=== PATIENT | female | born 1945 | race Caucasian/White ===

== ENCOUNTER 2016-08-30 20:23 | Inpatient (IN) | payer OTHER ==
[~2016-08-30] VITALS: Ht 154.9 cm; Wt 98.9 kg
[~2016-08-30 20:23] MED LIST: ALBUAER2 INH; IBUP1TAB PO; MAGIC1 PO; lidocaine ointment TOP; nystatin powder TOP
[2016-08-30 20:24] VITALS: Ht 154.9 cm; Wt 98.9 kg
[2016-08-30] MEDS ORDERED: PRED10TA PO (20:57)
[2016-08-30 21:14] LABS: HEMATOCRIT 44.3 % (37-47); MEAN CELL VOLUME 89.5 fL (80-100); MEAN CORPUSCULAR HEMOGLOBIN 31.5 pg (25-34); MEAN CORPUSCULAR HGB CONC 35.2 g/dl (32-36); MEAN PLATELET VOLUME 11.5 fL (7.4-10.4); PLATELET COUNT 142 K/uL (130-400); RED BLOOD COUNT 4.95 M/uL (4.2-5.4); WHITE BLOOD COUNT 7.37 K/uL (4.8-10.8)
[2016-08-30 21:27] LABS: PARTIAL THROMBOPLASTIN RATIO 0.8; PROTHROMBIN TIME (PATIENT) 10.9 SECONDS (9.0-12.0)
[2016-08-30] MEDS ORDERED: OPTIRAY 320 IV PRN (21:30)
[2016-08-30 21:33] LABS: ALT/SGPT 40 U/L (12-78); BLOOD UREA NITROGEN 37 mg/dl (7-18); BUN/CREATININE RATIO 22.9 (10-20); CALCIUM 9.4 mg/dl (8.5-10.1); CARBON DIOXIDE 26 mmol/L (21-32); CHLORIDE 106 mmol/L (98-107); GLUCOSE 115 mg/dl (70-99); MAGNESIUM 2.2 mg/dl (1.8-2.4); POTASSIUM 4.4 mmol/L (3.5-5.1); SODIUM 140 mmol/L (136-145)
[2016-08-30 21:36] LABS: ALKALINE PHOSPHATASE 67 U/L (45-117); AST/SGOT 34 U/L (15-37); CKMB/CK RATIO 1.8 (0-3.0)
--- NOTE | 2016-08-30 21:44 | DIAGNOSTIC IMAGING REPORT ---
CHEST ONE VIEW PORTABLE CLINICAL HISTORY: Chest pain. Lung cancer. COMPARISON STUDY: Chest radiograph March 08, [address] June 04, 2016. FINDINGS: There is no pneumothorax or pleural effusion. There is no consolidation to suggest pneumonia. Cardiomediastinal silhouette is normal. There is no evidence of pulmonary edema. The right lower lobe lesion shown on prior treatment planning CT is not well visualized on this exam, possibly due to technique. IMPRESSION: 1. No acute findings. 2. Right lower lobe lesion shown on prior treatment planning CT is not well visualized on this exam, possibly due to technique. Electronically signed by: Thomas Polanco M.D. 08/30/2016 9:43 PM Dictated Date/Time: 08/30/2016 9:36 PM
[2016-08-30 21:47] LABS: BASO % 0.1 %; BASO ABS # 0.01 K/uL (0-0.2); COMPLETE YES; EOS % 0.4 %; IG% 0.3 %; LYMPH % 8.3 %; LYMPH ABS # 0.61 K/uL (1.2-3.4); MONO % 8.4 %; NEUT % 82.5 %
[2016-08-30] MEDS ORDERED: ONDANSETRON INJ 2 MG/ML 2 ML VIAL IV STA (22:29)
[2016-08-30] MEDS ORDERED: SODIUM CHLORIDE 0.9% 1000ML 1,000 ML IV STA (22:29)
[2016-08-30] MEDS ORDERED: SODIUM CHLORIDE 0.9% 500ML 500 ML IV STA (22:29)
--- NOTE | 2016-08-30 22:29 | DIAGNOSTIC IMAGING REPORT ---
CT OF THE ABDOMEN AND PELVIS WITHOUT CONTRAST CLINICAL HISTORY: Right-sided abdominal pain. Lung cancer. COMPARISON STUDY: PET/CT April 17, [address] of the abdomen and pelvis December 25, 2005. TECHNIQUE: Axial images of the abdomen and pelvis were obtained without IV contrast. Images were reviewed in the axial, sagittal, and coronal planes. FINDINGS: Visualized portions the lower chest demonstrate a new 1.3 cm suspected pleural implant within the right lower hemithorax shown on image 77 of 441. There has been interval development of multiple hypodense hepatic masses since PET/CT of April 17, 2016. A segment 5 lesion measures 4 cm. A segment 2 lesion measures 3.1 cm. Multiple hepatic cysts are also noted. There is no pneumatosis, free air or portal venous gas. An IVC filter is in place. A right ureteral stent is in place. Marked right renal atrophy is noted. Prominence of the midpole of the right kidney is again noted. This is similar to prior exam. There is moderate right ureteral dilatation. There is no evidence for a bowel obstruction. There has been interval development of a 2.3 cm lytic lesion within the right iliac bone shown on image 53 of 89 with suspected associated pathologic fracture. There may be a small lesion measuring 1.1 cm within the proximal shaft of the right femur. Postsurgical findings within the lumbar spine are noted. IMPRESSION: 1. Interval development of bilateral lobar hepatic masses since PET/CT of April 17, 2016 consistent with metastases. 2. Interval development of several skeletal lesions, including a 2.3 cm lytic lesion within the right iliac bone with suspected associated pathologic fracture. 3. No bowel obstruction. 4. Right ureteral stent in place. Moderate right ureteral dilatation. Right renal scarring, as before. Electronically signed by: Thomas Polanco M.D. 08/30/2016 10:28 PM Dictated Date/Time: 08/30/2016 10:14 PM
[2016-08-30] MEDS: MoRPHine SULFATE 4 MG/ML 1 ML CARP\\VIAL IV PRN (23:36)
[2016-08-31] MEDS: MoRPHine SULFATE 4 MG/ML 1 ML CARP\\VIAL IV PRN (00:17)
[2016-08-31] MEDS ORDERED: TRAMADOL HCL 50 MG TAB PO PRN (01:15)
[2016-08-31] MEDS ORDERED: ACETAMINOPHEN 325 MG TAB PO PRN (01:15)
[2016-08-31] MEDS ORDERED: PROMETHAZINE HCL INJ 12.5 MG in SODIUM CHLORIDE 0.9% 50ML 50 ML IV PRN (01:15)
[2016-08-31] MEDS ORDERED: ONDANSETRON INJ 2 MG/ML 2 ML VIAL IV PRN (01:15)
[2016-08-31] MEDS ORDERED: LORAZEPAM 2 MG/ML 1 ML VIAL IV PRN (01:15)
[2016-08-31] MEDS ORDERED: SODIUM CHLORIDE 0.9% 1000ML 1,000 ML IV ONE (01:15)
[2016-08-31] MEDS ORDERED: HYDROmorphone INJ 0.5 MG/0.5 ML SYR IV PRN (01:15)
--- NOTE | 2016-08-31 01:18 | EMERGENCY ROOM VISIT NOTE ---
History Report prepared by Roel: Jose Rosario Under the Supervision of: Dr. Leo Arriaga M.D. First contact with patient: 20:40 Chief Complaint: OTHER COMPLAINT Stated Complaint: SHARP PAIN UNDER BREAST DOWN TO LOWER THIGH History of Present Illness The patient is a 71 year old female who presents to the Emergency Room with complaints of worsening pain under her right breasts and in the epigastric region of her abdomen that began on , two days prior to arrival. She rates her current pain as an 8/10 in severity, but states that it is improved by laying down. The patient states that it is worsened by deep inspiration and movement/standing. She states that today she was having a difficult time walking as her pain worsened. She notes that she did have a upper respiratory cold 2.5 weeks ago and had a cough and difficulty breathing. She had a chest x- ray on and was told her lungs were clear. She was given a prescription of Prednisone. The patient notes that she just finished radiation on August 04 for right sided lung cancer. She also has a history of DVT, Factor XIII, Kidney failure, and stents placed in her kidney. She is not on any blood thinners at this time. She denies LOC, headache, fevers, chills, diaphoresis, visual changes , neck pain, breathing difficulties, nausea, vomiting, back pain, melena, hematochezia, urinary symptoms, numbness, weakness, lymphadenopathy, rash, or other complaints. 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 A total of ten systems were reviewed and were otherwise negative. Past Medical & Surgical Medical Problems: (1) Cancer associated pain (2) DVT (deep venous thrombosis) (3) Lung cancer (4) Presence of inferior vena cava filter (5) Retained ureteral stent Family History Hypertension Social History Smoking Status: Former Smoker Marital Status: Housing Status: lives with significant other Occupation Status: retired Current/Historical Medications Scheduled Aspirin (Aspirin Ec), 81 MG PO DAILY Fluticasone Furoate-Vilanterol (Breo Ellipta 200-25 Mcg/INH), 1 PUFFS INH DAILY Folic Acid (Folvite), 1 TAB PO DAILY Gabapentin (Neurontin), 2 CAP PO HS Gabapentin (Neurontin), 400 MG PO QAM Ibuprofen-Diphenhydramine Citr (Advil Pm), 1 TAB PO HS Mesalamine (Asacol Hd), 1 TAB PO TID Metoprolol Succinate (Toprol Xl), 50 MG PO QAM Prednisone (Prednisone), 10 MG PO TAPER UD Scheduled PRN Albuterol Hfa (Ventolin Hfa), 2 PUFFS INH Q6H PRN for Shortness of Breath Ipratropium-Albuterol (Duoneb), 1 TREATMENT INH BID PRN for Shortness of Breath Ondansetron Hcl (Zofran), 4 MG PO Q8 PRN for Nausea Tramadol (Ultram), 50 MG PO BID PRN for Pain [lidocaine ointment], 1 APPLN TOP DAILY PRN for UNDECIDED [nystatin powder], 1 APPLN TOP DAILY PRN for Affected Skin Folds Allergies Coded Allergies: NO KNOWN DRUG ALLERGIES (Verified Allergy, Unknown, ., 02/13/16) Physical Exam Vital Signs Date Time Temp Pulse Resp B/P Pulse Ox O2 Delivery O2 Flow Rate FiO2 08/31/16 00:14 80 13 152/81 93 Nasal Cannula 2.0 08/30/16 23:20 85 12 153/93 93 Nasal Cannula 2.0 08/30/16 22:01 82 17 158/87 92 Room Air 08/30/16 21:12 78 08/30/16 20:45 94 Room Air 08/30/16 20:24 36.5 90 19 141/84 95 Room Air Physical Exam GENERAL: Awake, alert, well-appearing, in no distress HENT: Normocephalic, atraumatic. Oropharynx unremarkable. EYES: Normal conjunctiva. Sclera non-icteric. NECK: Supple. No nuchal rigidity. FROM. No JVD. RESPIRATORY: Clear to auscultation. CARDIAC: Regular rate, normal rhythm. Extremities warm and well perfused. Pulses equal. ABDOMEN: Soft, non-distended. RUQ and RLQ tenderness to palpation. No rebound or guarding. No masses. Right lateral lower rib tenderness to palpation. RECTAL: Deferred. MUSCULOSKELETAL: Chest examination reveals no tenderness. The back is symmetrical on inspection without obvious abnormality. There is no CVA tenderness to palpation. No joint edema. LOWER EXTREMITIES: Calves are equal size bilaterally and non-tender. No edema. No discoloration. NEURO: Normal sensorium. No sensory or motor deficits noted. SKIN: No rash or jaundice noted. Medical Decision & Procedures ER Provider Diagnostic Interpretation: X ray results as stated below per my interpretation and radiologist interpretation. Other radiology results as stated below per my review and radiologist interpretation CT OF THE ABDOMEN AND PELVIS WITHOUT CONTRAST CLINICAL HISTORY: Right-sided abdominal pain. Lung cancer. COMPARISON STUDY: PET/CT April 17, [address] of the abdomen and pelvis December 25, 2005. TECHNIQUE: Axial images of the abdomen and pelvis were obtained without IV contrast. Images were reviewed in the axial, sagittal, and coronal planes. FINDINGS: Visualized portions the lower chest demonstrate a new 1.3 cm suspected pleural implant within the right lower hemithorax shown on image 77 of 441. There has been interval development of multiple hypodense hepatic masses since PET/CT of April 17, 2016. A segment 5 lesion measures 4 cm. A segment 2 lesion measures 3.1 cm. Multiple hepatic cysts are also noted. There is no pneumatosis, free air or portal venous gas. An IVC filter is in place. A right ureteral stent is in place. Marked right renal atrophy is noted. Prominence of the midpole of the right kidney is again noted. This is similar to prior exam. There is moderate right ureteral dilatation. There is no evidence for a bowel obstruction. There has been interval development of a 2.3 cm lytic lesion within the right iliac bone shown on image 53 of 89 with suspected associated pathologic fracture. There may be a small lesion measuring 1.1 cm within the proximal shaft of the right femur. Postsurgical findings within the lumbar spine are noted. IMPRESSION: 1. Interval development of bilateral lobar hepatic masses since PET/CT of April 17, 2016 consistent with metastases. 2. Interval development of several skeletal lesions, including a 2.3 cm lytic lesion within the right iliac bone with suspected associated pathologic fracture. 3. No bowel obstruction. 4. Right ureteral stent in place. Moderate right ureteral dilatation. Right renal scarring, as before. Electronically signed by: Thomas Polanco M.D. 08/30/2016 10:28 PM Dictated Date/Time: 08/30/2016 10:14 PM CHEST ONE VIEW PORTABLE CLINICAL HISTORY: Chest pain. Lung cancer. COMPARISON STUDY: Chest radiograph March 08, [address] June 04, 2016. FINDINGS: There is no pneumothorax or pleural effusion. There is no consolidation to suggest pneumonia. Cardiomediastinal silhouette is normal. There is no evidence of pulmonary edema. The right lower lobe lesion shown on prior treatment planning CT is not well visualized on this exam, possibly due to technique. IMPRESSION: 1. No acute findings. 2. Right lower lobe lesion shown on prior treatment planning CT is not well visualized on this exam, possibly due to technique. Electronically signed by: Thomas Polanco M.D. 08/30/2016 9:43 PM Dictated Date/Time: 08/30/2016 9:36 PM US VENOUS BILATERAL LOWER EXTREMITIES: Right Lower Extremity: No evidence of DVT in the right thigh or popliteal veins. Limited visualization of the calf veins. Left Lower Extremity: Linear echogenic focus in the mid left femoral vein, question chronic thrombus versus valve. Mid left femoral vein is compressible. Patient unable to tolerate compression of the distal left femoral vein. [place]- flow is present. Limited Visualization of the left calf veins. Radiologist: Kristian Arteaga MD Study Ready at 9510 Laboratory Results 08/30/16 21:00 Red Blood Count 4.95, Mean Corpuscular Volume 89.5, Mean Corpuscular Hemoglobin 31.5, Mean Corpuscular Hemoglobin Concent 35.2, Mean Platelet Volume 11.5, Neutrophils (%) (Auto) 82.5, Lymphocytes (%) (Auto) 8.3, Monocytes (%) (Auto) 8.4, Eosinophils (%) (Auto) 0.4, Basophils (%) (Auto) 0.1, Neutrophils # (Auto) 6.08, Lymphocytes # (Auto) 0.61, Monocytes # (Auto) 0.62, Eosinophils # (Auto) 0.03, Basophils # (Auto) 0.01 08/30/16 21:00 Test 08/30/16 21:00 White Blood Count 7.37 K/uL (4.8-10.8) Red Blood Count 4.95 M/uL (4.2-5.4) Hemoglobin 15.6 g/dL (12.0-16.0) Hematocrit 44.3 % (37-47) Mean Corpuscular Volume 89.5 fL (80-100) Mean Corpuscular Hemoglobin 31.5 pg (25-34) Mean Corpuscular Hemoglobin Concent 35.2 g/dl (32-36) Platelet Count 142 K/uL (130-400) Mean Platelet Volume 11.5 fL (7.4-10.4) Neutrophils (%) (Auto) 82.5 % Lymphocytes (%) (Auto) 8.3 % Monocytes (%) (Auto) 8.4 % Eosinophils (%) (Auto) 0.4 % Basophils (%) (Auto) 0.1 % Neutrophils # (Auto) 6.08 K/uL (1.4-6.5) Lymphocytes # (Auto) 0.61 K/uL (1.2-3.4) Monocytes # (Auto) 0.62 K/uL (0.11-0.59) Eosinophils # (Auto) 0.03 K/uL (0-0.5) Basophils # (Auto) 0.01 K/uL (0-0.2) RDW Standard Deviation 48.7 fL (36.4-46.3) RDW Coefficient of Variation 15.0 % (11.5-14.5) Immature Granulocyte % (Auto) 0.3 % Immature Granulocyte # (Auto) 0.02 K/uL (0.00-0.02) Prothrombin Time 10.9 SECONDS (9.0-12.0) Prothromb Time International Ratio 1.0 (0.9-1.1) Activated Partial Thromboplast Time 21.5 SECONDS (21.0-31.0) Partial Thromboplastin Ratio 0.8 Anion Gap 8.0 mmol/L (3-11) Estimated GFR () 36.7 Estimated GFR (Non- 31.6 BUN/Creatinine Ratio 22.9 (10-20) Calcium Level 9.4 mg/dl (8.5-10.1) Magnesium Level 2.2 mg/dl (1.8-2.4) Total Bilirubin 0.4 mg/dl (0.2-1) Direct Bilirubin 0.1 mg/dl (0-0.2) Aspartate Amino Transf (AST/SGOT) 34 U/L (15-37) Alanine Aminotransferase (ALT/SGPT) 40 U/L (12-78) Alkaline Phosphatase 67 U/L (45-117) Total Creatine Kinase 83 U/L (26-192) Creatine Kinase MB 1.5 ng/ml (0.5-3.6) Creatine Kinase MB Ratio 1.8 (0-3.0) Troponin I < 0.015 ng/ml (0-0.045) Pro-B-Type Natriuretic Peptide 656 pg/ml (0-900) Total Protein 7.9 gm/dl (6.4-8.2) Albumin 4.1 gm/dl (3.4-5.0) Lipase 323 U/L (73-393) Laboratory results reviewed by me Medications Administered Medications (Trade) Dose Ordered Sig/Nany Route Start Time Stop Time Status Last Admin Dose Admin Sodium Chloride 1,000 ml @ 125 mls/hr Q8H STAT IV 08/30/16 22:29 08/31/16 06:28 08/31/16 00:17 125 MLS/HR Sodium Chloride (Nss 500ml) 500 ml @ 999 mls/hr Q31M STAT IV 08/30/16 22:29 08/30/16 22:59 DC 08/30/16 23:35 999 MLS/HR Ondansetron HCl (Zofran Inj) 4 mg NOW STAT IV 08/30/16 22:29 08/30/16 22:30 DC 08/30/16 23:35 4 MG Morphine Sulfate (MoRPHine SULFATE INJ) 4 mg Q15M PRN IV 08/30/16 22:30 09/13/16 22:29 08/31/16 00:17 4 MG ECG Indication: abdominal pain, chest pain Rate (beats per minute): 76 Rhythm: normal sinus Findings: Q waves (Septal), no acute ischemic change, no ectopy ED Course 2058: The patient was evaluated in room B10. A complete history and physical exam was performed. 9: Ordered Zofran 4 mg IV, Sodium Chloride 500 mL @ 999 mL/hr IV, Sodium Chloride 1000 mL @ 125 mL hr IV. 0: I discussed the case with Dr. Polanco at this time. Her kidney enzymes are elevated. We will hold the PE study, but will continue with the abdomen scan and US legs. 2230: Ordered Morphine Sulfate 4 mg IV. 2334: I reevaluated the patient at this time, she is still having pain along her right side. 2342: I placed a page for Dr. Everardo Herrera at this time 2349: I discussed the case with Dr. Everardo Herrera at this time , he will evaluate the patient for further treatment. Medical Decision Triage Nursing notes reviewed. The patient's presentation and history were concerning for right-sided chest and flank pain with a history of cancer. Etiologies such as metastatic disease, cardiac ischemia, aortic dissection, pulmonary embolism, pneumonia, pneumothorax, musculoskeletal, infections, gastrointestinal, as well as others were entertained. The patient was evaluated. Initially she declined analgesia. No ischemic findings were noted. Her CBC was unremarkable. Chemistry panel reveals a mild dehydration with elevated creatinine 1.6. LFTs were unremarkable. BNP was negative. Lipase was negative. Given her history of DVT the patient was sent for imaging. She had no acute findings on ultrasound. She was unable to have a CT with dye for PE study. Chest x-ray did not show anything remarkable. Her abdomen and pelvis CT did reveal a pathologic fracture in the right iliac area and she has multiple metastatic liver lesions. The patient did require IV pain medication. The patient further evaluation and management will be necessary. Consultation was made with internal medicine. The patient was evaluated in the Emergency Room for further treatment. The chart was completed utilizing [employer] Speech voice recognition software. Grammatical errors, random word insertions, pronoun errors, and incomplete sentences are an occasional consequence of this system due to software limitations, ambient noise, and hardware issues. Any formal questions or concerns about the content, text, or information contained within the body of this dictation should be directly addressed to the physician for clarification. Consults Time Called: [phone] Consulting Physician: Dr. Everardo Herrera Returned Call: [phone] I discussed the case with Dr. Everardo Herrera at this time, he will evaluate the patient for further treatment. Impression Primary Impression: Right sided abdominal pain Additional Impressions: Hepatic metastasis Pathologic fracture of iliac bone Scribe Attestation The scribe's documentation has been prepared under my direction and personally reviewed by me in its entirety. I confirm that the note above accurately reflects all work, treatment, procedures, and medical decision making performed by me. Departure Information Dispostion Being Evaluated By Hospitalist Referrals Jess Abarca MD (PCP) Patient Instructions My [facility] Problem Qualifiers
[2016-08-31] MEDS ORDERED: LORAZEPAM INJ 0.5 MG in SYRINGE 0.75 ML IV PRN (03:00)
--- NOTE | 2016-08-31 04:09 | HISTORY & PHYSICAL EXAMINATION ---
DATE OF ADMISSION: 08/31/2016 PRIMARY CARE DOCTOR: Dr. Abarca CHIEF COMPLAINT: Right-sided abdominal pain and right back pain. HISTORY OF PRESENT ILLNESS: Medical history is significant for small-cell lung cancer status post radiation , chronic respiratory failure secondary to COPD on home O2, past tobacco abuse, HTN, Hx recurrent PE sp IVC filter placement off anticoagulation because of bleeding risk, RA as per records, history of Crohn's disease as per, hx ureteral stricture/R hydronephrosis sp stent placement. Recent confinement at [facility] in March 2013 for right knee surgery. 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 Patient refused chemotherapy. Px completed radiotherapy last month. In the last few days, patient noted worsening achy right upper quadrant pain and right back pain worse with ambulation. No fever, no chills, no unusual shortness of breath. Intractable pain at the Emergency Room. MEDICAL HISTORY: As above. Recent bronchitis sx improved w/ outpx Zpack, steroid taper. Periodic stent replacement at [facility] for right ureter stricture with hydronephrosis. Patient is scheduled for stent replacement this upcoming September [address] Frank[place] Val[place] [facility] SURGERIES: She has had knee surgery, urologic procedures, hysterectomy, back surgery and hernia repair. HOME MEDICATIONS: Include; albuterol, ipratropium Zofran, tramadol, ibuprofen, aspirin, fluticasone, folic acid, gabapentin, mesalamine, metoprolol and prednisone. FAMILY HISTORY: Breast cancer. PERSONAL AND SOCIAL HISTORY: Past tobacco abuse. No chronic intake of alcoholic beverages. Retired [employer]. REVIEW OF SYSTEMS: As per HPI, all other ROS negative. PHYSICAL EXAMINATION: VITAL SIGNS: Blood pressure was noted to be 150/80, pulse rate 85, RR 12, temperature 36.5 and sats 95 on room air. GENERAL: Noted to be slightly uncomfortable, in no respiratory distress. SKIN: Normal color. HEENT: [place] palpebral conjunctivae. Dry mucosa. nasal cannula NECK: Short neck. LUNGS: Decreased breath sounds. HEART: Regular rate and rhythm. ABDOMEN: Tenderness in the right upper quadrant BACK : tenderness on the right flank. EXTREMITIES: Bilateral lower extremity edema, no tenderness . NEUROLOGIC: No gross focality. LABORATORIES: Hemoglobin was noted to be 15.6, hematocrit 44 white cell count 10 platelets 142. Sodium noted to be 140, potassium 4.4, chloride 106, CO2 26, BUN 37, creatinine 1.6, glucose 115. LFTs, Lipase normal. CT abdomen and pelvis; initial read showed interval development by hepatic tumors consistent with metastases, interval development, severe skeletal lesions, right iliac bone with suspected pathologic fracture. No bowel obstruction. Right ureter stent in place with right hydronephrosis, right renal scarring as above. ASSESSMENT: 1. RUQ/R flank pain secondary to hepatic and bony metastatic disease progression of small cell lung cancer status post radiotherapy. Patient refused chemotherapy. 2. Hypertension, slightly elevated 3. History of recurrent pulmonary embolism sp IVC filter placement. off anticoagulation because of bleeding risk 4. Acute renal failure 5. history of ureteral stricture sp status post periodic stent placement. px scheduled for routine stent placement by [facility] [place] next week 6. chronic respiratory failure secondary to COPD recent bronchitis episode improved w/ outpx Zpack/ongoing steroid taper 7. RA as per records 8. IBD, stable dse 9. past tobacco abuse. PLAN: Observation [facility] analgesia Radiation Oncology consult RE progression of SCLC metastatic disease (Px known to Dr. Gonzalez.) Baseline urinalysis. monitor creatinine response to IV fluids. DVT prophylaxis, Heparin subQ Full code MTDD
[2016-08-31] MEDS ORDERED: IV FLUIDS COMPLETED PRN (04:30)
[2016-08-31 05:52] LABS: BASO % 0.5 %; BASO ABS # 0.03 K/uL (0-0.2); COMPLETE YES; EOS % 1.5 %; HEMATOCRIT 40.8 % (37-47); IG% 0.2 %; LYMPH % 14.8 %; LYMPH ABS # 0.87 K/uL (1.2-3.4); MEAN CELL VOLUME 90.7 fL (80-100); MEAN CORPUSCULAR HEMOGLOBIN 30.7 pg (25-34); MEAN CORPUSCULAR HGB CONC 33.8 g/dl (32-36); MEAN PLATELET VOLUME 11.5 fL (7.4-10.4); MONO % 12.2 %; NEUT % 70.8 %; PLATELET COUNT 115 K/uL (130-400); WHITE BLOOD COUNT 5.89 K/uL (4.8-10.8)
[2016-08-31] MEDS: HEPARIN SOD 5000 UNIT/0.5 ML CARP SQ SCH ×3 (06:11→19:58)
[2016-08-31 06:20] LABS: BLOOD UREA NITROGEN 34 mg/dl (7-18); BUN/CREATININE RATIO 26.4 (10-20); CALCIUM 8.5 mg/dl (8.5-10.1); CARBON DIOXIDE 28 mmol/L (21-32); CHLORIDE 109 mmol/L (98-107); GLUCOSE 89 mg/dl (70-99); SODIUM 142 mmol/L (136-145)
--- NOTE | 2016-08-31 06:25 | DIAGNOSTIC IMAGING REPORT ---
ULTRASOUND VENOUS DOPPLER LWR EXT BILA CLINICAL HISTORY: Leg pain COMPARISON STUDY: No previous studies for comparison. FINDINGS: Study was limited from a technical standpoint. On the right, no intraluminal thrombus was visualized in the common femoral veins through the popliteal veins. There is limited visualization of the calf veins. The peroneal veins were not visualized. No definite calf thrombus was however visualized. On the left, no thrombus was visualized within the common femoral vein. The patient was unable to tolerate compression within the distal superficial femoral vein. There is a linear fibrin stranding within the superficial femoral vein. No acute thrombus was visualized. Evaluation the left calf veins was limited but no thrombus was identified. IMPRESSION: 1. Technically limited study 2. No evidence of acute lower extremity DVT 3. Minor chronic changes within the left superficial femoral vein. Electronically signed by: Hieu Hernandez M.D. 08/31/2016 6:24 AM Dictated Date/Time: 08/31/2016 6:22 AM
[2016-08-31 07:22] VITALS: BP 130/73; PULSE 81; TEMP 36.3; O2SAT 98
[2016-08-31] MEDS: METOPROLOL SUCC 50MG EXT REL TAB PO SCH (07:55)
[2016-08-31] MEDS: ASPIRIN 81 MG ECTAB PO SCH (07:55)
[2016-08-31] MEDS: GABAPENTIN 100 MG CAP PO SCH (07:56)
[2016-08-31] MEDS: OXYCODONE/ACETAMINOPHEN 5-325 TAB PO PRN ×2 (08:00→19:52)
[2016-08-31 11:25] VITALS: BP 101/70; PULSE 81; TEMP 36.3; O2SAT 94
[2016-08-31 13:31] LABS: URINE APPEARANCE TURBID (CLEAR); URINE BILIRUBIN NEG (NEG); URINE COLOR YELLOW; URINE EPITHELIAL CELL AUTO >30 /lpf (0-5); URINE NITRITE POS (NEG); URINE SPECIFIC GRAVITY 1.024 (1.000-1.030); UROBILINOGEN NEG (NEG); ZZUR CULT IF INDIC CLEAN CATCH YES
[2016-08-31 13:37] LABS: MANUAL MICROSCOPIC REQUIRED? NO; REVIEW REQ? YES
[2016-08-31 14:47] VITALS: BP 109/72; PULSE 81; TEMP 36.4; O2SAT 92
[2016-08-31] MEDS: AMPICILLIN/SULBACTAM SOD INJ 3,000 MG in SODIUM CHLORIDE 0.9% 100ML 100 ML IV SCH ×2 (15:11→19:52)
--- NOTE | 2016-08-31 15:17 | Progress Note ---
Medicine Progress Note Date & Time of Visit: Aug 31, 2016 at 14:17. Subjective Pt was seen and examined Lying in bed with no distress with family at bedside Pt said that she is still having pain in the RUQ abdomen She said that the pain med helps she also has some back pain, pain worst with coughing she is on prednisone taper for her bronchitis she said that she has an appointment with her urology on this Tues to change the stent she denies any chest pain, fever, palpitation, dizziness and SOB Objective Last 8 Hrs Date Time Temp Pulse Resp B/P Pulse Ox O2 Delivery O2 Flow Rate FiO2 08/31/16 11:25 36.3 81 18 101/70 94 Room Air 08/31/16 08:00 Nasal Cannula 2.0 08/31/16 07:22 36.3 81 18 130/73 98 Nasal Cannula 2.0 Physical Exam: General- No acute distress Head- atraumatic Eyes- PERRL, EOMI, anicteric ENT- oropharynx clear Neck- supple, no JVD Lungs- clear to auscultation, no wheezing Heart- regular rhythm Abdomen- normal bowel sounds, soft, +RUQ tender Extremities- no calf tenderness Neuro- alert, oriented x 3; PERRL, EOMI; no facial palsy Skin- warm & dry Laboratory Results: Last 24 Hours Test 08/30/16 21:00 08/31/16 05:06 08/31/16 13:05 White Blood Count 7.37 K/uL 5.89 K/uL Red Blood Count 4.95 M/uL 4.50 M/uL Hemoglobin 15.6 g/dL 13.8 g/dL Hematocrit 44.3 % 40.8 % Mean Corpuscular Volume 89.5 fL 90.7 fL Mean Corpuscular Hemoglobin 31.5 pg 30.7 pg Mean Corpuscular Hemoglobin Concent 35.2 g/dl 33.8 g/dl Platelet Count 142 K/uL 115 K/uL Mean Platelet Volume 11.5 fL 11.5 fL Neutrophils (%) (Auto) 82.5 % 70.8 % Lymphocytes (%) (Auto) 8.3 % 14.8 % Monocytes (%) (Auto) 8.4 % 12.2 % Eosinophils (%) (Auto) 0.4 % 1.5 % Basophils (%) (Auto) 0.1 % 0.5 % Neutrophils # (Auto) 6.08 K/uL 4.17 K/uL Lymphocytes # (Auto) 0.61 K/uL 0.87 K/uL Monocytes # (Auto) 0.62 K/uL 0.72 K/uL Eosinophils # (Auto) 0.03 K/uL 0.09 K/uL Basophils # (Auto) 0.01 K/uL 0.03 K/uL RDW Standard Deviation 48.7 fL 50.1 fL RDW Coefficient of Variation 15.0 % 15.1 % Immature Granulocyte % (Auto) 0.3 % 0.2 % Immature Granulocyte # (Auto) 0.02 K/uL 0.01 K/uL Prothrombin Time 10.9 SECONDS Prothromb Time International Ratio 1.0 Activated Partial Thromboplast Time 21.5 SECONDS Partial Thromboplastin Ratio 0.8 Sodium Level 140 mmol/L 142 mmol/L Potassium Level 4.4 mmol/L 4.0 mmol/L Chloride Level 106 mmol/L 109 mmol/L Carbon Dioxide Level 26 mmol/L 28 mmol/L Anion Gap 8.0 mmol/L 5.0 mmol/L Blood Urea Nitrogen 37 mg/dl 34 mg/dl Creatinine 1.60 mg/dl 1.30 mg/dl Estimated GFR () 36.7 47.1 Estimated GFR (Non- 31.6 40.7 BUN/Creatinine Ratio 22.9 26.4 Random Glucose 115 mg/dl 89 mg/dl Calcium Level 9.4 mg/dl 8.5 mg/dl Magnesium Level 2.2 mg/dl Total Bilirubin 0.4 mg/dl Direct Bilirubin 0.1 mg/dl Aspartate Amino Transf (AST/SGOT) 34 U/L Alanine Aminotransferase (ALT/SGPT) 40 U/L Alkaline Phosphatase 67 U/L Total Creatine Kinase 83 U/L Creatine Kinase MB 1.5 ng/ml Creatine Kinase MB Ratio 1.8 Troponin I < 0.015 ng/ml Pro-B-Type Natriuretic Peptide 656 pg/ml Total Protein 7.9 gm/dl Albumin 4.1 gm/dl Lipase 323 U/L Urine Color YELLOW Urine Appearance TURBID Urine pH 6.0 Urine Specific [place] 1.024 Urine Protein 2+ Urine Glucose (UA) NEG Urine Ketones NEG Urine Occult Blood 3+ Urine Nitrite POS Urine Bilirubin NEG Urine Urobilinogen NEG Urine Leukocyte Esterase LARGE Urine WBC (Auto) >30 /hpf Urine RBC (Auto) >30 /hpf Urine Hyaline Casts (Auto) /lpf Urine Epithelial Cells (Auto) >30 /lpf Urine Bacteria (Auto) 2+ Urine Pathogenic Casts /lpf Date/Time Source Procedure Growth Status 08/31/16 13:05 Urine , Clean Catch Urine Culture Pending Received Assessment & Plan RUQ/ Back pain Possible secondary to hepatic and bony metastatic disease due to small cell lung cancer status post radiotherapy. Refused chemotherapy in the past CT abd/pelvis showed interval development of bilateral lobar hepatic masses since PET/CT of April 17, 2016 consistent with metastases. Interval development of several skeletal lesions, including a 2.3 cm lytic lesion within the right iliac bone with suspected associated pathologic fracture. Radiation oncology consulted Consider to repeat PET scan Continue pain management UTI UA is positive for nitrite and leukocytes Afebrile, no WBC, urine appears very dirty hx of recurrent UTI that usually resistant to PO abx Last urine cx back on 07/09/16 was sensitive to ampicillin and PCN CT abdomen showed right ureteral stent in place. Moderate right ureteral dilatation. will start on unasyn waiting for urine cx Hypertension continue monitor BP stable History of recurrent PE S/P IVC filter placement. Not on anticoagulant because of bleeding risks Venous Doppler of LE negative for DVT Acute renal failure Possible related to dehydration Received IV fluid Creatine improved to 1.3 Continue monitor BMP Hx of Ureteral Stricture S/P periodic stent placement. Schedule for appointment this Thursday with urology at [facility] for stent replacement Will call urologist tomorrow to cancel appt since the UTI will need to treat before the stent can replace Bronchitis Started on prednisone as an outpatient will continue steroid taper dose saturates well on RA Rheumatoid Arthritis stable DVT Px on heparin subq CODE STATUS FULL CODE Current Inpatient Medications: Current Inpatient Medications Medications (Trade) Dose Ordered Sig/Nany Route Start Time Stop Time Status Last Admin Dose Admin Ioversol (Optiray 320) 100 ml UD PRN IV 08/30/16 21:30 09/03/16 21:29 Acetaminophen (Tylenol Tab) 650 mg Q4H PRN PO 08/31/16 01:15 09/30/16 01:14 Ondansetron HCl (Zofran Inj) 4 mg Q6H PRN IV 08/31/16 01:15 09/30/16 01:14 Lorazepam (Ativan Inj) 0.5 mg Q4H PRN IV 08/31/16 01:15 09/30/16 01:14 Hydromorphone HCl (Dilaudid Inj) 0.5 mg Q3H PRN IV 08/31/16 01:15 09/14/16 01:14 08/31/16 04:57 0.5 MG Tramadol HCl not relieved ... Q6H PRN PO 08/31/16 01:15 09/30/16 01:14 Promethazine HCl/ Sodium Chloride (Phenergan Inj/ Nss 50ml) 50.5 ml @ 204 mls/hr Q6H PRN IV 08/31/16 01:15 09/30/16 01:14 Aspirin (Ecotrin Tab) 81 mg DAILY PO 08/31/16 08:00 09/30/16 08:59 08/31/16 07:55 81 MG Folic Acid (Folvite Tab) 1 mg DAILY PO 08/31/16 08:00 09/30/16 08:59 08/31/16 07:55 1 MG Gabapentin (Neurontin Cap) 400 mg HS PO 08/31/16 21:00 09/30/16 20:59 Gabapentin (Neurontin Cap) 200 mg QAM PO 08/31/16 08:00 09/30/16 08:59 08/31/16 07:56 200 MG Metoprolol Succinate (Toprol Xl Tab) 50 mg QAM PO 08/31/16 08:00 09/30/16 08:59 08/31/16 07:55 50 MG Miscellaneous Information (Order Awaiting Action) 1 ea QS N/A 08/31/16 08:00 09/30/16 07:59 Miscellaneous Information (Order Awaiting Action) 1 ea QS N/A 08/31/16 08:00 09/30/16 07:59 Oxycodone/ Acetaminophen (Percocet 5-325mg Tab) pain not relieved by ult... Q4H PRN PO 08/31/16 01:15 09/14/16 01:14 08/31/16 08:00 2 TAB Heparin Sodium (Porcine) 5000 unit 5,000 unit Q8H SQ 08/31/16 06:00 09/30/16 05:59 08/31/16 06:11 5,000 UNIT Lorazepam/Syringe (Ativan Inj/ Syringe) 1 ml @ 1 mls/min Q4H PRN IV 08/31/16 03:00 09/30/16 02:59 Miscellaneous (Iv Fluids Completed) 1 ea PRN PRN N/A 08/31/16 04:30 08/31/17 04:29 Prednisone (PredniSONE TAB) 20 mg Taper DAILY PO 09/01/16 08:00 09/06/16 07:59
[2016-08-31 16:00] VITALS: O2SAT 92
[2016-08-31 19:21] VITALS: BP 123/77; PULSE 89; TEMP 36.5; O2SAT 91
[2016-08-31] MEDS: GABAPENTIN 400 MG CAP PO SCH (19:51)
[2016-08-31 23:04] VITALS: BP 115/75; PULSE 69; TEMP 36.5; O2SAT 97
[2016-08-31] MEDS ORDERED: NURSING VERBAL MED ORDER ONE (23:30)
[2016-09-01] VITALS (7 sets, daily range): BP systolic 104–134; BP diastolic 70–88; PULSE 63–84; TEMP 36.3–36.8; O2SAT 91–100
[2016-09-01] MEDS: AMPICILLIN/SULBACTAM SOD INJ 3,000 MG in SODIUM CHLORIDE 0.9% 100ML 100 ML IV SCH ×4 (04:17→21:59)
[2016-09-01] MEDS: HEPARIN SOD 5000 UNIT/0.5 ML CARP SQ SCH ×3 (06:03→22:01)
[2016-09-01 06:28] LABS: HEMATOCRIT 37.2 % (37-47); MEAN CELL VOLUME 88.8 fL (80-100); MEAN CORPUSCULAR HEMOGLOBIN 29.8 pg (25-34); MEAN CORPUSCULAR HGB CONC 33.6 g/dl (32-36); MEAN PLATELET VOLUME 11.4 fL (7.4-10.4); PLATELET COUNT 102 K/uL (130-400); RED BLOOD COUNT 4.19 M/uL (4.2-5.4); WHITE BLOOD COUNT 3.51 K/uL (4.8-10.8)
[2016-09-01 07:10] LABS: BUN/CREATININE RATIO 25.6 (10-20); CALCIUM 8.1 mg/dl (8.5-10.1); POTASSIUM 4.1 mmol/L (3.5-5.1)
[2016-09-01] MEDS: OXYCODONE/ACETAMINOPHEN 5-325 TAB PO PRN ×2 (08:15→14:19)
[2016-09-01] MEDS: GABAPENTIN 100 MG CAP PO SCH (08:16)
[2016-09-01] MEDS: METOPROLOL SUCC 50MG EXT REL TAB PO SCH (10:39)
[2016-09-01] MEDS: ASPIRIN 81 MG ECTAB PO SCH (10:39)
--- NOTE | 2016-09-01 14:01 | Progress Note ---
Medicine Progress Note Date & Time of Visit: Sep 01, 2016 at 13:49. Subjective Pt was seen and examined Sitting in bed with daughter at bedside Pt said that her RUQ tenderness improved she said the pain med helps denies any chest pain, palpitation, dizziness and sob Objective Last 8 Hrs Date Time Temp Pulse Resp B/P Pulse Ox O2 Delivery O2 Flow Rate FiO2 09/01/16 11:28 36.3 75 18 111/71 92 09/01/16 08:30 100 Nasal Cannula 2.0 09/01/16 07:33 36.8 73 18 104/88 100 2.0 Physical Exam: General- No acute distress Head- atraumatic Eyes- PERRL, EOMI, anicteric ENT- oropharynx clear Neck- supple, no JVD Lungs- clear to auscultation, no wheezing Heart- regular rhythm Abdomen- normal bowel sounds, soft, +RUQ tender Extremities- no calf tenderness Neuro- alert, oriented x 3; PERRL, EOMI; no facial palsy Skin- warm & dry Laboratory Results: Last 24 Hours Test 09/01/16 06:00 White Blood Count 3.51 K/uL Red Blood Count 4.19 M/uL Hemoglobin 12.5 g/dL Hematocrit 37.2 % Mean Corpuscular Volume 88.8 fL Mean Corpuscular Hemoglobin 29.8 pg Mean Corpuscular Hemoglobin Concent 33.6 g/dl RDW Standard Deviation 47.6 fL RDW Coefficient of Variation 14.8 % Platelet Count 102 K/uL Mean Platelet Volume 11.4 fL Sodium Level 144 mmol/L Potassium Level 4.1 mmol/L Chloride Level 109 mmol/L Carbon Dioxide Level 27 mmol/L Anion Gap 8.0 mmol/L Blood Urea Nitrogen 26 mg/dl Creatinine 1.00 mg/dl Est Creatinine Clear Calc Drug Dose 54.8 ml/min Estimated GFR () 64.7 Estimated GFR (Non- 55.8 BUN/Creatinine Ratio 25.6 Random Glucose 84 mg/dl Calcium Level 8.1 mg/dl Assessment & Plan RUQ/ Back pain Possible secondary to hepatic and bony metastatic disease due to small cell lung cancer status post radiotherapy. Refused chemotherapy in the past CT abd/pelvis showed interval development of bilateral lobar hepatic masses since PET/CT of April 17, 2016 consistent with metastases. Interval development of several skeletal lesions, including a 2.3 cm lytic lesion within the right iliac bone with suspected associated pathologic fracture. Radiation oncology consulted appreciated input Case discussed with Dr. Sanabria (radiation oncologist), pt will get radiation today Will get an MRI of the head to r/o ant met to the brain Consider to repeat PET scan as an outpatient Continue pain management UTI UA is positive for nitrite and leukocytes Afebrile, no WBC, urine appears very dirty hx of recurrent UTI that usually resistant to PO abx Last urine cx back on 07/09/16 was sensitive to ampicillin and PCN Pt has multiple abx drug resistance in the past, that usually requires IV abx to treat her UTI CT abdomen showed right ureteral stent in place. Moderate right ureteral dilatation. Continue unasyn Urine cx showed more than 3 organisms, contaminated will collect another clean cath urine cx ( Pt has been on abx, that might alter the result) Hypertension continue monitor BP stable Small Cell Lung Carcinoma with Mets Possible Mets to the liver and bone S/P radiation about 1 month ago Refused chemo in the past Case discussed with Dr. Sanabria Radiation oncology will get radiation today Will get an MRI of the head to r/o ant met to the brain Consider to repeat PET scan as an outpatient consult Hem/onc (Pt known to Dr. Peterson) History of recurrent PE S/P IVC filter placement. Not on anticoagulant because of bleeding risks Venous Doppler of LE negative for DVT Acute renal failure Possible related to dehydration Received IV fluid Creatine improved to 1.1 Continue monitor BMP Resolved Hx of Ureteral Stricture S/P periodic stent placement. Schedule for appointment this Thursday with urology at [facility] for stent replacement Will call urologist tomorrow to cancel appt since the UTI will need to treat before the stent can replace Call made to Dr. Valdez (urologist) this morning, waiting for call back Bronchitis Started on prednisone as an outpatient will continue steroid taper dose saturates well on RA Rheumatoid Arthritis stable DVT Px on heparin subq CODE STATUS FULL CODE Consultants: Hem/Onc Radiology Oncology Current Inpatient Medications: Current Inpatient Medications Medications (Trade) Dose Ordered Sig/Nany Route Start Time Stop Time Status Last Admin Dose Admin Ioversol (Optiray 320) 100 ml UD PRN IV 08/30/16 21:30 09/03/16 21:29 Acetaminophen (Tylenol Tab) 650 mg Q4H PRN PO 08/31/16 01:15 09/30/16 01:14 Ondansetron HCl (Zofran Inj) 4 mg Q6H PRN IV 08/31/16 01:15 09/30/16 01:14 Lorazepam (Ativan Inj) 0.5 mg Q4H PRN IV 08/31/16 01:15 09/30/16 01:14 Hydromorphone HCl (Dilaudid Inj) 0.5 mg Q3H PRN IV 08/31/16 01:15 09/14/16 01:14 08/31/16 04:57 0.5 MG Tramadol HCl not relieved ... Q6H PRN PO 08/31/16 01:15 09/30/16 01:14 Promethazine HCl/ Sodium Chloride (Phenergan Inj/ Nss 50ml) 50.5 ml @ 204 mls/hr Q6H PRN IV 08/31/16 01:15 09/30/16 01:14 Aspirin (Ecotrin Tab) 81 mg DAILY PO 08/31/16 08:00 09/30/16 08:59 09/01/16 10:39 81 MG Folic Acid (Folvite Tab) 1 mg DAILY PO 08/31/16 08:00 09/30/16 08:59 09/01/16 08:16 1 MG Gabapentin (Neurontin Cap) 400 mg HS PO 08/31/16 21:00 09/30/16 20:59 08/31/16 19:51 400 MG Gabapentin (Neurontin Cap) 200 mg QAM PO 08/31/16 08:00 09/30/16 08:59 09/01/16 08:16 200 MG Metoprolol Succinate (Toprol Xl Tab) 50 mg QAM PO 08/31/16 08:00 09/30/16 08:59 09/01/16 10:39 50 MG Miscellaneous Information (Order Awaiting Action) 1 ea QS N/A 08/31/16 08:00 09/30/16 07:59 Miscellaneous Information (Order Awaiting Action) 1 ea QS N/A 08/31/16 08:00 09/30/16 07:59 Oxycodone/ Acetaminophen (Percocet 5-325mg Tab) pain not relieved by ult... Q4H PRN PO 08/31/16 01:15 09/14/16 01:14 09/01/16 08:15 1 TAB Heparin Sodium (Porcine) 5000 unit 5,000 unit Q8H SQ 08/31/16 06:00 09/30/16 05:59 09/01/16 06:03 5,000 UNIT Lorazepam/Syringe (Ativan Inj/ Syringe) 1 ml @ 1 mls/min Q4H PRN IV 08/31/16 03:00 09/30/16 02:59 Miscellaneous (Iv Fluids Completed) 1 ea PRN PRN N/A 08/31/16 04:30 08/31/17 04:29 Prednisone 20 mg 20 mg Taper DAILY PO 09/01/16 08:00 09/06/16 07:59 09/01/16 08:17 20 MG Ampicillin Sodium/ Sulbactam Sodium/ Sodium Chloride (Unasyn Inj/Nss 100ml) 108 ml @ 200 mls/hr Q6@0400,1000,1600,2200 IV 08/31/16 15:00 09/05/16 14:59 09/01/16 10:40 200 MLS/HR Diphenhydramine HCl (Benadryl Cap) 25 mg HSZ PRN PO 08/31/16 23:45 09/30/16 23:44 08/31/16 23:39 25 MG
--- NOTE | 2016-09-01 14:19 | Radiation Oncology Progress Nt ---
Radiation Oncology Progress Nt Date of Service Date of Service: Sep 01, 2016. Subjective Pt evaluation today including: conversation w/ patient, conversation w/ family (1) Lung cancer Location: right lower lobe Histology Subtype: small cell Onset Date: 05/16/2016 Stage: ll (A) Permanent Comment: Pneumonia July 2015 admission and diagnosis of a DVT CT of the chest revealed right lower lobe nodule, surveillance for 6 months Recheck evaluation showed enlargement of the nodule Status post EBUS and biopsies 05/16/2016 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, Limited Stage Chronic renal disease Nonsurgical and chemotherapy candidate Status post completion of definitive radiation therapy 08/04/2016 received 6600 cGy Ms. Monte is a 71-year-old female with a history of limited stage small cell lung carcinoma who recently completed a course of radiation therapy which completed in July 2016. More recently, the patient was having significant right upper quadrant and right flank pain and presented to the emergency room. She did have the following studies completed and has been admitted to the hospital. CT OF THE ABDOMEN AND PELVIS WITHOUT CONTRAST - 08/30/2016 CLINICAL HISTORY: Right-sided abdominal pain. Lung cancer. COMPARISON STUDY: PET/CT April 17, [address] of the abdomen and pelvis December 25, 2005. TECHNIQUE: Axial images of the abdomen and pelvis were obtained without IV contrast. Images were reviewed in the axial, sagittal, and coronal planes. FINDINGS: Visualized portions the lower chest demonstrate a new 1.3 cm suspected pleural implant within the right lower hemithorax shown on image 77 of [id number]. There has been interval development of multiple hypodense hepatic masses since PET/CT of April 17, 2016. A segment 5 lesion measures 4 cm. A segment 2 lesion measures 3.1 cm. Multiple hepatic cysts are also noted. There is no pneumatosis, free air or portal venous gas. An IVC filter is in place. A right ureteral stent is in place. Marked right renal atrophy is noted. Prominence of the midpole of the right kidney is again noted. This is similar to prior exam. There is moderate right ureteral dilatation. There is no evidence for a bowel obstruction. There has been interval development of a 2.3 cm lytic lesion within the right iliac bone shown on image 53 of 89 with suspected associated pathologic fracture. There may be a small lesion measuring 1.1 cm within the proximal shaft of the right femur. Postsurgical findings within the lumbar spine are noted. IMPRESSION: 1. Interval development of bilateral lobar hepatic masses since PET/CT of April 17, 2016 consistent with metastases. 2. Interval development of several skeletal lesions, including a 2.3 cm lytic lesion within the right iliac bone with suspected associated pathologic fracture. 3. No bowel obstruction. 4. Right ureteral stent in place. Moderate right ureteral dilatation. Right renal scarring, as before. Review of Systems Abdomen: + pain (Right flank pain) Musculoskeletal: + muscle pain (Right flank) All Other Systems: Reviewed and Negative Objective Vital Signs Date Time Temp Pulse Resp B/P Pulse Ox O2 Delivery O2 Flow Rate FiO2 09/01/16 11:28 36.3 75 18 111/71 92 09/01/16 08:30 100 Nasal Cannula 2.0 09/01/16 07:33 36.8 73 18 104/88 100 2.0 09/01/16 04:19 36.3 63 18 126/77 100 Nasal Cannula 2.0 09/01/16 02:24 Room Air 08/31/16 23:04 36.5 69 16 115/75 97 Nasal Cannula 2.0 08/31/16 19:21 36.5 89 16 123/77 91 Room Air 08/31/16 16:00 92 Room Air 08/31/16 14:47 36.4 81 22 109/72 92 Room Air Physical Exam General Appearance: + mild distress Eyes: normal inspection ENT: normal ENT inspection, hearing grossly normal Neck: supple, no adenopathy Respiratory/Chest: chest non-tender, lungs clear, normal breath sounds, no respiratory distress Cardiovascular: regular rate, rhythm, no edema, no gallop, no JVD, no murmur Abdomen: + tenderness (Right iliac wing/liver) Extremities: normal range of motion Neurologic/Psychiatric: sensor operator II-XII nml as tested, alert, normal mood/affect, oriented x 3 Assessment and Plan Ms. Monte is a 71-year-old female who presents with extensive stage small cell lung carcinoma involving the liver and right iliac wing. The patient was recently treated with a course of radiation therapy alone when she was diagnosed as limited stage; the patient refused chemotherapy. We are now seeing her to discuss the role of further radiation therapy. Assessment/Plan: This plan has been discussed with the hospitalist. 1) Right Iliac Wing Metastases - palliative radiation therapy; plan for 5 fraction treatment course. 2) Medical oncology consultation - recommended consideration for systemic chemotherapy to metastatic disease in general as well as liver disease. I have discussed the case with Dr. Katherine Peterson who is her current medical oncologist. 3) Complete staging workup including MRI of the brain, bone scan/CT Thorax (or PET/CT scan in the outpatient setting). We have explained the indications, alternatives, benefits, risks and side effects of radiation therapy. We have explained the most common side effects including but are not limited to skin erythema, skin break down, hair loss, fibrosis, adhesion development, radiation pneumonitis, rib and bone fracture, heart failure and heart disease, esophagitis, bowel obstruction, urinary symptoms, thyroid disorders, mucositis, nauesea, vomiting, diarrhea, anemia, fatigue and development of secondary malignancy. Women may also have early onset ovarian failure leading to premature menopause and may experience infertility issues depending on her age. We have explained the CT simulation process and treatment planning. We explained what to expect before, during and after treatment on a regular basis. The patient understands and would be willing to consent to treatment. The patient and family had multiple questions which were answered to their full satisfaction. Thank you for allowing us to participate in the care of this patient. This chart was completed in part utilizing [employer] Speech Voice Recognition software. Attempts were made to minimize the grammatical errors, random word insertions, pronoun errors and incomplete sentences. Any formal questions or concerns about the content, text or information contained within the body of this dictation should be directly addressed to the provider for clarification. Meredith Sanabria MD Department of Radiation Oncology [facility]
--- NOTE | 2016-09-01 15:01 | Medical Consult ---
Consultation Date of Consultation: Sep 01, 2016. Attending Physician: Gregg Lopez M.D. Reason for Consultation: Progressive SCLC after radiation treatment to primary tumor, re-discuss with patient about systemic options for extensive SCLC, patient refused systemic treatment prior. History of Present Illness Ms. Monte is a 71-year-old female known to the consulting Medical Oncology Service. She was diagnosed with small cell lung cancer, limited stage, clinical stage c T1a c N1 c M0 diagnosed on 05/16/16. She refused [place] and etoposide chemotherapy. She opted for radiation therapy alone and has completed RT on 08/04/16. She was admitted to [facility] yesterday for right sided abdominal pain. She had a workup which included a CT of the abdomen/pelvis that reveals bilobar hepatic metastases and a new metastatic lesion in the right iliac bone. She also has likely a new right lower pleural deposit and right femoral head involvement . A chest x-ray was nonrevealing for acute findings. Her Doppler of lower extremity bilateral was negative for acute DVT. Her LFTs remain normal; she has not developed hypercalcemia. Her cardiac markers and lipase were negative. Her urine revealed possible infection, but the culture had high numbers of more than 3 organisms, so repeat culture has been recommended. Radiation Oncology has been consulted ; Dr. Nataliya Sanabria has recommended palliative RT to the right iliac lesion. A bone scan for restaging purposes has been recommended, as well as CT chest and brain MRI. Additional history obtained from the patient and [id number] at bedside. She reports that she was recently treated for a viral respiratory infection with prednisone. Since this time, she notes markedly improved cough and dyspnea. She has not had nausea or vomiting; her last bowel movement was Thursday in the morning and she has not noted hematochezia or melena. She is currently on Percocet p.r.n. for pain related to hepatic and osseous metastases ; she required only 1 tablet yesterday and 2 tablets today. She basically requires the narcotic pain medication with any kind of movement. She does state that she has been noticing "a strong urine smell and "and fatigue, which she has attributed in the past to her typical UTI symptoms. She is not having hematuria or dysuria. She is not noting headache, dizziness or vision change. Past Medical/Surgical History Medical Problems: (1) Hepatic metastasis Status: Acute (2) Right sided abdominal pain Status: Acute Family History Hypertension Social History Smoking Status: Unknown if Ever Smoked Marital Status: Housing Status: lives with significant other Occupation Status: retired Allergies Coded Allergies: NO KNOWN DRUG ALLERGIES (Verified Allergy, Unknown, ., 02/13/16) Current Inpatient Medications Current Inpatient Medications Medications (Trade) Dose Ordered Sig/Nany Route Start Time Stop Time Status Last Admin Dose Admin Ioversol (Optiray 320) 100 ml UD PRN IV 08/30/16 21:30 09/03/16 21:29 Acetaminophen (Tylenol Tab) 650 mg Q4H PRN PO 08/31/16 01:15 09/30/16 01:14 Ondansetron HCl (Zofran Inj) 4 mg Q6H PRN IV 08/31/16 01:15 09/30/16 01:14 Lorazepam (Ativan Inj) 0.5 mg Q4H PRN IV 08/31/16 01:15 09/30/16 01:14 Hydromorphone HCl (Dilaudid Inj) 0.5 mg Q3H PRN IV 08/31/16 01:15 09/14/16 01:14 08/31/16 04:57 0.5 MG Tramadol HCl not relieved ... Q6H PRN PO 08/31/16 01:15 09/30/16 01:14 Promethazine HCl/ Sodium Chloride (Phenergan Inj/ Nss 50ml) 50.5 ml @ 204 mls/hr Q6H PRN IV 08/31/16 01:15 09/30/16 01:14 Aspirin (Ecotrin Tab) 81 mg DAILY PO 08/31/16 08:00 09/30/16 08:59 09/01/16 10:39 81 MG Folic Acid (Folvite Tab) 1 mg DAILY PO 08/31/16 08:00 09/30/16 08:59 09/01/16 08:16 1 MG Gabapentin (Neurontin Cap) 400 mg HS PO 08/31/16 21:00 09/30/16 20:59 08/31/16 19:51 400 MG Gabapentin (Neurontin Cap) 200 mg QAM PO 08/31/16 08:00 09/30/16 08:59 09/01/16 08:16 200 MG Metoprolol Succinate (Toprol Xl Tab) 50 mg QAM PO 08/31/16 08:00 09/30/16 08:59 09/01/16 10:39 50 MG Miscellaneous Information (Order Awaiting Action) 1 ea QS N/A 08/31/16 08:00 09/30/16 07:59 Miscellaneous Information (Order Awaiting Action) 1 ea QS N/A 08/31/16 08:00 09/30/16 07:59 Oxycodone/ Acetaminophen (Percocet 5-325mg Tab) pain not relieved by ult... Q4H PRN PO 08/31/16 01:15 09/14/16 01:14 09/01/16 14:19 2 TAB Heparin Sodium (Porcine) 5000 unit 5,000 unit Q8H SQ 08/31/16 06:00 09/30/16 05:59 09/01/16 14:18 5,000 UNIT Lorazepam/Syringe (Ativan Inj/ Syringe) 1 ml @ 1 mls/min Q4H PRN IV 08/31/16 03:00 09/30/16 02:59 Miscellaneous (Iv Fluids Completed) 1 ea PRN PRN N/A 08/31/16 04:30 08/31/17 04:29 Prednisone 20 mg 20 mg Taper DAILY PO 09/01/16 08:00 09/06/16 07:59 09/01/16 08:17 20 MG Ampicillin Sodium/ Sulbactam Sodium/ Sodium Chloride (Unasyn Inj/Nss 100ml) 108 ml @ 200 mls/hr Q6@0400,1000,1600,2200 IV 08/31/16 15:00 09/05/16 14:59 09/01/16 10:40 200 MLS/HR Diphenhydramine HCl (Benadryl Cap) 25 mg HSZ PRN PO 08/31/16 23:45 09/30/16 23:44 08/31/16 23:39 25 MG Review of Systems Constitutional: + fatigue, No chills, No fever Eyes: No diplopia, No worsening of vision Respiratory: + cough, + shortness of breath Cardiovascular: + edema (chronic, lower extremities) Abdomen: + pain (RUQ), No GI bleeding, No constipation, No diarrhea, No nausea , No vomiting Musculoskeletal: + joint pain (right hip) Genitourinary - Female: + problem reported (strong urine smell- per patient), No dysuria, No hematuria Neurologic: + numbness/tingling (reports neuropathy of LEs), No vertigo Integumentary: No itch, No rash Physical Exam Date Time Temp Pulse Resp B/P Pulse Ox O2 Delivery O2 Flow Rate FiO2 09/01/16 11:28 36.3 75 18 111/71 92 09/01/16 08:30 100 Nasal Cannula 2.0 09/01/16 07:33 36.8 73 18 104/88 100 2.0 09/01/16 04:19 36.3 63 18 126/77 100 Nasal Cannula 2.0 09/01/16 02:24 Room Air 08/31/16 23:04 36.5 69 16 115/75 97 Nasal Cannula 2.0 08/31/16 19:21 36.5 89 16 123/77 91 Room Air 08/31/16 16:00 92 Room Air 08/31/16 14:47 36.4 81 22 109/72 92 Room Air General Appearance: WD/WN, no apparent distress, + obese Eyes: normal inspection, EOMI ENT: hearing grossly normal Respiratory/Chest: lungs clear, no respiratory distress, no accessory muscle use Cardiovascular: regular rate, rhythm Abdomen/GI: normal bowel sounds, soft, + tenderness (RUQ) Extremities/Musculoskelatal: no calf tenderness, + pedal edema (up to knees bilaterally, nonpitting, chronic) Neurologic/Psych: alert, normal mood/affect, oriented x 3 Skin: warm/dry, no rash Laboratory Results 08/30/16 21:00 Red Blood Count 4.95, Mean Corpuscular Volume 89.5, Mean Corpuscular Hemoglobin 31.5, Mean Corpuscular Hemoglobin Concent 35.2, Mean Platelet Volume 11.5, Neutrophils (%) (Auto) 82.5, Lymphocytes (%) (Auto) 8.3, Monocytes (%) (Auto) 8.4, Eosinophils (%) (Auto) 0.4, Basophils (%) (Auto) 0.1, Neutrophils # (Auto) 6.08, Lymphocytes # (Auto) 0.61, Monocytes # (Auto) 0.62, Eosinophils # (Auto) 0.03, Basophils # (Auto) 0.01 08/31/16 05:06 Red Blood Count 4.50, Mean Corpuscular Volume 90.7, Mean Corpuscular Hemoglobin 30.7, Mean Corpuscular Hemoglobin Concent 33.8, Mean Platelet Volume 11.5, Neutrophils (%) (Auto) 70.8, Lymphocytes (%) (Auto) 14.8, Monocytes (%) (Auto) 12.2, Eosinophils (%) (Auto) 1.5, Basophils (%) (Auto) 0.5, Neutrophils # (Auto ) 4.17, Lymphocytes # (Auto) 0.87, Monocytes # (Auto) 0.72, Eosinophils # (Auto ) 0.09, Basophils # (Auto) 0.03 09/01/16 06:00 08/30/16 21:00 08/31/16 05:06 09/01/16 06:00 Test 08/30/16 21:00 08/31/16 05:06 08/31/16 13:05 09/01/16 06:00 White Blood Count 7.37 K/uL (4.8-10.8) 5.89 K/uL (4.8-10.8) Red Blood Count 4.95 M/uL (4.2-5.4) 4.50 M/uL (4.2-5.4) 4.19 M/uL (4.2-5.4) Hemoglobin 15.6 g/dL (12.0-16.0) 13.8 g/dL (12.0-16.0) Hematocrit 44.3 % (37-47) 40.8 % (37-47) Mean Corpuscular Volume 89.5 fL (80-100) 90.7 fL (80-100) 88.8 fL (80-100) Mean Corpuscular Hemoglobin 31.5 pg (25-34) 30.7 pg (25-34) 29.8 pg (25-34) Mean Corpuscular Hemoglobin Concent 35.2 g/dl (32-36) 33.8 g/dl (32-36) 33.6 g/dl (32-36) Platelet Count 142 K/uL (130-400) 115 K/uL (130-400) Mean Platelet Volume 11.5 fL (7.4-10.4) 11.5 fL (7.4-10.4) 11.4 fL (7.4-10.4) Neutrophils (%) (Auto) 82.5 % 70.8 % Lymphocytes (%) (Auto) 8.3 % 14.8 % Monocytes (%) (Auto) 8.4 % 12.2 % Eosinophils (%) (Auto) 0.4 % 1.5 % Basophils (%) (Auto) 0.1 % 0.5 % Neutrophils # (Auto) 6.08 K/uL (1.4-6.5) 4.17 K/uL (1.4-6.5) Lymphocytes # (Auto) 0.61 K/uL (1.2-3.4) 0.87 K/uL (1.2-3.4) Monocytes # (Auto) 0.62 K/uL (0.11-0.59) 0.72 K/uL (0.11-0.59) Eosinophils # (Auto) 0.03 K/uL (0-0.5) 0.09 K/uL (0-0.5) Basophils # (Auto) 0.01 K/uL (0-0.2) 0.03 K/uL (0-0.2) RDW Standard Deviation 48.7 fL (36.4-46.3) 50.1 fL (36.4-46.3) 47.6 fL (36.4-46.3) RDW Coefficient of Variation 15.0 % (11.5-14.5) 15.1 % (11.5-14.5) 14.8 % (11.5-14.5) Immature Granulocyte % (Auto) 0.3 % 0.2 % Immature Granulocyte # (Auto) 0.02 K/uL (0.00-0.02) 0.01 K/uL (0.00-0.02) Prothrombin Time 10.9 SECONDS (9.0-12.0) Prothromb Time International Ratio 1.0 (0.9-1.1) Activated Partial Thromboplast Time 21.5 SECONDS (21.0-31.0) Partial Thromboplastin Ratio 0.8 Anion Gap 8.0 mmol/L (3-11) 5.0 mmol/L (3-11) 8.0 mmol/L (3-11) Estimated GFR () 36.7 47.1 64.7 Estimated GFR (Non- 31.6 40.7 55.8 BUN/Creatinine Ratio 22.9 (10-20) 26.4 (10-20) 25.6 (10-20) Calcium Level 9.4 mg/dl (8.5-10.1) 8.5 mg/dl (8.5-10.1) 8.1 mg/dl (8.5-10.1) Magnesium Level 2.2 mg/dl (1.8-2.4) Total Bilirubin 0.4 mg/dl (0.2-1) Direct Bilirubin 0.1 mg/dl (0-0.2) Aspartate Amino Transf (AST/SGOT) 34 U/L (15-37) Alanine Aminotransferase (ALT/SGPT) 40 U/L (12-78) Alkaline Phosphatase 67 U/L (45-117) Total Creatine Kinase 83 U/L (26-192) Creatine Kinase MB 1.5 ng/ml (0.5-3.6) Creatine Kinase MB Ratio 1.8 (0-3.0) Troponin I < 0.015 ng/ml (0-0.045) Pro-B-Type Natriuretic Peptide 656 pg/ml (0-900) Total Protein 7.9 gm/dl (6.4-8.2) Albumin 4.1 gm/dl (3.4-5.0) Lipase 323 U/L (73-393) Urine Color YELLOW Urine Appearance TURBID (CLEAR) Urine pH 6.0 (4.5-7.5) Urine Specific [place] 1.024 (1.000-1.030) Urine Protein 2+ (NEG) Urine Glucose (UA) NEG (NEG) Urine Ketones NEG (NEG) Urine Occult Blood 3+ (NEG) Urine Nitrite POS (NEG) Urine Bilirubin NEG (NEG) Urine Urobilinogen NEG (NEG) Urine Leukocyte Esterase LARGE (NEG) Urine WBC (Auto) >30 /hpf (0-5) Urine RBC (Auto) >30 /hpf (0-4) Urine Hyaline Casts (Auto) /lpf (0-5) Urine Epithelial Cells (Auto) >30 /lpf (0-5) Urine Bacteria (Auto) 2+ (NEG) Urine Pathogenic Casts /lpf (0) Est Creatinine Clear Calc Drug Dose 54.8 ml/min Date/Time Source Procedure Growth Status 08/31/16 13:05 Urine , Clean Catch Urine Culture - Final GREATER THAN THREE TYPES OF ORGANISMS... Complete Chest x-ray from 08/30/2016: No pneumothorax or pleural effusion. No consolidation to suggest pneumonia. No evidence of pulmonary edema. Right lower lobe lesion showed an prior treatment planning CT not well visualized. Venous Doppler from 08/30/2016 of lower extremities bilaterally: Technically limited study in both lower extremities. No evidence of acute lower extremity DVT. Minor chronic changes within the left superficial femoral vein. CT of the abdomen/pelvis from 08/30/2016: Visualized portions of lower chest demonstrated a new 1.3 cm suspected pleural implant within the right lower hemithorax. Interval development of multiple hypodense hepatic masses since PET -CT in April 2016. There is a segment 5 lesion measuring 4 cm. A segment 2 lesion measuring 3.1 cm. Multiple hepatic cysts noted. IVC filter in place. Right ureteral stent in place. Marked right renal atrophy. Moderate right ureteral dilatation. Interval development of 2.3 cm lytic lesion within the right iliac bone with suspected associated pathologic fracture. Maybe a small lesion measuring 1.1 cm within proximal shaft of the right femur. Assessment & Plan 1. Extensive stage SCLC with new liver and right iliac bone metastasis, possible new right pleural metastatic deposit and right femoral shaft lesion * Discussed with Dr. Nataliya Sanabria and he plans to start patient on palliative RT to right iliac bone lesion; he will review scan for possible RT to right femoral shaft lesion * Bone scan, CT chest and brain MRI are all advised to be done during this hospitalization and patient is agreeable * Discussed palliative chemotherapy with patient- would lean more to carboplatin /etoposide in her case with her age, co-morbidities, PS and underlying neuropathy * Discussed common adverse events including pancytopenia and complications of pancytopenia including infection, bleeding, requiring transfusions; nausea, vomiting, bowel changes; fatigue * Discussed briefly about cisplatin AEs including neurotoxicity, ototoxicity and nephrotoxicity- patient agrees this agent may not be suitable in her case * Consider agent such as Zometa in outpatient setting for bone metastases * Patient has no hypercalcemia or LFT abnormalities at this time in relation to her osseous and liver metastases, respectively * Patient will decided about chemotherapy in next few days; advised patient if she decides during hospitalization, could have port placed as she has poor venous access 2. Pain from neoplasm * Patient adequately controlled on Percocet PRN, continue to monitor 3. Urinary symptoms- repeat culture pending, treat as appropriate per hospitalist team Thanks for the consult I performed a history and physical examination of the patient and discussed the management with Rebecca Grande PA-C . I reviewed her note and agree with the documented findings and plan of care. In summary, she is a 71-year-old female, a case of limited stage small-cell lung cancer diagnosed in May 2016, she was seen by Dr. Peterson, she declined for systemic chemotherapy but then she completed edition treatment to the chest on 08/04/2016, now she's admitted hospital for increasing pain in the right upper abdomen and the right hip, imaging study showed metastatic disease is noting the liver as well as right iliac bone and a small right proximal femur lesion. I reviewed with her regarding the recent imaging studies, now she has stage IV disease, overall treatment goal which would be palliative and not curative, she was seen by Dr. Sanabria (radiation oncologist), planning for palliative radiation treatment to the symptomatic right hip lesion, she also has few other comorbid conditions and she is concerned concern about systemic chemotherapy. I discussed with the regarding systemic chemotherapy in the form of carboplatin and etoposide that can be considered in her case. She has poor venous access, she will need port for upcoming chemotherapy. She says that she would like to proceed with systemic chemotherapy. Agree about getting additional imaging study in the form of CT scan of the chest, bone scan and MRI of the brain. We can consider for slightly lower dose of treatment in her case and see how she handles that. Dr. Franc Sanabria Hem/Onc .
[2016-09-01] MEDS: GABAPENTIN 400 MG CAP PO SCH (19:58)
[2016-09-02] VITALS (7 sets, daily range): BP systolic 109–142; BP diastolic 71–81; PULSE 74–85; TEMP 36.3–36.5; O2SAT 90–96
[2016-09-02] MEDS: AMPICILLIN/SULBACTAM SOD INJ 3,000 MG in SODIUM CHLORIDE 0.9% 100ML 100 ML IV SCH ×3 (04:15→15:51)
[2016-09-02] MEDS: HEPARIN SOD 5000 UNIT/0.5 ML CARP SQ SCH ×3 (05:48→22:04)
[2016-09-02 07:16] LABS: HEMATOCRIT 39.7 % (37-47); MEAN CELL VOLUME 87.1 fL (80-100); MEAN CORPUSCULAR HEMOGLOBIN 31.1 pg (25-34); MEAN CORPUSCULAR HGB CONC 35.8 g/dl (32-36); RED BLOOD COUNT 4.56 M/uL (4.2-5.4); WHITE BLOOD COUNT 3.55 K/uL (4.8-10.8)
[2016-09-02 07:34] LABS: CALCIUM 8.2 mg/dl (8.5-10.1); CREATININE 1.1 mg/dl (0.60-1.20); POTASSIUM 3.8 mmol/L (3.5-5.1)
[2016-09-02] MEDS: ASPIRIN 81 MG ECTAB PO SCH (08:00)
[2016-09-02 08:13] LABS: MEAN PLATELET VOLUME 11.2 fL (7.4-10.4); PLATELET COUNT 97 K/uL (130-400)
--- NOTE | 2016-09-02 08:47 | DIAGNOSTIC IMAGING REPORT ---
MRI OF THE BRAIN WITHOUT CONTRAST CLINICAL HISTORY: Metastatic small cell carcinoma COMPARISON STUDY: Outside MRI the brain dated 06/13/2016 FINDINGS: Sagittal T1, axial diffusion, proton density and T2 weighted axial, coronal FLAIR, and axial T1-weighted images were acquired. No intra or extra-axial mass lesions are visualized Axial diffusion-weighted images reveal no evidence of acute or subacute infarction. There is no evidence of ventricular dilatation. Proton density T2-weighted and FLAIR images reveal extensive foci of increased T2 signal within the white matter, likely on a small vessel basis. There are no abnormal flow voids. IMPRESSION: 1. Extensive white matter disease, similar to the prior June 2016 study 2. No evidence of acute or subacute infarction 3. No evidence of intracranial mass. This examination is limited for the detection of metastatic disease given the extensive white matter disease, and the noncontrast nature of the examination. Electronically signed by: Hieu Hernandez M.D. 09/02/2016 8:46 AM Dictated Date/Time: 09/02/2016 8:44 AM
[2016-09-02] MEDS: GABAPENTIN 100 MG CAP PO SCH (09:03)
[2016-09-02] MEDS: METOPROLOL SUCC 50MG EXT REL TAB PO SCH (09:03)
[2016-09-02] MEDS: OXYCODONE/ACETAMINOPHEN 5-325 TAB PO PRN (09:13)
--- NOTE | 2016-09-02 14:35 | Hematology/Oncology Prog Note ---
Hematology/Onc Progress Note Date of Service Sep 02, 2016. Diagnoses 1. Extensive stage SCLC with newly diagnosed metastases to the liver and right iliac, right femoral shaft, and right pleural implant 2. Neoplastic pain from right iliac lesion and liver metastases 3. Poor venous access- planning for central VAD placement during hospitalization for palliative chemotherapy Medications Medications Administered Medications (Trade) Dose Ordered Sig/Nany Route Start Time Stop Time Status Last Admin Dose Admin Sodium Chloride 1,000 ml @ 125 mls/hr Q8H STAT IV 08/30/16 22:29 08/31/16 02:36 DC 08/31/16 00:17 125 MLS/HR Sodium Chloride (Nss 500ml) 500 ml @ 999 mls/hr Q31M STAT IV 08/30/16 22:29 08/30/16 22:59 DC 08/30/16 23:35 999 MLS/HR Ondansetron HCl (Zofran Inj) 4 mg NOW STAT IV 08/30/16 22:29 08/30/16 22:30 DC 08/30/16 23:35 4 MG Morphine Sulfate 4 mg 4 mg Q15M PRN IV 08/30/16 22:30 08/31/16 02:36 DC 08/31/16 00:17 4 MG Sodium Chloride (Nss 1000ml) 1,000 ml @ 80 mls/hr [id number] ONCE IV 08/31/16 01:15 08/31/16 13:44 DC 08/31/16 02:53 80 MLS/HR Hydromorphone HCl (Dilaudid Inj) 0.5 mg Q3H PRN IV 08/31/16 01:15 09/14/16 01:14 08/31/16 04:57 0.5 MG Aspirin (Ecotrin Tab) 81 mg DAILY PO 08/31/16 08:00 09/30/16 08:59 09/02/16 08:00 81 MG Folic Acid (Folvite Tab) 1 mg DAILY PO 08/31/16 08:00 09/30/16 08:59 09/02/16 08:00 1 MG Gabapentin (Neurontin Cap) 400 mg HS PO 08/31/16 21:00 09/30/16 20:59 09/01/16 19:58 400 MG Gabapentin (Neurontin Cap) 200 mg QAM PO 08/31/16 08:00 09/30/16 08:59 09/02/16 09:03 200 MG Metoprolol Succinate (Toprol Xl Tab) 50 mg QAM PO 08/31/16 08:00 09/30/16 08:59 09/02/16 09:03 50 MG Oxycodone/ Acetaminophen (Percocet 5-325mg Tab) pain not relieved by ult... Q4H PRN PO 08/31/16 01:15 09/14/16 01:14 09/02/16 09:13 2 TAB Heparin Sodium (Porcine) 5000 unit 5,000 unit Q8H SQ 08/31/16 06:00 09/30/16 05:59 09/02/16 05:48 5,000 UNIT Lorazepam/Syringe (Ativan Inj/ Syringe) 1 ml @ 1 mls/min Q4H PRN IV 08/31/16 03:00 09/30/16 02:59 09/02/16 07:55 1 MLS/MIN Prednisone (PredniSONE TAB) 20 mg Taper DAILY PO 09/01/16 08:00 09/06/16 07:59 09/02/16 09:04 20 MG Prednisone 30 mg 30 mg 1100 ONCE PO 08/31/16 11:00 08/31/16 11:01 DC 08/31/16 10:47 30 MG Ampicillin Sodium/ Sulbactam Sodium/ Sodium Chloride (Unasyn Inj/Nss 100ml) 108 ml @ 200 mls/hr Q6@0400,1000,1600,2200 IV 08/31/16 15:00 09/05/16 14:59 09/02/16 10:11 200 MLS/HR Diphenhydramine HCl (Benadryl Cap) 25 mg HSZ PRN PO 08/31/16 23:45 09/30/16 23:44 09/01/16 22:43 25 MG Subjective Ms. Monte reports no change in her baseline health status since yesterday. She has discussed palliative chemotherapy with her family matters and is agreeable to proceeding. We discussed yesterday that she has poor venous access and she would like to proceed with port placement. She is requesting Dr. George place her port. She offers no real complaints today and majority of the visit we discussed her treatment plan, attaining CT of the chest and bone scan to around a restaging. Possible consult urology for right ureteral stent exchange for known right ureteral stricture as patient has not been able to make the last few appointments prior month and today to [facility] with Dr. Valdez. Vital Signs Vital Signs Past 12 Hours Date Time Temp Pulse Resp B/P Pulse Ox O2 Delivery O2 Flow Rate FiO2 09/02/16 11:17 36.4 75 16 116/71 92 Room Air 09/02/16 08:00 Room Air 09/02/16 07:37 36.4 80 16 133/76 93 Room Air 09/02/16 04:25 36.3 76 16 142/ 90 Room Air Physical Exam Constitutional: General Apperance: obese Level of Distress: NAD, chronically ill ENMT: hearing grossly normal Lungs: Respiratory Effort: no dyspnea Auscuitation: no wheezing, no rhonchi Cardiovascular: Heart Auscultation: RRR Abdomen: Inspection & Palpation: soft, non-distended, RUQ tenderness Extremities: edema (chronic of LEs) Laboratory 09/02/16 07:01 09/02/16 07:01 Test 09/02/16 07:01 Red Blood Count 4.56 M/uL (4.2-5.4) Mean Corpuscular Volume 87.1 fL (80-100) Mean Corpuscular Hemoglobin 31.1 pg (25-34) Mean Corpuscular Hemoglobin Concent 35.8 g/dl (32-36) RDW Standard Deviation 47.2 fL (36.4-46.3) RDW Coefficient of Variation 14.8 % (11.5-14.5) Mean Platelet Volume 11.2 fL (7.4-10.4) Anion Gap 9.0 mmol/L (3-11) Est Creatinine Clear Calc Drug Dose 49.0 ml/min Estimated GFR () 57.7 Estimated GFR (Non- 49.8 BUN/Creatinine Ratio 25.0 (10-20) Calcium Level 8.2 mg/dl (8.5-10.1) Brain MRI from 09/02/2016: No intra or extra-axial mass lesions visualized. No evidence of acute or subacute infarction. No evidence of ventricular dilatation. Extensive foci of increased T2 signal within the white matter, likely on the small-vessel basis. Examination was limited by noncontrast. Assessment & Plan 1. Extensive stage SCLC with new liver and right iliac bone metastasis, possible new right pleural metastatic deposit and right femoral shaft lesion * Discussed with Dr. Nataliya Sanabria and he plans to start patient on palliative RT to right iliac bone lesion; he will review scan for possible RT to right femoral shaft lesion * Bone scan, CT chest are all advised to be done during this hospitalization and patient is agreeable- spoke with Jax Sanabria MD today and she is agreeable with [facility] placing orders for CT chest without contrast and bone scan, so these have been placed * Brain MRI from today- negative for intracranial mets * Discussed palliative chemotherapy with patient- would lean more to carboplatin /etoposide in her case with her age, co-morbidities, PS and underlying neuropathy * Patient has discussed with family and is agreeable with palliative chemotherapy * Agreeable to general surgery consult- patient is requesting Dr. George, so this referral has been placed for central VAD as patient has poor venous access * Consider agent such as Zometa in outpatient setting for bone metastases * Patient has no hypercalcemia or LFT abnormalities at this time in relation to her osseous and liver metastases, respectively 2. Pain from neoplasm * Patient adequately controlled on Percocet PRN, continue to monitor * May require change to narcotic without APAP in light of her liver metastases 3. Urinary symptoms- repeat culture now resulting with Patricia, treat as appropriate per hospitalist team 4. History of right ureteral stricture- patient was due for ureter stent change last month and again today- has not been able to make appts for exchange * Discussed with Jax Sanabria MD and she states she will review case, see if local urology can see patient for ureteral exchange as appropriate 5. Mild thrombocytopenia- stable, continue to monitor daily. Possibly from liver metastatic disease. Consider checking vitamin B12, folate. I performed a history and physical examination of the patient and discussed the management with Rebecca Grande PA-C (09/03/2016). . I reviewed her note and agree with the documented findings and plan of care. Dr. Franc Sanabria Hem/Onc
--- NOTE | 2016-09-02 15:18 | Pre-Operative Consultation ---
History General Date of Service: Sep 02, 2016. HPI HPI: The patient is a 71 year old female with SCLC admitted for right flank pain and newly diagnosed metastases to the liver and right iliac, right femoral shaft, and right pleural implant. She was having outpatient RT, declined chemo in May due to multiple other medical concerns. Now with evidence of metastasis she would like to proceed with chemo, has difficult IV access, and we were asked to place port. Problem List Medical Problems: (1) Cancer associated pain (2) DVT (deep venous thrombosis) (3) Lung cancer (4) Presence of inferior vena cava filter (5) Retained ureteral stent Medical & Surgical History Past Medical History: cancer - lung, COPD, Crohn's disease, deep vein thrombosis, hypertension, pulmonary embolism Social History Hx Tobacco Use In Past Year?: No Smoking Status: Unknown if Ever Smoked Marital status: Occupation status: retired Immunizations Have You Had Influenza Vaccine: Yes Have You Had Tetanus Vaccine: Yes History of Pneumococcal: Yes History Hepatitis B Vaccine: No Allergies Allergies: Coded Allergies: NO KNOWN DRUG ALLERGIES (Verified Allergy, Unknown, ., 02/13/16) Medications Current Inpatient Medications Current Inpatient Medications Medications (Trade) Dose Ordered Sig/Nany Route Start Time Stop Time Status Last Admin Dose Admin Ioversol (Optiray 320) 100 ml UD PRN IV 08/30/16 21:30 09/03/16 21:29 Acetaminophen (Tylenol Tab) 650 mg Q4H PRN PO 08/31/16 01:15 09/30/16 01:14 Ondansetron HCl (Zofran Inj) 4 mg Q6H PRN IV 08/31/16 01:15 09/30/16 01:14 Lorazepam (Ativan Inj) 0.5 mg Q4H PRN IV 08/31/16 01:15 09/30/16 01:14 Hydromorphone HCl (Dilaudid Inj) 0.5 mg Q3H PRN IV 08/31/16 01:15 09/14/16 01:14 08/31/16 04:57 0.5 MG Tramadol HCl not relieved ... Q6H PRN PO 08/31/16 01:15 09/30/16 01:14 Promethazine HCl/ Sodium Chloride (Phenergan Inj/ Nss 50ml) 50.5 ml @ 204 mls/hr Q6H PRN IV 08/31/16 01:15 09/30/16 01:14 Aspirin (Ecotrin Tab) 81 mg DAILY PO 08/31/16 08:00 09/30/16 08:59 09/02/16 08:00 81 MG Folic Acid (Folvite Tab) 1 mg DAILY PO 08/31/16 08:00 09/30/16 08:59 09/02/16 08:00 1 MG Gabapentin (Neurontin Cap) 400 mg HS PO 08/31/16 21:00 09/30/16 20:59 09/01/16 19:58 400 MG Gabapentin (Neurontin Cap) 200 mg QAM PO 08/31/16 08:00 09/30/16 08:59 09/02/16 09:03 200 MG Metoprolol Succinate (Toprol Xl Tab) 50 mg QAM PO 08/31/16 08:00 09/30/16 08:59 09/02/16 09:03 50 MG Miscellaneous Information (Order Awaiting Action) 1 ea QS N/A 08/31/16 08:00 09/30/16 07:59 Miscellaneous Information (Order Awaiting Action) 1 ea QS N/A 08/31/16 08:00 09/30/16 07:59 Oxycodone/ Acetaminophen (Percocet 5-325mg Tab) pain not relieved by ult... Q4H PRN PO 08/31/16 01:15 09/14/16 01:14 09/02/16 09:13 2 TAB Heparin Sodium (Porcine) 5000 unit 5,000 unit Q8H SQ 08/31/16 06:00 09/30/16 05:59 09/02/16 14:16 5,000 UNIT Lorazepam/Syringe (Ativan Inj/ Syringe) 1 ml @ 1 mls/min Q4H PRN IV 08/31/16 03:00 09/30/16 02:59 09/02/16 07:55 1 MLS/MIN Miscellaneous (Iv Fluids Completed) 1 ea PRN PRN N/A 08/31/16 04:30 08/31/17 04:29 Prednisone 20 mg 20 mg Taper DAILY PO 09/01/16 08:00 09/06/16 07:59 09/02/16 09:04 20 MG Ampicillin Sodium/ Sulbactam Sodium/ Sodium Chloride (Unasyn Inj/Nss 100ml) 108 ml @ 200 mls/hr Q6@0400,1000,1600,2200 IV 08/31/16 15:00 09/05/16 14:59 09/02/16 10:11 200 MLS/HR Diphenhydramine HCl (Benadryl Cap) 25 mg HSZ PRN PO 08/31/16 23:45 09/30/16 23:44 09/01/16 22:43 25 MG Review of Systems Review of Systems Genitourinary - Female: reports: other (recurrent UTI) Physical Exam Physical Exam General Appearance: + WD/WN, No distress Ears, Nose, Throat: + normal ENT inspection Respiratory: No respiratory distress Extremities: No edema Diagnostics Labs Labs Results Past 24 Hours Test 09/02/16 07:01 Range/Units White Blood Count 3.55 4.8-10.8 K/uL Red Blood Count 4.56 4.2-5.4 M/uL Hemoglobin 14.2 12.0-16.0 g/dL Hematocrit 39.7 37-47 % Mean Corpuscular Volume 87.1 80-100 fL Mean Corpuscular Hemoglobin 31.1 25-34 pg Mean Corpuscular Hemoglobin Concent 35.8 32-36 g/dl RDW Standard Deviation 47.2 36.4-46.3 fL RDW Coefficient of Variation 14.8 11.5-14.5 % Platelet Count 97 130-400 K/uL Mean Platelet Volume 11.2 7.4-10.4 fL Sodium Level 145 136-145 mmol/L Potassium Level 3.8 3.5-5.1 mmol/L Chloride Level 110 98-107 mmol/L Carbon Dioxide Level 26 21-32 mmol/L Anion Gap 9.0 3-11 mmol/L Blood Urea Nitrogen 28 7-18 mg/dl Creatinine 1.10 0.60-1.20 mg/dl Est Creatinine Clear Calc Drug Dose 49.0 ml/min Estimated GFR () 57.7 Estimated GFR (Non- 49.8 BUN/Creatinine Ratio 25.0 10-20 Random Glucose 78 70-99 mg/dl Calcium Level 8.2 8.5-10.1 mg/dl Microbiology Results 09/01/16 Urine Culture - Preliminary, Resulted Patricia Albicans Impression Assessment and Plan Assessment and Plan Small cell carcinoma Will plan to have Dr. Frantz redmond port on . Preliminary urine culture with Patricia, has been on Unasyn since 08/31. Will hold subQ heparin AM.
--- NOTE | 2016-09-02 16:14 | DIAGNOSTIC IMAGING REPORT ---
CT OF THE CHEST WITHOUT IV CONTRAST CLINICAL HISTORY: Squamous cell carcinoma. Post ration therapy study. COMPARISON STUDY: Outside CT scan dated 03/26/2016 CT DOSE: 653.53 mGy.cm TECHNIQUE: CT of the thorax was performed from the thoracic inlet to the lung bases. Images are reviewed in the axial, sagittal, and coronal planes. IV contrast was not administered for this examination. FINDINGS: Thyroid: Imaged portions of the thyroid gland are normal in appearance. Thoracic aorta: The thoracic aorta is normal in course and caliber, noting standard 3 vessel arch anatomy. Heart: The heart is normal in size and configuration, without pericardial effusion. Lungs and pleural spaces: There is interval decrease in the size of the pleural-based mass within the right lower lobe which currently measures 11 mm. No new or enlarging parenchymal lesions are visualized. There are right lower lobe atelectatic changes. There are no findings suspicious for pneumonia. There are no significant pleural effusions. There is a stable 2.5 mm ovoid nodule within the lingula. Mediastinum: There is no mediastinal lymphadenopathy. Leann: There is no evidence of pathologic hilar adenopathy given the limitations of a noncontrast study Axilla: Clear. Upper abdomen: There are multiple space-occupying masses consistent with progressive hepatic metastatic disease. Skeletal structures: There is a 13 mm lytic lesion within the manubrium, suspicious for a metastatic deposit IMPRESSION: 1. Multiple space-occupying hepatic masses consistent with progressive hepatic metastasis 2. Interval decrease in the size of the pleural-based mass in the right lower lobe which currently measures 11 mm. 3. 13 mm lytic lesion within the manubrium suspicious for metastasis Electronically signed by: Hieu Hernandez M.D. 09/02/2016 4:13 PM Dictated Date/Time: 09/02/2016 4:03 PM
--- NOTE | 2016-09-02 16:24 | Progress Note ---
Internal Med Progress Note Date of Service: Sep 02, 2016. Provider Documentation: SUBJECTIVE: Patient is doing better. Pain is controlled while at rest, but worse on activity No fever, chills, nausea, vomiting, abdominal pain Constipation + No BM in 3 days OBJECTIVE: Vital Signs-as noted below Exam: General-AAOX3, no distress Neck-Supple Lungs-AEBE, no wheezing, rhonchi Heart-S1, S2 normal, no murmurs Abdomen-Soft, non tender, non di stended, BS present Extremities-B/L Lower extremity edema Lab data as noted below. ASSESSMENT & PLAN: PAIN SECONDARY TO METASTASIS Secondary to hepatic and bony metastatic disease due to small cell lung cancer status post radiotherapy. Refused chemotherapy in the past -Percocet PRN controlling pain well METASTATIC SCLC : Work up - CT abd/pelvis- Liver metastasis, Right illiac, Right femoral shaft bone metastasis. MRI brain- No intracranial mets -Follow up - Bone scan -Plan is for : Port placement on for palliative chemotherapy -Plan is for : Radiation tomorrow per radiation oncology KENJI- Resolved Possible related to dehydration -Received IV fluid -Monitor ABNORMAL UA UA positive for nitrite and leukocytes; Urine culture growing- Patricia Afebrile, No leucocytosis -hx of recurrent UTI that usually resistant to PO abx -Urine cx on 08/31- possibly contaminated growing more than 3 org, Repeat Urine cx = patricia, no sensitivity -Will discontinue IV Unasyn HTN BP Stable HX OF RECURRENT PE S/P IVC filter placement. -Not on anticoagulant because of bleeding risks -Venous Doppler of LE negative for DVT Hx OF URETERAL STRICTURE: S/P periodic stent placement. Schedule for appointment this Thursday with urology at [facility] for stent replacement -Call made to Dr. Valdez (urologist) by Dr Lopez. will follow up RECENTN BRONCHITIS- Improved Started on prednisone as an outpatient -will continue steroid taper dose -saturates well on RA RHEUMATOID ARTHRITIS -Stable CONSTIPATION Add laxatives. On narcotics DVT Px on heparin subq CODE STATUS FULL CODE DISPOSITION Plan is for port placement on and radiation tomorrow Discussed with daughters by bedside. Consultants: Hem/Onc Radiology Oncology Vital Signs: Date Time Temp Pulse Resp B/P Pulse Ox O2 Delivery O2 Flow Rate FiO2 09/02/16 16:00 Room Air 09/02/16 11:17 36.4 75 16 116/71 92 Room Air 09/02/16 08:00 Room Air 09/02/16 07:37 36.4 80 16 133/76 93 Room Air 09/02/16 04:25 36.3 76 16 142/ 90 Room Air 09/02/16 00:08 36.4 76 18 129/76 96 Room Air 09/02/16 00:01 Room Air 09/01/16 20:00 Room Air 09/01/16 19:30 36.6 84 18 112/70 91 Room Air Lab Results: Results Past 24 Hours Test 09/02/16 07:01 Range/Units White Blood Count 3.55 4.8-10.8 K/uL Red Blood Count 4.56 4.2-5.4 M/uL Hemoglobin 14.2 12.0-16.0 g/dL Hematocrit 39.7 37-47 % Mean Corpuscular Volume 87.1 80-100 fL Mean Corpuscular Hemoglobin 31.1 25-34 pg Mean Corpuscular Hemoglobin Concent 35.8 32-36 g/dl RDW Standard Deviation 47.2 36.4-46.3 fL RDW Coefficient of Variation 14.8 11.5-14.5 % Platelet Count 97 130-400 K/uL Mean Platelet Volume 11.2 7.4-10.4 fL Sodium Level 145 136-145 mmol/L Potassium Level 3.8 3.5-5.1 mmol/L Chloride Level 110 98-107 mmol/L Carbon Dioxide Level 26 21-32 mmol/L Anion Gap 9.0 3-11 mmol/L Blood Urea Nitrogen 28 7-18 mg/dl Creatinine 1.10 0.60-1.20 mg/dl Est Creatinine Clear Calc Drug Dose 49.0 ml/min Estimated GFR () 57.7 Estimated GFR (Non- 49.8 BUN/Creatinine Ratio 25.0 10-20 Random Glucose 78 70-99 mg/dl Calcium Level 8.2 8.5-10.1 mg/dl Microbiology Results 09/01/16 Urine Culture - Preliminary, Resulted Patricia Albicans
[2016-09-02] MEDS ORDERED: BISACODYL 5 MG TABEC PO PRN (16:30)
[2016-09-02] MEDS: GABAPENTIN 400 MG CAP PO SCH (20:34)
[2016-09-02] MEDS: DOCUSATE SODIUM 100 MG CAP PO SCH (20:36)
[2016-09-03] VITALS (7 sets, daily range): BP systolic 133–147; BP diastolic 76–92; PULSE 68–88; TEMP 36.3–36.5; O2SAT 91–96
[2016-09-03] MEDS: HEPARIN SOD 5000 UNIT/0.5 ML CARP SQ SCH ×3 (06:12→21:31)
[2016-09-03] MEDS: DOCUSATE SODIUM 100 MG CAP PO SCH ×2 (07:43→20:53)
[2016-09-03] MEDS: ASPIRIN 81 MG ECTAB PO SCH (07:44)
[2016-09-03] MEDS: METOPROLOL SUCC 50MG EXT REL TAB PO SCH (07:44)
[2016-09-03] MEDS: GABAPENTIN 100 MG CAP PO SCH (07:44)
[2016-09-03] MEDS: POLYETHYLENE (MIRALAX) 17 GM PACK PO SCH (09:00)
[2016-09-03] MEDS: OXYCODONE/ACETAMINOPHEN 5-325 TAB PO PRN (13:51)
--- NOTE | 2016-09-03 13:51 | Anesthesiology Progress Note ---
Anesthesia Progress Note Date of Service Sep 03, 2016. Progress Notes 71yoF with SCLC for infusaport tomorrow. Acceptable risk for GA vs MAC. Flex ex Cspine XR pending for RA and past remicade/MT use. All questions answered, consented.
--- NOTE | 2016-09-03 14:26 | Progress Note ---
Internal Med Progress Note Date of Service: Sep 03, 2016. Provider Documentation: SUBJECTIVE: Patient is doing better. Pain is controlled while at rest and on activity No fever, chills, nausea, vomiting, abdominal pain Constipation + No BM in 3 days OBJECTIVE: Vital Signs-as noted below Exam: General-AAOX3, no distress Neck-Supple Lungs-AEBE, no wheezing, rhonchi Heart-S1, S2 normal, no murmurs Abdomen-Soft, non tender, non di stended, BS present Extremities-B/L Lower extremity edema Lab data as noted below. ASSESSMENT & PLAN: PAIN SECONDARY TO METASTASIS Secondary to hepatic and bony metastatic disease due to small cell lung cancer status post radiotherapy. Refused chemotherapy in the past -Percocet PRN controlling pain well METASTATIC SCLC : Work up - CT abd/pelvis- Liver metastasis, Right illiac, Right femoral shaft bone metastasis. MRI brain- No intracranial mets -Follow up - Bone scan -Plan is for : Port placement on for palliative chemotherapy -Plan is for : Radiation today per radiation oncology KENJI- Resolved Possible related to dehydration -Received IV fluid -Monitor ABNORMAL UA UA positive for nitrite and leukocytes; Urine culture growing- Patricia Afebrile, No leucocytosis -Hx of recurrent UTI that usually resistant to PO abx -Urine cx on 08/31- possibly contaminated growing more than 3 org, Repeat Urine cx = patricia, no sensitivity -Discontinued IV Unasyn HTN BP Stable HX OF RECURRENT PE S/P IVC filter placement. -Not on anticoagulant because of bleeding risks -Venous Doppler of LE negative for DVT Hx OF URETERAL STRICTURE: S/P periodic stent placement. Schedule for appointment this Thursday with urology at [facility] for stent replacement -Call made to Dr. Valdez (urologist) by Dr Lopez. will follow up RECENT BRONCHITIS- Improved Started on prednisone as an outpatient -will continue steroid taper dose -saturates well on RA RHEUMATOID ARTHRITIS -Stable CONSTIPATION Add laxatives. On narcotics DVT Px on heparin subq CODE STATUS FULL CODE DISPOSITION Plan is for port placement on and radiation today Hopefully discharge to home in AM Consultants: Hem/Onc Radiology Oncology Vital Signs: Date Time Temp Pulse Resp B/P Pulse Ox O2 Delivery O2 Flow Rate FiO2 09/03/16 11:15 36.4 70 18 136/80 93 09/03/16 08:30 93 Room Air 09/03/16 07:53 36.3 74 18 137/92 93 Room Air 09/03/16 04:17 36.4 68 20 133/79 92 Room Air 09/03/16 00:25 36.5 80 20 147/84 92 Room Air 09/03/16 00:00 Room Air 09/02/16 19:12 36.5 85 20 128/81 93 Room Air 09/02/16 16:48 36.4 74 18 109/76 92 Room Air 09/02/16 16:00 Room Air
--- NOTE | 2016-09-03 15:05 | DIAGNOSTIC IMAGING REPORT ---
WHOLE BODY BONE SCAN HISTORY: Lung carcinoma 25.4 RADIOTRACER: mCi Tc-99m MDP STUDY/IMAGES: Planar anterior and posterior whole body imaging was performed 3 hours following the intravenous administration of radiotracer. COMPARISON: None. FINDINGS: Foci of metastatic change involving the lateral aspect right iliac wing. Subtle increase in activity overlying the pedicles of L3. Mild degenerative change of the knees and shoulders. No well-defined focus of metastatic process involving the lower extremities. Bilateral total knee replacements. IMPRESSION: Metastatic deposit lateral aspect right iliac wing. 2. Umbilical degenerative versus focal metastatic change at the L3 level lumbar spine. 3. Scattered degenerative activity of the shoulders, hips, and knees Electronically signed by: José Amezcua M.D. 09/03/2016 3:03 PM Dictated Date/Time: 09/03/2016 3:01 PM
--- NOTE | 2016-09-03 15:12 | DIAGNOSTIC IMAGING REPORT ---
CERVICAL SPINE 3 VIEWS HISTORY: Rheumatoid arthritis RA COMPARISON: None. FINDINGS: The cervical spine is visualized from C1 through the superior endplate of T1. There is no fracture. No subluxation. Disc spaces are preserved. Prevertebral soft tissues and the atlantodens interval are intact. IMPRESSION: No fracture or subluxation within the cervical spine. No evidence for positional subluxation Electronically signed by: José Amezcua M.D. 09/03/2016 3:11 PM Dictated Date/Time: 09/03/2016 3:10 PM
--- NOTE | 2016-09-03 15:33 | Hematology/Oncology Prog Note ---
Hematology/Onc Progress Note Date of Service Sep 03, 2016. Diagnoses 1. Extensive stage SCLC with newly diagnosed metastases to the liver and right iliac, right femoral shaft, and right pleural implant 2. Neoplastic pain from right iliac lesion and liver metastases 3. Poor venous access- planning for central VAD placement during hospitalization for palliative chemotherapy Subjective Ms. Monte reports no change in her baseline health status since yesterday. She reports having a bowel movement today. She has no respiratory complaints. She states her appetite is good. She has peripheral edema, but she states this has not changed. Vital Signs Vital Signs Past 12 Hours Date Time Temp Pulse Resp B/P Pulse Ox O2 Delivery O2 Flow Rate FiO2 09/03/16 11:15 36.4 70 18 136/80 93 09/03/16 08:30 93 Room Air 09/03/16 07:53 36.3 74 18 137/92 93 Room Air 09/03/16 04:17 36.4 68 20 133/79 92 Room Air Physical Exam Constitutional: General Apperance: obese Level of Distress: NAD, chronically ill ENMT: hearing grossly normal Lungs: Respiratory Effort: no dyspnea Auscuitation: no wheezing, no rhonchi Cardiovascular: Heart Auscultation: RRR Abdomen: Inspection & Palpation: soft, non-distended, RUQ tenderness Extremities: edema (chronic of LEs) Radiology Chest CT from 09/02/2016: Interval decrease in size of pleural-based mass within right lower lobe currently measuring 11 mm. No new or enlarging parenchymal lesions. Right lower lobe atelectatic changes. No significant pleural effusions. Stable 2.5 mm ovoid nodule within the lingula. No mediastinal adenopathy. No pathologic hilar adenopathy. Axilla clear. Multiple space-occupying masses consistent with progressive hepatic metastatic disease. 13 mm lytic lesion within manubrium, suspicious for metastatic deposit. Bone scan from 09/03/2016: Foci of metastatic change involving the lateral aspect right iliac wing. Subtle increase in activity overlying the pedicles of L3, degenerative versus metastatic. Mild degenerative change of the knees and shoulders. No well defined focus of metastatic disease in the lower extremities. No mention made of right femoral lesion, or manubrium lesion. Assessment & Plan 1. Extensive stage SCLC with new liver and right iliac bone metastasis, possible new right pleural metastatic deposit and right femoral shaft lesion, manubrium lesion * Discussed with Dr. Nataliya Sanabria and he plans to start patient on palliative RT to right iliac bone lesion * Brain MRI from 09/02/2016- negative for intracranial mets * CT chest from 09/02/16: RLL lesion decrease with RT, no adenopathy, manubrium lesion? * Bone scan from 09/03/16- right iliac wing, possible L3 lesion; no mention of manubrium or right femoral lesion * Discussed palliative chemotherapy with patient- would lean more to carboplatin /etoposide in her case with her age, co-morbidities, PS and underlying neuropathy * Patient has discussed with family and is agreeable with palliative chemotherapy * Dr. Landry to place central VAD for poor venous access tomorrow * Consider agent such as Zometa in outpatient setting for bone metastases * Patient has no hypercalcemia or LFT abnormalities at this time in relation to her osseous and liver metastases, respectively 2. Pain from neoplasm * Patient adequately controlled on Percocet PRN, continue to monitor * May require change to narcotic without APAP in light of her liver metastases 3. Urinary symptoms- repeat culture now resulting with Patricia < 40K CFUs, no treatment indicated per hospitalist 4. History of right ureteral stricture- patient was due for ureter stent change last month and again today- has not been able to make appts for exchange * Rescheduled to next week at [facility], per patient 5. Mild thrombocytopenia- stable, continue to monitor daily. Possibly from liver metastatic disease. Consider checking vitamin B12, folate. Patient needs a follow up with Dr. Peterson on discharge. I performed a history and physical examination of the patient and discussed the management with Rebecca Grande PA-C (09/03/2016). . I reviewed her note and agree with the documented findings and plan of care. Dr. Franc Sanabria Hem/Onc
[2016-09-03] MEDS: GABAPENTIN 400 MG CAP PO SCH (20:53)
[2016-09-04] VITALS (7 sets, daily range): BP systolic 96–143; BP diastolic 54–83; PULSE 67–89; TEMP 36.3–36.5; O2SAT 92–94
[2016-09-04 06:48] LABS: HEMATOCRIT 39.3 % (37-47); MEAN CELL VOLUME 89.3 fL (80-100); MEAN CORPUSCULAR HEMOGLOBIN 31.1 pg (25-34); MEAN CORPUSCULAR HGB CONC 34.9 g/dl (32-36); MEAN PLATELET VOLUME 11.4 fL (7.4-10.4); PLATELET COUNT 115 K/uL (130-400); WHITE BLOOD COUNT 4.61 K/uL (4.8-10.8)
[2016-09-04 06:58] LABS: CALCIUM 8.5 mg/dl (8.5-10.1); CREATININE 1.1 mg/dl (0.60-1.20); POTASSIUM 3.6 mmol/L (3.5-5.1)
[2016-09-04] MEDS: GABAPENTIN 100 MG CAP PO SCH (07:48)
[2016-09-04] MEDS: ASPIRIN 81 MG ECTAB PO SCH (07:48)
[2016-09-04] MEDS: METOPROLOL SUCC 50MG EXT REL TAB PO SCH (07:48)
[2016-09-04] MEDS: DOCUSATE SODIUM 100 MG CAP PO SCH (07:49)
[2016-09-04] MEDS: POLYETHYLENE (MIRALAX) 17 GM PACK PO SCH (07:49)
[2016-09-04] MEDS: OXYCODONE/ACETAMINOPHEN 5-325 TAB PO PRN (10:28)
--- NOTE | 2016-09-04 12:38 | History & Physical Bridge Note ---
H&P Re-Evaluation Bridge Note: I have examined the patient, reviewed the History & Physical and in the interval since the performance of the History & Physical I have noted the following changes of clinical significance: discussed with pt procedure /risks ( bleeding/infection/blood clots/pneumothorax etc...)...answered questions. ok to proceed
[2016-09-04] MEDS ORDERED: LACTATED RINGER'S 1000ML 1,000 ML IV PRN (13:02)
[2016-09-04] MEDS ORDERED: BUPIVACAINE/EPINEPHRINE 0.5% MPF 1:200,000 30 ML VIAL ONE (13:07)
[2016-09-04] MEDS ORDERED: HEPARIN SOD (PORCINE) 5000 UNIT/ML 1 ML VIAL ONE (13:07)
[2016-09-04] MEDS ORDERED: ONDANSETRON INJ 2 MG/ML 2 ML VIAL IV PRN (13:15)
--- NOTE | 2016-09-04 14:28 | DIAGNOSTIC IMAGING REPORT ---
CHEST ONE VIEW PORTABLE CLINICAL HISTORY: A-Port Placement tube position COMPARISON STUDY: 08/30/2016 FINDINGS: Placement of a central catheter in this. Vena cava. Lungs are clear. No evidence pneumothorax. IMPRESSION: Catheter placed in the superior vena cava. No evidence of pneumothorax. Electronically signed by: José Amezcua M.D. 09/04/2016 2:26 PM Dictated Date/Time: 09/04/2016 2:25 PM
--- NOTE | 2016-09-04 14:30 | Anesthesiology Progress Note ---
Anesthesia Post Op Note Date & Time Sep 04, 2016 at 14:28 Vital Signs Pain Intensity: 0 Vital Signs Past 12 Hours Date Time Temp Pulse Resp B/P Pulse Ox O2 Delivery O2 Flow Rate FiO2 09/04/16 14:17 82 18 09/04/16 14:17 85 18 95 09/04/16 14:15 127/68 09/04/16 14:12 72 16 09/04/16 14:12 72 16 96 09/04/16 14:10 124/67 09/04/16 14:07 78 15 09/04/16 14:07 78 15 96 09/04/16 14:06 81 14 98 09/04/16 14:06 81 14 09/04/16 14:05 122/61 09/04/16 14:01 81 18 96 09/04/16 14:01 77 18 09/04/16 14:00 126/67 09/04/16 13:57 117/62 09/04/16 13:56 36.6 84 14 117/62 99 Room Air 09/04/16 13:56 80 09/04/16 13:56 80 97 09/04/16 07:45 94 Room Air 09/04/16 07:26 36.3 78 18 137/73 94 Room Air 09/04/16 04:12 36.3 75 18 134/78 93 Room Air Notes Mental Status: alert / awake / arousable, participated in evaluation Pt Amnestic to Procedure: Yes Nausea / Vomiting: adequately controlled Pain: adequately controlled Airway Patency, RR, SpO2: stable & adequate BP & HR: stable & adequate Hydration State: stable & adequate Anesthetic Complications: no major complications apparent
--- NOTE | 2016-09-04 15:02 | [facility] Operative Report ---
Operative Report Operative Date Sep 04, 2016. Pre-Operative Diagnosis Need for Long-Term Intravenous Access Post-Operative Diagnosis same Procedure(s) Performed placement of right subclavian mediport with fluoroscopy Surgeon Dr. Landry Clinical Application Consultant Surgeon(s) YU Quintana Estimated Blood Loss 10 ml Findings normal anatomy Specimens none per surgeon Complication(s) None I attest to the content of the Intraoperative Record and any orders documented therein. Any exceptions are noted below.
--- NOTE | 2016-09-04 17:02 | Progress Note ---
Internal Med Progress Note Date of Service: Sep 04, 2016. Provider Documentation: SUBJECTIVE: Patient is doing better. Pain is controlled while at rest and on activity No fever, chills, nausea, vomiting, abdominal pain S/P Port placement and radiation rx OBJECTIVE: Vital Signs-as noted below Exam: General-AAOX3, no distress Neck-Supple Lungs-AEBE, no wheezing, rhonchi; Port + Heart-S1, S2 normal, no murmurs Abdomen-Soft, non tender, non di stended, BS present Extremities-B/L Lower extremity edema Lab data as noted below. ASSESSMENT & PLAN: PAIN SECONDARY TO METASTASIS Secondary to hepatic and bony metastatic disease due to small cell lung cancer status post radiotherapy. -S/P Palliative Radiation rx x 2 yesterday and today -Percocet PRN controlling pain well METASTATIC SCLC : Work up - CT abd/pelvis- Liver metastasis, Right illiac, Right femoral shaft bone metastasis. MRI brain- No intracranial mets; Bone scan- Metastatic deposit lateral aspect right illiac wing, umbilical degenerative versus focal metastatic change at L3 level lumbar spine, scattered degenerative activity of the shoulders, knees, hips Refused chemotherapy in the past -S/P Radiation rx x 2 -yesterday and today -Plan is for palliative chemotherapy KENJI - Resolved Possibly related to dehydration -Received IV fluids -Monitor ABNORMAL UA UA positive for nitrite and leukocytes; Urine culture growing- Patricia Afebrile, No leucocytosis -Hx of recurrent UTI that usually resistant to PO abx -Urine cx on 08/31- possibly contaminated growing more than 3 org, Repeat Urine cx = patricia, no sensitivity -Discontinued IV Unasyn HTN BP Stable HX OF RECURRENT PE S/P IVC filter placement. -Not on anticoagulant because of bleeding risks -Venous Doppler of LE negative for DVT Hx OF URETERAL STRICTURE: S/P periodic stent placement. Schedule for appointment this Thursday with urology at [facility] for stent replacement -Call made to Dr. Valdez (urologist) by Dr Lopez. will follow up RECENT BRONCHITIS- Improved Started on prednisone as an outpatient -will continue steroid taper dose -saturates well on RA RHEUMATOID ARTHRITIS -Stable CONSTIPATION Add laxatives. On narcotics DVT Px on heparin subq CODE STATUS FULL CODE DISPOSITION Ok to discharge home today Discussed with daughter by bedside Consultants: Hem/Onc Radiology Oncology Vital Signs: Date Time Temp Pulse Resp B/P Pulse Ox O2 Delivery O2 Flow Rate FiO2 4/6/17 15:56 36.4 89 20 96/54 93 Room Air 09/04/16 14:48 36.4 67 20 132/83 92 Room Air 09/04/16 14:36 69 16 09/04/16 14:36 70 16 95 09/04/16 14:35 138/58 09/04/16 14:31 71 16 09/04/16 14:31 73 16 96 09/04/16 14:30 118/69 09/04/16 14:26 74 14 09/04/16 14:26 76 14 95 09/04/16 14:25 121/61 09/04/16 14:23 73 16 93 09/04/16 14:23 72 16 09/04/16 14:20 138/66 09/04/16 14:18 81 14 09/04/16 14:18 80 14 96 09/04/16 14:17 82 18 09/04/16 14:17 85 18 95 09/04/16 14:15 127/68 09/04/16 14:12 72 16 09/04/16 14:12 72 16 96 09/04/16 14:10 124/67 09/04/16 14:07 78 15 09/04/16 14:07 78 15 96 09/04/16 14:06 81 14 98 09/04/16 14:06 81 14 09/04/16 14:05 122/61 09/04/16 14:01 81 18 96 09/04/16 14:01 77 18 09/04/16 14:00 126/67 09/04/16 13:57 117/62 09/04/16 13:56 36.6 84 14 117/62 99 Room Air 09/04/16 13:56 80 09/04/16 13:56 80 97 09/04/16 07:45 94 Room Air 09/04/16 07:26 36.3 78 18 137/73 94 Room Air 09/04/16 04:12 36.3 75 18 134/78 93 Room Air 09/04/16 00:07 36.5 89 20 143/65 92 Room Air 09/04/16 00:01 Room Air 09/03/16 19:38 36.4 88 20 143/76 96 Room Air 09/03/16 19:30 Room Air 09/03/16 17:00 Room Air Lab Results: Results Past 24 Hours Test 09/04/16 05:30 Range/Units White Blood Count 4.61 4.8-10.8 K/uL Red Blood Count 4.40 4.2-5.4 M/uL Hemoglobin 13.7 12.0-16.0 g/dL Hematocrit 39.3 37-47 % Mean Corpuscular Volume 89.3 80-100 fL Mean Corpuscular Hemoglobin 31.1 25-34 pg Mean Corpuscular Hemoglobin Concent 34.9 32-36 g/dl RDW Standard Deviation 49.3 36.4-46.3 fL RDW Coefficient of Variation 15.2 11.5-14.5 % Platelet Count 115 130-400 K/uL Mean Platelet Volume 11.4 7.4-10.4 fL Sodium Level 146 136-145 mmol/L Potassium Level 3.6 3.5-5.1 mmol/L Chloride Level 110 98-107 mmol/L Carbon Dioxide Level 29 21-32 mmol/L Anion Gap 7.0 3-11 mmol/L Blood Urea Nitrogen 29 7-18 mg/dl Creatinine 1.10 0.60-1.20 mg/dl Est Creatinine Clear Calc Drug Dose 49.1 ml/min Estimated GFR () 57.7 Estimated GFR (Non- 49.8 BUN/Creatinine Ratio 26.0 10-20 Random Glucose 81 70-99 mg/dl Calcium Level 8.5 8.5-10.1 mg/dl
[2016-09-04] MEDS ORDERED: CLC100 PO (17:04)
[2016-09-04] MEDS ORDERED: OXYC-57 PO (17:04)
--- NOTE | 2016-09-04 17:06 | Discharge Instructions ---
Discharge Instructions Date of Service Sep 04, 2016. Admission Reason for Admission: Cancer Associated Pain Discharge Discharge Diagnosis / Problem: 1. Pain due to metastasis 2. Acute kidney injury Discharge Goals Goal(s): Decrease discomfort, Improve function Activity Recommendations Activity Limitations: resume your previous activity (as tolerated prior to admission (with assistance)) . Instructions / Follow-Up Instructions / Follow-Up MEDICATION CHANGES: 1. New medication: Percocet as instructed as needed for pain 2. New medication: Colace 100 mg PO BID for constipation while on narcotics 3. Prednisone 10 mg x 2 days and than discontinue FOLLOW UP 1. Follow up with PCP in 1 week. Please do call for appointment day/time 2. Follow up with urology- Dr Valdez's office will call for appt 3. FOllow up with radiation oncology/Hem/Onc as scheduled Current Hospital Diet Patient's current hospital diet: AHA Diet (Heart Healthy) Discharge Diet Recommended Diet: AHA Diet (Heart Healthy) Procedures Procedures Performed: Infusaport Insertion Right Subclavian Pending Studies Studies pending at discharge: no Medical Emergencies . Who to Call and When: Medical Emergencies: If at any time you feel your situation is an emergency, please call 911 immediately. . Non-Emergent Contact Non-Emergency issues call your: Primary Care Provider . . "Provider Documentation" section prepared by Slime Sanabria. VTE Core Measure Inpt VTE Proph given/why not?: Unfractionated heparin SQ
--- NOTE | 2016-09-04 17:10 | Discharge Summary ---
Discharge Summary Date of Service Sep 04, 2016. Discharge Summary Admission Date: Sep 03, 2016 at 09:51 Discharge Date: Sep 04, 2016 Discharge Disposition: Home Principal Diagnosis: 1. Pain secondary to metastatic disease 2. KENJI 3. Secondary Diagnoses/Problems: 1. HTN 2. Hx of recurrent PE 3. Rheumatoid arthritis Procedures: Port placement on 09/04/16 Radiation rxs on 09/03 and 09/04/16 Consultations: Hem/Onc Radiology Oncology Pending Studies/Follow-Up: NEW MEDICATIONS: 1. Percocet PO every 4 hours as needed for severe pain 2. Colace 100 mg PO BID for constipation while on percocet FOLLOW UP 1. Follow up with PCP in 1 week. You will need to call PCP and have an appt in 7 days 2. Follow up with radiation oncology/Hem/Onc as per schedule 3. Follow up with urology- Dr Valdez office will call you for appointment Medication Reconciliation New Medications: Docusate Sodium (Docusate Sodium) 100 Mg Cap 100 MG PO BID for 10 Days, #20 CAP 2 Refills Oxycodone/Acetaminophen 5MG/325MG (Percocet 5MG/325MG) Tab 1 TAB PO Q4H PRN for Pain, #30 TAB PAIN Continued Medications: Albuterol Hfa (Ventolin Hfa) 200 Puffs/10345 Mcg Aers 2 PUFFS INH Q6H PRN for Shortness of Breath, #1 INHALER Aspirin (Aspirin Ec) 81 Mg Tab 81 MG PO DAILY Fluticasone Furoate-Vilanterol (Breo Ellipta 200-25 Mcg/INH) 1 Inh Inh 1 PUFFS INH DAILY Folic Acid (Folvite) 1 Mg Tab 1 TAB PO DAILY for 90 Days, #90 TAB 1 Refill Gabapentin (Neurontin) 400 Mg Cap 2 CAP PO HS for 30 Days, CAP Gabapentin (Neurontin) 400 Mg Cap 400 MG PO QAM, CAP Ipratropium-Albuterol (Duoneb) 3 Ml Nebu 1 TREATMENT INH BID PRN for Shortness of Breath, INHA Mesalamine (Asacol Hd) 800 Mg Tab 1 TAB PO TID Metoprolol Succinate (Toprol Xl) 50 Mg Tabcr 50 MG PO QAM, #30 TAB Ondansetron Hcl (Zofran) 4 Mg Tab 4 MG PO Q8 PRN for Nausea, TAB Prednisone (Prednisone) 10 Mg Tab 10 MG PO TAPER UD, TAB Tramadol (Ultram) 50 Mg Tab 50 MG PO BID PRN for Pain, TAB [lidocaine ointment] () 1 APPLN TOP DAILY PRN for UNDECIDED 5% ointment Uses for "neuropathy of her feet" [nystatin powder] () 1 APPLN TOP DAILY PRN for Affected Skin Folds 10,000 unit/gm Uses for skin yeast infections Discontinued Medications: Ibuprofen-Diphenhydramine Citr (Advil Pm) 1 Tab Tab 1 TAB PO HS Admission Information HPI (per Admitting provider): HISTORY OF PRESENT ILLNESS: Medical history is significant for small-cell lung cancer status post radiation , chronic respiratory failure secondary to COPD on home O2, past tobacco abuse, HTN, Hx recurrent PE sp IVC filter placement off anticoagulation because of bleeding risk, RA as per records, history of Crohn's disease as per, hx ureteral stricture/R hydronephrosis sp stent placement. Recent confinement at [facility] in March 2013 for right knee surgery. 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 Patient refused chemotherapy. Px completed radiotherapy last month. In the last few days, patient noted worsening achy right upper quadrant pain and right back pain worse with ambulation. No fever, no chills, no unusual shortness of breath. Intractable pain at the Emergency Room. Hospital Course PAIN SECONDARY TO METASTASIS : Secondary to hepatic and bony metastatic disease due to small cell lung cancer status post radiotherapy. -S/P Palliative Radiation rx x 2 yesterday and today -Percocet PRN controlling pain well METASTATIC SCLC : Work up - CT abd/pelvis- Liver metastasis, Right illiac, Right femoral shaft bone metastasis. MRI brain- No intracranial mets; Bone scan- Metastatic deposit lateral aspect right illiac wing, umbilical degenerative versus focal metastatic change at L3 level lumbar spine, scattered degenerative activity of the shoulders, knees, hips Refused chemotherapy in the past -S/P Radiation rx x 2 -yesterday and today -Plan is for palliative chemotherapy KENJI - Resolved Possibly related to dehydration -Received IV fluids -Monitor ABNORMAL UA UA positive for nitrite and leukocytes; Urine culture growing- Patricia Afebrile, No leucocytosis -Hx of recurrent UTI that usually resistant to PO abx -Urine cx on 08/31- possibly contaminated growing more than 3 org, Repeat Urine cx = patricia, no sensitivity -Discontinued IV Unasyn HTN BP Stable HX OF RECURRENT PE S/P IVC filter placement. -Not on anticoagulant because of bleeding risks -Venous Doppler of LE negative for DVT Hx OF URETERAL STRICTURE: S/P periodic stent placement. Schedule for appointment this Thursday with urology at [facility] for stent replacement -Call made to Dr. Valdez (urologist) by Dr Lopez. will follow up RECENT BRONCHITIS- Improved Started on prednisone as an outpatient -will continue steroid taper dose -saturates well on RA RHEUMATOID ARTHRITIS -Stable CONSTIPATION Add laxatives. On narcotics DVT Px on heparin subq CODE STATUS FULL CODE DISPOSITION Ok to discharge home today Discussed with daughter by bedside Consultants: Hem/Onc Radiology Oncology Total time spent on discharge = 35 minutes This includes examination of the patient, discharge planning, medication reconciliation, and communication with other providers. Discharge Instructions Discharge Goals Goal(s): Decrease discomfort, Improve function Activity Recommendations Activity Limitations: resume your previous activity (as tolerated prior to admission (with assistance)) . Current Hospital Diet Patient's current hospital diet: AHA Diet (Heart Healthy) Discharge Diet Recommended Diet: AHA Diet (Heart Healthy) Procedures Procedures Performed: Infusaport Insertion Right Subclavian Pending Studies Studies pending at discharge: no Medical Emergencies . Who to Call and When: Medical Emergencies: If at any time you feel your situation is an emergency, please call 911 immediately. . Non-Emergent Contact Non-Emergency issues call your: Primary Care Provider . . "Provider Documentation" section prepared by Slime Sanabria. VTE Core Measure Inpt VTE Proph given/why not?: Unfractionated heparin SQ
--- NOTE | 2016-09-04 21:27 | OPERATIVE REPORT ---
DATE OF OPERATION: 09/04/2016 PREOPERATIVE DIAGNOSIS: Need for chemotherapy and IV access. POSTOPERATIVE DIAGNOSIS: Same. PROCEDURE: Right subclavian MediPort insertion under fluoroscopy. SURGEON: Dr. Landry. ZINC MINER: Luna Brenner PA-C. ESTIMATED BLOOD LOSS: Approximately 15 mL. COMPLICATIONS: No immediate. ANESTHESIA: Moderate anesthesia care with local. DESCRIPTION OF PROCEDURE: After informed consent was obtained, the patient was taken to the operating suite, placed in supine position. Both arms were tucked. The patient was then given IV sedation. Once she was sedated, the right upper chest wall was sterilely prepped and draped in usual fashion. I made a small horizontal incision below the clavicle with a 15 blade scalpel and carried down through the soft tissue using electrocautery. I then used a blunt finger to create a small housing pocket for the MediPort. Prior to doing any of this, I did localize the area with Marcaine. This includes the periosteum of the clavicle. We then used a finder needle to access the right subclavian vein without difficulty. We advanced a guidewire under fluoroscopy into the superior vena cava and then removed the needle. Again, we looked under fluoroscopy to verify position. We then cut the catheter to the appropriate length and connected it to the MediPort itself. I then advanced a vascular dilator with a peel-away sheath over the guidewire, again under fluoroscopy. We then removed the guidewire as well as the dilator and advanced the catheter through the peel-away sheath. The MediPort itself was placed into the previously made housing pocket. We then peeled away the sheath, leaving the catheter behind. Again we used fluoroscopy to verify proper catheter position. We flushed the catheter with heparin and we were able to readily suck back dark venous blood as well as flushed the catheter. We then secured the port to the chest wall muscle using #1 Ethibond using 3-point fixation. The wound was thoroughly irrigated and closed in 2 layers using 3-0 Monocryl for the deep layer and 3-0 Monocryl for the skin. A sterile dressing was applied. The patient tolerated the procedure well. She was awakened and transferred to recovery room. Postoperative chest x-ray verified catheter position and showed no pneumothorax. I attest to the content of the Intraoperative Record and any orders documented therein. Any exceptio ns are noted below.
[2016-12-10] MEDS ORDERED: SULF-183 PO (17:33)
[2016-12-11] MEDS ORDERED: SULF-183 PO (10:10)
[2016-12-11] MEDS ORDERED: LEVO-459 PO (10:42)
[2017-01-09] MEDS ORDERED: CALC600T9 PO (08:43)
[2017-01-09] MEDS ORDERED: FOLI1TAB7 PO (09:28)
[2017-01-09] MEDS ORDERED: METO-217 PO (09:28)
[2017-01-09] MEDS ORDERED: GABA1CAP5 PO ×2 (09:28)
[2017-01-09] MEDS ORDERED: TRAM-10 PO (09:29)
[2017-01-09] MEDS ORDERED: ASPI81TA28 PO (10:17)
[2017-01-09] MEDS ORDERED: ONDA4TAB46 PO (10:17)
[2017-01-09] MEDS ORDERED: MESA1TAB4 PO (10:17)
[2017-01-09] MEDS ORDERED: IPRASOL4 NEB (10:17)
[2017-01-09] MEDS ORDERED: FLUT1INH7 INH (12:26)
[2017-01-11] MEDS ORDERED: SULF-183 PO (16:06)
[2017-01-11] MEDS ORDERED: LACT10CA3 PO (16:06)
[2017-04-16] MEDS ORDERED: PRED10TA PO (12:43)
== END 2016-09-04 18:39 | disposition home or self-care (01) | DRG 436 ==
LOC: ENRESERVDT → ENRESERVTM → C.EDB 20:24 → C.4E 08-31 00:55 → OBSVTOIN 09-03 09:51
PROVIDERS: ADMIT Internal Medicine; ATTEND Internal Medicine
PROC: B5161ZA Fluoroscopy of Right Subclavian Vein using Low Osmolar Contrast, Guidance (ICD-10-PCS; principal; 2016-09-04 13:15)
PROC: 05H533Z Insertion of Infusion Device into Right Subclavian Vein, Percutaneous Approach (ICD-10-PCS; principal; 2016-09-04 13:15)
DX: C78.7 Secondary malignant neoplasm of liver and intrahepatic bile duct (principal); N17.9 Acute kidney failure, unspecified; J44.0 Chronic obstructive pulmonary disease with (acute) lower respiratory infection; C79.51 Secondary malignant neoplasm of bone; J96.10 Chronic respiratory failure, unspecified whether with hypoxia or hypercapnia; N39.0 Urinary tract infection, site not specified; G89.3 Neoplasm related pain (acute) (chronic); I10 Essential (primary) hypertension; M06.9 Rheumatoid arthritis, unspecified; Z86.711 Personal history of pulmonary embolism; Z99.81 Dependence on supplemental oxygen; Z92.3 Personal history of irradiation; Z51.5 Encounter for palliative care; K59.00 Constipation, unspecified; Z87.891 Personal history of nicotine dependence; J40 Bronchitis, not specified as acute or chronic; E86.0 Dehydration; D69.6 Thrombocytopenia, unspecified

== ENCOUNTER → 2016-10-08 | Outpatient (CLI) | payer OTHER ==
[~2016-10-08] MED LIST changes: -ALBUAER2 INH; +ASPI81TA28 PO; +CALC600T9 PO; +CLC100 PO; +FLUT1INH7 INH; +FOLI1TAB7 PO; +GABA1CAP5 PO; -IBUP1TAB PO; +IPRASOL4 NEB; +LACT10CA3 PO; +LEVO-459 PO; -MAGIC1 PO; +MESA1TAB4 PO; +METO-217 PO; +ONDA4TAB46 PO; +OXYC-57 PO; +PRED10TA PO; +PROC1TAB5 PO; +SULF-183 PO; +TRAM-10 PO; +VNTHFA/IN INH
[2016-10-08 08:37] VITALS: BP 106/65; PULSE 78; TEMP 36.4; O2SAT 95
--- NOTE | 2016-10-08 09:41 | Radiation Oncology Follow-Up ---
Radiation Oncology Follow-Up Date of Visit October 08, 2016. 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 Permanent Comment: Pneumonia July 2015 admission and diagnosis of a DVT CT of the chest revealed right lower lobe nodule, surveillance for 6 months Recheck evaluation showed enlargement of the nodule Status post EBUS and biopsies 05/16/2016 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, Limited Stage Chronic renal disease Nonsurgical and chemotherapy candidate Status post completion of definitive radiation therapy 08/04/2016 received 6600 cGy Admission for right abdominal pain 08/30/2016 Finding of bone and liver metastasis Painful areas of metastasis right iliac wing and right femur Status post completion of radiation therapy to the right pelvis and right femur 09/10/2016 received 2500 cGy to each area Last Edited By: Lily Cisneros on Sep 19, 2016 12:58 (Lily Cisneros PA-C) History of Present Illness Ms. Monte is a 71-year-old female with a remote smoking history of 1 pack a day for 10 years. She quit 30 years ago. She also has a history of chronic obstructive pulmonary disease, pulmonary emboli, hypertension, and chronic renal insufficiency. On 07/21/2015 the patient was admitted to [facility] with a diagnosis of pneumonia, flu, chronic renal insufficiency and deep vein thrombosis. At that time she had an IVC filter placed. She was admitted again on 09/19/2015 and was followed by science specialist at [facility]. The patient wished to avoid travel to [place] for her pulmonary care so she sought care in [place]. A follow-up CT scan was performed on 09/10/2015 to follow pulmonary nodules noted at the time of her prior admission dated 07/30/2015 of the chest and a CT of the abdomen and pelvis dated 07/25/2015 and 08/09/2015. This study showed near-complete resolution of the prior extensive tree-in-and blood-like peribronchial central lobular pulmonary opacities. However there was a persistent pleural-based soft tissue density in the right lower lobe measuring 1.2 x 0.8 cm. Prior measurement was 1.0 x 0.6 cm. There was reexpansion of the right middle lobe. In the upper abdomen multiple stable hypodense hepatic cysts were appreciated to small to characterize.. Because of this finding a PET CT scan was ultimately recommended and performed on . In comparing this to the prior scan the right lower lobe nodule abutting the posterior chest wall continued increase in size measuring 1.9 cm. There was evidence of emphysema. The right lower lobe nodule was FDG avid with an SUV of 4.8. There were 2 areas of lymph node FDG avidity in the right peritracheal and right hilar lymph nodes. Patient was therefore seen by Dr. Levar An in [place] for further evaluation and diagnostic workup. On 05/16/2016 the patient underwent a bronchoscopy and endobronchial ultrasound endoscope was utilized to examine the right lower paratracheal region (level IVR ) and the right hilar region (level X R) in order to assist with guiding the biopsy needle. An endobronchial ultrasound-guided transbronchial needle aspiration was performed. The rapid on-site evaluation revealed a preliminary cytology suspicious for malignancy. His impression was of right-sided hilar lymphadenopathy, mediastinal adenopathy, paratracheal adenopathy, normal endobronchial examination no endobronchial lesions. The cytology from the lymph node, 4R revealed malignant cells consistent with a small cell carcinoma. Cytology from the lymph node, 10 R revealed malignant cells consistent with a small cell carcinoma. The patient was subsequently sent for evaluation to Dr. Katherine Peterson who saw the patient on 05/23/2016. She reviewed this scans and cytology reports. The patient was staged as a limited stage small cell carcinoma with no evidence of disseminated disease on PET/CT scan. Because of her chronic renal insufficiency the role of systemic chemotherapy is less clear if she is not a candidate for cisplatin. She did however discuss alternative chemotherapeutic regimens with the patient. The patient was uncertain as to whether she would agree to systemic therapy. She also discussed completing her staging workup with an MRI of the brain which was to be ordered and performed. This has not yet been completed. Dr. aKtherine Peterson also arranged for the patient to be seen by us in referral. The decision was to treat with radiation therapy alone. She completed therapy 08/04/2016 received 6600 cGy. She was admitted to the hospital on 08/30/2016. She had severe pain in the right side of the abdomen. Studies were obtained and revealed metastatic carcinoma to the bones and liver. There was a noted area in the right iliac wing and the associated area of pain. She was also found to have a smaller lesion in the right femur with pain associated. Decision was to treat both of these areas. Radiation was given and was completed on 09/10/2016. She received 2500 cGy to each area. (Lily Cisneros PA-C) Interim History She's been doing well over this past month. Pain she was having in the pelvis and upper thigh has greatly improved. Today she gives a pain level of 1. She does not take pain medication on a regular basis. Previously she had discomfort in the mid right abdomen. The abdominal discomfort now is described as minimal. She is now following with Dr. Sanabria and medical oncology. She has received 1 dose of chemotherapy 21 days ago. She tolerated this very well. She had no nausea or vomiting. She had no change in bowel habits. She denied fatigue. She'll have her next chemotherapy treatment today. (Lily Cisneros PA-C) Allergies Coded Allergies: NO KNOWN DRUG ALLERGIES (Verified Allergy, Unknown, ., 02/13/16) Home Medications Scheduled Aspirin (Aspirin Ec), 81 MG PO DAILY Calcium Carbonate-Vitamin D (Calcium + D), BID Docusate Sodium (Docusate Sodium), 100 MG PO BID Fluticasone Furoate-Vilanterol (Breo Ellipta 200-25 Mcg/INH), 1 PUFFS INH DAILY Folic Acid (Folvite), 1 TAB PO DAILY Gabapentin (Neurontin), 2 CAP PO HS Gabapentin (Neurontin), 400 MG PO QAM Mesalamine (Asacol Hd), 1 TAB PO TID Metoprolol Succinate (Toprol Xl), 50 MG PO QAM Scheduled PRN Albuterol Hfa (Ventolin Hfa), 2 PUFFS INH Q6H PRN for Shortness of Breath Ipratropium-Albuterol (Duoneb), 1 TREATMENT INH BID PRN for Shortness of Breath Ondansetron Hcl (Zofran), 4 MG PO Q8 PRN for Nausea Oxycodone/Acetaminophen 5MG/325MG (Percocet 5MG/325MG), 1 TAB PO Q4H PRN for Pain Tramadol (Ultram), 50 MG PO BID PRN for Pain [nystatin powder], 1 APPLN TOP DAILY PRN for Affected Skin Folds Review of Systems Gastrointestinal: Symptoms: WNL Oral: Symptoms: No Problems Respiratory: Symptoms: SOB With Exertion Urinary: Symptoms: WNL Skin: Other Skin Symptoms: PORT placed last month (Lily Cisneros PA-C) Physical Exam Vital Signs Date Time Temp Pulse Resp B/P Pulse Ox O2 Delivery O2 Flow Rate FiO2 10/08/16 08:37 36.4 78 18 106/65 95 Fatigue: None General Appearance: no apparent distress Eyes: normal inspection, EOMI ENT: normal ENT inspection, hearing grossly normal Respiratory/Chest: lungs clear, no respiratory distress, no accessory muscle use Cardiovascular: regular rate, rhythm, no gallop, no murmur Abdomen: non tender, soft Extremities: + pertinent finding (very slight tenderness to palpation of the upper anterior right thigh.) Neurologic/Psychiatric: no motor/sensory deficits, alert, normal mood/affect Skin: warm/dry Additional Exam Notes: Mild tenderness of the sacroiliac area bilaterally. (Lily Cisneros PA-C) Laboratory Studies Test 07/31/16 12:13 08/30/16 21:00 08/31/16 05:06 08/31/16 13:05 Total Bilirubin 0.3 mg/dl (0.2-1) 0.4 mg/dl (0.2-1) Aspartate Amino Transferase (AST) 27 U/L (15-37) 34 U/L (15-37) Alanine Aminotransferase (ALT) 23 U/L (12-78) 40 U/L (12-78) Alkaline Phosphatase 55 U/L (45-117) 67 U/L (45-117) Total Protein 7.3 gm/dl (6.4-8.2) 7.9 gm/dl (6.4-8.2) Albumin 3.7 gm/dl (3.4-5.0) 4.1 gm/dl (3.4-5.0) Globulin 3.6 gm/dl (2.5-4.0) Albumin/Globulin Ratio 1.0 (0.9-2) Immature Granulocyte % (Auto) 0.3 % 0.2 % White Blood Count 7.37 K/uL (4.8-10.8) 5.89 K/uL (4.8-10.8) Red Blood Count 4.95 M/uL (4.2-5.4) 4.50 M/uL (4.2-5.4) Hemoglobin 15.6 g/dL (12.0-16.0) 13.8 g/dL (12.0-16.0) Hematocrit 44.3 % (37-47) 40.8 % (37-47) Mean Corpuscular Volume 89.5 fL (80-100) 90.7 fL (80-100) Mean Corpuscular Hemoglobin 31.5 pg (25-34) 30.7 pg (25-34) Mean Corpuscular Hemoglobin Concent 35.2 g/dl (32-36) 33.8 g/dl (32-36) Platelet Count 142 K/uL (130-400) 115 K/uL (130-400) Mean Platelet Volume 11.5 fL (7.4-10.4) 11.5 fL (7.4-10.4) Neutrophils (%) (Auto) 82.5 % 70.8 % Lymphocytes (%) (Auto) 8.3 % 14.8 % Monocytes (%) (Auto) 8.4 % 12.2 % Eosinophils (%) (Auto) 0.4 % 1.5 % Basophils (%) (Auto) 0.1 % 0.5 % Neutrophils # (Auto) 6.08 K/uL (1.4-6.5) 4.17 K/uL (1.4-6.5) Lymphocytes # (Auto) 0.61 K/uL (1.2-3.4) 0.87 K/uL (1.2-3.4) Monocytes # (Auto) 0.62 K/uL (0.11-0.59) 0.72 K/uL (0.11-0.59) Eosinophils # (Auto) 0.03 K/uL (0-0.5) 0.09 K/uL (0-0.5) Basophils # (Auto) 0.01 K/uL (0-0.2) 0.03 K/uL (0-0.2) Immature Granulocyte # (Auto) 0.02 K/uL (0.00-0.02) 0.01 K/uL (0.00-0.02) Prothrombin Time 10.9 SECONDS (9.0-12.0) Prothrombin Time INR 1.0 (0.9-1.1) PTT 21.5 SECONDS (21.0-31.0) Partial Thromboplastin Ratio 0.8 Magnesium Level 2.2 mg/dl (1.8-2.4) Direct Bilirubin 0.1 mg/dl (0-0.2) Total Creatine Kinase 83 U/L (26-192) Creatine Kinase MB 1.5 ng/ml (0.5-3.6) Creatine Kinase MB Ratio 1.8 (0-3.0) Troponin I < 0.015 ng/ml (0-0.045) Pro-B-Type Natriuretic Peptide 656 pg/ml (0-900) Lipase 323 U/L (73-393) Urine Color YELLOW Urine Appearance TURBID (CLEAR) Urine pH 6.0 (4.5-7.5) Urine Specific [place] 1.024 (1.000-1.030) Urine Protein 2+ (NEG) Urine Glucose (UA) NEG (NEG) Urine Ketones NEG (NEG) Urine Occult Blood 3+ (NEG) Urine Nitrite POS (NEG) Urine Bilirubin NEG (NEG) Urine Urobilinogen NEG (NEG) Urine Leukocyte Esterase LARGE (NEG) Urine WBC (Auto) >30 /hpf (0-5) Urine RBC (Auto) >30 /hpf (0-4) Urine Hyaline Casts (Auto) /lpf (0-5) Urine Epithelial Cells (Auto) >30 /lpf (0-5) Urine Bacteria (Auto) 2+ (NEG) Urine Pathogenic Casts /lpf (0) Test 09/02/16 07:01 09/04/16 05:30 White Blood Count 3.55 K/uL (4.8-10.8) 4.61 K/uL (4.8-10.8) Red Blood Count 4.56 M/uL (4.2-5.4) 4.40 M/uL (4.2-5.4) Hemoglobin 14.2 g/dL (12.0-16.0) 13.7 g/dL (12.0-16.0) Hematocrit 39.7 % (37-47) 39.3 % (37-47) Mean Corpuscular Volume 87.1 fL (80-100) 89.3 fL (80-100) Mean Corpuscular Hemoglobin 31.1 pg (25-34) 31.1 pg (25-34) Mean Corpuscular Hemoglobin Concent 35.8 g/dl (32-36) 34.9 g/dl (32-36) RDW Standard Deviation 47.2 fL (36.4-46.3) 49.3 fL (36.4-46.3) RDW Coefficient of Variation 14.8 % (11.5-14.5) 15.2 % (11.5-14.5) Platelet Count 97 K/uL (130-400) 115 K/uL (130-400) Mean Platelet Volume 11.2 fL (7.4-10.4) 11.4 fL (7.4-10.4) Sodium Level 145 mmol/L (136-145) 146 mmol/L (136-145) Potassium Level 3.8 mmol/L (3.5-5.1) 3.6 mmol/L (3.5-5.1) Chloride Level 110 mmol/L (98-107) 110 mmol/L (98-107) Carbon Dioxide Level 26 mmol/L (21-32) 29 mmol/L (21-32) Anion Gap 9.0 mmol/L (3-11) 7.0 mmol/L (3-11) Blood Urea Nitrogen 28 mg/dl (7-18) 29 mg/dl (7-18) Creatinine 1.10 mg/dl (0.60-1.20) 1.10 mg/dl (0.60-1.20) Est Creatinine Clear Calc Drug Dose 49.0 ml/min 49.1 ml/min Estimated GFR () 57.7 57.7 Estimated GFR (Non- 49.8 49.8 BUN/Creatinine Ratio 25.0 (10-20) 26.0 (10-20) Random Glucose 78 mg/dl (70-99) 81 mg/dl (70-99) Calcium Level 8.2 mg/dl (8.5-10.1) 8.5 mg/dl (8.5-10.1) (Lily Cisneros PA-C) Assessment & Plan Plan: Patient was also seen and examined by Dr. Sanabria. She'll continue follow- up with Dr. Franc Sanabria. She will have her second treatment of chemotherapy today. She has had an excellent response to treatment. A follow-up appointment with our office was not given. She may cause she has no questions or concerns we'll be happy to see her. (Lily Cisneros PA-C) I agree with note created by Lily Cisneros PA-C. I reviewed the patient's chart and information with her. I have examined and evaluated the patient. I reviewed relevant clinical information and answered the patient's and/or family' s questions. (Veeral. Sanabria MD) Total Time In Follow-Up I spent 20 minutes speaking to the patient and perform examination. I spent 15 minutes reviewing information and completing this note. (Lily Cisneros PA-C) I spent 15 minutes examining and counseling the patient. (Veeral. Sanabria MD) Copy To Jess Abarca MD; Franc Sanabria M.D. Problem Qualifiers (1) Lung cancer: Laterality: right Lung location: lower lobe of lung Qualified Codes: C34.31 - Malignant neoplasm of lower lobe, right bronchus or lung
== END | disposition home or self-care (01) ==
LOC: C.ONC 08:16
PROVIDERS: ATTEND Physician Assistant Medical
DX: Z08 Encounter for follow-up examination after completed treatment for malignant neoplasm (principal); Z92.3 Personal history of irradiation; Z85.118 Personal history of other malignant neoplasm of bronchus and lung

== ENCOUNTER → 2016-11-26 | Outpatient (CLI) | payer OTHER ==
[~2016-11-26] MED LIST changes: -MESA1TAB4 PO; +MESA800T6 PO; -PRED10TA PO; -lidocaine ointment TOP
--- NOTE | 2016-11-26 11:00 | DIAGNOSTIC IMAGING REPORT ---
PET/CT CLINICAL HISTORY: Small cell lung cancer. TECHNIQUE: A PET/CT was performed from the skull base through the upper thighs following intravenous injection of 15.57 mCi of F 18 FDG IV. The injection was performed at 8:16 AM on November 26, 2016 and imaging began at 9:07 AM on November 26, 2016. Unenhanced CT was performed for attenuation correction purposes and anatomic localization. COMPARISON STUDY: PET CT April 17, 2016, CT of the abdomen and pelvis August 30, 2016, chest CT September 02, 2016 and whole body bone scan September 03, 2016. FINDINGS: Head and neck: No abnormal FDG uptake is identified within the neck. There is no cervical lymphadenopathy. Chest: A right internal jugular [id number] is in place. No enlarged thoracic lymph nodes are identified on this examination. There is moderate esophageal wall thickening which has developed since CT of September 02, 2016. There has been interval development of multifocal airspace opacities within the right lung since chest CT of September 02, 2016. These include multifocal right upper lobe opacity with moderate FDG uptake with SUV max of 4.1. There is a nodular 2.2 cm right upper lobe airspace opacity and image 66 of 267 with an SUV max of 3.1. There is no pneumothorax. The previously described subpleural nodule within the right lower lobe is nearly imperceptible. Abdomen and Pelvis: There has been significant decrease in size of the hepatic metastases since CT of August 30, 2016. Index right hepatic lobe lesion shown on image 104 measures 2.3 cm. It previously measured 3.6 cm. Index lateral segment lesion measures 1.6 cm. It previously measured 3.1 cm. These hepatic metastases have no significant FDG uptake. A few hepatic cysts are present. There are no new hepatic lesions. A right ureteral stent is in place. Scarring of the right kidney is again noted. There is no abdominal or pelvic lymphadenopathy. An IVC filter is noted. Musculoskeletal: Numerous lytic and sclerotic skeletal metastases are noted with mild FDG uptake. Several these are unchanged since abdominal CT of August 30, [address] of September 02, 2016. These include a stable 2.5 cm right iliac bone lesion and a 1.5 cm manubrial lesion. These demonstrate mild FDG uptake with an SUV max of 2.7 for the right iliac bone lesion. However, there has been interval development of multiple sclerotic metastases since CT of August 30, 2016 and include a 1.5 cm left iliac bone metastasis. Adjacent sclerosis may reflect a larger metastasis with mild FDG uptake with an SUV max of 3.6. There is a new 1.3 cm left pubic bone metastasis. Numerous additional FDG avid skeletal metastases have developed. IMPRESSION: 1. Findings suggestive of a mixed treatment response. Significant interval decrease in size of hepatic metastases since CT of August 30, 2016. No significant FDG uptake within the hepatic metastases. 2. Interval development of multiple sclerotic metastases with mild FDG uptake since CT of August 30, 2016. Several skeletal lesions are unchanged however there has been progression of skeletal metastatic disease since prior exam. 3. Interval development of multifocal airspace opacities within the right lung with mild FDG uptake. This is likely treatment-related and may reflect radiation pneumonitis. An infectious process could appear similar. A neoplastic process is considered less likely but attention on subsequent imaging studies is recommended. 4. Esophageal wall thickening which may be treatment related. Electronically signed by: Thomas Polanco M.D. 11/26/2016 10:59 AM Dictated Date/Time: 11/26/2016 10:34 AM
== END | disposition home or self-care (01) ==
LOC: C.PET 07:46
PROVIDERS: ATTEND Internal Medicine Hematology
DX: C78.7 Secondary malignant neoplasm of liver and intrahepatic bile duct (principal); C79.51 Secondary malignant neoplasm of bone; C34.91 Malignant neoplasm of unspecified part of right bronchus or lung; R35.0 Frequency of micturition

== ENCOUNTER 2016-12-07 19:50 | Inpatient (IN) | payer OTHER ==
[~2016-12-07] VITALS: Ht 154.9 cm; Wt 91.2 kg
[~2016-12-07 19:50] MED LIST changes: -ASPI81TA28 PO; -CALC600T9 PO; -FLUT1INH7 INH; -FOLI1TAB7 PO; -GABA1CAP5 PO; -IPRASOL4 NEB; -LACT10CA3 PO; -LEVO-459 PO; -MESA800T6 PO; -METO-217 PO; -ONDA4TAB46 PO; -PROC1TAB5 PO; -SULF-183 PO; -TRAM-10 PO; -VNTHFA/IN INH
[2016-12-07] MEDS ORDERED: IPRATROPIUM BROMIDE NEB SOLN 0.02% 2.5 ML VIAL INH STA (20:06)
[2016-12-07] MEDS ORDERED: PIPERACILLIN/TAZOBACTAM 4.5 GM/100ML D5W IV STA (20:06)
[2016-12-07] MEDS ORDERED: LEVALBUTEROL 1.25MG/0.5ML NEB INH STA (20:06)
[2016-12-07] MEDS ORDERED: SODIUM CHLORIDE 0.9% 1000ML 1,000 ML IV ONE (20:06)
[2016-12-07] MEDS ORDERED: DAPTOmycin IV 500 MG in SODIUM CHLORIDE 0.9% 50ML 50 ML IV STA (20:06)
--- NOTE | 2016-12-07 20:24 | EMERGENCY ROOM VISIT NOTE ---
History Report prepared by Roel: Cordell Toscano Under the Supervision of: Dr. Gilbert Brooks M.D. First contact with patient: 20:01 Chief Complaint: KIDNEY STONE Stated Complaint: UTI, NO ENERGY History of Present Illness The patient is a 71 year old female who presents to the Emergency Room with complaints of persistent generalized weakness beginning this week. She is on chemotherapy for lung cancer with metastases to the liver. She states that she currently has a right ureteral stent in place. The patient has a history of frequent UTIs. She notes that her most recent chemotherapy was three weeks ago, and she was found to have a UTI at that time. She was started on Cipro and Amoxicillin for the UTI. The patient also complains of right flank pain, cough, weakness, SOB and urinary symptoms. Her urinary symptoms include "cloudy" urine. She denies any known fevers, lightheadedness, or vomiting. She states that she has not had much of an appetite. Her SOB began a few days ago. The patient's daughter notes that the patient has a history of sepsis originating from a UTI. Source of History: patient Onset: This week Position: other (generalized) Quality: other (weakness) Timing: other (persistent) Associated Symptoms: + cough, + SOB, + urinary symptoms ("cloudy" urine), + weakness, No fevers, No vomiting Note: The patient denies any lightheadedness. She also complains of right flank pain. Review of Systems See HPI for pertinent positives & negatives. A total of 10 systems reviewed and were otherwise negative. Past Medical & Surgical Medical Problems: (1) Cancer associated pain (2) DVT (deep venous thrombosis) (3) Lung cancer (4) Presence of inferior vena cava filter (5) Retained ureteral stent Family History Hypertension Social History Smoking Status: Former Smoker Marital Status: Housing Status: lives with significant other Occupation Status: retired Current/Historical Medications Scheduled Aspirin (Aspirin Ec), 81 MG PO DAILY Calcium Carbonate-Vitamin D (Calcium + D), 1 TAB PO BID Fluticasone Furoate-Vilanterol (Breo Ellipta 200-25 Mcg/INH), 1 PUFFS INH DAILY Folic Acid (Folvite), 1 TAB PO DAILY Gabapentin (Neurontin), 2 CAP PO HS Gabapentin (Neurontin), 400 MG PO QAM Mesalamine (Asacol Hd), 1 TAB PO TID Metoprolol Succinate (Toprol Xl), 50 MG PO QAM Scheduled PRN Albuterol Hfa (Ventolin Hfa), 2 PUFFS INH Q6H PRN for Shortness of Breath Ipratropium-Albuterol (Duoneb), 1 TREATMENT INH BID PRN for Shortness of Breath Ondansetron Hcl (Zofran), 4 MG PO Q8 PRN for Nausea Prochlorperazine Maleate (Compazine), 10 MG PO DIRECTED PRN for CHEMO DAYS Tramadol (Ultram), 50 MG PO BID PRN for Pain Allergies Coded Allergies: Piperacillin (Verified Allergy, Severe, Throat swelling/tightness; hives, 12/07/16) Tazobactam (Verified Allergy, Severe, Throat swelling/tightness; hives, 12/07/16) Physical Exam Vital Signs Date Time Temp Pulse Resp B/P (MAP) Pulse Ox O2 Delivery O2 Flow Rate FiO2 12/07/16 22:09 118 20 161/59 100 Nasal Cannula 3.0 12/07/16 21:42 114 12/07/16 21:27 113 16 145/75 93 Room Air 12/07/16 20:45 93 Room Air 12/07/16 20:42 103 16 93 Room Air 12/07/16 19:51 36.6 131 20 161/81 92 Room Air Physical Exam GENERAL: Patient is in no acute distress. HEENT: No acute trauma, normocephalic atraumatic, mucous membranes moist, no nasal congestion, no scleral icterus. NECK: No stridor, no adenopathy, no meningismus, trachea is midline. LUNGS: Clear to auscultation bilaterally when listening anterior, no wheeze, no rhonchi, breath sounds equal. HEART: Tachycardic with a regular rhythm. No murmurs. ABDOMEN: Soft, nontender, bowel sounds positive, no hernias, no peritonitis. EXTREMITIES: No cyanosis or edema, full range of motion of all the joints without pain or difficulty, no signs for acute trauma. NEUROLOGIC: Oriented x 3, no acute motor or sensory deficits, no focal weakness. SKIN: No rash, no jaundice, no diaphoresis. Pale in appearance. Medical Decision & Procedures ER Provider Diagnostic Interpretation: Radiology results as stated below per my review and radiologist interpretation: SINGLE VIEW CHEST FINDINGS: An AP, portable, upright chest radiograph is compared to study dated 09/04/2016 and correlated with chest CT dated 09/02/2016. The examination is degraded by portable technique and patient rotation. A right subclavian central venous infusion port is unchanged in position. The cardiomediastinal silhouette is unremarkable. There is atherosclerotic calcification of the thoracic aorta. Patchy airspace consolidation is seen in the right upper lobe, new from previous. The left lung appears clear. No large pleural effusion or pneumothorax is seen. The skeletal structures are osteopenic. The bony thorax is grossly intact. Degenerative change is noted in the shoulders and thoracic spine. IMPRESSION: Patchy airspace consolidation is identified in the right upper lobe and is typical appearance for pneumonia. Radiographic follow-up to resolution is recommended. Electronically signed by: Gilbert Garg M.D. CT SCAN OF THE ABDOMEN AND PELVIS WITHOUT IV CONTRAST FINDINGS: Lung bases: The heart is normal in size noting trace pericardial fluid. There are coronary artery calcifications. The lung bases are clear. There is a tiny hiatal hernia. Liver: The unenhanced liver is normal in size, contour, and attenuation. Scattered hepatic cysts measure up to 2.2 cm. Subtle hepatic metastatic lesions are again seen. These were better characterized by PET on 11/26/2016. The largest is in the right lobe in segment V on image #83 and measures 2.0 cm. There is no intrahepatic biliary ductal dilatation. Gallbladder: Small gallstones are noted. The gallbladder is otherwise normal in appearance. Spleen: Normal in size and attenuation. Pancreas: The unenhanced pancreas is moderately atrophic and grossly unremarkable. Adrenal glands: Unremarkable. Kidneys: The unenhanced kidneys are atrophic. A right ureteral stent is unchanged in position. No calculi are seen along the course of the stent. Minimal right-sided hydronephrosis is unchanged. There is right-sided perinephric stranding and trace fluid. There are no renal calculi identified. There is no left-sided hydronephrosis. There is no evidence of contour deforming renal mass lesion. Abdominal vasculature: The abdominal aorta is normal in course and caliber noting moderate to advanced atherosclerotic calcification. An IVC filter is in place. Bowel: The small bowel and colon are normal in course and caliber. A duodenal diverticulum is noted. The appendix is not identified. Peritoneum: There is no intraperitoneal free air or abdominal ascites. Lymphadenopathy: None. Pelvic viscera: The bladder wall is thickened and there is pericystic inflammation. The uterus is surgically absent. No adnexal lesion is seen. Findings suggest pelvic floor prolapse. Skeletal structures: The skeletal structures are osteopenic. Lumbosacral spondylosis is observed. There are postoperative changes from L3 to L5 spinal fusion. Multifocal mixed lytic and blastic metastatic disease is similar to the PET/CT performed 1 week previously. There is no evidence of pathologic fracture. IMPRESSION: 1. Suboptimal examination without oral and IV contrast. 2. The bladder wall is thickened and there is pericystic inflammation. The appearance suggests cystitis. Correlation with clinical findings and urinalysis will be required. 3. A right ureteral stent is unchanged in position. There is minimal right-sided hydronephrosis hydronephrosis. No renal calculi are identified. 4. There is right-sided perinephric stranding and trace fluid. Correlate clinically and with urinalysis for evidence of ascending urinary tract infection. 5. Cholelithiasis. 6. Multifocal osseous metastatic disease as well as hepatic metastatic disease is again noted. This was better characterized on the PET/CT performed 1 week previously. 7. Additional findings as above. Electronically signed by: Gilbert Garg M.D. Laboratory Results 12/07/16 20:19 Red Blood Count 2.41, Mean Corpuscular Volume 97.5, Mean Corpuscular Hemoglobin 33.2, Mean Corpuscular Hemoglobin Concent 34.0, Mean Platelet Volume 11.4 12/07/16 20:19 Test 12/07/16 20:15 12/07/16 20:19 12/07/16 20:31 Urine Color YELLOW Urine Appearance TURBID (CLEAR) Urine pH 6.5 (4.5-7.5) Urine Specific [place] 1.014 (1.000-1.030) Urine Protein 1+ (NEG) Urine Glucose (UA) NEG (NEG) Urine Ketones 1+ (NEG) Urine Occult Blood 1+ (NEG) Urine Nitrite POS (NEG) Urine Bilirubin NEG (NEG) Urine Urobilinogen NEG (NEG) Urine Leukocyte Esterase LARGE (NEG) Urine WBC (Auto) >30 /hpf (0-5) Urine RBC (Auto) 5-10 /hpf (0-4) Urine Hyaline Casts (Auto) 1-5 /lpf (0-5) Urine Epithelial Cells (Auto) >30 /lpf (0-5) Urine Bacteria (Auto) 4+ (NEG) White Blood Count 4.24 K/uL (4.8-10.8) Red Blood Count 2.41 M/uL (4.2-5.4) Hemoglobin 8.0 g/dL (12.0-16.0) Hematocrit 23.5 % (37-47) Mean Corpuscular Volume 97.5 fL (80-100) Mean Corpuscular Hemoglobin 33.2 pg (25-34) Mean Corpuscular Hemoglobin Concent 34.0 g/dl (32-36) Platelet Count 84 K/uL (130-400) Mean Platelet Volume 11.4 fL (7.4-10.4) RDW Standard Deviation 62.9 fL (36.4-46.3) RDW Coefficient of Variation 18.0 % (11.5-14.5) Neutrophils % (Manual) 81.7 % Lymphocytes % (Manual) 6.1 % Monocytes % (Manual) 11.3 % Eosinophils % (Manual) 0.9 % Neutrophils # (Manual) 3.46 K/uL (1.4-6.5) Total Absolute Neutrophils 3.46 K/uL (1.4-6.5) Lymphocytes # (Manual) 0.26 K/uL (1.2-3.4) Total Absolute Lymphocytes 0.26 K/uL (1.2-3.4) Monocytes # (Manual) 0.48 K/uL (0.11-0.59) Eosinophils # (Manual) 0.04 K/uL (0-0.5) Toxic Granulation 2+ Toxic Vacuolation 1+ Dohle Bodies 1+ Platelet Estimate DECREASED Polychromasia 1+ Anisocytosis PRESENT Prothrombin Time 11.4 SECONDS (9.0-12.0) Prothromb Time International Ratio 1.1 (0.9-1.1) Activated Partial Thromboplast Time 27.9 SECONDS (21.0-31.0) Partial Thromboplastin Ratio 1.1 Anion Gap 8.0 mmol/L (3-11) Est Creatinine Clear Calc Drug Dose 47.3 ml/min Estimated GFR () 57.7 Estimated GFR (Non- 49.8 BUN/Creatinine Ratio 10.5 (10-20) Calcium Level 8.0 mg/dl (8.5-10.1) Total Bilirubin 0.6 mg/dl (0.2-1) Aspartate Amino Transf (AST/SGOT) 21 U/L (15-37) Alanine Aminotransferase (ALT/SGPT) 16 U/L (12-78) Alkaline Phosphatase 59 U/L (45-117) Total Protein 6.6 gm/dl (6.4-8.2) Albumin 3.2 gm/dl (3.4-5.0) Globulin 3.4 gm/dl (2.5-4.0) Albumin/Globulin Ratio 0.9 (0.9-2) Bedside Lactic Acid Venous 1.47 mmol/L (0.90-1.70) Laboratory results reviewed by me. Medications Administered Medications (Trade) Dose Ordered Sig/Nany Route Start Time Stop Time Status Last Admin Dose Admin Sodium Chloride 1,000 ml @ 999 mls/hr Q1H1M ONCE IV 12/07/16 20:06 12/07/16 21:06 DC 12/07/16 20:42 999 MLS/HR Piperacillin Sod/ Tazobactam Sod (Zosyn Iv) 4.5 gm ONE STAT IV 12/07/16 20:06 12/07/16 20:09 DC 12/07/16 21:27 4.5 GM Daptomycin 500 mg/ Sodium Chloride 60 ml @ 100 mls/hr NOW STAT IV 12/07/16 20:06 12/07/16 20:41 DC 12/07/16 20:42 100 MLS/HR Levalbuterol (Xopenex 1.25MG/ 0.5ML Neb) 1.25 mg NOW STAT INH 12/07/16 20:06 12/07/16 20:09 DC 12/07/16 20:38 1.25 MG Ipratropium [place] (Atrovent 0.02% 0.5MG/2.5ML Neb) 0.5 mg NOW STAT INH 12/07/16 20:06 12/07/16 20:09 DC 12/07/16 20:38 0.5 MG Diphenhydramine HCl (Benadryl Inj) 50 mg STK-MED ONCE .ROUTE 12/07/16 21:55 12/07/16 21:56 DC 12/07/16 21:55 50 MG Methylprednisolone Sodium Succinate (Solu-Medrol IV) 125 mg STK-MED ONCE .ROUTE 12/07/16 22:01 12/07/16 22:02 DC 12/07/16 22:01 60 MG ECG Indication: SOB/dyspnea Rate (beats per minute): 109 Rhythm: sinus tachycardia Findings: no acute ischemic change, no ectopy, other (Old septal infarct) ED Course 1999: The patient was evaluated in room C1. A complete history and physical exam was performed. 2005: Ordered Atrovent 0.02% 0.5 mg INH, Xopenex 1.25 mg INH, Daptomycin 500/ Sodium Chloride 60 ml @ 100 mls/hr IV, Zosyn 4.5 gm IV, Sodium Chloride 1000 ml @ 999 mls/hr IV. 2138: Ordered Sodium Chloride 1000 ml @ 200 mls/hr IV. 2149: Upon reexamination the patient is resting comfortably. I discussed results and treatment plan with the patient. She verbalizes agreement and understanding. The patient will be evaluated for further management. 2153: The patient began complaining of tightening of her throat and diffuse itching. 2154: Ordered Benadryl Inj 50 mg IV. Ordered 60 mg of IV Solu-Medrol. Medical Decision The patient is a 71 year old female who presents to the ED with complaints of generalized weakness. Differential diagnoses considered include sepsis, dehydration, electrolyte imbalance, hydronephrosis, UTI, pneumonia, diverticulitis, immunocompromise, and failed outpatient treatment. Blood pressure screening: Patient was found to have a slightly elevated blood pressure due to circumstances. I do not believe that the patient requires hypertension monitoring. Medication Reconciliation: I attest that I have personally reviewed the patient' s current medication list. There is no leukocytosis. The patient is anemic though, this is likely consistent with her recent chemotherapy. Platelet count also slightly low. There is no significant electrolyte abnormality or kidney failure. No hepatitis. Lactic acid level is not elevated making severe sepsis less likely. Urinalysis is consistent with infection, urine culture and blood cultures are pending. Chest film appears to show a right sided pneumonia. Abdominal and pelvis CT shows the right ureteral stent to be in position. There is evidence for right-sided pyelonephritis and also cystitis by CT scan. There is no coagulopathy. The patient was aggressively managed. She received IV saline. She was given a Xopenex Atrovent neb. She received IV Zosyn and IV daptomycin as antibiotic coverage. The patient has pneumonia and a right sided pyelonephritis/cystitis. She has a stent in the right ureter. She is immunocompromised secondary to chemotherapy and metastatic lung cancer. I do think admission/observation is warranted. She has been septic in the past. I spoke to the patient and to case management. The on-call hospitalist was consulted. Of note, the patient had some shortness of breath and throat tightness and hives from the Zosyn, this medication was halted and then listed as an allergy. She received IV Benadryl and IV Solu-Medrol. She was ordered for dose of IV Levaquin in place of the Zosyn. Consults Time Called: 2138 Consulting Physician: Dr. Myke Carbajal Returned Call: [phone] Discussed the patient's case. The patient will be evaluated for further management. Impression Primary Impression: Pyelonephritis Additional Impressions: Pneumonia Immunocompromised Scribe Attestation The scribe's documentation has been prepared under my direction and personally reviewed by me in its entirety. I confirm that the note above accurately reflects all work, treatment, procedures, and medical decision making performed by me. Departure Information Dispostion Being Evaluated By Hospitalist Referrals Suzanne Sanabria M.D. (PCP) Patient Instructions [facility] Problem Qualifiers
[2016-12-07 20:42] VITALS: PULSE 103; O2SAT 93
--- NOTE | 2016-12-07 20:54 | DIAGNOSTIC IMAGING REPORT ---
SINGLE VIEW CHEST CLINICAL HISTORY: Sepsis. FINDINGS: An AP, portable, upright chest radiograph is compared to study dated 09/04/2016 and correlated with chest CT dated 09/02/2016. The examination is degraded by portable technique and patient rotation. A right subclavian central venous infusion port is unchanged in position. The cardiomediastinal silhouette is unremarkable. There is atherosclerotic calcification of the thoracic aorta. Patchy airspace consolidation is seen in the right upper lobe, new from previous. The left lung appears clear. No large pleural effusion or pneumothorax is seen. The skeletal structures are osteopenic. The bony thorax is grossly intact. Degenerative change is noted in the shoulders and thoracic spine. IMPRESSION: Patchy airspace consolidation is identified in the right upper lobe and is typical appearance for pneumonia. Radiographic follow-up to resolution is recommended. Electronically signed by: Gilbert Garg M.D. 12/07/2016 8:53 PM Dictated Date/Time: 12/07/2016 8:52 PM
[2016-12-07 20:55] LABS: INR 1.1 (0.9-1.1); PARTIAL THROMBOPLASTIN RATIO 1.1; PROTHROMBIN TIME (PATIENT) 11.4 SECONDS (9.0-12.0)
[2016-12-07 20:55] LABS: URINE APPEARANCE TURBID (CLEAR); URINE BILIRUBIN NEG (NEG); URINE COLOR YELLOW; URINE EPITHELIAL CELL AUTO >30 /lpf (0-5); URINE NITRITE POS (NEG); URINE PH 6.5 (4.5-7.5); URINE SPECIFIC GRAVITY 1.014 (1.000-1.030); UROBILINOGEN NEG (NEG); ZZUR CULT IF INDIC CLEAN CATCH YES
[2016-12-07 20:56] LABS: MANUAL MICROSCOPIC REQUIRED? NO; REVIEW REQ? NO
[2016-12-07 21:08] LABS: ANISOCYTOSIS PRESENT; COMPLETE YES; DOHLE BODIES 1+; EOSINOPHIL % 0.9 %; HEMATOCRIT 23.5 % (37-47); LYMPH ABS # 0.26 K/uL (1.2-3.4); LYMPHOCYTE % 6.1 %; MEAN CELL VOLUME 97.5 fL (80-100); MEAN CORPUSCULAR HEMOGLOBIN 33.2 pg (25-34); MEAN PLATELET VOLUME 11.4 fL (7.4-10.4); NEUTROPHILS % 81.7 %; PLATELET COUNT 84 K/uL (130-400); PLT ESTIMATE DECREASED; POLYCHROMASIA 1+; RED BLOOD COUNT 2.41 M/uL (4.2-5.4); TOXIC GRANULATION 2+; VACUOLIZATION 1+; WHITE BLOOD COUNT 4.24 K/uL (4.8-10.8)
[2016-12-07 21:13] LABS: ALB/GLOB RATIO 0.9 (0.9-2); BUN/CREATININE RATIO 10.5 (10-20); CREATININE 1.1 mg/dl (0.60-1.20)
--- NOTE | 2016-12-07 21:28 | DIAGNOSTIC IMAGING REPORT ---
CT SCAN OF THE ABDOMEN AND PELVIS WITHOUT IV CONTRAST CLINICAL HISTORY: Right flank pain. Metastatic small cell lung cancer. COMPARISON STUDY: Abdominal CT dated 08/30/2016 and 12/25/2005. PET/CT dated 11/26/2016. TECHNIQUE: CT scan of the abdomen and pelvis is performed from the lung bases to the proximal femora. Images are reviewed in the axial, sagittal, and coronal planes. IV contrast was not administered for this examination as per the referring clinician. Note that the examination was performed and significant suboptimal fashion without oral and IV contrast. Automated dose control exposure was utilized. CT DOSE: 910.07 mGy.cm FINDINGS: Lung bases: The heart is normal in size noting trace pericardial fluid. There are coronary artery calcifications. The lung bases are clear. There is a tiny hiatal hernia. Liver: The unenhanced liver is normal in size, contour, and attenuation. Scattered hepatic cysts measure up to 2.2 cm. Subtle hepatic metastatic lesions are again seen. These were better characterized by PET on 11/26/2016. The largest is in the right lobe in segment V on image #83 and measures 2.0 cm. There is no intrahepatic biliary ductal dilatation. Gallbladder: Small gallstones are noted. The gallbladder is otherwise normal in appearance. Spleen: Normal in size and attenuation. Pancreas: The unenhanced pancreas is moderately atrophic and grossly unremarkable. Adrenal glands: Unremarkable. Kidneys: The unenhanced kidneys are atrophic. A right ureteral stent is unchanged in position. No calculi are seen along the course of the stent. Minimal right-sided hydronephrosis is unchanged. There is right-sided perinephric stranding and trace fluid. There are no renal calculi identified. There is no left-sided hydronephrosis. There is no evidence of contour deforming renal mass lesion. Abdominal vasculature: The abdominal aorta is normal in course and caliber noting moderate to advanced atherosclerotic calcification. An IVC filter is in place. Bowel: The small bowel and colon are normal in course and caliber. A duodenal diverticulum is noted. The appendix is not identified. Peritoneum: There is no intraperitoneal free air or abdominal ascites. Lymphadenopathy: None. Pelvic viscera: The bladder wall is thickened and there is pericystic inflammation. The uterus is surgically absent. No adnexal lesion is seen. Findings suggest pelvic floor prolapse. Skeletal structures: The skeletal structures are osteopenic. Lumbosacral spondylosis is observed. There are postoperative changes from L3 to L5 spinal fusion. Multifocal mixed lytic and blastic metastatic disease is similar to the PET/CT performed 1 week previously. There is no evidence of pathologic fracture. IMPRESSION: 1. Suboptimal examination without oral and IV contrast. 2. The bladder wall is thickened and there is pericystic inflammation. The appearance suggests cystitis. Correlation with clinical findings and urinalysis will be required. 3. A right ureteral stent is unchanged in position. There is minimal right-sided hydronephrosis hydronephrosis. No renal calculi are identified. 4. There is right-sided perinephric stranding and trace fluid. Correlate clinically and with urinalysis for evidence of ascending urinary tract infection. 5. Cholelithiasis. 6. Multifocal osseous metastatic disease as well as hepatic metastatic disease is again noted. This was better characterized on the PET/CT performed 1 week previously. 7. Additional findings as above. Electronically signed by: Gilbert Garg M.D. 12/07/2016 9:26 PM Dictated Date/Time: 12/07/2016 9:15 PM
[2016-12-07] MEDS ORDERED: SODIUM CHLORIDE 0.9% 1000ML 1,000 ML IV STA (21:39)
[2016-12-07] MEDS ORDERED: DiphenhydrAMINE HCL 50 MG/ML VIAL ONE (21:55)
[2016-12-07] MEDS ORDERED: METHYLPREDNISOLONE 125 MG VIAL ONE (22:01)
[2016-12-07] MEDS ORDERED: LEVAQUIN 750MG / 150ML D5W IV STA (22:21)
[2016-12-07] MEDS ORDERED: TRAMADOL HCL 50 MG TAB PO PRN (22:45)
[2016-12-07] MEDS ORDERED: ONDANSETRON INJ 2 MG/ML 2 ML VIAL IV PRN (22:45)
[2016-12-07] MEDS ORDERED: POLYETHYLENE (MIRALAX) 17 GM PACK PO PRN (22:45)
[2016-12-07] MEDS ORDERED: PROCHLORPERAZINE MALEATE 10 MG TAB PO PRN (22:45)
[2016-12-07] MEDS ORDERED: MAGNESIUM HYDROXIDE SUSP 30 ML UDC PO PRN (22:45)
[2016-12-07] MEDS ORDERED: ACETAMINOPHEN 325 MG TAB PO PRN (22:45)
[2016-12-07] MEDS ORDERED: ALUMINUM/MAGNESIUM/SIMETH (MAALOX MAX) 30 ML UDC PO PRN (22:45)
[2016-12-07] MEDS ORDERED: ONDANSETRON 4 MG TAB PO PRN (22:45)
[2016-12-08] VITALS (8 sets, daily range): BP systolic 106–147; BP diastolic 62–81; PULSE 91–121; TEMP 36.7–36.8; O2SAT 90–95; Ht 154.9 cm; Wt 91.2 kg
[2016-12-08] MEDS: SODIUM CHLORIDE 0.9% 1000ML 1,000 ML IV SCH ×3 (01:00→23:31)
[2016-12-08] MEDS: LORAZEPAM 0.5 MG TAB PO PRN ×2 (01:05→23:31)
--- NOTE | 2016-12-08 01:36 | History and Physical ---
History & Physical Date & Time of Service: Dec 08, 2016 at 00:26 Chief Complaint: Immunocompromised, Pneumonia, Pyelonephritis Primary Care Physician: Suzanne Sanabria M.D. 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 of R ureteral obstruction s/p stenting, CKD stage 3, hx. of recurrent UTIs and recurrent pyelonephritis, hx. of DVT and PE, off of anticoagulation s/p IVC filter - presents with fevers/chills/weakness. States she was on Cipro about three weeks prior due to a UTI; urine cultures as outpatient grew out Enterococcus and E. coli, so antibiotics were changed to Augmentin. She started feeling better, but her fevers/chills and weakness worsened one day prior to arrival. She states she also noted R flank tenderness - which she has had in the past due to pyelonephritis. CT abdomen/pelvis was done confirming a R sided pyelo and it also suggested a R sided pneumonia. Patient received Zosyn in the ER, but developed hives and mild throat closure. Was given Solu-medrol and Benadryl and started feeling better. Zosyn was immediately stopped and put on her allergy list. She was given fluids and she states that she has started to feel better. Past Medical/Surgical History Medical Problems: (1) DVT (deep venous thrombosis) Status: Resolved (2) Lung cancer Permanent Comment: Pneumonia July 2015 admission and diagnosis of a DVT CT of the chest revealed right lower lobe nodule, surveillance for 6 months Recheck evaluation showed enlargement of the nodule Status post EBUS and biopsies 05/16/2016 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, Limited Stage Chronic renal disease Nonsurgical and chemotherapy candidate Status post completion of definitive radiation therapy 08/04/2016 received 6600 cGy Admission for right abdominal pain 08/30/2016 Finding of bone and liver metastasis Painful areas of metastasis right iliac wing and right femur Status post completion of radiation therapy to the right pelvis and right femur 09/10/2016 received 2500 cGy to each area Status: Chronic (3) 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 (4) Retained ureteral stent Status: Chronic Family History Hypertension Social History Smoking Status: Former Smoker Marital Status: Occupational Status: retired Immunizations History of Influenza Vaccine: Yes History of Tetanus Vaccine?: Yes History of Pneumococcal: Yes History of Hepatitis B Vaccine: No Multi-Drug Resistant Organisms History of MDRO: No Allergies Coded Allergies: Piperacillin (Verified Allergy, Severe, Throat swelling/tightness; hives, 12/07/16) Tazobactam (Verified Allergy, Severe, Throat swelling/tightness; hives, 12/07/16) Home Medications Scheduled Aspirin (Aspirin Ec), 81 MG PO DAILY Calcium Carbonate-Vitamin D (Calcium + D), 1 TAB PO BID Fluticasone Furoate-Vilanterol (Breo Ellipta 200-25 Mcg/INH), 1 PUFFS INH DAILY Folic Acid (Folvite), 1 TAB PO DAILY Gabapentin (Neurontin), 2 CAP PO HS Gabapentin (Neurontin), 400 MG PO QAM Mesalamine (Asacol Hd), 1 TAB PO TID Metoprolol Succinate (Toprol Xl), 50 MG PO QAM Scheduled PRN Albuterol Hfa (Ventolin Hfa), 2 PUFFS INH Q6H PRN for Shortness of Breath Ipratropium-Albuterol (Duoneb), 1 TREATMENT INH BID PRN for Shortness of Breath Ondansetron Hcl (Zofran), 4 MG PO Q8 PRN for Nausea Prochlorperazine Maleate (Compazine), 10 MG PO DIRECTED PRN for CHEMO DAYS Tramadol (Ultram), 50 MG PO BID PRN for Pain Review of Systems Constitutional: + fever, + chills, + weakness, + fatigue, No sweats Respiratory: + cough, No sputum, No wheezing, No shortness of breath, No dyspnea on exertion, No dyspnea at rest, No hemoptysis Cardiovascular: No chest pain, No orthopnea, No edema, No palpitations Abdomen: No pain, No nausea, No vomiting, No diarrhea, No constipation, No GI bleeding Musculoskeletal: + problem reported (R back pain) Genitourinary - Female: + urinary frequency, No dysuria, No urinary urgency, No urinary incontinence, No urinary retention, No hematuria Neurologic: No vertigo, No balance problems Psychiatric: No depression symptoms Endocrine: + fatigue Hematologic / Lymphatic: No abnormal bleeding/bruising Integumentary: No rash Allergic / Immunologic: No environmental allergies, No seasonal allergies Physical Exam Vital Signs Date Time Temp Pulse Resp B/P (MAP) Pulse Ox O2 Delivery O2 Flow Rate FiO2 12/08/16 00:00 115 20 138/66 97 Nasal Cannula 2.0 12/07/16 22:09 118 20 161/59 100 Nasal Cannula 3.0 12/07/16 21:42 114 12/07/16 21:27 113 16 145/75 93 Room Air 12/07/16 20:45 93 Room Air 12/07/16 20:42 103 16 93 Room Air 12/07/16 19:51 36.6 131 20 161/81 92 Room Air General Appearance: no apparent distress, + pertinent finding (71 year old in good spirits, alopecia related to chemotherapy with bandana in place, ill- appearing) Head: normocephalic, atraumatic Eyes: normal inspection ENT: hearing grossly normal Neck: supple Respiratory/Chest: chest non-tender, lungs clear, normal breath sounds, no respiratory distress, no accessory muscle use Cardiovascular: no edema, no murmur, + tachycardia Abdomen/GI: normal bowel sounds, non tender, soft Back: no muscle spasm Extremities/Musculoskelatal: normal capillary refill, no pedal edema Neurologic/Psych: no motor/sensory deficits, alert, normal mood/affect Skin: normal color Lymphatic: no adenopathy Diagnostics Laboratory Results Results Past 24 Hours Test 12/07/16 20:15 12/07/16 20:19 12/07/16 20:31 Range/Units Urine Color YELLOW Urine Appearance TURBID CLEAR Urine pH 6.5 4.5-7.5 Urine Specific [place] 1.014 1.000-1.030 Urine Protein 1+ NEG Urine Glucose (UA) NEG NEG Urine Ketones 1+ NEG Urine Occult Blood 1+ NEG Urine Nitrite POS NEG Urine Bilirubin NEG NEG Urine Urobilinogen NEG NEG Urine Leukocyte Esterase LARGE NEG Urine WBC (Auto) >30 0-5 /hpf Urine RBC (Auto) 5-10 0-4 /hpf Urine Hyaline Casts (Auto) 1-5 0-5 /lpf Urine Epithelial Cells (Auto) >30 0-5 /lpf Urine Bacteria (Auto) 4+ NEG White Blood Count 4.24 4.8-10.8 K/uL Red Blood Count 2.41 4.2-5.4 M/uL Hemoglobin 8.0 12.0-16.0 g/dL Hematocrit 23.5 37-47 % Mean Corpuscular Volume 97.5 80-100 fL Mean Corpuscular Hemoglobin 33.2 25-34 pg Mean Corpuscular Hemoglobin Concent 34.0 32-36 g/dl Platelet Count 84 130-400 K/uL Mean Platelet Volume 11.4 7.4-10.4 fL RDW Standard Deviation 62.9 36.4-46.3 fL RDW Coefficient of Variation 18.0 11.5-14.5 % Neutrophils % (Manual) 81.7 % Lymphocytes % (Manual) 6.1 % Monocytes % (Manual) 11.3 % Eosinophils % (Manual) 0.9 % Neutrophils # (Manual) 3.46 1.4-6.5 K/uL Total Absolute Neutrophils 3.46 1.4-6.5 K/uL Lymphocytes # (Manual) 0.26 1.2-3.4 K/uL Total Absolute Lymphocytes 0.26 1.2-3.4 K/uL Monocytes # (Manual) 0.48 0.11-0.59 K/uL Eosinophils # (Manual) 0.04 0-0.5 K/uL Toxic Granulation 2+ Toxic Vacuolation 1+ Dohle Bodies 1+ Platelet Estimate DECREASED Polychromasia 1+ Anisocytosis PRESENT Prothrombin Time 11.4 9.0-12.0 SECONDS Prothromb Time International Ratio 1.1 0.9-1.1 Activated Partial Thromboplast Time 27.9 21.0-31.0 SECONDS Partial Thromboplastin Ratio 1.1 Sodium Level 139 136-145 mmol/L Potassium Level 4.0 3.5-5.1 mmol/L Chloride Level 105 98-107 mmol/L Carbon Dioxide Level 26 21-32 mmol/L Anion Gap 8.0 3-11 mmol/L Blood Urea Nitrogen 12 7-18 mg/dl Creatinine 1.10 0.60-1.20 mg/dl Est Creatinine Clear Calc Drug Dose 47.3 ml/min Estimated GFR () 57.7 Estimated GFR (Non- 49.8 BUN/Creatinine Ratio 10.5 10-20 Random Glucose 110 70-99 mg/dl Calcium Level 8.0 8.5-10.1 mg/dl Total Bilirubin 0.6 0.2-1 mg/dl Aspartate Amino Transf (AST/SGOT) 21 15-37 U/L Alanine Aminotransferase (ALT/SGPT) 16 12-78 U/L Alkaline Phosphatase 59 45-117 U/L Total Protein 6.6 6.4-8.2 gm/dl Albumin 3.2 3.4-5.0 gm/dl Globulin 3.4 2.5-4.0 gm/dl Albumin/Globulin Ratio 0.9 0.9-2 Bedside Lactic Acid Venous 1.47 0.90-1.70 mmol/L Microbiology Results 12/07/16 Blood Culture, Received Pending 12/07/16 Blood Culture, Received Pending 12/07/16 Urine Culture, Received Pending Diagnostic Radiology CT SCAN OF THE ABDOMEN AND PELVIS WITHOUT IV CONTRAST CLINICAL HISTORY: Right flank pain. Metastatic small cell lung cancer. COMPARISON STUDY: Abdominal CT dated 08/30/2016 and 12/25/2005. PET/CT dated 11/26/2016. TECHNIQUE: CT scan of the abdomen and pelvis is performed from the lung bases to the proximal femora. Images are reviewed in the axial, sagittal, and coronal planes. IV contrast was not administered for this examination as per the referring clinician. Note that the examination was performed and significant suboptimal fashion without oral and IV contrast. Automated dose control exposure was utilized. CT DOSE: 910.07 mGy.cm FINDINGS: Lung bases: The heart is normal in size noting trace pericardial fluid. There are coronary artery calcifications. The lung bases are clear. There is a tiny hiatal hernia. Liver: The unenhanced liver is normal in size, contour, and attenuation. Scattered hepatic cysts measure up to 2.2 cm. Subtle hepatic metastatic lesions are again seen. These were better characterized by PET on 11/26/2016. The largest is in the right lobe in segment V on image #[id number] and measures 2.0 cm. There is no intrahepatic biliary ductal dilatation. Gallbladder: Small gallstones are noted. The gallbladder is otherwise normal in appearance. Spleen: Normal in size and attenuation. Pancreas: The unenhanced pancreas is moderately atrophic and grossly unremarkable. Adrenal glands: Unremarkable. Kidneys: The unenhanced kidneys are atrophic. A right ureteral stent is unchanged in position. No calculi are seen along the course of the stent. Minimal right-sided hydronephrosis is unchanged. There is right-sided perinephric stranding and trace fluid. There are no renal calculi identified. There is no left-sided hydronephrosis. There is no evidence of contour deforming renal mass lesion. Abdominal vasculature: The abdominal aorta is normal in course and caliber noting moderate to advanced atherosclerotic calcification. An IVC filter is in place. Bowel: The small bowel and colon are normal in course and caliber. A duodenal diverticulum is noted. The appendix is not identified. Peritoneum: There is no intraperitoneal free air or abdominal ascites. Lymphadenopathy: None. Pelvic viscera: The bladder wall is thickened and there is pericystic inflammation. The uterus is surgically absent. No adnexal lesion is seen. Findings suggest pelvic floor prolapse. Skeletal structures: The skeletal structures are osteopenic. Lumbosacral spondylosis is observed. There are postoperative changes from L3 to L5 spinal fusion. Multifocal mixed lytic and blastic metastatic disease is similar to the PET/CT performed 1 week previously. There is no evidence of pathologic fracture. IMPRESSION: 1. Suboptimal examination without oral and IV contrast. 2. The bladder wall is thickened and there is pericystic inflammation. The appearance suggests cystitis. Correlation with clinical findings and urinalysis will be required. 3. A right ureteral stent is unchanged in position. There is minimal right-sided hydronephrosis hydronephrosis. No renal calculi are identified. 4. There is right-sided perinephric stranding and trace fluid. Correlate clinically and with urinalysis for evidence of ascending urinary tract infection. 5. Cholelithiasis. 6. Multifocal osseous metastatic disease as well as hepatic metastatic disease is again noted. This was better characterized on the PET/CT performed 1 week previously. 7. Additional findings as above. 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 of R ureteral obstruction s/p stenting, CKD stage 3, hx. of recurrent UTIs and recurrent pyelonephritis, hx. of DVT and PE, off of anticoagulation s/p IVC filter - presents with fevers/chills/weakness. R sided pyelonephritis recurrent UTIs, recurrent pyelonephritis s/p stent to the R ureter - replaced q3 months at [place] CT abdomen shows patent R ureteral stent likely early pyelo on the R hx. of enterococcus organisms growing in urine started on Dapto; will add Levaquin ID consulted due to daptomycin use due to see urology in [place] for stent replacement R sided pneumonia patient noted to have consolidation at R upper lobe no problems with aspiration noted will add Levaquin to cover both urine and pneumonia Chronic anemia due to malignancy Hgb currently at 8.0 monitor; may need to transfuse if symptoms or if Hgb < 7.0 Small Cell Lung CA ongoing chemotherapy as per oncology due for chemo session on Thursday, December 10, may need to postpone due to infections CKD stage 3 creatinine around baseline IVFs Hx. of DVT/PE no anticoagulation s/p IVC filter DVT ppx subq heparin DNR VTE Prophylaxis VTE Risk Assessment Done? Y/N: Yes Risk Level: High
[2016-12-08] MEDS: HEPARIN SOD 5000 UNIT/0.5 ML CARP SQ SCH ×3 (05:35→21:43)
[2016-12-08 06:45] LABS: HEMATOCRIT 23.4 % (37-47); MEAN CELL VOLUME 96.3 fL (80-100); MEAN CORPUSCULAR HEMOGLOBIN 31.3 pg (25-34); MEAN CORPUSCULAR HGB CONC 32.5 g/dl (32-36); RED BLOOD COUNT 2.43 M/uL (4.2-5.4); WHITE BLOOD COUNT 3.53 K/uL (4.8-10.8)
[2016-12-08 06:47] LABS: MEAN PLATELET VOLUME 10.6 fL (7.4-10.4); PLATELET COUNT 88 K/uL (130-400)
[2016-12-08 07:20] LABS: BUN/CREATININE RATIO 11.3 (10-20); CALCIUM 7.5 mg/dl (8.5-10.1); CREATININE 0.94 mg/dl (0.60-1.20); MAGNESIUM 1.8 mg/dl (1.8-2.4)
[2016-12-08] MEDS: METOPROLOL SUCC 50MG EXT REL TAB PO SCH (08:26)
[2016-12-08] MEDS: ASPIRIN 81 MG ECTAB PO SCH (08:26)
[2016-12-08] MEDS: CALCIUM 600MG + VIT D 400 IU TAB PO SCH ×2 (08:27→21:42)
[2016-12-08] MEDS: GABAPENTIN 400 MG CAP PO SCH ×2 (08:27→21:42)
--- NOTE | 2016-12-08 09:59 | Medical Consult ---
Consultation Date of Consultation: Dec 08, 2016. Attending Physician: Camila Mendez D.O. History of Present Illness pt admitted with fevers, abd pain and cough. has h/o metastatic cancer on chemo , next dose for thu. was found to have RML infiltrate and R pyelo. has chronic stent in r ureter, changed at [facility] every 3 months, due for change next week. Some flank pain, no dysuria. UA +, urine culture with gnr. per H&P she recently was on augmenting for uti, cultuer with E. faecalis and E. coli. Last culture here in 08/2016 grew kuldeep. She was placed on broad spectrum abx in ER, hives after zosyn, stopped and treated with steroids. now better. has tolerating pcn in past. Now on levaquin and dapto, tolerating well. No f/c. no cp, no cough currently. no n/v/d. blood cultures pending. No fevers. all remaining ros reviewed and are negative. Past Medical/Surgical History Medical Problems: (1) Hepatic metastasis Status: Acute (2) Immunocompromised Status: Acute (3) Pneumonia Status: Acute (4) Pyelonephritis Status: Acute (5) Right sided abdominal pain Status: Acute Family History Hypertension Social History Smoking Status: Former Smoker Marital Status: Housing Status: lives with significant other Occupation Status: retired Allergies Coded Allergies: Piperacillin (Verified Allergy, Severe, Throat swelling/tightness; [facility], 12/07/16) Tazobactam (Verified Allergy, Severe, Throat swelling/tightness; [facility], 12/07/16) Current Inpatient Medications Current Inpatient Medications Medications (Trade) Dose Ordered Sig/Nany Route Start Time Stop Time Status Last Admin Dose Admin Levofloxacin 500 mg/Prmx 100 ml @ 100 mls/hr Q24H IV 12/08/16 22:00 12/18/16 21:59 Daptomycin 600 mg/ Sodium Chloride 62 ml @ 100 mls/hr Q24H IV 12/08/16 21:00 12/18/16 20:59 Lorazepam (Ativan Tab) 0.5 mg HSZ PRN PO 12/07/16 22:45 01/06/17 22:44 12/08/16 01:05 0.5 MG Heparin Sodium (Porcine) (Heparin Sq 5000 Unit/0.5ml) 5,000 unit Q8 SQ 12/08/16 06:00 01/07/17 05:59 Sodium Chloride 1,000 ml @ 80 mls/hr [id number] IV 12/08/16 00:30 01/07/17 00:29 12/08/16 01:00 80 MLS/HR Acetaminophen (Tylenol Tab) 650 mg Q4H PRN PO 12/07/16 22:45 01/06/17 22:44 Al Hydrox/Mg Hydrox/Simethicone (Maalox Max Susp) 15 ml Q4H PRN PO 12/07/16 22:45 01/06/17 22:44 Magnesium Hydroxide (Milk Of Magnesia Susp) 30 ml Q12H PRN PO 12/07/16 22:45 01/06/17 22:44 Ondansetron HCl (Zofran Inj) 4 mg Q6H PRN IV 12/07/16 22:45 01/06/17 22:44 Polyethylene (Miralax Powder Packet) 17 gm DAILY PRN PO 12/07/16 22:45 01/06/17 22:44 Aspirin (Ecotrin Tab) 81 mg DAILY PO 12/08/16 09:00 01/07/17 08:59 12/08/16 08:26 81 MG Folic Acid (Folvite Tab) 1 mg DAILY PO 12/08/16 09:00 01/07/17 08:59 12/08/16 08:26 1 MG Gabapentin (Neurontin Cap) 800 mg HS PO 12/08/16 21:00 01/07/17 20:59 Gabapentin (Neurontin Cap) 400 mg QAM PO 12/08/16 09:00 01/07/17 08:59 12/08/16 08:27 400 MG Metoprolol Succinate (Toprol Xl Tab) 50 mg QAM PO 12/08/16 09:00 01/07/17 08:59 12/08/16 08:26 50 MG Ondansetron HCl (Zofran Tab) 4 mg Q8 PRN PO 12/07/16 22:45 01/06/17 22:44 Prochlorperazine Maleate (Compazine Tab) 10 mg DAILY PRN PO 12/07/16 22:45 01/06/17 22:44 Tramadol HCl (Ultram Tab) 50 mg BID PRN PO 12/07/16 22:45 01/06/17 22:44 Calcium/Vitamin D (Caltrate Plus Tab) 1 tab BID PO 12/08/16 09:00 01/07/17 08:59 12/08/16 08:27 1 TAB Miscellaneous Information (Order Awaiting Action) 1 ea QS N/A 12/08/16 00:10 01/07/17 00:09 Miscellaneous Information (Order Awaiting Action) 1 ea QS N/A 12/08/16 01:00 01/07/17 00:59 Physical Exam Date Time Temp Pulse Resp B/P (MAP) Pulse Ox O2 Delivery O2 Flow Rate FiO2 12/08/16 08:00 Room Air 12/08/16 07:22 36.8 112 18 147/79 (101) 93 Room Air 12/08/16 04:01 36.8 110 24 132/81 (98) 91 Room Air 12/08/16 04:00 Room Air 12/08/16 01:00 36.7 121 18 147/79 92 Room Air 12/08/16 00:00 115 20 138/66 97 Nasal Cannula 2.0 12/07/16 22:09 118 20 161/59 100 Nasal Cannula 3.0 12/07/16 21:42 114 12/07/16 21:27 113 16 145/75 93 Room Air 12/07/16 20:45 93 Room Air 12/07/16 20:42 103 16 93 Room Air 12/07/16 19:51 36.6 131 20 161/81 92 Room Air General Appearance: WD/WN, no apparent distress Head: normocephalic, atraumatic Eyes: normal inspection, EOMI Neck: supple Respiratory/Chest: lungs clear, normal breath sounds, no respiratory distress Cardiovascular: regular rate, rhythm, no edema Abdomen/GI: non tender, soft Extremities/Musculoskelatal: normal inspection, no pedal edema Neurologic/Psych: alert, oriented x 3 Skin: normal color Laboratory Results Last 24 Hours Test 12/07/16 20:15 12/07/16 20:19 12/07/16 20:31 12/08/16 06:10 Urine Color YELLOW Urine Appearance TURBID Urine pH 6.5 Urine Specific [place] 1.014 Urine Protein 1+ Urine Glucose (UA) NEG Urine Ketones 1+ Urine Occult Blood 1+ Urine Nitrite POS Urine Bilirubin NEG Urine Urobilinogen NEG Urine Leukocyte Esterase LARGE Urine WBC (Auto) >30 /hpf Urine RBC (Auto) 5-10 /hpf Urine Hyaline Casts (Auto) 1-5 /lpf Urine Epithelial Cells (Auto) >30 /lpf Urine Bacteria (Auto) 4+ White Blood Count 4.24 K/uL 3.53 K/uL Red Blood Count 2.41 M/uL 2.43 M/uL Hemoglobin 8.0 g/dL 7.6 g/dL Hematocrit 23.5 % 23.4 % Mean Corpuscular Volume 97.5 fL 96.3 fL Mean Corpuscular Hemoglobin 33.2 pg 31.3 pg Mean Corpuscular Hemoglobin Concent 34.0 g/dl 32.5 g/dl Platelet Count 84 K/uL 88 K/uL Mean Platelet Volume 11.4 fL 10.6 fL RDW Standard Deviation 62.9 fL 62.9 fL RDW Coefficient of Variation 18.0 % 17.9 % Neutrophils % (Manual) 81.7 % Lymphocytes % (Manual) 6.1 % Monocytes % (Manual) 11.3 % Eosinophils % (Manual) 0.9 % Neutrophils # (Manual) 3.46 K/uL Total Absolute Neutrophils 3.46 K/uL Lymphocytes # (Manual) 0.26 K/uL Total Absolute Lymphocytes 0.26 K/uL Monocytes # (Manual) 0.48 K/uL Eosinophils # (Manual) 0.04 K/uL Toxic Granulation 2+ Toxic Vacuolation 1+ Dohle Bodies 1+ Platelet Estimate DECREASED Polychromasia 1+ Anisocytosis PRESENT Prothrombin Time 11.4 SECONDS Prothromb Time International Ratio 1.1 Activated Partial Thromboplast Time 27.9 SECONDS Partial Thromboplastin Ratio 1.1 Sodium Level 139 mmol/L 143 mmol/L Potassium Level 4.0 mmol/L 4.0 mmol/L Chloride Level 105 mmol/L 109 mmol/L Carbon Dioxide Level 26 mmol/L 26 mmol/L Anion Gap 8.0 mmol/L 8.0 mmol/L Blood Urea Nitrogen 12 mg/dl 11 mg/dl Creatinine 1.10 mg/dl 0.94 mg/dl Est Creatinine Clear Calc Drug Dose 47.3 ml/min 55.3 ml/min Estimated GFR () 57.7 69.8 Estimated GFR (Non- 49.8 60.2 BUN/Creatinine Ratio 10.5 11.3 Random Glucose 110 mg/dl 159 mg/dl Calcium Level 8.0 mg/dl 7.5 mg/dl Total Bilirubin 0.6 mg/dl Aspartate Amino Transf (AST/SGOT) 21 U/L Alanine Aminotransferase (ALT/SGPT) 16 U/L Alkaline Phosphatase 59 U/L Total Protein 6.6 gm/dl Albumin 3.2 gm/dl Globulin 3.4 gm/dl Albumin/Globulin Ratio 0.9 Bedside Lactic Acid Venous 1.47 mmol/L Magnesium Level 1.8 mg/dl Assessment & Plan (1) Pyelonephritis Status: Acute Assessment & Plan: continue abx for now, await final cultures. will follow.
--- NOTE | 2016-12-08 19:04 | Progress Note ---
Medicine Progress Note Date & Time of Visit: Dec 08, 2016 at 19:04. Subjective Patient denies any new complaints. States she is feeling better overall. Denies any N/V or abdominal pain. Had a reaction to zosyn in the ER yesterday. No overnight events noted. Objective Last 8 Hrs Date Time Temp Pulse Resp B/P (MAP) Pulse Ox O2 Delivery O2 Flow Rate FiO2 12/08/16 16:00 Room Air 12/08/16 15:41 36.7 94 18 113/62 (79) 93 Room Air 12/08/16 13:41 Room Air 12/08/16 12:11 36.8 93 18 125/74 (91) 90 Physical Exam: GENERAL: Patient is in no acute distress. HEENT: No acute trauma, normocephalic, mucous membranes moist, no nasal congestion, no scleral icterus. NECK: No stridor, trachea is midline. LUNGS: Diminished bilaterally, no wheeze, no rhonchi, breath sounds equal. HEART: Without murmurs gallops or rubs, regular rate and rhythm. ABDOMEN: Soft, nontender, bowel sounds positive EXTREMITIES: No cyanosis or edema NEUROLOGIC: Oriented x 3, no acute motor or sensory deficits, no focal weakness. SKIN: No rash, no jaundice, no diaphoresis. Laboratory Results: Last 24 Hours Test 12/07/16 20:15 12/07/16 20:19 12/07/16 20:31 12/08/16 06:10 Urine Color YELLOW Urine Appearance TURBID Urine pH 6.5 Urine Specific [place] 1.014 Urine Protein 1+ Urine Glucose (UA) NEG Urine Ketones 1+ Urine Occult Blood 1+ Urine Nitrite POS Urine Bilirubin NEG Urine Urobilinogen NEG Urine Leukocyte Esterase LARGE Urine WBC (Auto) >30 /hpf Urine RBC (Auto) 5-10 /hpf Urine Hyaline Casts (Auto) 1-5 /lpf Urine Epithelial Cells (Auto) >30 /lpf Urine Bacteria (Auto) 4+ White Blood Count 4.24 K/uL 3.53 K/uL Red Blood Count 2.41 M/uL 2.43 M/uL Hemoglobin 8.0 g/dL 7.6 g/dL Hematocrit 23.5 % 23.4 % Mean Corpuscular Volume 97.5 fL 96.3 fL Mean Corpuscular Hemoglobin 33.2 pg 31.3 pg Mean Corpuscular Hemoglobin Concent 34.0 g/dl 32.5 g/dl Platelet Count 84 K/uL 88 K/uL Mean Platelet Volume 11.4 fL 10.6 fL RDW Standard Deviation 62.9 fL 62.9 fL RDW Coefficient of Variation 18.0 % 17.9 % Neutrophils % (Manual) 81.7 % Lymphocytes % (Manual) 6.1 % Monocytes % (Manual) 11.3 % Eosinophils % (Manual) 0.9 % Neutrophils # (Manual) 3.46 K/uL Total Absolute Neutrophils 3.46 K/uL Lymphocytes # (Manual) 0.26 K/uL Total Absolute Lymphocytes 0.26 K/uL Monocytes # (Manual) 0.48 K/uL Eosinophils # (Manual) 0.04 K/uL Toxic Granulation 2+ Toxic Vacuolation 1+ Dohle Bodies 1+ Platelet Estimate DECREASED Polychromasia 1+ Anisocytosis PRESENT Prothrombin Time 11.4 SECONDS Prothromb Time International Ratio 1.1 Activated Partial Thromboplast Time 27.9 SECONDS Partial Thromboplastin Ratio 1.1 Sodium Level 139 mmol/L 143 mmol/L Potassium Level 4.0 mmol/L 4.0 mmol/L Chloride Level 105 mmol/L 109 mmol/L Carbon Dioxide Level 26 mmol/L 26 mmol/L Anion Gap 8.0 mmol/L 8.0 mmol/L Blood Urea Nitrogen 12 mg/dl 11 mg/dl Creatinine 1.10 mg/dl 0.94 mg/dl Est Creatinine Clear Calc Drug Dose 47.3 ml/min 55.3 ml/min Estimated GFR () 57.7 69.8 Estimated GFR (Non- 49.8 60.2 BUN/Creatinine Ratio 10.5 11.3 Random Glucose 110 mg/dl 159 mg/dl Calcium Level 8.0 mg/dl 7.5 mg/dl Total Bilirubin 0.6 mg/dl Aspartate Amino Transf (AST/SGOT) 21 U/L Alanine Aminotransferase (ALT/SGPT) 16 U/L Alkaline Phosphatase 59 U/L Total Protein 6.6 gm/dl Albumin 3.2 gm/dl Globulin 3.4 gm/dl Albumin/Globulin Ratio 0.9 Bedside Lactic Acid Venous 1.47 mmol/L Magnesium Level 1.8 mg/dl Date/Time Source Procedure Growth Status 12/07/16 20:20 Blood Blood Culture Pending Received 12/07/16 20:19 Blood Blood Culture Pending Received 12/07/16 20:15 Urine , Clean Catch Urine Culture - Preliminary Gram Negative Bacilli Resulted Assessment & Plan Pyelonephritis: -has had recurrent UTIs and recurrent pyelonephritis -s/p stent to the R ureter - replaced q3 months at [place] -CT abdomen shows patent R ureteral stent -urine culture growing gram neg bacilli -prior hx. 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 -s/p IVC filter -on DVT prophylaxis with heparin subcu Current Inpatient Medications: Current Inpatient Medications Medications (Trade) Dose Ordered Sig/Nany Route Start Time Stop Time Status Last Admin Dose Admin Levofloxacin 500 mg/Prmx 100 ml @ 100 mls/hr Q24H IV 12/08/16 22:00 12/18/16 21:59 Daptomycin 600 mg/ Sodium Chloride 62 ml @ 100 mls/hr Q24H IV 12/08/16 21:00 12/18/16 20:59 Lorazepam (Ativan Tab) 0.5 mg HSZ PRN PO 12/07/16 22:45 01/06/17 22:44 12/08/16 01:05 0.5 MG Heparin Sodium (Porcine) (Heparin Sq 5000 Unit/0.5ml) 5,000 unit Q8 SQ 12/08/16 06:00 01/07/17 05:59 Sodium Chloride 1,000 ml @ 80 mls/hr [id number] IV 12/08/16 00:30 01/07/17 00:29 12/08/16 12:31 80 MLS/HR Acetaminophen (Tylenol Tab) 650 mg Q4H PRN PO 12/07/16 22:45 01/06/17 22:44 Al Hydrox/Mg Hydrox/Simethicone (Maalox Max Susp) 15 ml Q4H PRN PO 12/07/16 22:45 01/06/17 22:44 Magnesium Hydroxide (Milk Of Magnesia Susp) 30 ml Q12H PRN PO 12/07/16 22:45 01/06/17 22:44 Ondansetron HCl (Zofran Inj) 4 mg Q6H PRN IV 12/07/16 22:45 01/06/17 22:44 Polyethylene (Miralax Powder Packet) 17 gm DAILY PRN PO 12/07/16 22:45 01/06/17 22:44 Aspirin (Ecotrin Tab) 81 mg DAILY PO 12/08/16 09:00 01/07/17 08:59 12/08/16 08:26 81 MG Folic Acid (Folvite Tab) 1 mg DAILY PO 12/08/16 09:00 01/07/17 08:59 12/08/16 08:26 1 MG Gabapentin (Neurontin Cap) 800 mg HS PO 12/08/16 21:00 01/07/17 20:59 Gabapentin (Neurontin Cap) 400 mg QAM PO 12/08/16 09:00 01/07/17 08:59 12/08/16 08:27 400 MG Metoprolol Succinate (Toprol Xl Tab) 50 mg QAM PO 12/08/16 09:00 01/07/17 08:59 12/08/16 08:26 50 MG Ondansetron HCl (Zofran Tab) 4 mg Q8 PRN PO 12/07/16 22:45 01/06/17 22:44 Prochlorperazine Maleate (Compazine Tab) 10 mg DAILY PRN PO 12/07/16 22:45 01/06/17 22:44 Tramadol HCl (Ultram Tab) 50 mg BID PRN PO 12/07/16 22:45 01/06/17 22:44 Calcium/Vitamin D (Caltrate Plus Tab) 1 tab BID PO 12/08/16 09:00 01/07/17 08:59 12/08/16 08:27 1 TAB Miscellaneous Information (Order Awaiting Action) 1 ea QS N/A 12/08/16 00:10 01/07/17 00:09 Miscellaneous Information (Order Awaiting Action) 1 ea QS N/A 12/08/16 01:00 01/07/17 00:59
[2016-12-08] MEDS: DAPTOmycin IV 600 MG in SODIUM CHLORIDE 0.9% 50ML 50 ML IV SCH (21:41)
[2016-12-08] MEDS: LEVOFLOXACIN / D5W 500 MG in PREMIXED IN D5W 100 ML IV SCH (21:43)
[2016-12-09] VITALS (14 sets, daily range): BP systolic 106–147; BP diastolic 69–84; PULSE 96–111; TEMP 36.3–36.9; O2SAT 91–96
[2016-12-09] MEDS: HEPARIN SOD 5000 UNIT/0.5 ML CARP SQ SCH ×3 (05:24→21:51)
[2016-12-09 06:44] LABS: HEMATOCRIT 22.7 % (37-47); MEAN CELL VOLUME 98.7 fL (80-100); MEAN CORPUSCULAR HEMOGLOBIN 31.7 pg (25-34); MEAN CORPUSCULAR HGB CONC 32.2 g/dl (32-36); MEAN PLATELET VOLUME 10.6 fL (7.4-10.4); PLATELET COUNT 109 K/uL (130-400); WHITE BLOOD COUNT 4.63 K/uL (4.8-10.8)
[2016-12-09 07:27] LABS: BUN/CREATININE RATIO 13.8 (10-20); POTASSIUM 3.7 mmol/L (3.5-5.1)
[2016-12-09] MEDS: GABAPENTIN 400 MG CAP PO SCH ×2 (08:38→20:34)
[2016-12-09] MEDS: ASPIRIN 81 MG ECTAB PO SCH (08:38)
[2016-12-09] MEDS: METOPROLOL SUCC 50MG EXT REL TAB PO SCH (08:38)
[2016-12-09] MEDS: CALCIUM 600MG + VIT D 400 IU TAB PO SCH ×2 (08:39→20:35)
--- NOTE | 2016-12-09 09:41 | Clinical Documentation Query ---
ANGELA Rojas : CLINICAL DOCUMENTATION QUERY Patient is a 71 year old female admitted with pyelonephritis and pneumonia. Noted pancytopenia on admission CBC. She is noted to have metastatic lung cancer to the liver and bone who is currently undergoing chemotherapy treatment. As clinically appropriate, consider documentation as suggested below as this directly impacts DRG assignment. Thank you. In your clinical opinion is this patient being managed for: ( x ) Antineoplastic chemotherapy induced pancytopenia ( ) Other explanation of clinical findings (Please Explain) ( ) Unable to determine (Please Define) ( ) Need to Discuss ( ) Not Agree The medical record reflects the following clinical findings, treatment, and risk factors. Clinical Indicators: As above Treatment: Serial hematology Risk Factors: Chemotherapy Please clarify and document your clinical opinion in the progress notes and discharge summary. Terms such as "probable", "suspected", "likely", "questionable", "possible", or "still to be ruled out" are acceptable. IF IN AGREEMENT, YOU MUST DOCUMENT ABOVE DIAGNOSTIC STATEMENT IN DAILY PROGRESS NOTES AND DISCHARGE SUMMARY. This document is not part of the patient's record. Thank You, Hravey Pearl, RUEL [phone]
--- NOTE | 2016-12-09 13:49 | Progress Note ---
Subjective Date of Service: Dec 09, 2016. Subjective Pt evaluation today including: conversation w/ patient, conversation w/ family , physical exam, chart review, lab review pt feeling better. tolerating abx. no f/c. no abd pain, no n/v/d. no cough, sob ,wheeze, cp. remaining ros reviewed and are negative. ER blood culture with gpc , repeat pending. urine with gnr. urology eval pending. Problem List Medical Problems: (1) Hepatic metastasis Status: Acute (2) Immunocompromised Status: Acute (3) Pneumonia Status: Acute (4) Pyelonephritis Status: Acute (5) Right sided abdominal pain Status: Acute Objective Vital Signs Date Time Temp Pulse Resp B/P (MAP) Pulse Ox O2 Delivery O2 Flow Rate FiO2 12/09/16 12:00 Room Air 12/09/16 11:23 36.8 103 20 140/84 (102) 95 Room Air 12/09/16 08:00 Room Air 12/09/16 07:47 36.3 98 18 116/72 (87) 94 Room Air 12/09/16 05:03 36.5 100 18 106/69 (81) 94 Room Air 12/09/16 04:00 94 Room Air 12/09/16 00:00 94 Room Air 12/08/16 23:05 36.7 93 18 106/67 (80) 95 Room Air 12/08/16 20:00 94 Room Air 12/08/16 19:34 36.7 91 18 113/68 (83) 94 Room Air 12/08/16 16:00 Room Air 12/08/16 15:41 36.7 94 18 113/62 (79) 93 Room Air Physical Exam General Appearance: WD/WN, no apparent distress Eyes: normal inspection, EOMI Neck: supple Respiratory/Chest: lungs clear Cardiovascular: regular rate, rhythm, no edema Abdomen: non tender, soft Extremities: non-tender, no pedal edema Neurologic/Psychiatric: alert, normal mood/affect, oriented x 3 Skin: normal color Laboratory Results Item Value Date Time Urine Culture - Preliminary Resulted 12/07/162014 Urine , Clean Catch Gram Negative Bacilli Urine Culture - Preliminary Resulted 12/07/162014 Urine , Clean Catch Gram Negative Bacilli Blood Culture - Preliminary Resulted 12/07/162018 Blood Gram Positive Cocci Blood Culture - Preliminary Resulted 12/07/162019 Blood NO GROWTH TO DATE. Urine Culture - Preliminary Resulted 12/07/162014 Urine , Clean Catch Gram Negative Bacilli Last 24 Hours Test 12/09/16 06:19 White Blood Count 4.63 K/uL Red Blood Count 2.30 M/uL Hemoglobin 7.3 g/dL Hematocrit 22.7 % Mean Corpuscular Volume 98.7 fL Mean Corpuscular Hemoglobin 31.7 pg Mean Corpuscular Hemoglobin Concent 32.2 g/dl RDW Standard Deviation 66.6 fL RDW Coefficient of Variation 18.9 % Platelet Count 109 K/uL Mean Platelet Volume 10.6 fL Sodium Level 146 mmol/L Potassium Level 3.7 mmol/L Chloride Level 112 mmol/L Carbon Dioxide Level 26 mmol/L Anion Gap 8.0 mmol/L Blood Urea Nitrogen 14 mg/dl Creatinine 1.00 mg/dl Est Creatinine Clear Calc Drug Dose 52.4 ml/min Estimated GFR () 64.7 Estimated GFR (Non- 55.8 BUN/Creatinine Ratio 13.8 Random Glucose 95 mg/dl Calcium Level 8.0 mg/dl Assessment and Plan (1) Pyelonephritis Assessment & Plan: continue abx for now, await final cultures. will follow.
[2016-12-09] MEDS: SODIUM CHLORIDE 0.9% 1000ML 1,000 ML IV SCH (14:08)
--- NOTE | 2016-12-09 15:23 | Progress Note ---
Internal Med Progress Note Date of Service: Dec 09, 2016. Provider Documentation: SUBJECTIVE: denies of any fever or chills no flank pain sister in law present at bedside mentions that -pt able to walk on [address] today , but got significantly SOB at the end has non productive cough OBJECTIVE: Vital Signs-as noted below Exam: General-no sign of distress Eyes-sclera non icteric ENT-NAd Neck-no JVD Lungs-no rales or wheeze noted Heart-regular S1/s2 Abdomen-soft, non tender Extremities-chronic bilateral lower ext edema Neuro-no focal deficit Lab data as noted below. ASSESSMENT & PLAN: Pyelonephritis: with hx of ureteric obstruction s/p stent -has had recurrent UTIs and recurrent pyelonephritis -s/p stent to the R ureter - replaced q3 months at [place] -CT abdomen shows patent R ureteral stent -urine culture growing gram neg bacilli-sensitivity pending -prior hx. of enterococcus organisms growing in urine -on Daptomycin + Levaquin -ID consulted due to daptomycin use-appreciate input -due to see urology in [place] for stent replacement; - consult urology -Dr Quinonez Gram positive bacteremia : Blood cx 1/2 bottle gram positive cocci repeat blood cx ordered cont daptomycin till repeat bl cx negative Anemia : possible due to metastatic Ca /in chemo -bone marrow suppression no active bleeding hb 7.3 -pt is having symptom of MARTINEZ 1 unit of PRBC transfusion ordered ( D.w with Heme onc does not need irradiated blood ) repeat CBC in AM Pancytopenia: in a setting of chemo tx follow daily CBC Pneumonia: in an immunocompromised individual -as per imaging, noted to have a RUL consolidation -no symptoms of aspiration noted -on Levaquin -repeat Cxray in Am to assess improvement Small Cell Lung CA: with known mets -on chemotherapy; follow with oncology -due for next chemo on Thursday, December 10, cancelled due to infections, patient follows with Dr. 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 -s/p IVC filter -on DVT prophylaxis with heparin subcu DVT PROPHYLAXIS high risk due to metastatic CA sub q heparin DISPOSITION Discharge home when medically stable Vital Signs: Date Time Temp Pulse Resp B/P (MAP) Pulse Ox O2 Delivery O2 Flow Rate FiO2 12/10/16 07:26 36.8 112 18 134/81 (98) 90 12/10/16 00:00 Room Air 12/09/16 23:56 36.7 105 20 147/80 (102) 93 Room Air 12/09/16 19:07 36.8 96 22 138/83 95 12/09/16 18:00 36.7 109 20 130/79 96 12/09/16 17:30 36.9 111 24 137/79 93 12/09/16 17:00 36.9 109 24 133/77 91 12/09/16 16:45 36.8 104 26 142/82 93 12/09/16 16:25 36.7 104 20 128/75 91 12/09/16 16:00 91 Room Air 12/09/16 15:25 36.7 108 18 139/78 (98) 91 Room Air 12/09/16 12:00 Room Air 12/09/16 11:23 36.8 103 20 140/84 (102) 95 Room Air 12/09/16 08:00 Room Air 12/09/16 07:47 36.3 98 18 116/72 (87) 94 Room Air Lab Results: Results Past 24 Hours Test 12/10/16 05:35 Range/Units White Blood Count 4.72 4.8-10.8 K/uL Red Blood Count 2.63 4.2-5.4 M/uL Hemoglobin 8.3 12.0-16.0 g/dL Hematocrit 25.0 37-47 % Mean Corpuscular Volume 95.1 80-100 fL Mean Corpuscular Hemoglobin 31.6 25-34 pg Mean Corpuscular Hemoglobin Concent 33.2 32-36 g/dl RDW Standard Deviation 65.8 36.4-46.3 fL RDW Coefficient of Variation 19.6 11.5-14.5 % Platelet Count 144 130-400 K/uL Mean Platelet Volume 10.1 7.4-10.4 fL Microbiology Results 12/09/16 Blood Culture, Received Pending 12/09/16 Blood Culture, Received Pending
[2016-12-09] MEDS ORDERED: FUROSEMIDE INJ 20 MG in SYRINGE 0 ML IV SCH (15:30)
--- NOTE | 2016-12-09 19:39 | DIAGNOSTIC IMAGING REPORT ---
CHEST ONE VIEW PORTABLE CLINICAL HISTORY: rt upper lobe pneumonia COMPARISON STUDY: 12/07/2016 FINDINGS: The cardiac and mediastinal contours remain stable. There is tenting of the right hemidiaphragm. A line shadow within the right hemithorax is felt to represent a skinfold. There is a 7 cm right mid to upper lung zone airspace opacity. This remains similar to the prior study. There is an equivocal 2 cm left infrahilar airspace opacity. There are no significant pleural effusions.[ IMPRESSION: 1. Persistent 7 cm right mid to upper lung zone airspace opacity 2. Interval development of an equivocal 2 cm left perihilar airspace opacity Electronically signed by: Hieu Hernandez M.D. 12/09/2016 7:38 PM Dictated Date/Time: 12/09/2016 7:35 PM
[2016-12-09] MEDS: DAPTOmycin IV 600 MG in SODIUM CHLORIDE 0.9% 50ML 50 ML IV SCH (20:32)
[2016-12-09] MEDS: LEVOFLOXACIN / D5W 500 MG in PREMIXED IN D5W 100 ML IV SCH (21:50)
[2016-12-09] MEDS: LORAZEPAM 0.5 MG TAB PO PRN (23:22)
[2016-12-10] MEDS: HEPARIN SOD 5000 UNIT/0.5 ML CARP SQ SCH ×3 (05:59→20:52)
[2016-12-10 06:05] LABS: MEAN CELL VOLUME 95.1 fL (80-100); MEAN CORPUSCULAR HEMOGLOBIN 31.6 pg (25-34); MEAN CORPUSCULAR HGB CONC 33.2 g/dl (32-36); MEAN PLATELET VOLUME 10.1 fL (7.4-10.4); PLATELET COUNT 144 K/uL (130-400); RED BLOOD COUNT 2.63 M/uL (4.2-5.4); WHITE BLOOD COUNT 4.72 K/uL (4.8-10.8)
[2016-12-10 07:26] VITALS: BP 134/81; PULSE 112; TEMP 36.8; O2SAT 90
[2016-12-10] MEDS: CALCIUM 600MG + VIT D 400 IU TAB PO SCH ×2 (07:49→20:44)
[2016-12-10] MEDS: METOPROLOL SUCC 50MG EXT REL TAB PO SCH (07:49)
[2016-12-10] MEDS: GABAPENTIN 400 MG CAP PO SCH ×2 (07:49→20:43)
--- NOTE | 2016-12-10 09:08 | Progress Note ---
Progress Note Date of Service Dec 10, 2016. Progress Note Urine culture -Klebsiella -multi drug resistant sensitive to Gentamicin / Bactrim resistant to Levaquin D/w ID DC Levaquin pt will be started on Bactrim cont Daptomycin till the repeat blood cx returns negative
--- NOTE | 2016-12-10 09:09 | Urology Consultation ---
History General Date of Service: Dec 10, 2016. Chief Complaint: right pyelonephritis Primary Care Physician: Suzanne Sanabria M.D. Pt seen a urologist before?: Yes If yes, why?: right ureteral stricture History of Present Illness Patient admitted with infection. 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 I was last changed . She is scheduled to have office stent exchange next Thursday12/16/16 at [facility] with Dr Valdez. Her urine is growing Klebsiella and blood cultures are negative. I do not recommend a stent change this admission. She may keep her appt next week for stent change in [place] with Dr Valdez. The timing will be good as she will be in the midst of a 2 week course of abt to treat her pyelonephritis Laboratory Labs were reviewed and are within normal limits unless listed below. Labs are available in the chart and at [facility] Problem List Medical Problems: (1) Hepatic metastasis Status: Acute (2) Immunocompromised Status: Acute (3) Pneumonia Status: Acute (4) Pyelonephritis Status: Acute (5) Right sided abdominal pain Status: Acute Family History Hypertension Social History Hx Tobacco Use In Past Year?: No Marital status: Occupation status: retired Immunizations History of Influenza Vaccine: Yes History of Tetanus Vaccine?: Yes History of Pneumococcal: Yes History of Hepatitis B Vaccine: No History of MDRO No Allergies Coded Allergies: Piperacillin (Verified Allergy, Severe, Throat swelling/tightness; hives, 12/07/16) Tazobactam (Verified Allergy, Severe, Throat swelling/tightness; hives, 12/07/16) Medications Home Medications: Home Meds and Scripts Medications Dose Route/Sig Max Daily Dose Days Date Category Compazine (Prochlorperazine Maleate) 10 Mg Tab 10 Mg PO DIRECTED PRN 12/07/16 Reported Calcium + D (Calcium Carbonate-Vitamin D) 1 Tab Tab 1 Tab PO BID 10/08/16 Reported Ventolin Hfa (Albuterol) 200 Puffs/14329 Mcg Aers 2 Puffs INH Q6H PRN 08/30/16 Reported Breo Ellipta 200-25 Mcg/INH (Fluticasone Furoate-Vilanterol) 1 Inh Inh 1 Puffs INH DAILY 06/30/16 Reported Duoneb (Ipratropium-Albuterol) 3 Ml Nebu 1 Treatment INH BID PRN 05/29/16 Reported Zofran (Ondansetron HCl) 4 Mg Tab 4 Mg PO Q8 PRN 05/29/16 Reported Asacol Hd (Mesalamine) 800 Mg Tab 1 Tab PO TID 05/29/16 Reported Aspirin Ec (Aspirin) 81 Mg Tab 81 Mg PO DAILY 05/29/16 Reported Ultram (Tramadol HCl) 50 Mg Tab 50 Mg PO BID PRN 02/12/16 Reported Neurontin (Gabapentin) 400 Mg Cap 400 Mg PO QAM 02/12/16 Reported Neurontin (Gabapentin) 400 Mg Cap 2 Cap PO HS 30 02/12/16 Reported Toprol Xl (Metoprolol Succinate) 50 Mg Tabcr 50 Mg PO QAM 02/12/16 Reported Folvite (Folic Acid) 1 Mg Tab 1 Tab PO DAILY 90 02/12/16 Reported Inpatient Medications: Current Inpatient Medications Medications (Trade) Dose Ordered Sig/Nany Route Start Time Stop Time Status Last Admin Dose Admin Levofloxacin 500 mg/Prmx 100 ml @ 100 mls/hr Q24H IV 12/08/16 22:00 12/18/16 21:59 12/09/16 21:50 100 MLS/HR Daptomycin 600 mg/ Sodium Chloride 62 ml @ 100 mls/hr Q24H IV 12/08/16 21:00 12/18/16 20:59 12/09/16 20:32 100 MLS/HR Lorazepam (Ativan Tab) 0.5 mg HSZ PRN PO 12/07/16 22:45 01/06/17 22:44 12/09/16 23:22 0.5 MG Heparin Sodium (Porcine) (Heparin Sq 5000 Unit/0.5ml) 5,000 unit Q8 SQ 12/08/16 06:00 01/07/17 05:59 Acetaminophen (Tylenol Tab) 650 mg Q4H PRN PO 12/07/16 22:45 01/06/17 22:44 Al Hydrox/Mg Hydrox/Simethicone (Maalox Max Susp) 15 ml Q4H PRN PO 12/07/16 22:45 01/06/17 22:44 Magnesium Hydroxide (Milk Of Magnesia Susp) 30 ml Q12H PRN PO 12/07/16 22:45 01/06/17 22:44 Ondansetron HCl (Zofran Inj) 4 mg Q6H PRN IV 12/07/16 22:45 01/06/17 22:44 Polyethylene (Miralax Powder Packet) 17 gm DAILY PRN PO 12/07/16 22:45 01/06/17 22:44 Folic Acid (Folvite Tab) 1 mg DAILY PO 12/08/16 09:00 01/07/17 08:59 12/10/16 07:49 1 MG Gabapentin (Neurontin Cap) 800 mg HS PO 12/08/16 21:00 01/07/17 20:59 12/09/16 20:34 800 MG Gabapentin (Neurontin Cap) 400 mg QAM PO 12/08/16 09:00 01/07/17 08:59 12/10/16 07:49 400 MG Metoprolol Succinate (Toprol Xl Tab) 50 mg QAM PO 12/08/16 09:00 01/07/17 08:59 12/10/16 07:49 50 MG Ondansetron HCl (Zofran Tab) 4 mg Q8 PRN PO 12/07/16 22:45 01/06/17 22:44 Prochlorperazine Maleate (Compazine Tab) 10 mg DAILY PRN PO 12/07/16 22:45 01/06/17 22:44 Tramadol HCl (Ultram Tab) 50 mg BID PRN PO 12/07/16 22:45 01/06/17 22:44 Calcium/Vitamin D (Caltrate Plus Tab) 1 tab BID PO 12/08/16 09:00 01/07/17 08:59 12/10/16 07:49 1 TAB Miscellaneous Information (Order Awaiting Action) 1 ea QS N/A 12/08/16 00:10 01/07/17 00:09 Miscellaneous Information (Order Awaiting Action) 1 ea QS N/A 12/08/16 01:00 01/07/17 00:59 Physical Exam Vital Signs: Vital Signs Past 12 Hours Date Time Temp Pulse Resp B/P (MAP) Pulse Ox O2 Delivery O2 Flow Rate FiO2 12/10/16 07:26 36.8 112 18 134/81 (98) 90 12/10/16 00:00 Room Air 12/09/16 23:56 36.7 105 20 147/80 (102) 93 Room Air
[2016-12-10] MEDS: SULFAMETHOXAZOLE/TRIMETHOPRIM DS 800/160MG TAB PO SCH ×2 (09:56→20:44)
--- NOTE | 2016-12-10 13:54 | Progress Note ---
Subjective Date of Service: Dec 10, 2016. Subjective abx changed to bactrim due to highly resistant klebsiella in urine. blood culture with furniture associate. afebrile. tolerating abx. remain on dapto, repeat cultures penidng. urology eval pending. for stent change next week as outpt. no overnight events. creat nml. wbc 4.7 Problem List Medical Problems: (1) Hepatic metastasis Status: Acute (2) Immunocompromised Status: Acute (3) Pneumonia Status: Acute (4) Pyelonephritis Status: Acute (5) Right sided abdominal pain Status: Acute Objective Vital Signs Date Time Temp Pulse Resp B/P (MAP) Pulse Ox O2 Delivery O2 Flow Rate FiO2 12/10/16 08:00 Room Air 12/10/16 07:26 36.8 112 18 134/81 (98) 90 12/10/16 00:00 Room Air 12/09/16 23:56 36.7 105 20 147/80 (102) 93 Room Air 12/09/16 19:07 36.8 96 22 138/83 95 12/09/16 18:00 36.7 109 20 130/79 96 12/09/16 17:30 36.9 111 24 137/79 93 12/09/16 17:00 36.9 109 24 133/77 91 12/09/16 16:45 36.8 104 26 142/82 93 12/09/16 16:25 36.7 104 20 128/75 91 12/09/16 16:00 91 Room Air 12/09/16 15:25 36.7 108 18 139/78 (98) 91 Room Air Laboratory Results Item Value Date Time Urine Culture - Final Complete 12/07/162014 Urine , Clean Catch Klebsiella Pneumoniae Blood Culture - Preliminary Resulted 12/07/162018 Blood Coag Neg Staph Not Lugdunensis Blood Culture - Preliminary Resulted 12/07/162019 Blood NO GROWTH TO DATE. Last 24 Hours Test 12/10/16 05:35 White Blood Count 4.72 K/uL Red Blood Count 2.63 M/uL Hemoglobin 8.3 g/dL Hematocrit 25.0 % Mean Corpuscular Volume 95.1 fL Mean Corpuscular Hemoglobin 31.6 pg Mean Corpuscular Hemoglobin Concent 33.2 g/dl RDW Standard Deviation 65.8 fL RDW Coefficient of Variation 19.6 % Platelet Count 144 K/uL Mean Platelet Volume 10.1 fL Assessment and Plan (1) Pyelonephritis Assessment & Plan: would continue bactrim. will need 14 days, would continue through urology eval next week. (2) Positive blood culture Assessment & Plan: will continue dapto for now, suspect contaminant, if repeat culture negative in am, will stop.
--- NOTE | 2016-12-10 14:41 | Progress Note ---
Internal Med Progress Note Date of Service: Dec 10, 2016. Provider Documentation: SUBJECTIVE: SOB has markedly improved no fever or chills feels much better today OBJECTIVE: Vital Signs-as noted below Exam: General-no sign of distress Eyes-sclera non icteric ENT-NAd Neck-no JVD Lungs-no rales or wheeze noted Heart-regular S1/s2 Abdomen-soft, non tender Extremities-chronic bilateral lower ext edema Neuro-no focal deficit Lab data as noted below. ASSESSMENT & PLAN: Pyelonephritis: with hx of ureteric obstruction s/p stent -has had recurrent UTIs and recurrent pyelonephritis -s/p stent to the R ureter - replaced q 3 months at [place] -CT abdomen shows patent R ureteral stent -urine culture growing gram neg bacilli-Klebsiella Urine culture -Klebsiella -multi drug resistant sensitive to Gentamicin / Bactrim resistant to Levaquin D/w ID DC Levaquin pt will be started on Bactrim will need 14 days of tx cont Daptomycin till the repeat blood cx returns negative -due to see urology in [place] for stent replacement; - consulted urology -Dr Quinonez Gram positive bacteremia : Blood cx 1/2 bottle gram positive cocci repeat blood cx ordered -report pending cont daptomycin till repeat bl cx negative Anemia : possible due to metastatic Ca /in chemo -bone marrow suppression no active bleeding s/p 1 unit of PRBC transfusion ( D.w with Heme onc does not need irradiated blood ) hb improved > 8 SOB /MARTINEZ improved Pancytopenia: in a setting of chemo tx follow daily CBC Pneumonia: in an immunocompromised individual -as per imaging, noted to have a RUL consolidation -no symptoms of aspiration noted -was on Levaquin -repeat Cxray in Am : 1. Persistent 7 cm right mid to upper lung zone airspace opacity 2. 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 -on DVT prophylaxis with heparin subcu DVT PROPHYLAXIS high risk due to metastatic CA sub q heparin DISPOSITION Discharge home when medically stable Vital Signs: Date Time Temp Pulse Resp B/P (MAP) Pulse Ox O2 Delivery O2 Flow Rate FiO2 12/10/16 08:00 Room Air 12/10/16 07:26 36.8 112 18 134/81 (98) 90 12/10/16 00:00 Room Air 12/09/16 23:56 36.7 105 20 147/80 (102) 93 Room Air 12/09/16 19:07 36.8 96 22 138/83 95 12/09/16 18:00 36.7 109 20 130/79 96 12/09/16 17:30 36.9 111 24 137/79 93 12/09/16 17:00 36.9 109 24 133/77 91 12/09/16 16:45 36.8 104 26 142/82 93 12/09/16 16:25 36.7 104 20 128/75 91 12/09/16 16:00 91 Room Air 12/09/16 15:25 36.7 108 18 139/78 (98) 91 Room Air Lab Results: Results Past 24 Hours Test 12/10/16 05:35 Range/Units White Blood Count 4.72 4.8-10.8 K/uL Red Blood Count 2.63 4.2-5.4 M/uL Hemoglobin 8.3 12.0-16.0 g/dL Hematocrit 25.0 37-47 % Mean Corpuscular Volume 95.1 80-100 fL Mean Corpuscular Hemoglobin 31.6 25-34 pg Mean Corpuscular Hemoglobin Concent 33.2 32-36 g/dl RDW Standard Deviation 65.8 36.4-46.3 fL RDW Coefficient of Variation 19.6 11.5-14.5 % Platelet Count 144 130-400 K/uL Mean Platelet Volume 10.1 7.4-10.4 fL
[2016-12-10 16:00] VITALS: O2SAT 90
[2016-12-10] MEDS ORDERED: SULF-183 PO (17:33)
--- NOTE | 2016-12-10 17:34 | Discharge Instructions ---
Discharge Instructions Date of Service Dec 10, 2016. Admission Reason for Admission: Immunocompromised, Pneumonia, Pyelonephritis Discharge Discharge Diagnosis / Problem: PYELONEPHRITIS /METASTIC CA /PNEUMONIA Discharge Goals Goal(s): Decrease discomfort, Diagnostic testing Activity Recommendations Activity Limitations: resume your previous activity . Instructions / Follow-Up Instructions / Follow-Up HOSPITAL FOLLOW UP 12/19/2016 @ 10: [address] Suzanne Sanabria MD General Internal Medicine [facility] LAB WORK : COMPLETE BLOOD COUNT IN A WEEK NEW MEDICATIONS : BACTRIM DS 1 TAB TWICE DAILY FOR 12 DAYS ( FOR URINARY TRACT INFECTION ) LEVAQUIN 500 MG TAB DAILY FOR 4 DAYS ( FOR PNEUMONIA ) PLEASE REPEAT CHEST XRAY IN 4-6 WEEKS TO ASSESS IMPROVEMENT OF SIGN OF PNEUMONIA Current Hospital Diet Patient's current hospital diet: Regular Diet Discharge Diet Recommended Diet: Regular Diet Pending Studies Studies pending at discharge: yes List of pending studies: COMPLETE BLOOD COUNT Medical Emergencies . Who to Call and When: Medical Emergencies: If at any time you feel your situation is an emergency, please call 911 immediately. . Non-Emergent Contact Non-Emergency issues call your: Primary Care Provider . . "Provider Documentation" section prepared by Loan Ferrell. . VTE Core Measure Inpt VTE Proph given/why not?: Unfractionated heparin SQ
[2016-12-10] MEDS ORDERED: SODIUM CHLORIDE 0.65% NA SOLN 45 ML (OCEAN) PRN (20:15)
[2016-12-10] MEDS: DAPTOmycin IV 600 MG in SODIUM CHLORIDE 0.9% 50ML 50 ML IV SCH (20:41)
--- NOTE | 2016-12-10 21:05 | Pulmonary Consultation ---
History General Date of Service: Dec 10, 2016. Stated Complaint: Immunocompromised, Pneumonia, Pyelonephritis HPI The patient is a 71 year old female who presents to [facility] with complaints of Immunocompromised, Pneumonia, Pyelonephritis. The patient's primary care provider is Suzanne Sanabria M.D.. Ms. Monte is a pleasant 71 year old female who has extensive history who initially presented to our facility with fever, chills, generalized weakness and right flank pain. CT imaging in ER confirmed right sided pyelonephritis as well as a right sided pneumonia. She was initially treated with Zosyn, but had an allergic adverse of hives and questionable anaphylaxis that resolved with corticosteroids and benadryl. She has admitted for further management to the medical team. She was started on daptomycin and Levaquin to cover for both UTI and pneumonia. Initial blood cultures were done that grew coagulase negative staph and urine cultures grew MDR Klebsiella resistant to Levaquin. Levaquin was discontinued and started on Bactrim today. Initial CXR from 12/07--showed patchy airspace disease in RUL. On repeat CXR from 12/09 shows interval development of 2 cm left perihilar airspace opacifications. Pulmonary consulted for interval development of new infiltrate on antibiotics. Today, patient denies any respiratory complaints. She states that she is feeling much better than on the day of admission. She denies any fevers, chills , malaise, shortness of breath, dyspnea on exertion, palpitations or chest pain. Has occasional nonproductive cough. She states that she is ambulating around the halls without any limitations and without oxygen. Of note, patient has extensive pulmonary history significant for SCLC with metastasis to liver and bone. She is currently on chemotherapy regimen that is scheduled q21 days. She also has history VTE s/p IVC. She states that she is refusing SC heparin for DVT prophylaxis and would prefer to ambulate. Historian: patient Review of Systems Constitutional: reports: no symptoms Eyes: reports: no symptoms ENT: reports: nasal congestion Cardiovascular: reports: no symptoms, as stated in HPI Respiratory: reports: as stated in HPI, cough, denies: orthopnea, shortness of breath, wheezing, sputum production, MARTINEZ, PND, hemoptysis Gastrointestinal: reports: no symptoms, as stated in HPI Genitourinary - Female: reports: urinary frequency, urinary incontinence Musculoskeletal: reports: no symptoms Integumentary: reports: no symptoms Neurologic: reports: no symptoms Psychiatric: reports: no symptoms Endocrine: no symptoms Hematologic / Lymphatic: no symptoms Allergic / Immunologic: no symptoms All Other Symptoms All Other Systems: Reviewed and Negative Past Medical History Past Surgical History: SCLC with metastasis in liver and bone. s/p radiation, now on chemotherapy. CKD VTE s/p IVC filter Chronic UTI w/ ureteral stent Family History Hypertension Social History Hx Tobacco Use In Past Year?: No Smoking Status: Former Smoker Marital status: Occupational Status: retired Immunizations History of Influenza Vaccine: Yes History of Tetanus Vaccine?: Yes History of Pneumococcal: Yes History of Hepatitis B Vaccine: No History of MDRO History of MDRO: No Allergies Coded Allergies: Piperacillin (Verified Allergy, Severe, Throat swelling/tightness; hives, 12/07/16) Tazobactam (Verified Allergy, Severe, Throat swelling/tightness; hives, 12/07/16) Current Medications Reported Home Medications Medications Dose Route/Sig Max Daily Dose Days Date Category Compazine (Prochlorperazine Maleate) 10 Mg Tab 10 Mg PO DIRECTED PRN 12/07/16 Reported Calcium + D (Calcium Carbonate-Vitamin D) 1 Tab Tab 1 Tab PO BID 10/08/16 Reported Ventolin Hfa (Albuterol) 200 Puffs/98192 Mcg Aers 2 Puffs INH Q6H PRN 08/30/16 Reported Breo Ellipta 200-25 Mcg/INH (Fluticasone Furoate-Vilanterol) 1 Inh Inh 1 Puffs INH DAILY 06/30/16 Reported Duoneb (Ipratropium-Albuterol) 3 Ml Nebu 1 Treatment INH BID PRN 05/29/16 Reported Zofran (Ondansetron HCl) 4 Mg Tab 4 Mg PO Q8 PRN 05/29/16 Reported Asacol Hd (Mesalamine) 800 Mg Tab 1 Tab PO TID 05/29/16 Reported Aspirin Ec (Aspirin) 81 Mg Tab 81 Mg PO DAILY 05/29/16 Reported Ultram (Tramadol HCl) 50 Mg Tab 50 Mg PO BID PRN 02/12/16 Reported Neurontin (Gabapentin) 400 Mg Cap 400 Mg PO QAM 02/12/16 Reported Neurontin (Gabapentin) 400 Mg Cap 2 Cap PO HS 30 02/12/16 Reported Toprol Xl (Metoprolol Succinate) 50 Mg Tabcr 50 Mg PO QAM 02/12/16 Reported Folvite (Folic Acid) 1 Mg Tab 1 Tab PO DAILY 90 02/12/16 Reported Physical Physical Exam Vital Signs: Date Time Temp Pulse Resp B/P (MAP) Pulse Ox O2 Delivery O2 Flow Rate FiO2 12/10/16 08:00 Room Air 12/10/16 07:26 36.8 112 18 134/81 (98) 90 12/10/16 00:00 Room Air 12/09/16 23:56 36.7 105 20 147/80 (102) 93 Room Air 12/09/16 19:07 36.8 96 22 138/83 95 12/09/16 18:00 36.7 109 20 130/79 96 12/09/16 17:30 36.9 111 24 137/79 93 12/09/16 17:00 36.9 109 24 133/77 91 12/09/16 16:45 36.8 104 26 142/82 93 12/09/16 16:25 36.7 104 20 128/75 91 12/09/16 16:00 91 Room Air 12/09/16 15:25 36.7 108 18 139/78 (98) 91 Room Air General Appearance: WELL-APPEARING, NO APPARENT DISTRESS Head: NORMOCEPHALIC, ATRAUMATIC, other (alopecia) Eyes: PERRLA, NO DISCHARGE, EOMI, SCLERAE NORMAL ENT: NORMAL NASAL EXAM, NORMAL THROAT EXAM, dentures Neck: NORMAL RANGE OF MOTION, NO TENDERNESS, SUPPLE Respiratory: BREATH SOUNDS NORMAL, CLEAR TO AUSCULTATION, CLEAR TO PERCUSSION, NO RESPIRATORY DISTRESS, NO TENDERNESS Cardiovasular: REGULAR RATE/RHYTHM, NORMAL S1S2 Abdomen: NON TENDER, NORMAL BOWEL SOUNDS Back: NO CVA TENDERNESS Lower Extremities: other Edema: Bilateral UE (2+) Diagnostics Labs Results Past 24 Hours Test 12/10/16 05:35 Range/Units White Blood Count 4.72 4.8-10.8 K/uL Red Blood Count 2.63 4.2-5.4 M/uL Hemoglobin 8.3 12.0-16.0 g/dL Hematocrit 25.0 37-47 % Mean Corpuscular Volume 95.1 80-100 fL Mean Corpuscular Hemoglobin 31.6 25-34 pg Mean Corpuscular Hemoglobin Concent 33.2 32-36 g/dl RDW Standard Deviation 65.8 36.4-46.3 fL RDW Coefficient of Variation 19.6 11.5-14.5 % Platelet Count 144 130-400 K/uL Mean Platelet Volume 10.1 7.4-10.4 fL Diagnostic Radiology CXR: 12/10/2016 1. Persistent 7 cm right mid to upper lung zone airspace opacity 2. Interval development of an equivocal 2 cm left perihilar airspace opacity CXR 12/07/2016 1. Patchy airspace consolidation is identified in the right upper lobe and is typical appearance for pneumonia. CT Chest 09/02/2016 1. Multiple space-occupying hepatic masses consistent with progressive hepatic metastasis 2. Interval decrease in the size of the pleural-based mass in the right lower lobe which currently measures 11 mm. 3. 13 mm lytic lesion within the manubrium suspicious for metastasis Impression Assessment and Plan Small cell lung cancer Pneumonia Hx of DVT/PE s/p IVC filter Patient has large right middle and upper lobe pneumonia. That has been treated empirically with broad spectrum antibiotics since admission. She it appears that she is clinically improving despite interval development of airspace disease on the left. She is out of bed to chair and ambulating around the halls without assistance or supplementary O2. Recommendations -continue current antibiotic regimen as patient is clinically improving. Often imaging lags behind the clinical pictures. Continue to cover for pneumonia for at least 7 days. It appears that she will require longer antibiotics for gram positive bacteremia and pyelonephritis. Bayron should be sufficient. -can repeat chest imaging in 4-6 weeks to assess for interval resolution. This can be done as an outpatient. -Resume outpatient pulmonary medications upon discharge. -Patient was scheduled for chemotherapy today for SCLC, but has been cancelled due to recurrent infections. She will follow up as an outpatient. -c/w DVT as prophylaxis with SC heparin -will order nasal spray as patient complaining of mild nasal congestion Appreciate the consult. Please contact me if you have any further questions or concerns. Will sign of case for now.
[2016-12-10] MEDS: LORAZEPAM 0.5 MG TAB PO PRN (23:33)
[2016-12-11] VITALS: BP 143/80; PULSE 101; TEMP 36.9; O2SAT 91
[2016-12-11] MEDS: HEPARIN SOD 5000 UNIT/0.5 ML CARP SQ SCH (05:35)
[2016-12-11 06:41] LABS: HEMATOCRIT 30.7 % (37-47); MEAN CELL VOLUME 95.3 fL (80-100); MEAN CORPUSCULAR HEMOGLOBIN 31.1 pg (25-34); MEAN CORPUSCULAR HGB CONC 32.6 g/dl (32-36); MEAN PLATELET VOLUME 10.1 fL (7.4-10.4); PLATELET COUNT 178 K/uL (130-400); RED BLOOD COUNT 3.22 M/uL (4.2-5.4); WHITE BLOOD COUNT 4.17 K/uL (4.8-10.8)
[2016-12-11] MEDS: CALCIUM 600MG + VIT D 400 IU TAB PO SCH (07:37)
[2016-12-11] MEDS: SULFAMETHOXAZOLE/TRIMETHOPRIM DS 800/160MG TAB PO SCH (07:37)
[2016-12-11] MEDS: METOPROLOL SUCC 50MG EXT REL TAB PO SCH (07:38)
[2016-12-11] MEDS: GABAPENTIN 400 MG CAP PO SCH (07:38)
[2016-12-11 07:55] VITALS: BP 144/65; PULSE 107; TEMP 36.7; O2SAT 95
--- NOTE | 2016-12-11 10:04 | Progress Note ---
Subjective Date of Service: Dec 11, 2016. Subjective repeat blood culture negative, initial with records assistant, likely contaminant. remains on bactrim for pyelo/? infected [place] [facility] [place] events. afebrile. no leukocytosis Problem List Medical Problems: (1) Hepatic metastasis Status: Acute (2) Immunocompromised Status: Acute (3) Pneumonia Status: Acute (4) Pyelonephritis Status: Acute (5) Right sided abdominal pain Status: Acute Objective Vital Signs Date Time Temp Pulse Resp B/P (MAP) Pulse Ox O2 Delivery O2 Flow Rate FiO2 12/11/16 08:00 Room Air 12/11/16 07:55 36.7 107 20 144/65 (91) 95 Room Air 12/11/16 00:00 91 Room Air 12/11/16 00:00 36.9 101 18 143/80 (101) 91 Room Air 12/10/16 16:00 90 Room Air Laboratory Results Item Value Date Time Blood Culture - Preliminary Resulted 12/09/16 0947 Blood NO GROWTH TO DATE. Blood Culture - Preliminary Resulted 12/09/16 0914 Blood NO GROWTH TO DATE. Blood Culture - Preliminary Resulted 12/07/162018 Blood Coag Neg Staph Not Lugdunensis Urine Culture - Final Complete 12/07/162014 Urine , Clean Catch Klebsiella Pneumoniae Last 24 Hours Test 12/11/16 06:04 White Blood Count 4.17 K/uL Red Blood Count 3.22 M/uL Hemoglobin 10.0 g/dL Hematocrit 30.7 % Mean Corpuscular Volume 95.3 fL Mean Corpuscular Hemoglobin 31.1 pg Mean Corpuscular Hemoglobin Concent 32.6 g/dl RDW Standard Deviation 65.8 fL RDW Coefficient of Variation 19.5 % Platelet Count 178 K/uL Mean Platelet Volume 10.1 fL Assessment and Plan (1) Pyelonephritis Assessment & Plan: would continue bactrim. will need 14 days, would continue through urology eval next week. will caridadley need stent change. (2) Positive blood culture Assessment & Plan: likely contaminant, will stop dapto. ok for d/c from ID standpoint when medically stable.
[2016-12-11] MEDS ORDERED: SULF-183 PO (10:10)
[2016-12-11 10:39] VITALS: BP 144/65; PULSE 107; TEMP 36.7; O2SAT 95
--- NOTE | 2016-12-11 10:40 | Progress Note ---
Internal Med Progress Note Date of Service: Dec 11, 2016. Provider Documentation: SUBJECTIVE: feels fine today cough has improved no fever or chills , SOB /MARTINEZ improved markedly stable to be discharged home today OBJECTIVE: Vital Signs-as noted below Exam: General-no sign of distress Eyes-sclera non icteric ENT-NAd Neck-no JVD Lungs-no rales or wheeze noted Heart-regular S1/s2 Abdomen-soft, non tender Extremities-chronic bilateral lower ext edema Neuro-no focal deficit Lab data as noted below. ASSESSMENT & PLAN: Pyelonephritis: with hx of ureteric obstruction s/p stent -has had recurrent UTIs and recurrent pyelonephritis -s/p stent to the R ureter - replaced q 3 months at [place] -CT abdomen shows patent R ureteral stent -urine culture growing gram neg bacilli-Klebsiella Urine culture -Klebsiella -multi drug resistant sensitive to Gentamicin / Bactrim D/w ID pt started on Bactrim will need 14 days of tx repeat Blood culture negative growth iV Daptomycin D/veronica -due to see urology in [place] for stent replacement; - consulted urology -Dr Quinonez -appreciate input no urological intervention needed pt will continue to follow up with Urology in [place] ;appointment scheduled for next week 12/16/16 Gram positive bacteremia/DUE TO CONTAMINATED SPECIMEN : Blood cx 1/2 bottle gram positive cocci repeat blood cx ; no growth d/C daptomycin Anemia : possible due to metastatic Ca /in chemo -bone marrow suppression no active bleeding s/p 1 unit of PRBC transfusion ( D.w with Heme onc does not need irradiated blood ) hb improved > 8 -> 10 SOB /MARTINEZ resolved Pancytopenia: in a setting of chemo tx anemia corrected with PRBC tx Pneumonia: in an immunocompromised individual -as per imaging, noted to have a RUL consolidation -no symptoms of aspiration noted -was on Levaquin -repeat Cxray in Am : 1. Persistent 7 cm right mid to upper lung zone airspace opacity 2. 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 -on DVT prophylaxis with heparin subcu DVT PROPHYLAXIS high risk due to metastatic CA sub q heparin DISPOSITION Discharge home today Vital Signs: Date Time Temp Pulse Resp B/P (MAP) Pulse Ox O2 Delivery O2 Flow Rate FiO2 12/11/16 08:00 Room Air 12/11/16 07:55 36.7 107 20 144/65 (91) 95 Room Air 12/11/16 00:00 91 Room Air 12/11/16 00:00 36.9 101 18 143/80 (101) 91 Room Air 12/10/16 16:00 90 Room Air Lab Results: Results Past 24 Hours Test 12/11/16 06:04 Range/Units White Blood Count 4.17 4.8-10.8 K/uL Red Blood Count 3.22 4.2-5.4 M/uL Hemoglobin 10.0 12.0-16.0 g/dL Hematocrit 30.7 37-47 % Mean Corpuscular Volume 95.3 80-100 fL Mean Corpuscular Hemoglobin 31.1 25-34 pg Mean Corpuscular Hemoglobin Concent 32.6 32-36 g/dl RDW Standard Deviation 65.8 36.4-46.3 fL RDW Coefficient of Variation 19.5 11.5-14.5 % Platelet Count 178 130-400 K/uL Mean Platelet Volume 10.1 7.4-10.4 fL
[2016-12-11] MEDS ORDERED: LEVO-459 PO (10:42)
--- NOTE | 2016-12-11 10:57 | Discharge Summary ---
Discharge Summary Date of Service Dec 11, 2016. Discharge Summary Admission Date: Dec 07, 2016 at 22:50 Discharge Date: Dec 11, 2016 Discharge Disposition: Home Principal Diagnosis: PYELONEPHRITIS /METASTATIC CA /PNEUMONIA Procedures: cxray : IMPRESSION: 1. Persistent 7 cm right mid to upper lung zone airspace opacity 2. Interval development of an equivocal 2 cm left perihilar airspace opacity CT ABDOMEN /PELVIS : IMPRESSION: 1. Suboptimal examination without oral and IV contrast. 2. The bladder wall is thickened and there is pericystic inflammation. The appearance suggests cystitis. Correlation with clinical findings and urinalysis will be required. 3. A right ureteral stent is unchanged in position. There is minimal right-sided hydronephrosis hydronephrosis. No renal calculi are identified. 4. There is right-sided perinephric stranding and trace fluid. Correlate clinically and with urinalysis for evidence of ascending urinary tract infection. 5. Cholelithiasis. 6. Multifocal osseous metastatic disease as well as hepatic metastatic disease is again noted. This was better characterized on the PET/CT performed 1 week previously. 7. Additional findings as above. Consultations: INFECTIOUS DISEASE PULMONOLOGY UROLOGY DR LINDSEY Medication Reconciliation New Medications: Levofloxacin (Levaquin) 500 Mg Tab 1 TABS PO DAILY for 4 Days, #4 TABS Sulfamethoxazole-Trimethoprim (Smz-Tmp Ds) 1 Tab Tab 1 TAB PO Q12 for 12 Days, #24 TAB Continued Medications: Albuterol Hfa (Ventolin Hfa) 200 Puffs/53349 Mcg Aers 2 PUFFS INH Q6H PRN for Shortness of Breath, #1 INHALER Aspirin (Aspirin Ec) 81 Mg Tab 81 MG PO DAILY Calcium Carbonate-Vitamin D (Calcium + D) 1 Tab Tab 1 TAB PO BID Fluticasone Furoate-Vilanterol (Breo Ellipta 200-25 Mcg/INH) 1 Inh Inh 1 PUFFS INH DAILY Folic Acid (Folvite) 1 Mg Tab 1 TAB PO DAILY for 90 Days, #90 TAB 1 Refill Gabapentin (Neurontin) 400 Mg Cap 2 CAP PO HS for 30 Days, CAP Gabapentin (Neurontin) 400 Mg Cap 400 MG PO QAM, CAP Ipratropium-Albuterol (Duoneb) 3 Ml Nebu 1 TREATMENT INH BID PRN for Shortness of Breath, INHA Mesalamine (Asacol Hd) 800 Mg Tab 1 TAB PO TID Metoprolol Succinate (Toprol Xl) 50 Mg Tabcr 50 MG PO QAM, #30 TAB Ondansetron Hcl (Zofran) 4 Mg Tab 4 MG PO Q8 PRN for Nausea, TAB Prochlorperazine Maleate (Compazine) 10 Mg Tab 10 MG PO DIRECTED PRN for CHEMO DAYS, TAB Tramadol (Ultram) 50 Mg Tab 50 MG PO BID PRN for Pain, TAB Referrals At Discharge Follow up Referrals: Physician Referral - 12/19/16 with Suzanne Sanabria M.D. 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 of R ureteral obstruction s/p stenting, CKD stage 3, hx. of recurrent UTIs and recurrent pyelonephritis, hx. of DVT and PE, off of anticoagulation s/p IVC filter - presents with fevers/chills/weakness. States she was on Cipro about three weeks prior due to a UTI; urine cultures as outpatient grew out Enterococcus and E. coli, so antibiotics were changed to Augmentin. She started feeling better, but her fevers/chills and weakness worsened one day prior to arrival. She states she also noted R flank tenderness - which she has had in the past due to pyelonephritis. CT abdomen/pelvis was done confirming a R sided pyelo and it also suggested a R sided pneumonia. Patient received Zosyn in the ER, but developed hives and mild throat closure. Was given Solu-medrol and Benadryl and started feeling better. Zosyn was immediately stopped and put on her allergy list. She was given fluids and she states that she has started to feel better. Physical Exam (per Admitting): General Appearance: no apparent distress, + pertinent finding (71 year old in good spirits, alopecia related to chemotherapy with bandana in place, ill- appearing) Head: normocephalic, atraumatic Eyes: normal inspection ENT: hearing grossly normal Neck: supple Respiratory/Chest: chest non-tender, lungs clear, normal breath sounds, no respiratory distress, no accessory muscle use Cardiovascular: no edema, no murmur, + tachycardia Abdomen/GI: normal bowel sounds, non tender, soft Back: no muscle spasm Extremities/Musculoskelatal: normal capillary refill, no pedal edema Neurologic/Psych: no motor/sensory deficits, alert, normal mood/affect Skin: normal color Lymphatic: no adenopathy Hospital Course Pyelonephritis: with hx of ureteric obstruction s/p stent -has had recurrent UTIs and recurrent pyelonephritis -s/p stent to the R ureter - replaced q 3 months at [place] -CT abdomen shows patent R ureteral stent -urine culture growing gram neg bacilli-Klebsiella Urine culture -Klebsiella -multi drug resistant sensitive to Gentamicin / Bactrim D/w ID pt started on Bactrim will need 14 days of tx repeat Blood culture negative growth iV Daptomycin D/veronica -due to see urology in [place] for stent replacement; - consulted urology -Dr Lindsey -appreciate input no urological intervention needed pt will continue to follow up with Urology in [place] ;appointment scheduled for next week 12/16/16 Gram positive bacteremia/DUE TO CONTAMINATED SPECIMEN : Blood cx 1/2 bottle gram positive cocci repeat blood cx ; no growth d/C daptomycin Anemia : possible due to metastatic Ca /in chemo -bone marrow suppression no active bleeding s/p 1 unit of PRBC transfusion ( D.w with Heme onc does not need irradiated blood ) hb improved > 8 -> 10 SOB /MARTINEZ resolved Pancytopenia: in a setting of chemo tx anemia corrected with PRBC tx Pneumonia: in an immunocompromised individual -as per imaging, noted to have a RUL consolidation -no symptoms of aspiration noted -was on Levaquin -repeat Cxray in Am : 1. Persistent 7 cm right mid to upper lung zone airspace opacity 2. Interval development of an equivocal 2 cm left perihilar airspace opacity pulm input appreciated complete total 7 days of Levaquin for pneumonia repeat Cxray in 4-6 weeks to assess resolution of Rt mid /upper lung opacity Small Cell Lung CA: with widespread mets -on chemotherapy; follow with oncology -due for next chemo on Thursday, December 10, cancelled due to infections, patient follows with Dr. 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 -on DVT prophylaxis with heparin subcu DVT PROPHYLAXIS high risk due to metastatic CA sub q heparin DISPOSITION Discharge home today Total time spent on discharge = 40 MINS This includes examination of the patient, discharge planning, medication reconciliation, and communication with other providers. Discharge Instructions Discharge Instructions Date of Service Dec 10, 2016. Admission Reason for Admission: Immunocompromised, Pneumonia, Pyelonephritis Discharge Discharge Diagnosis / Problem: PYELONEPHRITIS /METASTATIC CA /PNEUMONIA Discharge Goals Goal(s): Decrease discomfort, Diagnostic testing Activity Recommendations Activity Limitations: resume your previous activity . Instructions / Follow-Up Instructions / Follow-Up HOSPITAL FOLLOW UP 12/19/2016 @ 10: [address] Suzanne Sanabria MD General Internal Medicine [facility] LAB WORK : COMPLETE BLOOD COUNT IN A WEEK NEW MEDICATIONS : BACTRIM DS 1 TAB TWICE DAILY FOR 12 DAYS ( FOR URINARY TRACT INFECTION ) LEVAQUIN 500 MG TAB DAILY FOR 4 DAYS ( FOR PNEUMONIA ) PLEASE REPEAT CHEST XRAY IN 4-6 WEEKS TO ASSESS IMPROVEMENT OF SIGN OF PNEUMONIA Current Hospital Diet Patient's current hospital diet: Regular Diet Discharge Diet Recommended Diet: Regular Diet Pending Studies Studies pending at discharge: yes List of pending studies: COMPLETE BLOOD COUNT Medical Emergencies . Who to Call and When: Medical Emergencies: If at any time you feel your situation is an emergency, please call 911 immediately. . Non-Emergent Contact Non-Emergency issues call your: Primary Care Provider . . "Provider Documentation" section prepared by Loan Ferrell. . VTE Core Measure Inpt VTE Proph given/why not?: Unfractionated heparin SQ Additional Copies To Franc Sanabria M.D. Patel, Manisha N., M.D.
[2016-12-11] MEDS ORDERED: LEVOFLOXACIN 500 MG TAB PO SCH (12:00)
[2017-01-09] MEDS ORDERED: CALC600T9 PO (08:43)
[2017-01-09] MEDS ORDERED: FOLI1TAB7 PO (09:28)
[2017-01-09] MEDS ORDERED: METO-217 PO (09:28)
[2017-01-09] MEDS ORDERED: GABA1CAP5 PO ×2 (09:28)
[2017-01-09] MEDS ORDERED: TRAM-10 PO (09:29)
[2017-01-09] MEDS ORDERED: IPRASOL4 NEB (10:17)
[2017-01-09] MEDS ORDERED: MESA800T6 PO (10:17)
[2017-01-09] MEDS ORDERED: ONDA4TAB46 PO (10:17)
[2017-01-09] MEDS ORDERED: ASPI81TA28 PO (10:17)
[2017-01-09] MEDS ORDERED: FLUT1INH7 INH (12:26)
[2017-01-10] MEDS ORDERED: LEVOFLOXACIN / D5W 500 MG in PREMIXED IN D5W 100 ML IV ONE (00:50)
[2017-01-10] MEDS ORDERED: LEVOFLOXACIN / D5W 500 MG in PREMIXED IN D5W 100 ML IV SCH (01:00)
[2017-01-11] MEDS ORDERED: SULF-183 PO (16:06)
[2017-01-11] MEDS ORDERED: LACT10CA3 PO (16:06)
== END 2016-12-11 13:15 | disposition home or self-care (01) | DRG 193 ==
LOC: C.EDB 19:51 → C.MED 22:50 → ENRESERV 23:39
PROVIDERS: ADMIT Family Medicine; ATTEND Hospitalist
DX: J18.9 Pneumonia, unspecified organism (principal); D61.810 Antineoplastic chemotherapy induced pancytopenia; N12 Tubulo-interstitial nephritis, not specified as acute or chronic; C78.7 Secondary malignant neoplasm of liver and intrahepatic bile duct; C34.90 Malignant neoplasm of unspecified part of unspecified bronchus or lung; C79.51 Secondary malignant neoplasm of bone; D89.9 Disorder involving the immune mechanism, unspecified; L50.0 Allergic urticaria; T36.0X5A Adverse effect of penicillins, initial encounter; B96.1 Klebsiella pneumoniae [K. pneumoniae] as the cause of diseases classified elsewhere; N18.3 Chronic kidney disease, stage 3 (moderate); Z51.81 Encounter for therapeutic drug level monitoring; Z79.899 Other long term (current) drug therapy; Z79.82 Long term (current) use of aspirin; Z66 Do not resuscitate; Z87.440 Personal history of urinary (tract) infections; Z86.718 Personal history of other venous thrombosis and embolism; Z95.828 Presence of other vascular implants and grafts; Z86.711 Personal history of pulmonary embolism; Z87.891 Personal history of nicotine dependence; Z82.49 Family history of ischemic heart disease and other diseases of the circulatory system

== ENCOUNTER 2017-01-09 18:40 | Observation (INO) | payer OTHER ==
[~2017-01-09] VITALS: Ht 154.9 cm; Wt 91.9 kg
[~2017-01-09 18:40] MED LIST changes: +ASPI81TA28 PO; +CALC600T9 PO; -CLC100 PO; +FLUT1INH7 INH; +FOLI1TAB7 PO; +GABA1CAP5 PO; +IPRASOL4 NEB; +LEVO-459 PO; +MESA800T6 PO; +METO-217 PO; +ONDA4TAB46 PO; -OXYC-57 PO; +SULF-183 PO; +TRAM-10 PO; -nystatin powder TOP
[2017-01-09] MEDS ORDERED: SODIUM CHLORIDE 0.9% 1000ML 1,000 ML IV ONE (19:55)
[2017-01-09] MEDS ORDERED: SODIUM CHLORIDE 0.9% 1000ML 1,000 ML IV STA (19:55)
[2017-01-09] MEDS ORDERED: PROC1TAB5 PO (20:23)
--- NOTE | 2017-01-09 20:27 | DIAGNOSTIC IMAGING REPORT ---
CHEST ONE VIEW PORTABLE CLINICAL HISTORY: Chest pain. Small cell lung cancer. COMPARISON STUDY: PET/CT November 26, 2016 and chest radiograph December 09, 2016. FINDINGS: A right subclavian Djnbba-l-Eavc is in place. There is right hemithorax volume loss. No pneumothorax or pleural effusion is present. Right mid lung airspace opacity is again noted. Extent has slightly increased since exam of December 09, 2016. Left lung is clear. There is no evidence of pulmonary edema. Cardiomediastinal silhouette is stable. IMPRESSION: Slight increase in extent in right midlung airspace opacity since prior exam. Differential considerations include pneumonia and postradiation change such as radiation pneumonitis. Radiographic follow up to ensure resolution is recommended to exclude the less likely possibility of a neoplastic process. Electronically signed by: Thomas Polanco M.D. 01/09/2017 8:26 PM Dictated Date/Time: 01/09/2017 8:22 PM
[2017-01-09] MEDS ORDERED: VNTHFA/IN INH (20:42)
[2017-01-09 20:58] LABS: HEMATOCRIT 32.6 % (37-47); MEAN CELL VOLUME 98.5 fL (80-100); MEAN CORPUSCULAR HGB CONC 32.5 g/dl (32-36); MEAN PLATELET VOLUME 9.8 fL (7.4-10.4); PLATELET COUNT 152 K/uL (130-400); RED BLOOD COUNT 3.31 M/uL (4.2-5.4); WHITE BLOOD COUNT 18.52 K/uL (4.8-10.8)
[2017-01-09 21:11] LABS: ALT/SGPT 21 U/L (12-78); BLOOD UREA NITROGEN 32 mg/dl (7-18); BUN/CREATININE RATIO 24.2 (10-20); CALCIUM 8.5 mg/dl (8.5-10.1); CARBON DIOXIDE 27 mmol/L (21-32); CHLORIDE 104 mmol/L (98-107); GLUCOSE 107 mg/dl (70-99); POTASSIUM 4.5 mmol/L (3.5-5.1); SODIUM 137 mmol/L (136-145)
[2017-01-09 21:14] LABS: ALKALINE PHOSPHATASE 45 U/L (45-117); AST/SGOT 20 U/L (15-37)
[2017-01-09 21:21] LABS: BASO % 0.2 %; BASO ABS # 0.04 K/uL (0-0.2); COMPLETE YES; DOHLE BODIES 1+; EOS % 0.6 %; IG% 5.9 %; LYMPH % 3.2 %; LYMPH ABS # 0.59 K/uL (1.2-3.4); MONO % 0.4 %; NEUT % 89.7 %
--- NOTE | 2017-01-09 22:43 | DIAGNOSTIC IMAGING REPORT ---
CT OF THE HEAD WITHOUT CONTRAST CLINICAL HISTORY: Weakness. Syncope. Lung cancer. COMPARISON STUDY: MRI of the brain September 02, 2016. CT DOSE: 537.48 mGy.cm TECHNIQUE: Helical axial images of the head were obtained without IV contrast. Automated exposure control was utilized for the study. A dose lowering technique was utilized adhering to the principles of ALARA. FINDINGS: No acute intracranial hemorrhage, midline shift or mass effect is present. Ventricular system is stable. Basilar cisterns are patent. There are no extra axial collections. White matter hypodensities suggest extensive small vessel disease. There are old lacunar infarcts within the bilateral basal ganglia. There are no findings to suggest acute dural sinus thrombosis or acute territorial infarct. There is no calvarial fracture. IMPRESSION: No acute intracranial findings. Electronically signed by: Thomas Polanco M.D. 01/09/2017 10:41 PM Dictated Date/Time: 01/09/2017 10:38 PM
[2017-01-09 22:56] LABS: MANUAL MICROSCOPIC REQUIRED? NO; REVIEW REQ? NO; URINE APPEARANCE CLOUDY (CLEAR); URINE BILIRUBIN NEG (NEG); URINE COLOR YELLOW; URINE EPITHELIAL CELL AUTO >30 /lpf (0-5); URINE NITRITE POS (NEG); URINE SPECIFIC GRAVITY 1.021 (1.000-1.030); UROBILINOGEN NEG (NEG)
[2017-01-10] VITALS (7 sets, daily range): BP systolic 98–145; BP diastolic 62–81; PULSE 73–93; TEMP 36.3–36.7; O2SAT 94–100; Ht 154.9 cm; Wt 91.9 kg
--- NOTE | 2017-01-10 00:22 | EMERGENCY ROOM VISIT NOTE ---
History Report prepared by Roel: Shannan Torres Under the Supervision of: Dr. Harvey Jasso M.D. First contact with patient: 19:45 Chief Complaint: SYNCOPE Stated Complaint: PASSED OUT 1 HOUR AGO History of Present Illness The patient is a 71 year old female who presents to the Emergency Room with complaints of an episode of syncope 1 hour ago. The patient was at the [facility] with her granddaughter. She was using a scooter for mobility. Her granddaughter states that she started with some hand twitching. She then started to nod and slump forward. She tried to talk to the patient, but she was not responding despite her eyes being open. She was staring ahead and not responding. She did lose consciousness. These symptoms all happened over 5 minutes. They called EMS who checked her vitals which were normal. The patient refused to go to the hospital there. Her daughters picked her up and brought her here. When they were speaking to her on the phone her speech seemed slower and possibly slurred. She has never experienced these symptoms before. She has nausea sometimes and takes Zofran. She denies any back pain, vomiting, diarrhea , dysuria, fever, chills, headache, SOB, or chest pain. She denies any fall or injury. She believes she is keeping up with her fluids. She has lung cancer which has spread to her liver and hip. She had chemotherapy this week. She is not on any blood thinners. She was in the hospital last month with a kidney infection. She has a ureteral stent in place. Source of History: patient, family Onset: 1 hour ago Position: other (global) Quality: other (syncope) Timing: other (episodic) Associated Symptoms: + LOC, No fevers, No chills, No headache, No chest pain , No SOB, No vomiting, No back pain, No diarrhea, No urinary symptoms Note: Pt had hand twitching, unresponsive. Review of Systems See HPI for pertinent positives & negatives. A total of 10 systems reviewed and were otherwise negative. Past Medical & Surgical Medical Problems: (1) Anemia (2) Cancer associated pain (3) DVT (deep venous thrombosis) (4) Lung cancer (5) Positive blood culture (6) Presence of inferior vena cava filter (7) Retained ureteral stent Old medical records were reviewed. Nurse's notes were reviewed and I agree with. Family History Hypertension Social History Smoking Status: Former Smoker Marital Status: Housing Status: lives with significant other Occupation Status: retired Current/Historical Medications Scheduled Aspirin (Aspirin Ec), 81 MG PO DAILY Calcium Carbonate-Vitamin D (Calcium + D), 1 TAB PO BID Fluticasone Furoate-Vilanterol (Breo Ellipta 200-25 Mcg/INH), 1 PUFF INH DAILY Folic Acid (Folvite), 1 MG PO DAILY Gabapentin (Neurontin), 800 MG PO HS Gabapentin (Neurontin), 400 MG PO QAM Mesalamine (Asacol Hd), 800 MG PO TID Metoprolol Succinate (Toprol Xl), 50 MG PO QAM Scheduled PRN Albuterol Hfa (Ventolin Hfa), 2 PUFFS INH Q6H PRN for Shortness of Breath Ipratropium-Albuterol (Duoneb), 1 TREATMENT NEB BID PRN for Shortness of Breath Ondansetron Hcl (Zofran), 4 MG PO Q8 PRN for Nausea Prochlorperazine Maleate (Compazine), 10 MG PO UD PRN for Nausea Tramadol (Ultram), 50 MG PO BID PRN for Pain Allergies Coded Allergies: Piperacillin (Verified Allergy, Severe, Throat swelling/tightness; hives, 12/07/16) Tazobactam (Verified Allergy, Severe, Throat swelling/tightness; hives, 12/07/16) Physical Exam Vital Signs Date Time Temp Pulse Resp B/P (MAP) Pulse Ox O2 Delivery O2 Flow Rate FiO2 01/09/17 23:51 89 14 134/63 93 Room Air 93 137/94 99 110/72 01/09/17 23:11 89 15 92 01/09/17 23:01 142/69 01/09/17 22:41 87 94 01/09/17 22:36 89 16 94 01/09/17 22:31 145/72 01/09/17 22:22 147/75 01/09/17 22:01 134/73 01/09/17 21:50 86 18 95 01/09/17 21:31 145/79 01/09/17 21:20 86 16 95 01/09/17 21:15 86 17 94 01/09/17 21:01 128/72 01/09/17 20:45 75 18 96 01/09/17 20:45 74 01/09/17 20:40 81 17 95 01/09/17 20:33 135/83 01/09/17 18:56 36.5 88 18 107/55 95 Room Air Physical Exam General: Non ill appearing older female in no acute distress. Well developed well nourished, breathing comfortably on room air. Normal speech. GCS of 15. HEENT: Normal cephalic atraumatic. Pupils are equal round and reactive to light. Extraocular movements are intact. Oropharynx is pink with moist mucous membranes. No swelling of the mouth lips or tongue. Neck: Supple with a midline trachea. No meningeal signs or stiffness, no JVD or bruits. No Stridor. Chest: Clear to auscultation bilaterally. No wheezes or rhonchi. No increased work of breathing. A port in right chest. Heart: regular rate and rhythm. Abdomen: Soft nontender, nondistended without rebound guarding or rigidity. Extremities: No cyanosis clubbing or edema. No calf tenderness or assymetry Spine/Back. Non tender to palpation. No CVA tenderness Skin: Good turgor without rashes. Neurologic exam: Cranial nerves two through 12 are intact. Motor and sensation are intact and symmetrical throughout. Medical Decision & Procedures ER Provider Diagnostic Interpretation: X-ray results as stated below per interpretation by me and the radiologist. Radiology results as stated below per my review and radiologist interpretation: CHEST ONE VIEW PORTABLE CLINICAL HISTORY: Chest pain. Small cell lung cancer. COMPARISON STUDY: PET/CT November 26, 2016 and chest radiograph December 09, 2016. FINDINGS: A right subclavian Bvwosn-a-Bmvw is in place. There is right hemithorax volume loss. No pneumothorax or pleural effusion is present. Right mid lung airspace opacity is again noted. Extent has slightly increased since exam of December 09, 2016. Left lung is clear. There is no evidence of pulmonary edema. Cardiomediastinal silhouette is stable. IMPRESSION: Slight increase in extent in right midlung airspace opacity since prior exam. Differential considerations include pneumonia and postradiation change such as radiation pneumonitis. Radiographic follow up to ensure resolution is recommended to exclude the less likely possibility of a neoplastic process. Electronically signed by: Thomas Polanco M.D. 01/09/2017 8:26 PM Dictated Date/Time: 01/09/2017 8:[address] OF THE HEAD WITHOUT CONTRAST CLINICAL HISTORY: Weakness. Syncope. Lung cancer. COMPARISON STUDY: MRI of the brain September 02, 2016. CT DOSE: 537.48 mGy.cm TECHNIQUE: Helical axial images of the head were obtained without IV contrast. Automated exposure control was utilized for the study. A dose lowering technique was utilized adhering to the principles of ALARA. FINDINGS: No acute intracranial hemorrhage, midline shift or mass effect is present. Ventricular system is stable. Basilar cisterns are patent. There are no extra axial collections. White matter hypodensities suggest extensive small vessel disease. There are old lacunar infarcts within the bilateral basal ganglia. There are no findings to suggest acute dural sinus thrombosis or acute territorial infarct. There is no calvarial fracture. IMPRESSION: No acute intracranial findings. Electronically signed by: Thomas Polanco M.D. 01/09/2017 10:41 PM Dictated Date/Time: 01/09/2017 10:38 PM Laboratory Results 01/09/17 20:20 Red Blood Count 3.31, Mean Corpuscular Volume 98.5, Mean Corpuscular Hemoglobin 32.0, Mean Corpuscular Hemoglobin Concent 32.5, Mean Platelet Volume 9.8, Neutrophils (%) (Auto) 89.7, Lymphocytes (%) (Auto) 3.2, Monocytes (%) (Auto) 0.4, Eosinophils (%) (Auto) 0.6, Basophils (%) (Auto) 0.2, Neutrophils # (Auto) 16.61, Lymphocytes # (Auto) 0.59, Monocytes # (Auto) 0.07, Eosinophils # (Auto) 0.11, Basophils # (Auto) 0.04 01/09/17 20:39 Test 01/09/17 20:20 01/09/17 20:36 01/09/17 20:39 01/09/17 22:25 White Blood Count 18.52 K/uL (4.8-10.8) Red Blood Count 3.31 M/uL (4.2-5.4) Hemoglobin 10.6 g/dL (12.0-16.0) Hematocrit 32.6 % (37-47) Mean Corpuscular Volume 98.5 fL (80-100) Mean Corpuscular Hemoglobin 32.0 pg (25-34) Mean Corpuscular Hemoglobin Concent 32.5 g/dl (32-36) Platelet Count 152 K/uL (130-400) Mean Platelet Volume 9.8 fL (7.4-10.4) Neutrophils (%) (Auto) 89.7 % Lymphocytes (%) (Auto) 3.2 % Monocytes (%) (Auto) 0.4 % Eosinophils (%) (Auto) 0.6 % Basophils (%) (Auto) 0.2 % Neutrophils # (Auto) 16.61 K/uL (1.4-6.5) Lymphocytes # (Auto) 0.59 K/uL (1.2-3.4) Monocytes # (Auto) 0.07 K/uL (0.11-0.59) Eosinophils # (Auto) 0.11 K/uL (0-0.5) Basophils # (Auto) 0.04 K/uL (0-0.2) RDW Standard Deviation 54.2 fL (36.4-46.3) RDW Coefficient of Variation 15.1 % (11.5-14.5) Immature Granulocyte % (Auto) 5.9 % Immature Granulocyte # (Auto) 1.10 K/uL (0.00-0.02) Dohle Bodies 1+ Bedside Troponin I < 0.030 ng/ml (0-0.045) Anion Gap 6.0 mmol/L (3-11) Est Creatinine Clear Calc Drug Dose 39.1 ml/min Estimated GFR () 47.1 Estimated GFR (Non- 40.7 BUN/Creatinine Ratio 24.2 (10-20) Calcium Level 8.5 mg/dl (8.5-10.1) Total Bilirubin 0.3 mg/dl (0.2-1) Direct Bilirubin < 0.1 mg/dl (0-0.2) Aspartate Amino Transf (AST/SGOT) 20 U/L (15-37) Alanine Aminotransferase (ALT/SGPT) 21 U/L (12-78) Alkaline Phosphatase 45 U/L (45-117) Total Protein 7.0 gm/dl (6.4-8.2) Albumin 3.2 gm/dl (3.4-5.0) Lipase 189 U/L (73-393) Urine Color YELLOW Urine Appearance CLOUDY (CLEAR) Urine pH 5.0 (4.5-7.5) Urine Specific Calhan 1.021 (1.000-1.030) Urine Protein 1+ (NEG) Urine Glucose (UA) NEG (NEG) Urine Ketones NEG (NEG) Urine Occult Blood TRACE (NEG) Urine Nitrite POS (NEG) Urine Bilirubin NEG (NEG) Urine Urobilinogen NEG (NEG) Urine Leukocyte Esterase LARGE (NEG) Urine WBC (Auto) >30 /hpf (0-5) Urine RBC (Auto) 5-10 /hpf (0-4) Urine Hyaline Casts (Auto) 1-5 /lpf (0-5) Urine Epithelial Cells (Auto) >30 /lpf (0-5) Urine Bacteria (Auto) 2+ (NEG) Laboratory studies as stated above per my review. Medications Administered Medications (Trade) Dose Ordered Sig/Nany Route Start Time Stop Time Status Last Admin Dose Admin Sodium Chloride 1,000 ml @ 999 mls/hr Q1H1M STAT IV 01/09/17 19:55 01/09/17 20:55 DC 01/09/17 20:28 999 MLS/HR Sodium Chloride 1,000 ml @ 200 mls/hr Q5H ONCE IV 01/09/17 19:55 01/10/17 00:54 01/09/17 20:28 200 MLS/HR ECG Indication: syncope Rate (beats per minute): 84 Rhythm: normal sinus Findings: no acute ischemic change, other (poor R wave progression) Comparison ECG Date: 09-Dec-2016 Change: no significant change ED Course 1946: Past medical records reviewed. The patient was evaluated in room B8, and a complete history and physical examination were performed. 1954: NSS 1000 ml @ 200 mls/hr IV, NSS 1000 ml @ 999 mls/hr IV. 0: I reevaluated the patient. I had a long discussion with her and her family regarding the plan. 2310: Upon reevaluation, the patient is resting comfortably. I discussed the results and treatment plan with the patient and her family. They verbalized agreement of the treatment plan. The patient will be evaluated for further management. 2320: I discussed the patient's case with Dr. Schmitt, [facility] hospitalist. The patient will be evaluated for further management. Medical Decision Differentials include, but are not limited to; syncope, dehydration, arrhythmia , seizure, anemia, infection. This patient comes in as described above. She is here for treatment and evaluation of the syncopal episode. She is being treated for small cell metastatic lung cancer. She has had chemotherapy this week. She's not been vomiting and feels she's heaving up with her fluids. We did access her a port and hydrated with 1 L IV normal saline bolus and hourly rate of IV normal saline. EKG was obtained which does not suggest acute coronary syndrome or arrhythmia. Chest x-ray has some findings where her tumor is that may have increasing markings compared to before slightly. It's possible that she could have a superimposed infection such as pneumonia although she does not cough. She's had frequent UTIs in the past and has a stent in the right kidney but now she has no urinary symptoms at all. Her urine is suboptimal greater than 30 epithelial cells at but is difficult to rule out infection cultures been sent she says she always gets symptoms which she's had infections and she has none at present. Her BUN and creatinine are mildly elevated and I think she is most likely dehydrated I am also concerned her white count is elevated 18 however she has no fever she has received Decadron as part of her chemotherapy regimen and this could partially explaining this. Given her syncope, I do think that she needs to be observed/admitted. Also with her high white count, we can keep an eye on her for any other signs of infection at this point she has does not have any. I did consult Dr. Schmitt to see her in the ER. Medication Reconcilliation Current Medication List: was personally reviewed by me Blood Pressure Screening Patient's blood pressure: Normal blood pressure Blood pressure disposition: Did not require urgent referral Consults Time Called: [phone] Consulting Physician: Dr. Schmitt [facility] hospitalist Returned Call: [phone] I discussed the patient's case with her. The patient will be evaluated for further management. Impression Primary Impression: Syncope Additional Impressions: Elevated white blood cell count Small cell lung cancer Scribe Attestation The scribe's documentation has been prepared under my direction and personally reviewed by me in its entirety. I confirm that the note above accurately reflects all work, treatment, procedures, and medical decision making performed by me. Departure Information Dispostion Being Evaluated By Hospitalist Referrals Suzanne Sanabria M.D. (PCP) Patient Instructions My [facility] Problem Qualifiers
[2017-01-10] MEDS ORDERED: ALBUT/IPRATROP 3MG/0.5MG NEB 3 ML VIAL INH PRN (00:45)
[2017-01-10] MEDS ORDERED: IV FLUIDS COMPLETED PRN (00:45)
[2017-01-10] MEDS ORDERED: PROCHLORPERAZINE MALEATE 10 MG TAB PO PRN (00:45)
[2017-01-10] MEDS ORDERED: TRAMADOL HCL 50 MG TAB PO PRN (00:45)
[2017-01-10] MEDS ORDERED: ONDANSETRON 4 MG TAB PO PRN (00:45)
[2017-01-10] MEDS ORDERED: ALBUTEROL HFA 8 GM INHALER INH PRN (00:45)
[2017-01-10] MEDS ORDERED: LEVOFLOXACIN / D5W 500 MG in PREMIXED IN D5W 100 ML IV ONE (01:30)
[2017-01-10] MEDS ORDERED: LEVOFLOXACIN CONSULT ACTIVE PRN (01:30)
[2017-01-10] MEDS: NSS + 20MEQ KCL 1000ML 1,000 ML IV SCH ×2 (01:46→07:26)
--- NOTE | 2017-01-10 02:15 | HISTORY & PHYSICAL EXAMINATION ---
DATE OF ADMISSION: 01/10/2017 PRIMARY CARE PHYSICIAN: Dr. Suzanne Sanabria. CHIEF COMPLAINT: Syncopal [place] the mall this afternoon. 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 Apparently has been getting chemo for small cell lung cancer as of now. She has had her Thursday, Thursday, Thursday oral chemo and she had her IV chemo on . She was out on her wheelchair with scooter at the mall today and she felt some queasiness in the stomach area with nausea and she wanted to drink water. After that she was noted to be very pale and with some twitching of one of the hands and also has had some garbled speech and after that, she passed out. She was very pale during that time, EMS was called and when they arrived, she did not have any symptoms. She was hemodynamically stable and she initially did not want to come to the hospital, but later on the daughters actually brought her to the hospital for evaluation. In the ER, she was not having any acute symptoms and she was hemodynamically stable and apparent blood counts including CAT scan of the head were unremarkable, but given the syncopal episode and probable seizure, she was admitted to telemetry unit for observation. 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 Recent pyelonephritis and ureteric obstruction status post right ureteric stent. PAST SURGICAL HISTORY: Bronchoscopy in May 2016 and cystoscopy with insertion of stent in the right ureteric area. FAMILY HISTORY: Mother has high blood pressure and sister has breast cancer and also DVT. SOCIAL HISTORY: She is . She is a former smoker, quit in 1990, she does not use any alcohol and her activities of daily living is limited. She usually moves around with scooter. ALLERGIES: PENICILLIN AND TAZOBACTAM. MEDICATIONS: She has been on albuterol HFA as directed, aspirin 81 mg daily, folic acid 1 mg daily, Neurontin 400 mg daily, gabapentin 800 mg at night, DuoNeb nebulized solutions 3 mL as directed, Toprol-XL 50 mg daily, Zofran 4 mg tablet as directed, Compazine 10 mg tablet as directed, Ultram 50 mg b.i.d. for pain. She also takes calcium with vitamin D 1 a day, Breo 1 puff daily and Asacol 800 mg t.i.d. REVIEW OF SYSTEMS: Other systems reviewed are unremarkable except those mentioned in history of present complaint. PHYSICAL EXAMINATION: GENERAL: On examination in the medical floor, she was not having any acute distress. VITAL SIGNS: Temperature 36.5, pulse 89. Blood pressure 134/63 supine, sitting 110/72 and standing 134/83. Saturation 93% on room air. HEENT: Unremarkable. NECK: Supple. No JVD, no bruit. CHEST: Clear to auscultate bilaterally. HEART: S1, S2 regular. ABDOMEN: Soft, benign, nontender, no organomegaly. Bowel sounds present. EXTREMITIES: Bilateral edema, chronic, like lymphedema. MUSCULOSKELETAL: No acute arthritis in any joint. CENTRAL NERVOUS SYSTEM: She was alert, awake, oriented x3. LABORATORY DATA: Noted today, white count was 18.52, H&H 10.6/32.6, platelet was 152. Sodium 137, potassium 4.5, chloride 108, carbon dioxide 27, BUN 32, creatinine 1.30. LFTs normal. Urine examination: Urine nitrite positive, leukocyte esterase large, urine WBC more than 30 and ,RBC more than 30. It was sent for culture. CT of the chest, no acute findings and chest x-ray, slight increase in extent in right mid lung airspace opacities since prior exam. EKG is not in the chart. IMPRESSION AND PLAN: 1. Syncopal episode seems to be secondary to vasovagal episode. She is little dry. She did have some dysarthria as reported and some twitching involving the extremities but no incontinence and no profound weakness following the episode. She will be admitted to telemetry unit, neuro observation and will get an EEG tomorrow morning. She will be given adequate amount of IV fluid as well. 2. Small cell lung cancer with bone and liver metastasis, has been on chemotherapy and she got her IV chemo on . No acute issue with that. 3. Status post right ureteric stent following pyelonephritis. Her white count is 18,000. She got Decadron during the chemo as well. UA suggestive of infection. We will start with some ceftriaxone and go with that. 4. Chronic obstructive pulmonary disease. Continue with current medications. 5. Crohn disease. Continue with current medications. 6. Rheumatoid arthritis. No acute arthritis at this time. 7. Sleep apnea. If she uses any CPAP, that will be provided. 8. Deep venous thrombosis prophylaxis with Lovenox. 9. Gastrointestinal prophylaxis with PPI. 10. Code status, she will be a full code. In my clinical judgment, the beneficiary meets criteria as per CMS for 2-midnight stay in the hospital. TOM
[2017-01-10] MEDS: METOPROLOL SUCC 50MG EXT REL TAB PO SCH (07:24)
[2017-01-10] MEDS: GABAPENTIN 400 MG CAP PO SCH (07:25)
[2017-01-10] MEDS: CALCIUM 600MG + VIT D 400 IU TAB PO SCH ×2 (07:25→20:57)
[2017-01-10] MEDS: ASPIRIN 81 MG ECTAB PO SCH (07:26)
[2017-01-10 08:42] LABS: INR 1.1 (0.9-1.1); PROTHROMBIN TIME (PATIENT) 11.3 SECONDS (9.0-12.0)
[2017-01-10] MEDS: ENOXAPARIN 40 MG/0.4 ML SYR SC SCH (09:00)
[2017-01-10] MEDS ORDERED: SULFAMETHOXAZOLE/TRIMETHOPRIM DS 800/160MG TAB PO ONE (09:03)
--- NOTE | 2017-01-10 11:16 | Progress Note ---
Medicine Progress Note Date & Time of Visit: Jan 10, 2017 at 11:07. Subjective patient seen resting in bed comfortable states she feels better today denies headache , confusion, dizziness no abdominal pain , nausea, fever/chills, problems with urination no chest pain, dyspnea denies other symptoms in good spirits Objective Last 8 Hrs Date Time Temp Pulse Resp B/P (MAP) Pulse Ox O2 Delivery O2 Flow Rate FiO2 01/10/17 07:30 Nasal Cannula 2.0 01/10/17 07:03 36.6 86 22 104/65 (78) 99 Nasal Cannula 2.0 93 122/74 (90) 89 104/69 (81) 01/10/17 04:03 36.3 73 22 108/66 (80) 100 Nasal Cannula 2.0 01/10/17 04:00 Nasal Cannula 2.0 Physical Exam: General- oriented x 3, not in distress, speaks in sentences with no effort Head- atraumatic Eyes- anicteric ENT- oropharynx clear Neck- supple, no JVD, no adenopathy Lungs- clear breath sounds bilaterally, no rales/wheezes Heart- regular rhythm; no murmur, normal rate Abdomen- normal bowel sounds, soft, nontender Extremities- no pretibial edema, no calf tenderness Neuro- alert, oriented x 3;no gross focal deficits Skin- warm & dry Laboratory Results: Last 24 Hours Test 01/09/17 20:20 01/09/17 20:36 01/09/17 20:39 01/09/17 22:25 White Blood Count 18.52 K/uL Red Blood Count 3.31 M/uL Hemoglobin 10.6 g/dL Hematocrit 32.6 % Mean Corpuscular Volume 98.5 fL Mean Corpuscular Hemoglobin 32.0 pg Mean Corpuscular Hemoglobin Concent 32.5 g/dl Platelet Count 152 K/uL Mean Platelet Volume 9.8 fL Neutrophils (%) (Auto) 89.7 % Lymphocytes (%) (Auto) 3.2 % Monocytes (%) (Auto) 0.4 % Eosinophils (%) (Auto) 0.6 % Basophils (%) (Auto) 0.2 % Neutrophils # (Auto) 16.61 K/uL Lymphocytes # (Auto) 0.59 K/uL Monocytes # (Auto) 0.07 K/uL Eosinophils # (Auto) 0.11 K/uL Basophils # (Auto) 0.04 K/uL RDW Standard Deviation 54.2 fL RDW Coefficient of Variation 15.1 % Immature Granulocyte % (Auto) 5.9 % Immature Granulocyte # (Auto) 1.10 K/uL Dohle Bodies 1+ Bedside Troponin I < 0.030 ng/ml Sodium Level 137 mmol/L Potassium Level 4.5 mmol/L Chloride Level 104 mmol/L Carbon Dioxide Level 27 mmol/L Anion Gap 6.0 mmol/L Blood Urea Nitrogen 32 mg/dl Creatinine 1.30 mg/dl Est Creatinine Clear Calc Drug Dose 39.1 ml/min Estimated GFR () 47.1 Estimated GFR (Non- 40.7 BUN/Creatinine Ratio 24.2 Random Glucose 107 mg/dl Calcium Level 8.5 mg/dl Total Bilirubin 0.3 mg/dl Direct Bilirubin < 0.1 mg/dl Aspartate Amino Transf (AST/SGOT) 20 U/L Alanine Aminotransferase (ALT/SGPT) 21 U/L Alkaline Phosphatase 45 U/L Total Protein 7.0 gm/dl Albumin 3.2 gm/dl Lipase 189 U/L Urine Color YELLOW Urine Appearance CLOUDY Urine pH 5.0 Urine Specific Olds 1.021 Urine Protein 1+ Urine Glucose (UA) NEG Urine Ketones NEG Urine Occult Blood TRACE Urine Nitrite POS Urine Bilirubin NEG Urine Urobilinogen NEG Urine Leukocyte Esterase LARGE Urine WBC (Auto) >30 /hpf Urine RBC (Auto) 5-10 /hpf Urine Hyaline Casts (Auto) 1-5 /lpf Urine Epithelial Cells (Auto) >30 /lpf Urine Bacteria (Auto) 2+ Test 01/10/17 07:04 01/10/17 10:48 Prothrombin Time 11.3 SECONDS Prothromb Time International Ratio 1.1 Date/Time Source Procedure Growth Status 01/09/17 20:39 Blood Blood Culture Pending Received 01/09/17 20:39 Blood Blood Culture Pending Received 01/09/17 22:25 Urine , Clean Catch Urine Culture Pending Received Assessment & Plan IMPRESSION AND PLAN: 1. Syncopal episode, likely: - Vasovagal episode preceded by epigastric discomfort - component of Dehydration IV fluids monitor crea - r/o Seizure Dr. Morrow consulted MRI Brain, Carotid US, Echo pending - r/o arrhythmia monitor in tele 2. Small cell lung cancer with bone and liver metastasis - on chemo - CXR rid milung opacity chronic? will need repeat imaging ff up with Oncology 3. Status post right ureteric stent following pyelonephritis. - UA positive for UTI - urine cultures Pending - past cultures (+) Klebsiella S to Bactrim - will start Bactrim 4. Chronic obstructive pulmonary disease. -stable - on Breo 5. Crohn disease - on Mesalamine 6. Rheumatoid arthritis. stable 7. Sleep apnea. not using CPAP 8. Deep venous thrombosis prophylaxis with Lovenox. 9. Gastrointestinal prophylaxis with PPI. 10. Code status, she will be a full code. Dispo pending will need PT/OT lives at home with family Current Inpatient Medications: Current Inpatient Medications Medications (Trade) Dose Ordered Sig/Nany Route Start Time Stop Time Status Last Admin Dose Admin Enoxaparin Sodium (Lovenox Inj) 40 mg Q24H SC 01/10/17 09:00 02/09/17 08:59 Potassium Chloride/Sodium Chloride 1,000 ml @ 125 mls/hr Q8H IV 01/10/17 01:30 02/09/17 01:29 01/10/17 07:26 125 MLS/HR Albuterol (Ventolin Hfa Inhaler) 2 puffs Q6H PRN INH 01/10/17 00:45 02/09/17 00:44 Aspirin (Ecotrin Tab) 81 mg DAILY PO 01/10/17 09:00 02/09/17 08:59 01/10/17 07:26 81 MG Folic Acid (Folvite Tab) 1 mg DAILY PO 01/10/17 09:00 02/09/17 08:59 01/10/17 07:25 1 MG Gabapentin (Neurontin Cap) 400 mg QAM PO 01/10/17 09:00 02/09/17 08:59 01/10/17 07:25 400 MG Gabapentin (Neurontin Cap) 800 mg HS PO 01/10/17 21:00 02/09/17 20:59 Albuterol/ Ipratropium (Duoneb) 3 ml BID PRN INH 01/10/17 00:45 02/09/17 00:44 Metoprolol Succinate (Toprol Xl Tab) 50 mg QAM PO 01/10/17 09:00 02/09/17 08:59 01/10/17 07:24 50 MG Ondansetron HCl (Zofran Tab) 4 mg Q8 PRN PO 01/10/17 00:45 02/09/17 00:44 Prochlorperazine Maleate (Compazine Tab) 10 mg Q6H PRN PO 01/10/17 00:45 02/09/17 00:44 Tramadol HCl (Ultram Tab) 50 mg BID PRN PO 01/10/17 00:45 02/09/17 00:44 Calcium/Vitamin D (Caltrate Plus Tab) 1 tab BID PO 01/10/17 09:00 02/09/17 08:59 01/10/17 07:25 1 TAB Miscellaneous Information (Order Awaiting Action) 1 ea QS N/A 01/10/17 08:00 02/09/17 07:59 Miscellaneous Information (Order Awaiting Action) 1 ea QS N/A 01/10/17 08:00 02/09/17 07:59 Miscellaneous (Iv Fluids Completed) 1 ea PRN PRN N/A 01/10/17 00:45 01/10/18 00:44 Trimethoprim/ Sulfamethoxazole (Septra Ds 800/ 160MG Tab) 1 tab Q12 PO 01/10/17 21:00 01/20/17 20:59
[2017-01-10 11:27] LABS: HEMATOCRIT 29.1 % (37-47); MEAN CELL VOLUME 98.6 fL (80-100); MEAN CORPUSCULAR HEMOGLOBIN 31.9 pg (25-34); MEAN CORPUSCULAR HGB CONC 32.3 g/dl (32-36); MEAN PLATELET VOLUME 10.5 fL (7.4-10.4); PLATELET COUNT 119 K/uL (130-400); RED BLOOD COUNT 2.95 M/uL (4.2-5.4); WHITE BLOOD COUNT 12.77 K/uL (4.8-10.8)
[2017-01-10] MEDS ORDERED: LORAZEPAM 0.5 MG TAB PO SCH (11:30)
--- NOTE | 2017-01-10 11:38 | NEUROLOGY CONSULTATION ---
DATE OF CONSULTATION: 01/10/2017 DATE OF CONSULTATION: 01/10/2017 REASON FOR CONSULTATION: Dizziness. CHIEF COMPLAINT: Syncope versus seizures. HISTORY OF PRESENT ILLNESS: Mrs. Monte is a 71-year-old right-handed female with a history of metastatic lung carcinoma. She presents to the Emergency Room for an episode of syncope. She was [place] [employer] with a granddaughter riding a scooter. She had had chemotherapy the day before. This episode occurred around 5:00 p.m. and had not eaten. She felt nauseated and lightheaded. She felt as if she was going "in and out". She was reported to be staring ahead and not responding. There was some apparent minor twitching of one or both of her hands. Of course, she is not aware of the twitching and after she regained consciousness when she was speaking to her daughters her speech may have been mildly dysarthric. The patient indicates when she awakened she was not disoriented or confused. She had not injured herself or had not been incontinent. Soon thereafter she went on the scooter to the bathroom and was incontinent. She was reported to have been pale. The patient indicates that she has otherwise been well, had not eaten earlier that day and had received chemo the day before. She had no associated headache, fevers, chills, or sweats. She has had some ongoing weight loss which she attributes to an improved diet. No headache, diplopia, dysarthria, dysphasia, unilateral weakness or numbness. No prior history of stroke, transient ischemic attack or loss of consciousness. None of her medicines were new. In fact, she has received these chemotherapies before. She takes tramadol on a p.r.n. basis for pain and may have taken that in the morning. PAST MEDICAL HISTORY: Notable for anemia cancer associated pain, DVT, peripheral neuropathy, lung cancer metastatic to liver and "right hip", multiple urinary tract infections, ureteral stent, IVC filter. SURGICAL HISTORY: Bilateral knee replacements, cataract surgery. SOCIAL HISTORY: Former smoker, does not drink alcohol. FAMILY HISTORY: Noncontributory. MEDICATIONS ON ADMISSION: Aspirin, calcium, vitamin D, Breo Ellipta, folic acid, gabapentin, Asacol, metoprolol, p.r.n. albuterol, DuoNeb, Zofran, Compazine, and Tramadol. ALLERGIES: PIPERACILLIN, TAZOBACTAM. By report when creative services intern attended to the patient at the scene there was no abnormality of vitals nor or blood sugar. On admission to our facility her blood pressure was 107/55, 36.5, 88, 18, and 95%. Her labs were notable for a white count of 18.5, although she has been receiving steroids as pretreatment for her chemotherapy. Her sodium was 137, BUN and creatinine 32/1.3, glucose 107. Transaminases normal. Calcium 8.5. Urinalysis notable for trace blood, positive nitrites, large leukocyte esterase, greater than 30 white cells, 5-10 red cells, epithelial cells, and 2+ bacteria. Her CT of the head, noncontrast, which I have reviewed, showed bilateral chronic ischemic changes. A chest x-ray showed a slight increase in extent of the right mid lung airspace opacity since prior exam. Differential including pneumonia postradiation change such as radiation pneumonitis. An EKG normal sinus rhythm, septal infarct cited previously. PHYSICAL EXAMINATION: CURRENT VITALS: 36.6, 86, blood pressure sitting 122/74, standing 104/69. GENERAL: The patient is awake, alert, oriented x3, an excellent historian and in no distress. She has some diffuse alopecia with some hair growing back. HEAD: Normocephalic, atraumatic. There are no carotid bruits. HEART: No heart murmurs. Heart is regular rate and rhythm. ABDOMEN: Soft and nontender. EXTREMITIES: She has significant adiposity of the legs. There are some venous stasis changes noted. Bilateral knee replacement scars are noted. NEUROLOGIC: Pupils are postsurgical, could not reliably visualize the optic nerves. Normal clark, motility, facial sensation and facial symmetry. Speech and language are normal. There is no aphasia. Motor there is full strength, no drift. Normal rapid alternating movements. Symmetric reflexes. Downgoing toes. [id number] and [id number] are normal. There is intact light touch and temperature. There is an ankle level to temperature. IMPRESSION: I suspect vasovagal syncope with a few isolated jerks related to global hypoperfusion. We did not see the typical postictal period that one would expect with a seizure. Similarly, she was nauseated before and was pale. PLAN: MRI of the brain. EEG Will follow with you. [facility]
[2017-01-10 11:43] LABS: BUN/CREATININE RATIO 31.8 (10-20); CALCIUM 7.6 mg/dl (8.5-10.1); CREATININE 0.79 mg/dl (0.60-1.20); POTASSIUM 4.4 mmol/L (3.5-5.1)
[2017-01-10 12:07] LABS: COMPLETE YES; EOSINOPHIL % 0.9 %; LYMPH ABS # 0.23 K/uL (1.2-3.4); LYMPHOCYTE % 1.8 %; NEUTROPHILS % 97.3 %
[2017-01-10] MEDS ORDERED: GADAVIST IV PRN (13:15)
--- NOTE | 2017-01-10 13:22 | DIAGNOSTIC IMAGING REPORT ---
Brain MRI WITH AND WITHOUT CONTRAST HISTORY: poss seizure, mets lung ca, no known brain met TECHNIQUE: Multiplanar multisequence MRI of the brain was performed both before and after the intravenous administration of contrast. COMPARISON STUDY: Head CT 01/09/2017. Brain MRI 09/02/2016. FINDINGS: Mild motion artifact. No mass, hematoma, midline shift, acute infarct. Mild atrophic changes within the brain. Old bilateral basal ganglia and right lamina lacunar infarcts. Paranasal sinuses and mastoid air cells are clear. The major vascular flow-voids at the skull base are well-maintained. Extensive T2 hyperintensity within the white matter remains unchanged. No abnormal enhancement. IMPRESSION: No significant change compared to the prior study. No acute intracranial abnormality. No evidence for intracranial metastatic disease. No change in the extensive white matter disease suggestive of microvascular ischemic change. Electronically signed by: Armando Rawls M.D. 01/10/2017 1:21 PM Dictated Date/Time: 01/10/2017 1:14 PM
[2017-01-10] MEDS: LACTOBACILLUS ACIDOPHILUS (FLORANEX) TAB PO SCH ×2 (13:43→16:34)
--- NOTE | 2017-01-10 14:18 | DIAGNOSTIC IMAGING REPORT ---
BILATERAL CAROTID DOPPLER STUDY HISTORY: Syncope. seizure COMPARISON: None. TECHNIQUE: Real-time, grayscale, and color Doppler sonography of the carotid arteries was performed. Imaging reviewed in the transverse and longitudinal planes. All measurements were calculated based on NASCET criteria. FINDINGS: Antegrade flow is seen in the bilateral vertebral arteries. Moderate to severe calcified plaque within the right carotid bulb and mild calcified plaque within the left carotid bulb. The peak systolic velocity within the right ICA is 167 cm/s proximally. The right systolic ratio is 2.3. The peak systolic velocity within the left ICA is 85 cm/s. The left systolic ratio is 1. IMPRESSION: 1. Approximately 50-69% stenosis within the proximal right internal carotid artery. This is secondary to the moderate to severe calcified plaque. 2. No significant stenosis within the left carotid arteries. Electronically signed by: Armando Rawls M.D. 01/10/2017 2:17 PM Dictated Date/Time: 01/10/2017 2:15 PM
--- NOTE | 2017-01-10 14:35 | EEG Procedure Note ---
EEG Procedure Note Date of Service Jan 10, 2017. Start / End Times Start Time: 1:56pm End Time: 2:16pm Referring Physician Keshia Bullard History 71 year old female with possible seizure like activity. EEG for further evaluation of possible seizure etiology. Home Medication List Scheduled Aspirin (Aspirin Ec), 81 MG PO DAILY Calcium Carbonate-Vitamin D (Calcium + D), 1 TAB PO BID Fluticasone Furoate-Vilanterol (Breo Ellipta 200-25 Mcg/INH), 1 PUFF INH DAILY Folic Acid (Folvite), 1 MG PO DAILY Gabapentin (Neurontin), 800 MG PO HS Gabapentin (Neurontin), 400 MG PO QAM Mesalamine (Asacol Hd), 800 MG PO TID Metoprolol Succinate (Toprol Xl), 50 MG PO QAM Scheduled PRN Albuterol Hfa (Ventolin Hfa), 2 PUFFS INH Q6H PRN for Shortness of Breath Ipratropium-Albuterol (Duoneb), 1 TREATMENT NEB BID PRN for Shortness of Breath Ondansetron Hcl (Zofran), 4 MG PO Q8 PRN for Nausea Prochlorperazine Maleate (Compazine), 10 MG PO UD PRN for Nausea Tramadol (Ultram), 50 MG PO BID PRN for Pain Inpatient Medication List Current Inpatient Medications Medications (Trade) Dose Ordered Sig/Nany Route Start Time Stop Time Status Last Admin Dose Admin Enoxaparin Sodium (Lovenox Inj) 40 mg Q24H SC 01/10/17 09:00 02/09/17 08:59 Potassium Chloride/Sodium Chloride 1,000 ml @ 125 mls/hr Q8H IV 01/10/17 01:30 02/09/17 01:29 01/10/17 07:26 125 MLS/HR Albuterol (Ventolin Hfa Inhaler) 2 puffs Q6H PRN INH 01/10/17 00:45 02/09/17 00:44 Aspirin (Ecotrin Tab) 81 mg DAILY PO 01/10/17 09:00 02/09/17 08:59 01/10/17 07:26 81 MG Folic Acid (Folvite Tab) 1 mg DAILY PO 01/10/17 09:00 02/09/17 08:59 01/10/17 07:25 1 MG Gabapentin (Neurontin Cap) 400 mg QAM PO 01/10/17 09:00 02/09/17 08:59 01/10/17 07:25 400 MG Gabapentin (Neurontin Cap) 800 mg HS PO 01/10/17 21:00 02/09/17 20:59 Albuterol/ Ipratropium (Duoneb) 3 ml BID PRN INH 01/10/17 00:45 02/09/17 00:44 Metoprolol Succinate (Toprol Xl Tab) 50 mg QAM PO 01/10/17 09:00 02/09/17 08:59 01/10/17 07:24 50 MG Ondansetron HCl (Zofran Tab) 4 mg Q8 PRN PO 01/10/17 00:45 02/09/17 00:44 Prochlorperazine Maleate (Compazine Tab) 10 mg Q6H PRN PO 01/10/17 00:45 02/09/17 00:44 Tramadol HCl (Ultram Tab) 50 mg BID PRN PO 01/10/17 00:45 02/09/17 00:44 Calcium/Vitamin D (Caltrate Plus Tab) 1 tab BID PO 01/10/17 09:00 02/09/17 08:59 01/10/17 07:25 1 TAB Miscellaneous Information (Order Awaiting Action) 1 ea QS N/A 01/10/17 08:00 02/09/17 07:59 Miscellaneous Information (Order Awaiting Action) 1 ea QS N/A 01/10/17 08:00 02/09/17 07:59 Miscellaneous (Iv Fluids Completed) 1 ea PRN PRN N/A 01/10/17 00:45 01/10/18 00:44 Trimethoprim/ Sulfamethoxazole (Septra Ds 800/ 160MG Tab) 1 tab Q12 PO 01/10/17 21:00 01/20/17 20:59 Lactobacillus Acidophilus (Floranex Tab) 4 tab TIDM PO 01/10/17 11:30 02/09/17 11:29 01/10/17 13:43 4 TAB Lorazepam (Ativan Tab) 0.5 mg TODAY@1130 PO 01/10/17 11:30 01/10/17 23:59 01/10/17 11:36 0.5 MG Gadobutrol (Gadavist) 9 mmol UD PRN IV 01/10/17 13:15 01/14/17 13:14 Description This is a 21 electrode EEG with a single channel dedicated to limited EKG. The electrodes were placed in accordance with the International 10-20 system. At the start of the recording the patient was in an awake state. The background was well organized and composed of symmetric mixed alpha and beta frequencies. There was a well formed symmetric moderate amplitude posterior dominant rhythm of 10-11Hz that was reactive to eye opening and closure. Hyperventilation was not done. Photic stimulation at various frequencies produced no abnormalities. Sleep was indicated by symmetric sleep spindles Interpretation This is a normal awake and asleep urgent EEG. There was no electrographic seizures or epileptiform discharges. Clinical Correlation A normal EEG does not rule out epilepsy if there is a strong clinical suspicion.
--- NOTE | 2017-01-10 19:20 | ECHOCARDIOGRAM REPORT ---
*NOTICE TO RECEIVING DEMOCRAT AGENCY This information is strictly Confidential and protected under [place] law. [place] law prohibits you from making any further disclosure of this information unless further disclosure is expressly permitted by the written consent of the person to whom it pertains or is authorized by law. A general authorization for the release of medical or other information is not sufficient for this purpose. Hospital accepts no responsibility if the information is made available to any other person, INCLUDING THE PATIENT. Interpretation Summary * Name: SÁNCHEZ DIETZ Study Date: 01/10/2017 02:18 PM BP: 136/54 mmHg * Patient Location: C.2T\S\S232\S\1 HR: 87 * : 1945 (M/d/yy) Gender: Female Height: 60 in * Age: 71 yrs Ethnicity: CA Weight: 201 lb * Ordering Physician: Leticia Morrow * Referring Physician: Self, Referred * Performed By: Derrick Ly RCS * * Reason For Study: CAD, Renal failure * BSA: 1.9 m2 * -- Conclusions -- * The left ventricular wall motion is normal. * Left ventricular systolic function is normal. * The LV Ejection Fraction = 60-65%. * Grade I diastolic dysfunction, (abnormal relaxation pattern). * There is no significant valvular heart disease. Procedure Details * A complete two-dimensional transthoracic echocardiogram was performed (2D, M-mode, Doppler and color flow Doppler). Left Ventricle * The left ventricle is normal in size. * There is normal left ventricular wall thickness. * Ejection Fraction = 60-65%. * Left ventricular systolic function is normal. * The left ventricular wall motion is normal. Right Ventricle * The right ventricle is normal size. * The right ventricular systolic function is normal as assessed by tricuspid annular plane systolic excursion (TAPSE) (normal >1.5 cm). Atria * The left atrial size is normal. * Right atrial size is normal. * There is no evidence of atrial septal defect, but resolution does not allow assessment for a patent foramen ovale. Mitral Valve * There is mild mitral annular calcification. * There is no mitral valve stenosis. * Significant mitral regurgitation is absent. Tricuspid Valve * The tricuspid valve is normal. * There is no tricuspid stenosis. * Significant tricuspid regurgitation is absent. Aortic Valve * The aortic valve is trileaflet. * Aortic stenosis is absent. * There is no significant aortic regurgitation. Pulmonic Valve * The pulmonary valve is not well seen, but the Doppler examination is normal without significant regurgitation or stenosis. Great Vessels * The aortic root and proximal ascending aorta are normal sized. Pericardium/Pleural * There is no pericardial effusion. Great Vessels * Normal inferior vena cava diameter and respiratory variation suggests normal central venous pressure. Left Ventricular Diastolic Function * Grade I diastolic dysfunction, (abnormal relaxation pattern). MMode 2D Measurements and Calculations IVSd 1.0 cm LVIDd 4.2 cm LVIDs 2.9 cm LVPWd 0.85 cm IVS/LVPW 1.2 FS 30.0 % EDV(Teich) 78.4 ml ESV(Teich) 33.3 ml EF(Teich) 57.6 % EDV(cubed) 73.8 ml ESV(cubed) 25.4 ml EF(cubed) 65.6 % LV mass(C)d 123.4 grams LV mass(C)dI 66.0 grams/m\S\2 SV(Teich) 45.1 ml SI(Teich) 24.1 ml/m\S\2 SV(cubed) 48.5 ml SI(cubed) 25.9 ml/m\S\2 LVAd ap4 29.9 cm\S\2 LVLd ap4 8.6 cm EDV(MOD-sp4) 84.0 ml EDV(sp4-el) 88.8 ml LVAs ap4 15.4 cm\S\2 LVLs ap4 6.5 cm ESV(MOD-sp4) 31.5 ml ESV(sp4-el) 31.0 ml EF(MOD-sp4) 62.5 % EF(sp4-el) 65.1 % LVAd ap2 23.3 cm\S\2 LVLd ap2 7.9 cm EDV(MOD-sp2) 56.1 ml EDV(sp2-el) 58.9 ml LVAs ap2 12.9 cm\S\2 LVLs ap2 6.3 cm ESV(MOD-sp2) 22.1 ml ESV(sp2-el) 22.6 ml EF(MOD-sp2) 60.6 % EF(sp2-el) 61.7 % LVLd %diff -8.99 % EDV(MOD-bp) 71.3 ml LVLs %diff -3.94 % ESV(MOD-bp) 26.8 ml EF(MOD-bp) 62.5 % SV(MOD-sp4) 52.4 ml SI(MOD-sp4) 28.0 ml/m\S\2 SV(MOD-sp2) 34.0 ml SI(MOD-sp2) 18.2 ml/m\S\2 SV(MOD-bp) 44.5 ml SI(MOD-bp) 23.8 ml/m\S\2 SV(sp4-el) 57.8 ml SI(sp4-el) 30.9 ml/m\S\2 SV(sp2-el) 36.3 ml SI(sp2-el) 19.4 ml/m\S\2 Doppler Measurements and Calculations MV E max jessica 99.0 cm/sec MV A max jessica 115.9 cm/sec MV E/A 0.85 MV dec time 0.13 sec Ao V2 max 146.3 cm/sec Ao max PG 8.6 mmHg Ao max PG (full) 5.5 mmHg LV V1 max PG 3.0 mmHg LV V1 max 86.8 cm/sec TR max jessica 232.3 cm/sec
[2017-01-10] MEDS: SULFAMETHOXAZOLE/TRIMETHOPRIM DS 800/160MG TAB PO SCH (20:57)
[2017-01-10] MEDS ORDERED: GABAPENTIN 400 MG CAP PO SCH (21:00)
[2017-01-11] MEDS ORDERED: LEVOFLOXACIN 250MG / D5W IV SCH (01:30)
[2017-01-11 03:53] VITALS: BP 133/82; PULSE 84; TEMP 37; O2SAT 95
[2017-01-11 07:55] VITALS: BP 123/73; PULSE 92; TEMP 36.8; O2SAT 93
[2017-01-11] MEDS: GABAPENTIN 400 MG CAP PO SCH (08:55)
[2017-01-11] MEDS: SULFAMETHOXAZOLE/TRIMETHOPRIM DS 800/160MG TAB PO SCH (08:55)
[2017-01-11] MEDS: CALCIUM 600MG + VIT D 400 IU TAB PO SCH (08:55)
[2017-01-11] MEDS: ASPIRIN 81 MG ECTAB PO SCH (08:55)
[2017-01-11] MEDS: METOPROLOL SUCC 50MG EXT REL TAB PO SCH (08:56)
[2017-01-11] MEDS: LACTOBACILLUS ACIDOPHILUS (FLORANEX) TAB PO SCH ×2 (08:57→12:43)
[2017-01-11] MEDS: ENOXAPARIN 40 MG/0.4 ML SYR SC SCH (09:00)
[2017-01-11 11:18] VITALS: BP 106/59; PULSE 81; TEMP 36.7; O2SAT 94
[2017-01-11 11:42] VITALS: BP 123/73; PULSE 93; O2SAT 95
[2017-01-11 13:34] LABS: BUN/CREATININE RATIO 18.4 (10-20); CREATININE 0.92 mg/dl (0.60-1.20); POTASSIUM 4.3 mmol/L (3.5-5.1)
[2017-01-11 13:37] LABS: BASO ABS # 0.16 K/uL (0-0.2); BASOPHIL % 1.7 %; COMPLETE YES; DOHLE BODIES 1+; EOSINOPHIL % 4.3 %; HEMATOCRIT 29.9 % (37-47); LYMPH ABS # 0.48 K/uL (1.2-3.4); LYMPHOCYTE % 5.2 %; MEAN CELL VOLUME 96.1 fL (80-100); MEAN CORPUSCULAR HEMOGLOBIN 31.2 pg (25-34); MEAN CORPUSCULAR HGB CONC 32.4 g/dl (32-36); MEAN PLATELET VOLUME 10.4 fL (7.4-10.4); NEUTROPHILS % 88.8 %; PLATELET COUNT 103 K/uL (130-400); PLT ESTIMATE DECREASED; RED BLOOD COUNT 3.11 M/uL (4.2-5.4); WHITE BLOOD COUNT 9.21 K/uL (4.8-10.8)
--- NOTE | 2017-01-11 13:56 | PROGRESS NOTE ---
DATE: 01/11/2017 SUBJECTIVE: I am seeing Mrs. Monte in follow up with a syncopal episode. She is in the presence of her daughter who spoke to the patient during that time and had spoken to the witnessed. There was some mild tremulousness of, they believe the right arm, during this episode , preceded by nausea, lightheadedness, but the patient quickly returned to normal without any postictal. Her EEG was normal, MRI of the brain showed small vessel cerebrovascular disease and carotid ultrasound 50-69% stenosis on the right secondary to moderate to severe calcific plaque. Echo - no significant valvular heart disease, EF 60-65%, LV systolic function normal, left atrial size is normal, no atrial septal defect. The patient is doing well. She has no complaints. She has had no further lightheadedness. PHYSICAL EXAMINATION: VITAL SIGNS: 36.7, 81, 18, 106/59, 75, 94%. NEUROLOGICAL: Awake, alert. Normal speech, language, affect appropriate. No field cut. No facial asymmetry, no dysarthria. Symmetric strength is noted bilaterally. IMPRESSION: 1. Syncope, likely related to dehydration and/or vasovagal. It sounds as if there were few jerks of the right arm, likely just related to hypoperfusion. I would not advise anticonvulsants in this patient. 2. Right internal carotid stenosis 50-69%, a carotid ultrasound should be performed in 1 year and then periodically thereafter with referral to vascular surgery if the degree of stenosis is 70% or greater and the patient is otherwise reasonably healthy. The patient does not need to see me in followup. [facility]
[2017-01-11 15:17] VITALS: BP 127/74; PULSE 83; TEMP 37; O2SAT 95
--- NOTE | 2017-01-11 16:04 | Progress Note ---
Medicine Progress Note Date & Time of Visit: Jan 11, 2017 at 15:56. Subjective patient seen resting in bed, comfortable in good spirits states she feels much better overall denies headache, dizziness, focal neuro symptoms denies chest pain, dyspnea, palpitations no abdominal pain, nausea, changes with urination ambulating with no problems denies other symptoms states she is ready and would like to be discharged today Objective Last 8 Hrs Date Time Temp Pulse Resp B/P (MAP) Pulse Ox O2 Delivery O2 Flow Rate FiO2 01/11/17 15:17 37.0 83 22 127/74 (91) 95 Room Air 01/11/17 12:11 Room Air 01/11/17 11:42 93 95 01/11/17 11:18 36.7 81 18 106/59 (75) 94 Room Air 01/11/17 08:00 Room Air Physical Exam: General- oriented x 3, not in distress, speaks in sentences with no effort Eyes- anicteric Neck-no JVD Lungs- clear BS B/L, no rales/wheezes Heart- regular rhythm; no murmur, normal rate Abdomen- normal bowel sounds, soft, nontender Extremities- trace pretibial edema, no calf tenderness Neuro- alert, oriented x 3;no gross focal deficits Skin- warm & dry Laboratory Results: Last 24 Hours Test 01/11/17 12:38 White Blood Count 9.21 K/uL Red Blood Count 3.11 M/uL Hemoglobin 9.7 g/dL Hematocrit 29.9 % Mean Corpuscular Volume 96.1 fL Mean Corpuscular Hemoglobin 31.2 pg Mean Corpuscular Hemoglobin Concent 32.4 g/dl Platelet Count 103 K/uL Mean Platelet Volume 10.4 fL RDW Standard Deviation 52.9 fL RDW Coefficient of Variation 14.9 % Neutrophils % (Manual) 88.8 % Lymphocytes % (Manual) 5.2 % Eosinophils % (Manual) 4.3 % Basophils % (Manual) 1.7 % Neutrophils # (Manual) 8.18 K/uL Total Absolute Neutrophils 8.18 K/uL Lymphocytes # (Manual) 0.48 K/uL Total Absolute Lymphocytes 0.48 K/uL Eosinophils # (Manual) 0.40 K/uL Basophils # (Manual) 0.16 K/uL Dohle Bodies 1+ Platelet Estimate DECREASED Sodium Level 139 mmol/L Potassium Level 4.3 mmol/L Chloride Level 106 mmol/L Carbon Dioxide Level 29 mmol/L Anion Gap 4.0 mmol/L Blood Urea Nitrogen 17 mg/dl Creatinine 0.92 mg/dl Est Creatinine Clear Calc Drug Dose 56.3 ml/min Estimated GFR () 71.6 Estimated GFR (Non- 61.8 BUN/Creatinine Ratio 18.4 Random Glucose 145 mg/dl Calcium Level 9.0 mg/dl Assessment & Plan IMPRESSION AND PLAN: 1. Syncopal episode, likely from Vasovagal Episode and Dehydration - Vasovagal episode preceded by epigastric discomfort Orthostatic VS negative after IV fluids - component of Dehydration given IV fluids crea improved from 1.3 to 0.9 - Neurologist consulted- Dr. Franco MRI brain: IMPRESSION: No significant change compared to the prior study. No acute intracranial abnormality. No evidence for intracranial metastatic disease. No change in the extensive white matter disease suggestive of microvascular ischemic change. Carotid US: 1. Approximately 50-69% stenosis within the proximal right internal carotid artery. This is secondary to the moderate to severe calcified plaque. 2. No significant stenosis within the left carotid arteries. Echo: -- Conclusions -- * The left ventricular wall motion is normal. * Left ventricular systolic function is normal. * The LV Ejection Fraction = 60-65%. * Grade I diastolic dysfunction, (abnormal relaxation pattern). * There is no significant valvular heart disease. Telemetry: no arrythmia reported EEG: unrevealing - already on Aspirin per Dr. Morrow a carotid ultrasound should be performed in 1 year and then periodically thereafter with referral to vascular surgery if the degree of stenosis is 70% or greater and the patient is otherwise reasonably healthy. 2. 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 Differential considerations include pneumonia and postradiation change such as radiation pneumonitis. Radiographic follow up to ensure resolution is recommended to exclude the less likely possibility of a neoplastic process. - will need repeat imaging ff up with Oncology 3. Status post right ureteric stent following pyelonephritis. - urine culture (+) Klebsiella, multidrug resistant, sensitive to Bactrim - will discharge on 7 day course of Bactrim PO - repeat UA as outpatient 4. Chronic obstructive pulmonary disease. -stable - on Breo 5. Crohn disease - on Mesalamine 6. Rheumatoid arthritis. stable 7. Sleep apnea. not using CPAP 8. Deep venous thrombosis prophylaxis with Lovenox. 9. Gastrointestinal prophylaxis with PPI. 10. Code status, she will be a full code. Dispo d/c home ff up with PCP in 3-5 days ff up with Oncologist as scheduled Current Inpatient Medications: Current Inpatient Medications Medications (Trade) Dose Ordered Sig/Nany Route Start Time Stop Time Status Last Admin Dose Admin Enoxaparin Sodium (Lovenox Inj) 40 mg Q24H SC 01/10/17 09:00 02/09/17 08:59 Albuterol (Ventolin Hfa Inhaler) 2 puffs Q6H PRN INH 01/10/17 00:45 02/09/17 00:44 Aspirin (Ecotrin Tab) 81 mg DAILY PO 01/10/17 09:00 02/09/17 08:59 01/11/17 08:55 81 MG Folic Acid (Folvite Tab) 1 mg DAILY PO 01/10/17 09:00 02/09/17 08:59 01/11/17 08:55 1 MG Gabapentin (Neurontin Cap) 400 mg QAM PO 01/10/17 09:00 02/09/17 08:59 01/11/17 08:55 400 MG Gabapentin (Neurontin Cap) 800 mg HS PO 01/10/17 21:00 02/09/17 20:59 01/10/17 20:57 800 MG Albuterol/ Ipratropium (Duoneb) 3 ml BID PRN INH 01/10/17 00:45 02/09/17 00:44 Metoprolol Succinate (Toprol Xl Tab) 50 mg QAM PO 01/10/17 09:00 02/09/17 08:59 01/11/17 08:56 50 MG Ondansetron HCl (Zofran Tab) 4 mg Q8 PRN PO 01/10/17 00:45 02/09/17 00:44 Prochlorperazine Maleate (Compazine Tab) 10 mg Q6H PRN PO 01/10/17 00:45 02/09/17 00:44 Tramadol HCl (Ultram Tab) 50 mg BID PRN PO 01/10/17 00:45 02/09/17 00:44 Calcium/Vitamin D (Caltrate Plus Tab) 1 tab BID PO 01/10/17 09:00 02/09/17 08:59 01/11/17 08:55 1 TAB Miscellaneous Information (Order Awaiting Action) 1 ea QS N/A 01/10/17 08:00 02/09/17 07:59 Miscellaneous Information (Order Awaiting Action) 1 ea QS N/A 01/10/17 08:00 02/09/17 07:59 Miscellaneous (Iv Fluids Completed) 1 ea PRN PRN N/A 01/10/17 00:45 01/10/18 00:44 Trimethoprim/ Sulfamethoxazole (Septra Ds 800/ 160MG Tab) 1 tab Q12 PO 01/10/17 21:00 01/20/17 20:59 01/11/17 08:55 1 TAB Lactobacillus Acidophilus (Floranex Tab) 4 tab TIDM PO 01/10/17 11:30 02/09/17 11:29 01/11/17 12:43 4 TAB Gadobutrol (Gadavist) 9 mmol UD PRN IV 01/10/17 13:15 01/14/17 13:14 Heparin Sodium (Porcine) (Heparin 100 Unit/ml 5ml Flush) 5 ml PRN PRN IV 01/11/17 00:15 02/10/17 00:14 01/11/17 12:47 5 ML
[2017-01-11] MEDS ORDERED: LACT10CA3 PO (16:06)
[2017-01-11] MEDS ORDERED: SULF-183 PO (16:06)
--- NOTE | 2017-01-11 16:10 | Discharge Instructions ---
Discharge Instructions Date of Service Jan 11, 2017. Admission Reason for Admission: Carcinoma Of Lung, Syncope, Vasovagal Episode Discharge Discharge Diagnosis / Problem: SYNCOPE, LIKELY VASOVAGAL ETIOLOGY AND DEHYDRATION Discharge Goals Goal(s): Diagnostic testing, Therapeutic intervention Activity Recommendations Activity Limitations: as noted below (NO HEAVY EXERTION UNTIL RE EVALUATED BY PRIMARY CARE PHYSICIAN) Driving or Machine Use: NO DRIVING UNTIL RE EVALUATED BY PRIMARY CARE PHYSICIAN . Instructions / Follow-Up Instructions / Follow-Up PLEASE REVIEW YOUR NEW MEDICATION LIST AND FOLLOW INSTRUCTIONS CAREFULLY. DRINK LOTS OF FLUID AND TAKE PROBIOTIC DAILY. CALL PRIMARY CARE PHYSICIAN IF WITH FEVER/CHILLS, ABDOMINAL PAIN, CHANGES WITH URINATION, DIZZINESS, WEAKNESS. FOLLOW UP WITH PRIMARY CARE PHYSICIAN IN 1 WEEK. Current Hospital Diet Patient's current hospital diet: Regular Diet Discharge Diet Recommended Diet: Regular Diet Procedures Procedures Performed: BRAIN MRI, EEG, ECHO, CAROTID ULTRASOUND Pending Studies Studies pending at discharge: no Medical Emergencies . Who to Call and When: Medical Emergencies: If at any time you feel your situation is an emergency, please call 911 immediately. . Non-Emergent Contact Non-Emergency issues call your: Primary Care Provider, Oncologist Call Non-Emergent contact if: you have a fever, you have any medication questions . . "Provider Documentation" section prepared by Ernie Coley. . VTE Core Measure Inpt VTE Proph given/why not?: SCD's
[2017-01-11 16:14] VITALS: BP 127/74; PULSE 83; TEMP 37; O2SAT 95
--- NOTE | 2017-01-11 16:16 | Discharge Summary ---
Discharge Summary Date of Service Jan 11, 2017. Discharge Summary Admission Date: Jan 10, 2017 at 00:30 Discharge Date: Jan 11, 2017 Discharge Disposition: Home Principal Diagnosis: Syncopal episode, likely from Vasovagal Episode and Dehydration Secondary Diagnoses/Problems: Please refer to hospital course below. Procedures: Brain MRI WITH AND WITHOUT CONTRAST HISTORY: poss seizure, mets lung ca, no known brain met TECHNIQUE: Multiplanar multisequence MRI of the brain was performed both before and after the intravenous administration of contrast. COMPARISON STUDY: Head CT 01/09/2017. Brain MRI 09/02/2016. FINDINGS: Mild motion artifact. No mass, hematoma, midline shift, acute infarct. Mild atrophic changes within the brain. Old bilateral basal ganglia and right lamina lacunar infarcts. Paranasal sinuses and mastoid air cells are clear. The major vascular flow-voids at the skull base are well-maintained. Extensive T2 hyperintensity within the white matter remains unchanged. No abnormal enhancement. IMPRESSION: No significant change compared to the prior study. No acute intracranial abnormality. No evidence for intracranial metastatic disease. No change in the extensive white matter disease suggestive of microvascular ischemic change. BILATERAL CAROTID DOPPLER STUDY HISTORY: Syncope. seizure COMPARISON: None. TECHNIQUE: Real-time, grayscale, and color Doppler sonography of the carotid arteries was performed. Imaging reviewed in the transverse and longitudinal planes. All measurements were calculated based on NASCET criteria. FINDINGS: Antegrade flow is seen in the bilateral vertebral arteries. Moderate to severe calcified plaque within the right carotid bulb and mild calcified plaque within the left carotid bulb. The peak systolic velocity within the right ICA is 167 cm/s proximally. The right systolic ratio is 2.3. The peak systolic velocity within the left ICA is 85 cm/s. The left systolic ratio is 1. IMPRESSION: 1. Approximately 50-69% stenosis within the proximal right internal carotid artery. This is secondary to the moderate to severe calcified plaque. 2. No significant stenosis within the left carotid arteries. CHEST ONE VIEW PORTABLE CLINICAL HISTORY: Chest pain. Small cell lung cancer. COMPARISON STUDY: PET/CT November 26, 2016 and chest radiograph December 09, 2016. FINDINGS: A right subclavian Gixdyk-l-Vonh is in place. There is right hemithorax volume loss. No pneumothorax or pleural effusion is present. Right mid lung airspace opacity is again noted. Extent has slightly increased since exam of December 09, 2016. Left lung is clear. There is no evidence of pulmonary edema. Cardiomediastinal silhouette is stable. IMPRESSION: Slight increase in extent in right midlung airspace opacity since prior exam. Differential considerations include pneumonia and postradiation change such as radiation pneumonitis. Radiographic follow up to ensure resolution is recommended to exclude the less likely possibility of a neoplastic process. CT OF THE HEAD WITHOUT CONTRAST CLINICAL HISTORY: Weakness. Syncope. Lung cancer. COMPARISON STUDY: MRI of the brain September 02, 2016. CT DOSE: 537.48 mGy.cm TECHNIQUE: Helical axial images of the head were obtained without IV contrast. Automated exposure control was utilized for the study. A dose lowering technique was utilized adhering to the principles of ALARA. FINDINGS: No acute intracranial hemorrhage, midline shift or mass effect is present. Ventricular system is stable. Basilar cisterns are patent. There are no extra axial collections. White matter hypodensities suggest extensive small vessel disease. There are old lacunar infarcts within the bilateral basal ganglia. There are no findings to suggest acute dural sinus thrombosis or acute territorial infarct. There is no calvarial fracture. IMPRESSION: No acute intracranial findings. ECHO: Interpretation Summary * Name: SÁNCHEZ DIETZ Study Date: 01/10/2017 02:18 PM BP: 136/54 mmHg * Patient Location: [facility]\\\\[id number] HR: 87 * : 1945 (M/d/yyyy) Gender: Female Height: 60 in * Age: 71 yrs Ethnicity: [place] Weight: 201 lb * Ordering Physician: Leticia Morrow * Referring Physician: Self, Referred * Performed By: Derrick Ly RCS * * Reason For Study: CAD, Renal failure * BSA: 1.9 m2 * -- Conclusions -- * The left ventricular wall motion is normal. * Left ventricular systolic function is normal. * The LV Ejection Fraction = 60-65%. * Grade I diastolic dysfunction, (abnormal relaxation pattern). * There is no significant valvular heart disease. Procedure Details * A complete two-dimensional transthoracic echocardiogram was performed (2D, M-mode, Doppler and color flow Doppler). Left Ventricle * The left ventricle is normal in size. * There is normal left ventricular wall thickness. * Ejection Fraction = 60-65%. * Left ventricular systolic function is normal. * The left ventricular wall motion is normal. Right Ventricle * The right ventricle is normal size. * The right ventricular systolic function is normal as assessed by tricuspid annular plane systolic excursion (TAPSE) (normal >1.5 cm). Atria * The left atrial size is normal. * Right atrial size is normal. * There is no evidence of atrial septal defect, but resolution does not allow assessment for a patent foramen ovale. Mitral Valve * There is mild mitral annular calcification. * There is no mitral valve stenosis. * Significant mitral regurgitation is absent. Tricuspid Valve * The tricuspid valve is normal. * There is no tricuspid stenosis. * Significant tricuspid regurgitation is absent. Aortic Valve * The aortic valve is trileaflet. * Aortic stenosis is absent. * There is no significant aortic regurgitation. Pulmonic Valve * The pulmonary valve is not well seen, but the Doppler examination is normal without significant regurgitation or stenosis. Great Vessels * The aortic root and proximal ascending aorta are normal sized. Pericardium/Pleural * There is no pericardial effusion. Great Vessels * Normal inferior vena cava diameter and respiratory variation suggests normal central venous pressure. Left Ventricular Diastolic Function * Grade I diastolic dysfunction, (abnormal relaxation pattern). EEG Interpretation This is a normal awake and asleep urgent EEG. There was no electrographic seizures or epileptiform discharges. Consultations: NEUROLOGIST DR. MORROW Pending Studies/Follow-Up: Please refer to hospital course below for further details. Medication Reconciliation New Medications: Lactobacillus-Inulin (Culturelle) 1 Cap Cap 1 CAP PO DAILY for 14 Days, #14 CAP Sulfamethoxazole-Trimethoprim (Smz-Tmp Ds) 1 Tab Tab 1 TAB PO Q12 for 7 Days, #14 TAB 0 Refills Continued Medications: Albuterol Hfa (Ventolin Hfa) 200 Puffs/35378 Mcg Aers 2 PUFFS INH Q6H PRN for Shortness of Breath, INHALER Aspirin (Aspirin Ec) 81 Mg Tab 81 MG PO DAILY Calcium Carbonate-Vitamin D (Calcium + D) 1 Tab Tab 1 TAB PO BID Fluticasone Furoate-Vilanterol (Breo Ellipta 200-25 Mcg/INH) 1 Inh Inh 1 PUFF INH DAILY Folic Acid (Folvite) 1 Mg Tab 1 MG PO DAILY, TAB Gabapentin (Neurontin) 400 Mg Cap 800 MG PO HS, CAP Gabapentin (Neurontin) 400 Mg Cap 400 MG PO QAM, CAP Ipratropium-Albuterol (Duoneb) 3 Ml Nebu 1 TREATMENT NEB BID PRN for Shortness of Breath, INHA Mesalamine (Asacol Hd) 800 Mg Tab 800 MG PO TID Metoprolol Succinate (Toprol Xl) 50 Mg Tabcr 50 MG PO QAM, TAB Ondansetron Hcl (Zofran) 4 Mg Tab 4 MG PO Q8 PRN for Nausea, TAB Prochlorperazine Maleate (Compazine) 10 Mg Tab 10 MG PO UD PRN for Nausea, TAB Tramadol (Ultram) 50 Mg Tab 50 MG PO BID PRN for Pain, TAB Admission Information HPI (per Admitting provider): DATE OF ADMISSION: 01/10/2017 PRIMARY CARE PHYSICIAN: Dr. Suzanne Sanabria. CHIEF COMPLAINT: [place] the mall this [place]. 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 Apparently has been getting chemo for small cell lung cancer as of now. She has had her Thursday, Thursday, Thursday oral chemo and she had her IV chemo on . She was out on her wheelchair with scooter at the mall today and she felt some queasiness in the stomach area with nausea and she wanted to drink water. After that she was noted to be very pale and with some twitching of one of the hands and also has had some garbled speech and after that, she passed out. She was very pale during that time, EMS was called and when they arrived, she did not have any symptoms. She was hemodynamically stable and she initially did not want to come to the hospital, but later on the daughters actually brought her to the hospital for evaluation. In the ER, she was not having any acute symptoms and she was hemodynamically stable and apparent blood counts including CAT scan of the head were unremarkable, but given the syncopal episode and probable seizure, she was admitted to telemetry unit for observation. Physical Exam (per Admitting): GENERAL: On examination in the medical floor, she was not having any acute distress. VITAL SIGNS: Temperature 36.5, pulse 89. Blood pressure 134/63 supine, sitting 110/72 and standing 134/83. Saturation 93% on room air. HEENT: Unremarkable. NECK: Supple. No JVD, no bruit. CHEST: Clear to auscultate bilaterally. HEART: S1, S2 regular. ABDOMEN: Soft, benign, nontender, no organomegaly. Bowel sounds present. EXTREMITIES: Bilateral edema, chronic, like lymphedema. MUSCULOSKELETAL: No acute arthritis in any joint. CENTRAL NERVOUS SYSTEM: She was alert, awake, oriented x3. Hospital Course IMPRESSION AND PLAN: 1. Syncopal episode, likely from Vasovagal Episode and Dehydration - Vasovagal episode preceded by epigastric discomfort Orthostatic VS negative after IV fluids - component of Dehydration given IV fluids crea improved from 1.3 to 0.9 - Neurologist consulted- Dr. Franco MRI brain: IMPRESSION: No significant change compared to the prior study. No acute intracranial abnormality. No evidence for intracranial metastatic disease. No change in the extensive white matter disease suggestive of microvascular ischemic change. Carotid US: 1. Approximately 50-69% stenosis within the proximal right internal carotid artery. This is secondary to the moderate to severe calcified plaque. 2. No significant stenosis within the left carotid arteries. Echo: -- Conclusions -- * The left ventricular wall motion is normal. * Left ventricular systolic function is normal. * The LV Ejection Fraction = 60-65%. * Grade I diastolic dysfunction, (abnormal relaxation pattern). * There is no significant valvular heart disease. Telemetry: no arrythmia reported EEG: unrevealing - already on Aspirin per Dr. Morrow a carotid ultrasound should be performed in 1 year and then periodically thereafter with referral to vascular surgery if the degree of stenosis is 70% or greater and the patient is otherwise reasonably healthy. 2. 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 Differential considerations include pneumonia and postradiation change such as radiation pneumonitis. Radiographic follow up to ensure resolution is recommended to exclude the less likely possibility of a neoplastic process. - will need repeat imaging ff up with Oncology 3. Status post right ureteric stent following pyelonephritis. - urine culture (+) Klebsiella, multidrug resistant, sensitive to Bactrim - will discharge on 7 day course of Bactrim PO - repeat UA as outpatient 4. Chronic obstructive pulmonary disease. -stable - on Breo 5. Crohn disease - on Mesalamine 6. Rheumatoid arthritis. stable 7. Sleep apnea. not using CPAP Dispo d/c home ff up with PCP in 3-5 days ff up with Oncologist as scheduled Total time spent on discharge = 30 minutes This includes examination of the patient, discharge planning, medication reconciliation, and communication with other providers. Discharge Instructions Discharge Instructions Date of Service Jan 11, 2017. Admission Reason for Admission: Carcinoma Of Lung, Syncope, Vasovagal Episode Discharge Discharge Diagnosis / Problem: SYNCOPE, LIKELY VASOVAGAL ETIOLOGY AND DEHYDRATION Discharge Goals Goal(s): Diagnostic testing, Therapeutic intervention Activity Recommendations Activity Limitations: as noted below (NO HEAVY EXERTION UNTIL RE EVALUATED BY PRIMARY CARE PHYSICIAN) Driving or Machine Use: NO DRIVING UNTIL RE EVALUATED BY PRIMARY CARE PHYSICIAN . Instructions / Follow-Up Instructions / Follow-Up PLEASE REVIEW YOUR NEW MEDICATION LIST AND FOLLOW INSTRUCTIONS CAREFULLY. DRINK LOTS OF FLUID AND TAKE PROBIOTIC DAILY. CALL PRIMARY CARE PHYSICIAN IF WITH FEVER/CHILLS, ABDOMINAL PAIN, CHANGES WITH URINATION, DIZZINESS, WEAKNESS. FOLLOW UP WITH PRIMARY CARE PHYSICIAN IN 1 WEEK. Current Hospital Diet Patient's current hospital diet: Regular Diet Discharge Diet Recommended Diet: Regular Diet Procedures Procedures Performed: BRAIN MRI, EEG, ECHO, CAROTID ULTRASOUND Pending Studies Studies pending at discharge: no Medical Emergencies . Who to Call and When: Medical Emergencies: If at any time you feel your situation is an emergency, please call 911 immediately. . Non-Emergent Contact Non-Emergency issues call your: Primary Care Provider, Oncologist Call Non-Emergent contact if: you have a fever, you have any medication questions . . "Provider Documentation" section prepared by Ernie Coley. . VTE Core Measure Inpt VTE Proph given/why not?: SCD's
== END 2017-01-11 17:11 | disposition home or self-care (01) ==
LOC: C.EDB 18:42 → C.2T 01-10 00:30 → EDBEDREQ 01-10 00:36 → ENRESERV 01-10 00:49
PROVIDERS: ADMIT Internal Medicine; ATTEND Internal Medicine
DX: R55 Syncope and collapse (principal); E86.0 Dehydration; C34.90 Malignant neoplasm of unspecified part of unspecified bronchus or lung; C78.7 Secondary malignant neoplasm of liver and intrahepatic bile duct; C79.51 Secondary malignant neoplasm of bone; N39.0 Urinary tract infection, site not specified; J44.9 Chronic obstructive pulmonary disease, unspecified; K50.90 Crohn's disease, unspecified, without complications; G47.30 Sleep apnea, unspecified; Z96.653 Presence of artificial knee joint, bilateral; Z79.82 Long term (current) use of aspirin; Z87.891 Personal history of nicotine dependence; Z82.49 Family history of ischemic heart disease and other diseases of the circulatory system

== ENCOUNTER → 2017-04-15 | Outpatient (CLI) | payer OTHER ==
[~2017-04-15] MED LIST changes: +LACT10CA3 PO; -LEVO-459 PO; +MESA1TAB4 PO; -MESA800T6 PO; +PRED10TA PO; +PROC1TAB5 PO; +VNTHFA/IN INH
[2017-04-15 12:56] LABS: HEMATOCRIT 22.3 % (37-47); MEAN CELL VOLUME 105.7 fL (80-100); MEAN CORPUSCULAR HEMOGLOBIN 34.1 pg (25-34); RED BLOOD COUNT 2.11 M/uL (4.2-5.4); WHITE BLOOD COUNT 8.23 K/uL (4.8-10.8)
[2017-04-15 13:27] LABS: ALKALINE PHOSPHATASE 60 U/L (45-117); ALT/SGPT 15 U/L (12-78); AST/SGOT 18 U/L (15-37); BLOOD UREA NITROGEN 14 mg/dl (7-18); BUN/CREATININE RATIO 11.8 (10-20); CALCIUM 9.2 mg/dl (8.5-10.1); CARBON DIOXIDE 30 mmol/L (21-32); CHLORIDE 103 mmol/L (98-107); GLUCOSE 118 mg/dl (70-99); POTASSIUM 3.7 mmol/L (3.5-5.1); SODIUM 141 mmol/L (136-145)
[2017-04-15 13:28] LABS: URINE APPEARANCE TURBID (CLEAR); URINE BILIRUBIN NEG (NEG); URINE COLOR YELLOW; URINE EPITHELIAL CELL AUTO 20-30 /lpf (0-5); URINE NITRITE POS (NEG); URINE PH 6.5 (4.5-7.5); URINE SPECIFIC GRAVITY 1.018 (1.000-1.030); UROBILINOGEN NEG (NEG)
[2017-04-15 13:34] LABS: MANUAL MICROSCOPIC REQUIRED? NO; REVIEW REQ? YES
[2017-04-15 13:52] LABS: ANISOCYTOSIS PRESENT; BASO % 0.5 %; BASO ABS # 0.04 K/uL (0-0.2); COMPLETE YES; DOHLE BODIES 1+; EOS % 0.7 %; HYPOCHROMIA PRESENT; IG% 2.6 %; LYMPH % 8.9 %; LYMPH ABS # 0.73 K/uL (1.2-3.4); MEAN CORPUSCULAR HGB CONC 32.3 g/dl (32-36); MEAN PLATELET VOLUME 11.2 fL (7.4-10.4); MONO % 12.6 %; NEUT % 74.7 %; PLATELET COUNT 75 K/uL (130-400); PLT ESTIMATE DECREASED; POLYCHROMASIA 1+; STOMATOCYTE 1+; TOXIC GRANULATION 2+; VACUOLIZATION 1+
== END | disposition home or self-care (01) ==
LOC: C.LAB 12:12
PROVIDERS: ATTEND Internal Medicine Hematology
DX: C34.91 Malignant neoplasm of unspecified part of right bronchus or lung (principal); C78.7 Secondary malignant neoplasm of liver and intrahepatic bile duct; C79.51 Secondary malignant neoplasm of bone; Z98.890 Other specified postprocedural states

== ENCOUNTER → 2017-04-15 | Outpatient (CLI) | payer OTHER ==
--- NOTE | 2017-04-15 12:44 | DIAGNOSTIC IMAGING REPORT ---
PET/CT SKULL-THIGH CLINICAL HISTORY: SMALL CELL LUNG CA COMPARISON STUDY: 11/26/2016 FINDINGS: The patient was injected with 13 mCi of F 18 labeled FDG. Following the standard induction phase, PET/CT scanning is performed from the skull base to the upper thigh region. Activity within neck is felt to be physiologic. Within the chest, there is a mildly FDG avid lymph node the right apex just below the right subclavian artery. This measures 7 mm and has an SUV maximum of 3.6. There are right paramediastinal airspace opacities which have a somewhat linear distribution. While nonspecific this favors post ration fibrosis. Please correlate with any clinical history of thoracic radiation. There is a more masslike airspace opacity within the right lower lobe with an SUV maximum of 4.6. This focus measures 25 mm in diameter. Diagnostic considerations include post radiation change, pneumonia, or recurrent neoplasm. There is no significant change in the size or number of the hepatic lesions. These are not FDG avid. There is no pathologic adrenal gland activity. There is progressive right-sided hydronephrosis. A right-sided nephroureteral stent is again visualized. There is no pathologic lizbeth activity within the abdomen or pelvis. There are multiple blastic skeletal metastasis which appears similar. These lesions are not significantly FDG avid IMPRESSION: 1. No change in the size of the multiple hepatic masses. These remain non-FDG avid 2. Stable sclerotic skeletal metastasis. 3. Progressive right lung paramediastinal airspace opacities. The distribution favors post radiation pneumonitis 4. More focal masslike airspace opacity within the right lower lobe with SUV maximum of 4.6. Diagnostic considerations include post ration change, pneumonia, or recurrent neoplasm. Attention to this area on subsequent imaging is recommended 5. Mildly increased FDG activity with a nonpathologically enlarged 7 mm lymph node located in the right apex just inferior to the right subclavian artery. Electronically signed by: Hieu Hernandez M.D. 04/15/2017 12:43 PM Dictated Date/Time: 04/15/2017 12:29 PM
== END | disposition home or self-care (01) ==
LOC: C.PET 08:53
PROVIDERS: ATTEND Internal Medicine Hematology
DX: C34.91 Malignant neoplasm of unspecified part of right bronchus or lung (principal); C78.7 Secondary malignant neoplasm of liver and intrahepatic bile duct; C79.51 Secondary malignant neoplasm of bone

== ENCOUNTER 2017-05-31 08:30 | Inpatient (IN) | payer OTHER ==
[~2017-05-31] VITALS: Ht 154.9 cm; Wt 91.0 kg
[~2017-05-31 08:30] MED LIST changes: -FOLI1TAB7 PO; -LACT10CA3 PO; -SULF-183 PO; +SULF-302 PO
[2017-05-31] MEDS ORDERED: ALBUT/IPRATROP 3MG/0.5MG NEB 3 ML VIAL INH STA (08:52)
[2017-05-31 09:02] LABS: BASO % 0.1 %; BASO ABS # 0.02 K/uL (0-0.2); EOS % 0.3 %; EOS ABS # 0.05 K/uL (0-0.5); HEMATOCRIT 32.8 % (37-47); HEMOGLOBIN 10.6 g/dL (12.0-16.0); IG# 0.31 K/uL (0.00-0.02); LYMPH ABS # 0.38 K/uL (1.2-3.4); MEAN CELL VOLUME 104.5 fL (80-100); MEAN CORPUSCULAR HEMOGLOBIN 33.8 pg (25-34); MEAN CORPUSCULAR HGB CONC 32.3 g/dl (32-36); MEAN PLATELET VOLUME 10.1 fL (7.4-10.4); MONO % 0.6 %; MONO ABS # 0.12 K/uL (0.11-0.59); NEUT % 95.3 %; NEUT ABS # 17.76 K/uL (1.4-6.5); PLATELET COUNT 106 K/uL (130-400); RED CELL DISTRIBUTION WIDTH CV 18.3 % (11.5-14.5); RED CELL DISTRIBUTION WIDTH SD 69.5 fL (36.4-46.3); WHITE BLOOD COUNT 18.64 K/uL (4.8-10.8)
[2017-05-31 09:11] LABS: PTT PATIENT 21.2 SECONDS (21.0-31.0)
--- NOTE | 2017-05-31 09:14 | DIAGNOSTIC IMAGING REPORT ---
CHEST ONE VIEW PORTABLE CLINICAL HISTORY: sob, cough dyspnea COMPARISON STUDY: 01/09/2017 FINDINGS: Central catheter ends in the superior vena cava cava. Unchanging right perihilar and right upper lobe fibrotic/infiltrative change. This is unaltered from the prior study. There are no new or interval findings. Left lung is clear. IMPRESSION: Chronic and postoperative change right hemithorax. No acute process is identified. The above report was generated using voice recognition software. It may contain grammatical, syntax or spelling errors. Electronically signed by: José Amezcua M.D. 05/31/2017 9:12 AM Dictated Date/Time: 05/31/2017 9:10 AM
[2017-05-31 09:20] LABS: ALBUMIN 3.5 gm/dl (3.4-5.0); ALT/SGPT 27 U/L (12-78); BLOOD UREA NITROGEN 29 mg/dl (7-18); CALCIUM 7.7 mg/dl (8.5-10.1); CARBON DIOXIDE 26 mmol/L (21-32); CREATININE 0.95 mg/dl (0.60-1.20); GLUCOSE 84 mg/dl (70-99); POTASSIUM 4.3 mmol/L (3.5-5.1); SODIUM 141 mmol/L (136-145)
[2017-05-31] MEDS ORDERED: ONDANSETRON INJ 2 MG/ML 2 ML VIAL ONE (09:23)
[2017-05-31 09:26] LABS: ALKALINE PHOSPHATASE 37 U/L (45-117); AST/SGOT 22 U/L (15-37); CKMB 1.2 ng/ml (0.5-3.6); TOTAL PROTEIN 6.4 gm/dl (6.4-8.2)
[2017-05-31] MEDS ORDERED: NURSING VERBAL MED ORDER ONE ×2 (09:30→18:00)
[2017-05-31 09:39] LABS: INFLUENZA B ANTIGEN Neg for Influ B (NEG)
[2017-05-31] MEDS ORDERED: SODIUM CHLORIDE 0.9% 500ML 500 ML IV STA (09:55)
[2017-05-31] MEDS ORDERED: FENTANYL CITRATE INJ 50 MCG/1 ML 2 ML VIAL IV ONE (10:00)
[2017-05-31] MEDS ORDERED: MESA800T5 PO (10:14)
[2017-05-31] MEDS ORDERED: NITR1CAP32 PO (10:17)
[2017-05-31 10:27] LABS: INFLUENZA A PCR Neg for Influ A (NEG); INFLUENZA B PCR Neg for Influ B (NEG)
--- NOTE | 2017-05-31 11:05 | DIAGNOSTIC IMAGING REPORT ---
ABD/PELVIS WITHOUT FOR STONE CT DOSE: 1386.03 mGy.cm HISTORY: Pain flank pain TECHNIQUE: Multiaxial CT images of the abdomen and pelvis were performed without the use of intravenous and oral contrast according to the standard department stone protocol. A dose lowering technique was utilized adhering to the principles of ALARA. COMPARISON STUDY: 12/17/2016 FINDINGS: Progressive somewhat nodular type infiltrative process right base. Left base is clear. Several hypodensities within the liver are noted and appear to be similar as compared to the prior study within limitations of nonenhanced scan. Small gallstone within a minimally distended gallbladder. Mild stable splenomegaly. Small hiatal hernia. Right ureteral stent unchanged in position. Bladder is midline. Somewhat lobular appearance to both kidneys. No evidence for shelly hydronephrosis. Minimal right perinephric fat stranding unchanged from the prior study. Filter within the inferior vena cava unchanged. The bowel pattern is considered nonobstructive. No significant distention of the appendix. Very small appendicolith unchanged from the prior study. No free fluid within the pelvic cul-de-sac. Blastic process posterior right acetabulum similar compared to the prior study. Several sacral foci of increased density again similar in distribution compared to the prior exam. Left iliac wing is similar. Postoperative changes low lumbar spine are stable. Several stable blastic changes several ribs. Additional blastic metastatic foci of the upper lumbar low thoracic region in general similar. IMPRESSION: 1. Right ureteral stent in good position. 2. No evidence for hydronephrosis or obstructive change to the urinary tracts. 3. Nonobstructive bowel pattern. 4. Multiple hepatic hypodensities unchanged from the prior study. 5. Blastic metastatic disease to the osseous structures are stable. 6. Interval parenchymal infiltrative change with a distinctly nodular pattern right lung base. This may be inflammatory, neoplastic, or a combination of the 2 entities. The left base is clear. The above report was generated using voice recognition software. It may contain grammatical, syntax or spelling errors. Electronically signed by: José Amezcua M.D. 05/31/2017 11:04 AM Dictated Date/Time: 05/31/2017 10:57 AM
[2017-05-31] MEDS ORDERED: MoRPHine SULFATE 4 MG/ML 1 ML CARP\\VIAL IV STA ×2 (11:17→12:19)
[2017-05-31] MEDS ORDERED: PIPERACILLIN/TAZOBACTAM 4.5 GM/100ML D5W IV STA (12:19)
[2017-05-31] MEDS ORDERED: LEVAQUIN 500MG / 100ML D5W IV ONE (12:30)
[2017-05-31] MEDS ORDERED: VANCOMYCIN INJ 2,000 MG in SODIUM CHLORIDE 0.9% 500ML 500 ML IV STA (12:33)
[2017-05-31] MEDS ORDERED: ONDANSETRON INJ 2 MG/ML 2 ML VIAL IV PRN (13:30)
[2017-05-31] MEDS ORDERED: PROCHLORPERAZINE MALEATE 10 MG TAB PO PRN (13:45)
[2017-05-31] MEDS ORDERED: ALBUTEROL HFA 8 GM INHALER INH PRN (13:45)
[2017-05-31] MEDS ORDERED: TRAMADOL HCL 50 MG TAB PO PRN (13:45)
[2017-05-31] MEDS ORDERED: ALBUT/IPRATROP 3MG/0.5MG NEB 3 ML VIAL INH PRN (13:45)
--- NOTE | 2017-05-31 14:15 | EMERGENCY ROOM VISIT NOTE ---
History Report prepared by Roel: Gillian Gordon Under the Supervision of: Dr. Yordy Clark D.O. First contact with patient: 08:36 Chief Complaint: SHORTNESS OF BREATH Stated Complaint: SHORTNESS OF BREATH Nursing Triage Summary: patient presented to ED via ambulance from home. Patient is currently being treated with chemo for lung ca with liver and bone mets, last treatment on Thursday. Yesterday felt like she was developing a cold, this am woke up acutely short of breath. Productive yellow cough, sore throat. Currently being treated for UTI with macrobid. Wears 2.5L NC at night only. History of Present Illness The patient is a 72 year old female who presents to the Emergency Room brought in by EMS with complaints of persistent shortness of breath for 5 hours [employer]. She notes sore throat and productive cough with yellow sputum. She states that she normally has a dry cough, though her cough became productive last night. She normally wears 2.5 L via NC. She has lung cancer with liver and bone metastases. She has a history of COPD. She is taking prednisone, uses an inhaler and nebulizer to assist her breathing. She notes that she is taking Macrobid for a UTI. Her last chemotherapy treatment was four days ago. She denies any fevers and sick contacts, though she may have had potential exposure. Source of History: patient Onset: 5 hours [employer] Position: other Quality: other (shortness of breath) Timing: other (persistent) Associated Symptoms: + sorethroat, + cough (productive cough with yellow sputum), No fevers Note: She denies sick contacts. Review of Systems See HPI for pertinent positives & negatives. A total of 10 systems reviewed and were otherwise negative. Past Medical & Surgical Medical Problems: (1) Anemia (2) Cancer associated pain (3) Carcinoma of lung (4) COPD (chronic obstructive pulmonary disease) (5) DVT (deep venous thrombosis) (6) Enterococcus UTI (7) Lung cancer (8) Metastatic lung cancer (metastasis from lung to other site) (9) Pneumonia (10) Positive blood culture (11) Presence of inferior vena cava filter (12) Retained ureteral stent (13) Vasovagal episode Family History Hypertension Social History Smoking Status: Former Smoker Smokeless Tobacco Use: No Alcohol Use: none Drug Use: none Marital Status: Housing Status: lives with significant other Occupation Status: retired Current/Historical Medications Scheduled Aspirin (Aspirin Ec), 81 MG PO DAILY Calcium Carbonate-Vitamin D (Calcium + D), 1 TAB PO BID Gabapentin (Neurontin), 800 MG PO HS Gabapentin (Neurontin), 400 MG PO QAM Mesalamine (Asacol Hd), 800 MG PO QAM Mesalamine (Asacol Hd), 1,600 MG PO HS Metoprolol Succinate (Toprol Xl), 50 MG PO QAM Nitrofurantoin Macrocrystals (Macrodantin), 100 MG PO BID Prednisone Tab (Prednisone), 10 MG PO Q48H Scheduled PRN Albuterol Hfa (Ventolin Hfa), 2 PUFFS INH Q6H PRN for Shortness of Breath Ipratropium-Albuterol (Duoneb), 1 TREATMENT NEB BID PRN for Shortness of Breath Ondansetron Hcl (Zofran), 4 MG PO Q8 PRN for Nausea Prochlorperazine Maleate (Compazine), 10 MG PO UD PRN for Nausea Tramadol (Ultram), 50 MG PO BID PRN for Pain Allergies Coded Allergies: Piperacillin (Verified Allergy, Severe, Throat swelling/tightness; hives, 05/31/17) Tazobactam (Verified Allergy, Severe, Throat swelling/tightness; hives, ) Physical Exam Vital Signs Date Time Temp Pulse Resp B/P (MAP) Pulse Ox O2 Delivery O2 Flow Rate FiO2 05/31/17 13:46 118 18 134/60 99 Nasal Cannula 2.0 05/31/17 13:00 125 18 99 Nasal Cannula 2.0 05/31/17 12:41 125 05/31/17 12:00 125 18 146/68 99 Room Air 05/31/17 11:00 122 18 160/100 98 Nasal Cannula 2.0 05/31/17 10:15 124 18 134/77 97 Room Air 05/31/17 09:06 99 Nasal Cannula 2.0 05/31/17 08:36 122 05/31/17 08:35 99 Nasal Cannula 2.0 05/31/17 08:35 36.5 123 22 179/110 98 Nasal Cannula 2.0 Physical Exam CONSTITUTIONAL/VITAL SIGNS: Reviewed / noted above. GENERAL: Non-toxic in appearance. INTEGUMENTARY: Warm, dry, and [place]. HEAD: Normocephalic. EYES: without scleral icterus or trauma. ENT/OROPHARYNX: clear and moist. LYMPHADENOPATHY/NECK: Is supple without lymphadenopathy or meningismus. RESPIRATORY: Wheezes more so on the left than the right. CARDIOVASCULAR: Tachycardic rate and rhythm GI/ABDOMEN: Soft and nontender. No organomegaly or pulsatile mass. No rebound or guarding. Normal bowel sounds. EXTREMITIES: Warm and well perfused. BACK: No CVA tenderness. NEUROLOGICAL: Intact without focal deficits. PSYCHIATRIC: normal affect. MUSCULOSKELETAL: Normally developed with good muscle tone. Medical Decision & Procedures ER Provider Diagnostic Interpretation: Radiology results as stated below per my review and radiologist interpretation: CHEST ONE VIEW PORTABLE CLINICAL HISTORY: sob, cough dyspnea COMPARISON STUDY: 01/09/2017 FINDINGS: Central catheter ends in the superior vena cava cava. Unchanging right perihilar and right upper lobe fibrotic/infiltrative change. This is unaltered from the prior study. There are no new or interval findings. Left lung is clear. IMPRESSION: Chronic and postoperative change right hemithorax. No acute process is identified. The above report was generated using voice recognition software. It may contain grammatical, syntax or spelling errors. Electronically signed by: José Amezcua M.D. 05/31/2017 9:12 AM Dictated Date/Time: 05/31/2017 9:10 AM ABD/PELVIS WITHOUT FOR STONE CT DOSE: 1386.03 mGy.cm HISTORY: Pain flank pain TECHNIQUE: Multiaxial CT images of the abdomen and pelvis were performed without the use of intravenous and oral contrast according to the standard department stone protocol. A dose lowering technique was utilized adhering to the principles of ALARA. COMPARISON STUDY: 12/17/2016 FINDINGS: Progressive somewhat nodular type infiltrative process right base. Left base is clear. Several hypodensities within the liver are noted and appear to be similar as compared to the prior study within limitations of nonenhanced scan. Small gallstone within a minimally distended gallbladder. Mild stable splenomegaly. Small hiatal hernia. Right ureteral stent unchanged in position. Bladder is midline. Somewhat lobular appearance to both kidneys. No evidence for shelly hydronephrosis. Minimal right perinephric fat stranding unchanged from the prior study. Filter within the inferior vena cava unchanged. The bowel pattern is considered nonobstructive. No significant distention of the appendix. Very small appendicolith unchanged from the prior study. No free fluid within the pelvic cul-de-sac. Blastic process posterior right acetabulum similar compared to the prior study. Several sacral foci of increased density again similar in distribution compared to the prior exam. Left iliac wing is similar. Postoperative changes low lumbar spine are stable. Several stable blastic changes several ribs. Additional blastic metastatic foci of the upper lumbar low thoracic region in general similar. IMPRESSION: 1. Right ureteral stent in good position. 2. No evidence for hydronephrosis or obstructive change to the urinary tracts. 3. Nonobstructive bowel pattern. 4. Multiple hepatic hypodensities unchanged from the prior study. 5. Blastic metastatic disease to the osseous structures are stable. 6. Interval parenchymal infiltrative change with a distinctly nodular pattern right lung base. This may be inflammatory, neoplastic, or a combination of the 2 entities. The left base is clear. The above report was generated using voice recognition software. It may contain grammatical, syntax or spelling errors. Electronically signed by: José Amezcua M.D. 05/31/2017 11:04 AM Dictated Date/Time: 05/31/2017 10:57 AM Laboratory Results 05/31/17 08:45 Red Blood Count 3.14, Mean Corpuscular Volume 104.5, Mean Corpuscular Hemoglobin 33.8, Mean Corpuscular Hemoglobin Concent 32.3, Mean Platelet Volume 10.1, Neutrophils (%) (Auto) 95.3, Lymphocytes (%) (Auto) 2.0, Monocytes (%) ( Auto) 0.6, Eosinophils (%) (Auto) 0.3, Basophils (%) (Auto) 0.1, Neutrophils # ( Auto) 17.76, Lymphocytes # (Auto) 0.38, Monocytes # (Auto) 0.12, Eosinophils # ( Auto) 0.05, Basophils # (Auto) 0.02 05/31/17 08:45 Test 05/31/17 08:45 05/31/17 09:01 05/31/17 11:55 White Blood Count 18.64 K/uL (4.8-10.8) Red Blood Count 3.14 M/uL (4.2-5.4) Hemoglobin 10.6 g/dL (12.0-16.0) Hematocrit 32.8 % (37-47) Mean Corpuscular Volume 104.5 fL (80-100) Mean Corpuscular Hemoglobin 33.8 pg (25-34) Mean Corpuscular Hemoglobin Concent 32.3 g/dl (32-36) Platelet Count 106 K/uL (130-400) Mean Platelet Volume 10.1 fL (7.4-10.4) Neutrophils (%) (Auto) 95.3 % Lymphocytes (%) (Auto) 2.0 % Monocytes (%) (Auto) 0.6 % Eosinophils (%) (Auto) 0.3 % Basophils (%) (Auto) 0.1 % Neutrophils # (Auto) 17.76 K/uL (1.4-6.5) Lymphocytes # (Auto) 0.38 K/uL (1.2-3.4) Monocytes # (Auto) 0.12 K/uL (0.11-0.59) Eosinophils # (Auto) 0.05 K/uL (0-0.5) Basophils # (Auto) 0.02 K/uL (0-0.2) RDW Standard Deviation 69.5 fL (36.4-46.3) RDW Coefficient of Variation 18.3 % (11.5-14.5) Immature Granulocyte % (Auto) 1.7 % Immature Granulocyte # (Auto) 0.31 K/uL (0.00-0.02) Prothrombin Time 10.2 SECONDS (9.0-12.0) Prothromb Time International Ratio 1.0 (0.9-1.1) Activated Partial Thromboplast Time 21.2 SECONDS (21.0-31.0) Partial Thromboplastin Ratio 0.8 Anion Gap 7.0 mmol/L (3-11) Est Creatinine Clear Calc Drug Dose 54.8 ml/min Estimated GFR () 68.4 Estimated GFR (Non- 59.0 BUN/Creatinine Ratio 30.6 (10-20) Calcium Level 7.7 mg/dl (8.5-10.1) Total Bilirubin 0.6 mg/dl (0.2-1) Aspartate Amino Transf (AST/SGOT) 22 U/L (15-37) Alanine Aminotransferase (ALT/SGPT) 27 U/L (12-78) Alkaline Phosphatase 37 U/L (45-117) Total Creatine Kinase 64 U/L (26-192) Creatine Kinase MB 1.2 ng/ml (0.5-3.6) Creatine Kinase MB Ratio 1.9 (0-3.0) Troponin I < 0.015 ng/ml (0-0.045) Total Protein 6.4 gm/dl (6.4-8.2) Albumin 3.5 gm/dl (3.4-5.0) Globulin 2.9 gm/dl (2.5-4.0) Albumin/Globulin Ratio 1.2 (0.9-2) Influenza Type A (RT-PCR) Neg for Influ A (NEG) Influenza Type A Antigen Neg for Influ A (NEG) Influenza Type B Antigen Neg for Influ B (NEG) Influenza Type B (RT-PCR) Neg for Influ B (NEG) Urine Color YELLOW Urine Appearance CLEAR (CLEAR) Urine pH 5.0 (4.5-7.5) Urine Specific [place] 1.019 (1.000-1.030) Urine Protein TRACE (NEG) Urine Glucose (UA) NEG (NEG) Urine Ketones NEG (NEG) Urine Occult Blood 2+ (NEG) Urine Nitrite NEG (NEG) Urine Bilirubin NEG (NEG) Urine Urobilinogen NEG (NEG) Urine Leukocyte Esterase MODERATE (NEG) Urine WBC (Auto) 10-30 /hpf (0-5) Urine RBC (Auto) 5-10 /hpf (0-4) Urine Hyaline Casts (Auto) 0 /lpf (0-5) Urine Epithelial Cells (Auto) 5-10 /lpf (0-5) Urine Bacteria (Auto) NEG (NEG) Laboratory results as stated above per my review. Medications Administered Medications (Trade) Dose Ordered Sig/Nany Route Start Time Stop Time Status Last Admin Dose Admin Albuterol/ Ipratropium (Duoneb) 3 ml NOW STAT INH 05/31/17 08:52 05/31/17 08:54 DC 05/31/17 09:03 3 ML Ondansetron HCl (Zofran Inj) 4 mg STK-MED ONCE .ROUTE 05/31/17 09:23 05/31/17 09:24 DC 05/31/17 09:25 4 MG Sodium Chloride 500 ml @ 999 mls/hr Q31M STAT IV 05/31/17 09:55 05/31/17 10:25 DC 05/31/17 10:14 999 MLS/HR Fentanyl Citrate (Fentanyl Inj) 25 mcg NOW ONCE IV 05/31/17 10:00 05/31/17 10:01 DC 05/31/17 10:14 25 MCG Levofloxacin (Levaquin / D5W) 500 mg NOW ONCE IV 05/31/17 12:30 05/31/17 12:31 DC 05/31/17 13:44 500 MG ECG Indication: SOB/dyspnea Rate (beats per minute): 121 Rhythm: sinus tachycardia Findings: no acute ischemic change, no ectopy ED Course 0847: Previous medical records were reviewed. The patient was evaluated in room A3. A complete history and physical examination was performed. 0852: Ordered Duoneb 3 ml INH 0923: Ordered Zofran 4 mg IV 0955: Ordered Sodium Chloride 500 ml @ 999 mls/hr IV 1000: Ordered Fentanyl Citrate 25 mg IV 1117: Ordered Morphine Sulfate 4 mg IV 1216: I reassessed the patient at this time. She is comfortably. I discussed the results and treatment plan with the patient. I answered all pertaining questions that she had. She expressed understanding and verbalized agreement. The patient will be further evaluated. 1219: Ordered Morphine Sulfate 4 mg IV and Zosyn 4.5 mg IV 1229: I spoke with Dr. Schmitt, hospitalist. We discussed the patients case. The patient will be evaluated by the [facility] for further management. 1230: Ordered Levofloxacin 500 mg IV Medical Decision Differentials considered include acute myocardial infarction, acute coronary syndrome, myocarditis, pericarditis, pericardial effusions /tamponade, esophageal perforation, pulmonary embolism, pneumonia, pneumothorax, cardiomyopathy, congestive heart, anemia, and COPD/asthma exacerbation. This is a 72-year-old female who presents to the ED with a chief complaint of shortness of breath. The patient reports that she has a history of lung cancer. Last chemotherapy treatment was attended on Thursday. Yesterday she felt like she was getting a cold. She reports a productive cough real sputum. She also reports a slight sore throat. She had the difficulty breathing started around 4 AM. She denies any fevers. She also reported some flank pain while she was here. Vital signs revealed tachycardia. She is afebrile. The tachycardia could be related to her using her albuterol. The white blood cell count is elevated 18,000. Hemoglobin is 10.6. The BUN is 29. Troponin is negative, flu swab was negative and chest x-ray did not show acute disease. A CT scan of the abdomen and pelvis was performed. There is no acute intra- abdominal process but a right lung base infiltrate of process was noted. Urinalysis suggests an infection. The patient had a urine culture from [facility] from a couple of days ago that reveals 10,000 100,000 colonies of enterococcus that is susceptible to vancomycin. The patient was treated with IV Levaquin and IV vancomycin. She was given some IV fluids. She remained tachycardic during her ED stay. She will be seen by the hospitalist for further inpatient evaluation and care. Medication Reconcilliation Current Medication List: was personally reviewed by me Blood Pressure Screening Patient's blood pressure: Normal blood pressure Consults Time Called: 1222 Consulting Physician: Dr. Schmitt, hospitalist Returned Call: [address] Schmitt hospitalist. We discussed the patients case. The patient will be evaluated by the [facility] for further management. Impression Primary Impression: PNA (pneumonia) Additional Impressions: SOB (shortness of breath) Weakness UTI (urinary tract infection) Scribe Attestation The scribe's documentation has been prepared under my direction and personally reviewed by me in its entirety. I confirm that the note above accurately reflects all work, treatment, procedures, and medical decision making performed by me. Departure Information Dispostion Being Evaluated By Hospitalist Referrals No Doctor, Assigned (PCP) Patient Instructions My [facility] Problem Qualifiers
[2017-05-31] MEDS ORDERED: VANCOMYCIN CONSULT ACTIVE PRN (14:30)
--- NOTE | 2017-05-31 14:47 | HISTORY & PHYSICAL EXAMINATION ---
DATE OF ADMISSION: 05/31/2017 PRIMARY CARE PHYSICIAN: Dr. Suzanne Sanabria. CHIEF COMPLAINT: Shortness of breath with cough since Thursday with yellow phlegm. HISTORY OF PRESENT COMPLAINT: She is a 72-year-old female with significant past medical history of CA of the lung with metastasis, has been ongoing chemo, COPD, Crohn's disease, chronic kidney disease, rheumatoid arthritis and also other medical conditions as listed below, apparently has been complaining of more shortness of breath with cough and productive of yellow phlegm since Thursday. Apparently, she got chemo that was finished on Thursday, 3-day administration of medications and since Thursday, she has been having this complaint. She is generally weak and lethargic and this morning, her condition got worse and then she was brought into the Emergency Room. She was seen by her primary care physician on Thursday as well for UTI symptoms and she was diagnosed to have enterococci UTI and she was prescribed nitrofurantoin, which she has taken about 3 doses. She does not have any symptoms of UTI at this time, but we will have to treat that with vancomycin, I believe. No headache. No blurred vision. No numbness or tingling in the extremities. No weakness involving any side. No chest pain or palpitation. No abdominal pain or nausea. No vomiting and no problem with ambulation. PAST MEDICAL HISTORY: Significant for COPD, on home oxygen at night; Crohn's disease; chronic kidney disease; rheumatoid arthritis; small cell lung cancer, status post surgery and with ongoing chemo; liver metastasis; bone metastasis; then obstructive sleep apnea; history of deep venous thrombosis and a history of pulmonary embolism. PAST SURGICAL HISTORY: Significant for bronchoscopy in 2016 with washing and brushing, lithotripsy and cystoscope with insertion of a sent in the right ureter. FAMILY HISTORY: Significant for mother had high blood pressure and sister with breast cancer and also DVT. SOCIAL HISTORY: She is . She lives with her . She quit smoking in 1990. She does not do any alcohol and he has been ambulant with a cane. REVIEW OF SYSTEMS: Total system review is unremarkable except for those mentioned in the history of present complaint. ALLERGIES: PENICILLIN AND TAZOBACTAM. MEDICATIONS: As an outpatient, she has been on nitrofurantoin 100 mg twice a day, only took 3 doses; Zofran 4 mg as directed; prednisone tablet tapering dose 10 mg now; albuterol 2 puffs q. 6 hourly p.r.n.; aspirin 81 mg daily; calcium with vitamin D 1 tablet twice daily; Neurontin 400 mg in the morning and 800 at night; DuoNebs nebulized solutions q.i.d. as needed; mesalamine 800 mg a.m. and p.m.; Toprol-XL 50 mg in the morning; Compazine 10 mg p.o. Q6H p.r.n. for nausea and Ultram 50 mg b.i.d. as needed. PHYSICAL EXAMINATION: GENERAL: On examination in the Emergency Room, she was still having some shortness of breath. VITAL SIGNS: Temperature 36.5, pulse was 125, blood pressure 134/77, and saturation 97% on room air. HEENT: Unremarkable. NECK: Supple. No JVD and no bruit. CHEST: Coarse crackles in the right base. Otherwise, decreased breath sounds. HEART: S1 and S2 regular. ABDOMEN: Soft, benign, and nontender. No organomegaly. Bowel sounds present. EXTREMITIES: Chronic edema bilaterally, nothing more than usual. MUSCULOSKELETAL SYSTEM: Did not show any acute arthritis involving any joint. CENTRAL NERVOUS SYSTEM: She was alert, awake, and oriented x3. No focal sensory and/or motor deficit appreciated. LABORATORY DATA: Noted today with white count of 18.64, H&H 10.6/32.8, and platelet was 106. Sodium 141, potassium 4.3, carbon dioxide 26, BUN 29, creatinine 0.95, and random glucose 84. LFTs unremarkable. CK and CK-MB normal. Troponin less than 0.015. Albumin was 3.5. PT/INR unremarkable. UA examination is suggestive of infection with a moderate leukocyte esterase, white count 10-30, but bacteria negative. Influenza serology is negative. Chest x-ray reported as chronic and postoperative changes in the right hemithorax. No acute process. CT of the abdomen and pelvis reported as blastic metastatic disease with interval parenchymal infiltrative change with distinctly nodular pattern in the right lung base, could be neoplastic or inflammatory. Right ureteric stent is in good place. No evidence of hydronephrosis. EKG was in sinus rhythm at a rate of 121 per minute, normal axis and minor nonspecific ST-T wave changes. IMPRESSION AND PLAN: 1. Right lower lobe pneumonia. Seems to be community acquired, status post chemotherapy. She will be admitted to medical floor. Blood culture was taken. She was given 1 dose of Levaquin and will continue with that and also she got 1 dose of Zosyn. She will be given an extra dose of Solu-Medrol and nebulized bronchodilators as well. 2. Urinary tract infection due to enterococci . She was started with a nitrofurantoin and we will discontinue that and give her vancomycin while in the hospital to cover enterococci. 3. Chronic obstructive pulmonary disease, seems to be an exacerbation. I will continue with nebulized bronchodilator and increasing dose steroids and antibiotic as above. 4. Cancer of the lung with metastasis to bone and lever. She has been on chemotherapy. She does have pain, which is controlled with her usual medications. 5. Hypertension. Blood pressure seems to be controlled at this time. 6. Crohn's disease and no acute symptoms. Continue with mesalamine. 7. DVT prophylaxis with Lovenox. 8. GI prophylaxis with Maalox and Mylanta as needed. 9. Code status -- She will be a full code. In my clinical judgment, the beneficiary meets criteria as per CMS for 2 midnight stay in the hospital. MTDD
--- NOTE | 2017-05-31 15:25 | Pharmacy Progress Note ---
Pharmacy Antibiotic Consult Date of Service: May 31, 2017. Pharmacy Dosing Scope Pharmacy is consulted to initiate vancomycin IV dosing therapy, order appropriate labs and adjust drug dose/frequency. Subjective The patient is a 72 year old female admitted on . Objective Height (Feet): 5 Height (Inches): 1.00 Weight (Kilograms): 95.400 Lab Results (24hrs): Test 05/31/17 08:45 05/31/17 09:01 05/31/17 11:55 White Blood Count 18.64 K/uL (4.8-10.8) Red Blood Count 3.14 M/uL (4.2-5.4) Hemoglobin 10.6 g/dL (12.0-16.0) Hematocrit 32.8 % (37-47) Mean Corpuscular Volume 104.5 fL (80-100) Mean Corpuscular Hemoglobin 33.8 pg (25-34) Mean Corpuscular Hemoglobin Concent 32.3 g/dl (32-36) Platelet Count 106 K/uL (130-400) Mean Platelet Volume 10.1 fL (7.4-10.4) Neutrophils (%) (Auto) 95.3 % Lymphocytes (%) (Auto) 2.0 % Monocytes (%) (Auto) 0.6 % Eosinophils (%) (Auto) 0.3 % Basophils (%) (Auto) 0.1 % Neutrophils # (Auto) 17.76 K/uL (1.4-6.5) Lymphocytes # (Auto) 0.38 K/uL (1.2-3.4) Monocytes # (Auto) 0.12 K/uL (0.11-0.59) Eosinophils # (Auto) 0.05 K/uL (0-0.5) Basophils # (Auto) 0.02 K/uL (0-0.2) RDW Standard Deviation 69.5 fL (36.4-46.3) RDW Coefficient of Variation 18.3 % (11.5-14.5) Immature Granulocyte % (Auto) 1.7 % Immature Granulocyte # (Auto) 0.31 K/uL (0.00-0.02) Prothrombin Time 10.2 SECONDS (9.0-12.0) Prothromb Time International Ratio 1.0 (0.9-1.1) Activated Partial Thromboplast Time 21.2 SECONDS (21.0-31.0) Partial Thromboplastin Ratio 0.8 Sodium Level 141 mmol/L (136-145) Potassium Level 4.3 mmol/L (3.5-5.1) Chloride Level 107 mmol/L (98-107) Carbon Dioxide Level 26 mmol/L (21-32) Anion Gap 7.0 mmol/L (3-11) Blood Urea Nitrogen 29 mg/dl (7-18) Creatinine 0.95 mg/dl (0.60-1.20) Est Creatinine Clear Calc Drug Dose 54.8 ml/min Estimated GFR () 68.4 Estimated GFR (Non- 59.0 BUN/Creatinine Ratio 30.6 (10-20) Random Glucose 84 mg/dl (70-99) Calcium Level 7.7 mg/dl (8.5-10.1) Total Bilirubin 0.6 mg/dl (0.2-1) Aspartate Amino Transf (AST/SGOT) 22 U/L (15-37) Alanine Aminotransferase (ALT/SGPT) 27 U/L (12-78) Alkaline Phosphatase 37 U/L (45-117) Total Creatine Kinase 64 U/L (26-192) Creatine Kinase MB 1.2 ng/ml (0.5-3.6) Creatine Kinase MB Ratio 1.9 (0-3.0) Troponin I < 0.015 ng/ml (0-0.045) Total Protein 6.4 gm/dl (6.4-8.2) Albumin 3.5 gm/dl (3.4-5.0) Globulin 2.9 gm/dl (2.5-4.0) Albumin/Globulin Ratio 1.2 (0.9-2) Influenza Type A (RT-PCR) Neg for Influ A (NEG) Influenza Type A Antigen Neg for Influ A (NEG) Influenza Type B Antigen Neg for Influ B (NEG) Influenza Type B (RT-PCR) Neg for Influ B (NEG) Urine Color YELLOW Urine Appearance CLEAR (CLEAR) Urine pH 5.0 (4.5-7.5) Urine Specific [place] 1.019 (1.000-1.030) Urine Protein TRACE (NEG) Urine Glucose (UA) NEG (NEG) Urine Ketones NEG (NEG) Urine Occult Blood 2+ (NEG) Urine Nitrite NEG (NEG) Urine Bilirubin NEG (NEG) Urine Urobilinogen NEG (NEG) Urine Leukocyte Esterase MODERATE (NEG) Urine WBC (Auto) 10-30 /hpf (0-5) Urine RBC (Auto) 5-10 /hpf (0-4) Urine Hyaline Casts (Auto) 0 /lpf (0-5) Urine Epithelial Cells (Auto) 5-10 /lpf (0-5) Urine Bacteria (Auto) NEG (NEG) Assessment & Plan Assessment * 72 yo F on active chemotherapy for lung CA admitted w SOB/CAP. Being treated as outpatient for Enterococcal UTI with Macrobid since 05/29. * Levofloxacin (for CAP) and vancomycin (for Enterococcal UTI) ordered as inpatient * SCr at/near baseline equating to eCrCL ~ 44-55 mL/min Vancomycin dosing * Goal trough 15-20 mcg/mL * 21 mg/kg loading dose already ordered/administered * Will continue with 13 mg/kg dosed at slightly longer than estimated vancomycin t1/2 of 14 hours * Trough prior to 4th overall dose Plan * Vancomycin 1250 mg IV q16h * Trough 1/2 @ 1330 Pharmacy will continue to follow and will adjust dose/frequency as necessary. Thank you
[2017-05-31 16:00] VITALS: BP 144/70; PULSE 124; TEMP 37.5; O2SAT 98
[2017-05-31] MEDS ORDERED: METOPROLOL SUCC 50MG EXT REL TAB PO ONE (16:02)
[2017-05-31 16:07] VITALS: BP 144/70; PULSE 124; TEMP 37.5; O2SAT 98; BMI 39.7
[2017-05-31] MEDS ORDERED: METHYLPREDNISOLONE IV 125 MG in SYRINGE 0 ML IV ONE (16:15)
[2017-05-31] MEDS: ENOXAPARIN 40 MG/0.4 ML SYR SQ SCH (16:36)
[2017-05-31 17:30] VITALS: PULSE 104; TEMP 39.1
[2017-05-31] MEDS ORDERED: ACETAMINOPHEN 500 MG TAB PO ONE (18:03)
[2017-05-31] MEDS ORDERED: ACETAMINOPHEN 500 MG TAB PO PRN (18:15)
[2017-05-31 19:08] VITALS: TEMP 38.1
[2017-05-31] MEDS: GABAPENTIN 800 MG TAB PO SCH (19:38)
[2017-05-31] MEDS: CALCIUM 600MG + VIT D 400 IU TAB PO SCH (19:38)
[2017-05-31] MEDS ORDERED: ACETAMINOPHEN 500 MG TAB PO SCH (22:00)
[2017-05-31 23:20] VITALS: BP 122/71; PULSE 82; TEMP 36.6; O2SAT 95
[2017-06-01 04:04] VITALS: BP 134/76; PULSE 84; TEMP 36.4; O2SAT 99
[2017-06-01] MEDS: METHYLPREDNISOLONE IV 40 MG in SYRINGE 0 ML IV SCH ×2 (04:33→17:19)
[2017-06-01 05:54] LABS: HEMATOCRIT 28.9 % (37-47); HEMOGLOBIN 9.5 g/dL (12.0-16.0); MEAN CELL VOLUME 101.8 fL (80-100); MEAN CORPUSCULAR HEMOGLOBIN 33.5 pg (25-34); MEAN CORPUSCULAR HGB CONC 32.9 g/dl (32-36); RED CELL DISTRIBUTION WIDTH CV 17.6 % (11.5-14.5); RED CELL DISTRIBUTION WIDTH SD 65.7 fL (36.4-46.3); WHITE BLOOD COUNT 15.57 K/uL (4.8-10.8)
[2017-06-01] MEDS: VANCOMYCIN INJ 1,250 MG in SODIUM CHLORIDE 0.9% 250ML 250 ML IV SCH ×2 (06:09→21:29)
[2017-06-01 06:20] LABS: MEAN PLATELET VOLUME 10.6 fL (7.4-10.4); PLATELET COUNT 89 K/uL (130-400)
[2017-06-01 06:23] VITALS: BMI 39.4
[2017-06-01 06:32] LABS: CALCIUM 7.5 mg/dl (8.5-10.1); CREATININE 0.97 mg/dl (0.60-1.20); POTASSIUM 4.7 mmol/L (3.5-5.1)
[2017-06-01 07:15] VITALS: BP 146/81; PULSE 90; TEMP 36.4; O2SAT 100
[2017-06-01] MEDS: GABAPENTIN 400 MG CAP PO SCH (07:57)
[2017-06-01] MEDS: ASPIRIN 81 MG ECTAB PO SCH (07:57)
[2017-06-01] MEDS: METOPROLOL SUCC 50MG EXT REL TAB PO SCH (07:57)
[2017-06-01] MEDS ORDERED: MESALAMINE 800 MG PO SCH (08:00)
[2017-06-01] MEDS: CALCIUM 600MG + VIT D 400 IU TAB PO SCH ×2 (08:31→21:29)
[2017-06-01 11:11] VITALS: BP 138/90; PULSE 90; TEMP 36.6; O2SAT 100
[2017-06-01] MEDS: LEVOFLOXACIN / D5W 500 MG in PREMIXED IN D5W 100 ML IV SCH (13:38)
[2017-06-01 16:14] VITALS: BP 150/80; PULSE 89; TEMP 36.5; O2SAT 100
[2017-06-01] MEDS: ENOXAPARIN 40 MG/0.4 ML SYR SQ SCH (17:20)
--- NOTE | 2017-06-01 18:11 | Progress Note ---
Internal Med Progress Note Date of Service: Jun 01, 2017. Provider Documentation: SUBJECTIVE: Patient seen and examined at bedside. No acute complaints. Patient is speaking comfortably. Cooperative on exam OBJECTIVE: Exam: General- no acute distress Eyes- EOMI Neck-no JVD Lungs- reduced breath sounds on right side of lung clark compared to the left Heart-Regular Abdomen- Soft, benign, and nontender. Extremities- lower extremity edema bilaterally Neuro- alert, awake, and oriented x3 ASSESSMENT & PLAN: 72-year-old female with past medical history of CA of the lung with metastasis, has been ongoing chemo, COPD, Crohn's disease, chronic kidney disease, rheumatoid arthritis and also other medical conditions as listed below, apparently has been complaining of more shortness of breath with cough and productive of yellow phlegm since Thursday05/29/17 and also on Nitrofurantoin from her primary care doctor on Thursday for enterococci UTI. Was admitted on for concerns of right lower lobe pneumonia and UTI CXR 05/31/17 Central catheter ends in the superior vena cava cava. Unchanging right perihilar and right upper lobe fibrotic/infiltrative change. This is unaltered from the prior study. There are no new or interval findings. Left lung is clear. IMPRESSION: Chronic and postoperative change right hemithorax. No acute process is identified. Abdomen CT 05/31/17 1. Right ureteral stent in good position. 2. No evidence for hydronephrosis or obstructive change to the urinary tracts. 3. Nonobstructive bowel pattern. 4. Multiple hepatic hypodensities unchanged from the prior study. 5. Blastic metastatic disease to the osseous structures are stable. 6. Interval parenchymal infiltrative change with a distinctly nodular pattern right lung base. This may be inflammatory, neoplastic, or a combination of the 2 entities. The left base is clear Blood Culture 05/31/17 pending results Urine Culture 05/31/17 STREPTOCOCCUS SPECIES, awaiting sensitivities A/P: Given history of malignancy it may be difficult to assess whether of not patient 's shortness of breath is due an infectious process such as pneumonia or from malignancy or as radiology interpretation of admission chest x ray as chronic and postoperative change right hemithorax. Patient has listed Zosyn allergy and has received vancomycin from admission on 05/31/17. Would continue broad spectrum antibiotics given that blood culture has not resulted yet. Currently only seen urine with strep species on admission labs as positive growth. Will repeat CXR tomorrow AM, will send procalcitonin which may be elevated in pneumonia or sepsis. Patient will need PT/OT and 2 step test to asses dyspnea during ambulation. Also on nebulized bronchodilator and steroids for the dyspnea antibiotic as above. Hypertension history. Blood pressure controlled. Crohn's disease and no acute symptoms. Continue with mesalamine. DVT prophylaxis with Lovenox. GI prophylaxis with Maalox and Mylanta as needed. Code status FULL CODE Vital Signs: Date Time Temp Pulse Resp B/P (MAP) Pulse Ox O2 Delivery O2 Flow Rate FiO2 06/01/17 16:14 36.5 89 18 150/80 (103) 100 Nasal Cannula 2.0 06/01/17 11:11 36.6 90 20 138/90 (106) 100 06/01/17 08:30 Nasal Cannula 3.0 06/01/17 07:15 36.4 90 20 146/81 (102) 100 Nasal Cannula 2.0 06/01/17 04:04 36.4 84 20 134/76 (95) 99 Nasal Cannula 2.0 06/01/17 00:00 Nasal Cannula 3.0 05/31/17 23:20 36.6 82 20 122/71 (88) 95 Nasal Cannula 2.0 05/31/17 20:00 Nasal Cannula 3.0 05/31/17 19:08 38.1 Lab Results: Results Past 24 Hours Test 06/01/17 05:44 Range/Units White Blood Count 15.57 4.8-10.8 K/uL Red Blood Count 2.84 4.2-5.4 M/uL Hemoglobin 9.5 12.0-16.0 g/dL Hematocrit 28.9 37-47 % Mean Corpuscular Volume 101.8 80-100 fL Mean Corpuscular Hemoglobin 33.5 25-34 pg Mean Corpuscular Hemoglobin Concent 32.9 32-36 g/dl RDW Standard Deviation 65.7 36.4-46.3 fL RDW Coefficient of Variation 17.6 11.5-14.5 % Platelet Count 89 130-400 K/uL Mean Platelet Volume 10.6 7.4-10.4 fL Platelet Estimate DECREASED Sodium Level 138 136-145 mmol/L Potassium Level 4.7 3.5-5.1 mmol/L Chloride Level 106 98-107 mmol/L Carbon Dioxide Level 25 21-32 mmol/L Anion Gap 7.0 3-11 mmol/L Blood Urea Nitrogen 26 7-18 mg/dl Creatinine 0.97 0.60-1.20 mg/dl Est Creatinine Clear Calc Drug Dose 53.4 ml/min Estimated GFR () 66.7 Estimated GFR (Non- 57.5 BUN/Creatinine Ratio 27.1 10-20 Random Glucose 154 70-99 mg/dl Calcium Level 7.5 8.5-10.1 mg/dl
[2017-06-01 19:31] VITALS: BP 137/81; PULSE 97; TEMP 36.6; O2SAT 98
[2017-06-01] MEDS ORDERED: NURSING DECISION MEDICATION ORDER SCH (20:30)
[2017-06-01] MEDS ORDERED: COUGH DROP (SUGAR FREE) LOZ 24 LOZ/1 BOX PO PRN (21:15)
[2017-06-01] MEDS: GABAPENTIN 800 MG TAB PO SCH (21:29)
[2017-06-01 23:21] VITALS: BP 145/85; PULSE 92; TEMP 36.5; O2SAT 98
[2017-06-01] MEDS: ZOLPIDEM TARTRATE 5 MG TAB PO PRN (23:46)
[2017-06-02] VITALS (7 sets, daily range): BP systolic 94–165; BP diastolic 52–101; PULSE 95–107; TEMP 36.3–36.7; O2SAT 94–98
[2017-06-02] MEDS: METHYLPREDNISOLONE IV 40 MG in SYRINGE 0 ML IV SCH ×2 (04:20→15:46)
[2017-06-02 05:47] LABS: HEMOGLOBIN 8.8 g/dL (12.0-16.0); MEAN CELL VOLUME 101.9 fL (80-100); MEAN CORPUSCULAR HEMOGLOBIN 33.2 pg (25-34); MEAN CORPUSCULAR HGB CONC 32.6 g/dl (32-36); RED CELL DISTRIBUTION WIDTH CV 17.6 % (11.5-14.5); RED CELL DISTRIBUTION WIDTH SD 66.1 fL (36.4-46.3)
[2017-06-02 05:57] LABS: MEAN PLATELET VOLUME 9.6 fL (7.4-10.4); PLATELET COUNT 68 K/uL (130-400)
[2017-06-02 06:17] LABS: ALBUMIN 2.9 gm/dl (3.4-5.0); CREATININE 0.94 mg/dl (0.60-1.20); POTASSIUM 4.7 mmol/L (3.5-5.1)
[2017-06-02 06:20] LABS: TOTAL PROTEIN 6.1 gm/dl (6.4-8.2)
--- NOTE | 2017-06-02 08:05 | DIAGNOSTIC IMAGING REPORT ---
CHEST 2 VIEWS ROUTINE CLINICAL HISTORY: 72 years-old Female presenting with shortness of breath. TECHNIQUE: PA and lateral views of the chest were obtained. COMPARISON: 05/31/2017. FINDINGS: Retrograde in Mediport terminates in the lower SVC and has been accessed. Chronic postsurgical changes of the right hemithorax likely from prior right lower lobectomy. Chronic architectural distortion and retraction noted at the right lung base. Right perihilar opacities may in part be due to architectural distortion in the right lung or residual or recurrent right upper lung opacity. Right pleural thickening. Left lung and pleural space clear. Mild degenerative changes of the spine noted. IVC filter noted. IMPRESSION: 1. Chronic architectural distortion the right lung likely from prior surgery. 2. Right upper lung opacity may represent right hilar vasculature in the setting of artifactual distortion. However, this was the site of prior consolidation. Developing consolidation is difficult to exclude. Electronically signed by: Shravan Cervantes M.D. 06/02/2017 8:03 AM Dictated Date/Time: 06/02/2017 7:57 AM
[2017-06-02] MEDS: CALCIUM 600MG + VIT D 400 IU TAB PO SCH ×2 (08:13→20:45)
[2017-06-02] MEDS: METOPROLOL SUCC 50MG EXT REL TAB PO SCH (08:13)
[2017-06-02] MEDS: ASPIRIN 81 MG ECTAB PO SCH (08:13)
[2017-06-02] MEDS: GABAPENTIN 400 MG CAP PO SCH (08:13)
[2017-06-02] MEDS ORDERED: VANCOMYCIN TROUGH ONE (13:30)
[2017-06-02] MEDS: VANCOMYCIN INJ 1,250 MG in SODIUM CHLORIDE 0.9% 250ML 250 ML IV SCH (13:44)
[2017-06-02] MEDS: LEVOFLOXACIN / D5W 500 MG in PREMIXED IN D5W 100 ML IV SCH (13:44)
--- NOTE | 2017-06-02 15:37 | Pharmacy Progress Note ---
Pharmacy Abx Dose Short Note Date of Service Jun 02, 2017. Assessment & Plan Assessment 72 year old female receiving vancomycin for treatment of enterococcal UTI Day # 4 of 10 of antimicrobial therapy. Plan Vancomycin * Trough level of 17.8 mcg/mL is therapeutic * Change to 1250 mg IV every 20 hours (empiric 20% reduction secondary to BMI) * Goal trough level for UTI : 15 mcg/mL * Trough ordered for: 06/04/17 prior 0600 dose Pharmacy will continue to follow and will adjust dose/frequency as necessary. Thank you.
--- NOTE | 2017-06-02 17:08 | Progress Note ---
Internal Med Progress Note Date of Service: Jun 02, 2017. Provider Documentation: SUBJECTIVE: Seen and examined at bedside States having cough with expectoration SOB is slightly better with nebs Denies chest pain, dizziness Family at bedside No other complaints OBJECTIVE: Vital Signs-as noted below Physical Exam: General Appearance:Obese, no apparent distress Head: normocephalic, Atraumatic Eyes: normal inspection, EOMI, PERRL Neck: supple, Trachea midline Respiratory/Chest: Decreased breath sounds, B/L wheezes Cardiovascular: S1, S2, No murmur Abdomen/GI:Soft, Non tender, Bowel sounds present Extremities/Musculoskelatal:normal inspection, Chronic B/L LE 2-3+ edema Neurologic/Psych:AAOX3, grossly no focal neurological deficits Skin: normal color, warm Lab data as noted below. ASSESSMENT & PLAN: Patient is a 72 yr female with PMH of metastatic lung Cancer on ongoing chemotherapy, COPD, Chronic oxygen dependency: 2.5 liters at bedtime, Crohn's disease, H/O DVT S/P IVC Filter, CKD, rheumatoid arthritis presents with SOB, cough, also was on Nitrofurantoin for recent UTI. Possible Pneumonia Acute on chronic COPD exacerbation Chronic Oxygen dependency H/O metastatic Lung cancer Continue IV solumedrol, Levaquin, Vancomycin, Nebs Blood cultures: No growth to date UTI: Urine Culture: Enterococcus faecalis Was on Nitrofurantoin as outpatient Sensitive to Vancomycin Leukocytosis trending down H/O metastatic lung cancer Last chemotherapy on 05/29/17 Follows with as outpatient Anemia/Thrombocytopenia: Likely multifactorial from recent Chemotherapy, Anemia of chronic disease Monitor CBC H/O DVT: S/P IVC filter HTN: Labile continue metoprolol monitor H/O Crohn's disease: no acute symptoms DVT Px: Refused Lovenox SCDs given anemia, thrombocytopenia Code status FULL CODE Vital Signs: Date Time Temp Pulse Resp B/P (MAP) Pulse Ox O2 Delivery O2 Flow Rate FiO2 06/02/17 16:14 36.6 105 18 164/82 (109) 97 Nasal Cannula 2.5 06/02/17 16:08 105 16 97 Nasal Cannula 2.5 06/02/17 11:17 36.5 101 20 165/101 (122) 98 3.0 06/02/17 08:30 Nasal Cannula 3.0 06/02/17 07:05 36.5 96 18 137/85 (102) 98 Nasal Cannula 3.0 06/02/17 03:04 36.3 95 17 94/52 (66) 98 Nasal Cannula 1.0 06/02/17 00:00 Nasal Cannula 2.0 06/01/17 23:21 36.5 92 18 145/85 (105) 98 Nasal Cannula 3.0 06/01/17 19:31 36.6 97 18 137/81 (99) 98 Nasal Cannula 3.0 Lab Results: Results Past 24 Hours Test 06/02/17 05:19 06/02/17 13:29 Range/Units White Blood Count 12.10 4.8-10.8 K/uL Red Blood Count 2.65 4.2-5.4 M/uL Hemoglobin 8.8 12.0-16.0 g/dL Hematocrit 27.0 37-47 % Mean Corpuscular Volume 101.9 80-100 fL Mean Corpuscular Hemoglobin 33.2 25-34 pg Mean Corpuscular Hemoglobin Concent 32.6 32-36 g/dl Platelet Count 68 130-400 K/uL Mean Platelet Volume 9.6 7.4-10.4 fL RDW Standard Deviation 66.1 36.4-46.3 fL RDW Coefficient of Variation 17.6 11.5-14.5 % Neutrophils % (Manual) 97.3 % Lymphocytes % (Manual) 0.9 % Monocytes % (Manual) 1.8 % Neutrophils # (Manual) 11.77 1.4-6.5 K/uL Total Absolute Neutrophils 11.77 1.4-6.5 K/uL Lymphocytes # (Manual) 0.11 1.2-3.4 K/uL Total Absolute Lymphocytes 0.11 1.2-3.4 K/uL Monocytes # (Manual) 0.22 0.11-0.59 K/uL Anisocytosis PRESENT Sodium Level 137 136-145 mmol/L Potassium Level 4.7 3.5-5.1 mmol/L Chloride Level 107 98-107 mmol/L Carbon Dioxide Level 26 21-32 mmol/L Anion Gap 4.0 3-11 mmol/L Blood Urea Nitrogen 29 7-18 mg/dl Creatinine 0.94 0.60-1.20 mg/dl Est Creatinine Clear Calc Drug Dose 55.1 ml/min Estimated GFR () 69.3 Estimated GFR (Non- 59.8 BUN/Creatinine Ratio 31.0 10-20 Random Glucose 148 70-99 mg/dl Calcium Level 8.0 8.5-10.1 mg/dl Total Bilirubin 0.5 0.2-1 mg/dl Aspartate Amino Transf (AST/SGOT) 13 15-37 U/L Alanine Aminotransferase (ALT/SGPT) 22 12-78 U/L Alkaline Phosphatase 42 45-117 U/L Total Protein 6.1 6.4-8.2 gm/dl Albumin 2.9 3.4-5.0 gm/dl Globulin 3.2 2.5-4.0 gm/dl Albumin/Globulin Ratio 0.9 0.9-2 Procalcitonin 0.69 0-0.5 ng/ml Vancomycin Level Trough 17.8 SEE COMMENT mcg/ml
[2017-06-02] MEDS: ALBUT/IPRATROP 3MG/0.5MG NEB 3 ML VIAL INH SCH ×2 (17:45→20:00)
[2017-06-02] MEDS: BENZONATATE 100MG CAP PO PRN (18:13)
[2017-06-02] MEDS: GABAPENTIN 800 MG TAB PO SCH (20:45)
[2017-06-03] VITALS (12 sets, daily range): BP systolic 111–188; BP diastolic 74–92; PULSE 101–125; TEMP 36.5–36.7; O2SAT 94–100
[2017-06-03] MEDS: ZOLPIDEM TARTRATE 5 MG TAB PO PRN (01:08)
[2017-06-03] MEDS: BENZONATATE 100MG CAP PO PRN ×3 (01:08→20:10)
[2017-06-03] MEDS ORDERED: ALBUT/IPRATROP 3MG/0.5MG NEB 3 ML VIAL INH PRN (04:30)
[2017-06-03] MEDS: METHYLPREDNISOLONE IV 40 MG in SYRINGE 0 ML IV SCH ×2 (05:25→15:34)
[2017-06-03 05:46] LABS: HEMATOCRIT 28.5 % (37-47); HEMOGLOBIN 9.3 g/dL (12.0-16.0); MEAN CELL VOLUME 102.9 fL (80-100); MEAN CORPUSCULAR HEMOGLOBIN 33.6 pg (25-34); MEAN CORPUSCULAR HGB CONC 32.6 g/dl (32-36); RED CELL DISTRIBUTION WIDTH CV 17.6 % (11.5-14.5); RED CELL DISTRIBUTION WIDTH SD 66.8 fL (36.4-46.3); WHITE BLOOD COUNT 8.03 K/uL (4.8-10.8)
[2017-06-03 05:50] LABS: MEAN PLATELET VOLUME 9.3 fL (7.4-10.4); PLATELET COUNT 50 K/uL (130-400)
[2017-06-03 06:16] LABS: BASO % 0.1 %; BASO ABS # 0.01 K/uL (0-0.2); IG# 0.66 K/uL (0.00-0.02); LYMPH % 2.1 %; LYMPH ABS # 0.17 K/uL (1.2-3.4); MONO % 1.6 %; MONO ABS # 0.13 K/uL (0.11-0.59); NEUT ABS # 7.06 K/uL (1.4-6.5)
[2017-06-03 06:26] LABS: CALCIUM 9.3 mg/dl (8.5-10.1); CREATININE 0.9 mg/dl (0.60-1.20); POTASSIUM 4.2 mmol/L (3.5-5.1)
[2017-06-03] MEDS: CALCIUM 600MG + VIT D 400 IU TAB PO SCH ×2 (08:12→20:10)
[2017-06-03] MEDS: ASPIRIN 81 MG ECTAB PO SCH (08:12)
[2017-06-03] MEDS: GABAPENTIN 400 MG CAP PO SCH ×2 (08:12→20:10)
[2017-06-03] MEDS: METOPROLOL SUCC 50MG EXT REL TAB PO SCH (08:13)
--- NOTE | 2017-06-03 08:36 | Clinical Documentation Query ---
CLINICAL DOCUMENTATION QUERY 72 year old female who presents to the Emergency Room brought in by EMS with complaints of persistent shortness of breath. In your clinical opinion is this patient being managed for: ( x ) Sepsis in setting of UTI and possible pneumonia evidenced by fever, tachycardia, and leukocytosis treated with IV bolus and IV antibiotics ( ) Not Agree ( ) Other explanation of clinical findings (Please Explain) ( ) Unable to determine (Please Define) ( ) Need to Discuss Clinical indicators: Tmax 39.1, Tachycardia 123, Leukocytosis 18.64. Possible pneumonia and UTI Treatment: IVF bolus, IV Vancomycin, IV Zosyn, IV Solumedrol Risk Factors: Age, immunosuppression, and multiple underlying infections. Please clarify and document your clinical opinion in the progress notes and discharge summary. Terms such as "probable", "suspected", "likely", "questionable", "possible", or "still to be ruled out" are acceptable. IF IN AGREEMENT, YOU MUST DOCUMENT ABOVE DIAGNOSTIC STATEMENT IN DAILY PROGRESS NOTES AND DISCHARGE SUMMARY. This document is not part of the patient's record. Thank You, René Spencer, RN [phone]
[2017-06-03] MEDS: VANCOMYCIN INJ 1,250 MG in SODIUM CHLORIDE 0.9% 250ML 250 ML IV SCH (09:14)
[2017-06-03] MEDS ORDERED: MAGIC MOUTHWASH PO PRN (13:00)
[2017-06-03] MEDS: LEVOFLOXACIN / D5W 500 MG in PREMIXED IN D5W 100 ML IV SCH (14:35)
[2017-06-03] MEDS: LEVALBUTEROL 0.63MG/3 ML NEB INH SCH ×2 (14:47→19:52)
[2017-06-03] MEDS: DEXAMETHASONE CONC SOLN 3.75 MG, NYSTATIN SUSP 30 ML, DiphenhydrAMINE HCL SYRUP 300 MG,... PO PRN ×10 (15:09→20:24)
--- NOTE | 2017-06-03 17:08 | Progress Note ---
Internal Med Progress Note Date of Service: Jun 03, 2017. Provider Documentation: SUBJECTIVE: Seen and examined at bedside States soreness of oral mucosa cough still persistent SOB better Denies chest pain, dizziness Family at bedside No other complaints OBJECTIVE: Vital Signs-as noted below Physical Exam: General Appearance:Obese, no apparent distress Head: normocephalic, Atraumatic Eyes: normal inspection, EOMI, PERRL Neck: supple, Trachea midline Respiratory/Chest: Decreased breath sounds, mild B/L wheezes Cardiovascular: S1, S2, No murmur Abdomen/GI:Soft, Non tender, Bowel sounds present Extremities/Musculoskelatal:normal inspection, Chronic B/L LE 2-3+ edema Neurologic/Psych:AAOX3, grossly no focal neurological deficits Skin: normal color, warm Lab data as noted below. ASSESSMENT & PLAN: Patient is a 72 yr female with PMH of metastatic lung Cancer on ongoing chemotherapy, COPD, Chronic oxygen dependency: 2.5 liters at bedtime, Crohn's disease, H/O DVT S/P IVC Filter, CKD, rheumatoid arthritis presents with SOB, cough, also was on Nitrofurantoin for recent UTI. Possible Pneumonia Acute on chronic COPD exacerbation Chronic Oxygen dependency H/O metastatic Lung cancer Continue IV solumedrol, Levaquin, Vancomycin, Nebs Blood cultures: No growth to date Sepsis/UTI: Urine Culture: Enterococcus faecalis Was on Nitrofurantoin as outpatient Sensitive to Vancomycin Leukocytosis normalized Hypomagnesemia: Will replace and monitor Sinus Tachycardia: On BB, Will increase to 100mg daily monitor H/O metastatic lung cancer Last chemotherapy on 05/29/17 Follows with as outpatient Anemia/Thrombocytopenia: Likely multifactorial from recent Chemotherapy, Anemia of chronic disease Monitor CBC H/O DVT: S/P IVC filter HTN: Labile continue metoprolol monitor H/O Crohn's disease: no acute symptoms DVT Px: Refused Lovenox SCDs given anemia, thrombocytopenia Code status FULL CODE Vital Signs: Date Time Temp Pulse Resp B/P (MAP) Pulse Ox O2 Delivery O2 Flow Rate FiO2 06/03/17 19:00 36.6 110 20 111/74 (86) 96 Nasal Cannula 2.5 06/03/17 16:25 36.7 125 18 135/84 (101) 99 Nasal Cannula 2.5 06/03/17 16:00 Nasal Cannula 2.5 06/03/17 14:47 119 18 100 Nasal Cannula 4.0 06/03/17 11:40 36.6 116 18 171/84 (113) 100 Nasal Cannula 3.0 06/03/17 11:29 119 18 98 Nasal Cannula 2.5 06/03/17 10:08 124 99 06/03/17 08:30 Nasal Cannula 3.0 06/03/17 08:12 119 18 98 Nasal Cannula 2.5 06/03/17 07:01 36.7 110 18 138/82 (100) 96 Nasal Cannula 4.0 06/03/17 04:39 101 18 94 Nasal Cannula 2.5 06/03/17 03:56 36.5 119 20 188/92 (124) 100 Nasal Cannula 2.5 06/03/17 00:00 Nasal Cannula 3.0 06/03/17 00:00 36.6 106 18 166/81 (109) 95 Nasal Cannula 2.5 Lab Results: Results Past 24 Hours Test 06/03/17 05:37 Range/Units White Blood Count 8.03 4.8-10.8 K/uL Red Blood Count 2.77 4.2-5.4 M/uL Hemoglobin 9.3 12.0-16.0 g/dL Hematocrit 28.5 37-47 % Mean Corpuscular Volume 102.9 80-100 fL Mean Corpuscular Hemoglobin 33.6 25-34 pg Mean Corpuscular Hemoglobin Concent 32.6 32-36 g/dl Platelet Count 50 130-400 K/uL Mean Platelet Volume 9.3 7.4-10.4 fL Neutrophils (%) (Auto) 88.0 % Lymphocytes (%) (Auto) 2.1 % Monocytes (%) (Auto) 1.6 % Eosinophils (%) (Auto) 0.0 % Basophils (%) (Auto) 0.1 % Neutrophils # (Auto) 7.06 1.4-6.5 K/uL Lymphocytes # (Auto) 0.17 1.2-3.4 K/uL Monocytes # (Auto) 0.13 0.11-0.59 K/uL Eosinophils # (Auto) 0.00 0-0.5 K/uL Basophils # (Auto) 0.01 0-0.2 K/uL RDW Standard Deviation 66.8 36.4-46.3 fL RDW Coefficient of Variation 17.6 11.5-14.5 % Immature Granulocyte % (Auto) 8.2 % Immature Granulocyte # (Auto) 0.66 0.00-0.02 K/uL Dohle Bodies 1+ Sodium Level 140 136-145 mmol/L Potassium Level 4.2 3.5-5.1 mmol/L Chloride Level 107 98-107 mmol/L Carbon Dioxide Level 26 21-32 mmol/L Anion Gap 7.0 3-11 mmol/L Blood Urea Nitrogen 27 7-18 mg/dl Creatinine 0.90 0.60-1.20 mg/dl Est Creatinine Clear Calc Drug Dose 57.8 ml/min Estimated GFR () 73.0 Estimated GFR (Non- 63.0 BUN/Creatinine Ratio 30.5 10-20 Random Glucose 114 70-99 mg/dl Calcium Level 9.3 8.5-10.1 mg/dl Magnesium Level 1.4 1.8-2.4 mg/dl Procalcitonin 0.39 0-0.5 ng/ml
[2017-06-03] MEDS: MAGNESIUM SULFATE 1GM / D5W 1 GM in PREMIXED IN D5W 100 ML IV SCH ×2 (17:54→19:06)
[2017-06-03] MEDS: GABAPENTIN 800 MG TAB PO SCH (20:11)
[2017-06-04] VITALS (11 sets, daily range): BP systolic 152–176; BP diastolic 75–94; PULSE 88–121; TEMP 36.6–36.9; O2SAT 96–100
[2017-06-04] MEDS: ZOLPIDEM TARTRATE 5 MG TAB PO PRN ×2 (00:05→23:37)
[2017-06-04] MEDS: LEVALBUTEROL 0.63MG/3 ML NEB INH SCH ×4 (02:18→20:26)
[2017-06-04] MEDS: METHYLPREDNISOLONE IV 40 MG in SYRINGE 0 ML IV SCH ×2 (05:28→16:24)
[2017-06-04] MEDS ORDERED: VANCOMYCIN TROUGH ONE (05:30)
[2017-06-04] MEDS: METOPROLOL SUCC 50MG EXT REL TAB PO SCH (05:32)
[2017-06-04 06:27] LABS: HEMATOCRIT 27.9 % (37-47); HEMOGLOBIN 8.9 g/dL (12.0-16.0); MEAN CELL VOLUME 101.5 fL (80-100); MEAN CORPUSCULAR HEMOGLOBIN 32.4 pg (25-34); MEAN CORPUSCULAR HGB CONC 31.9 g/dl (32-36); MEAN PLATELET VOLUME 9.8 fL (7.4-10.4); PLATELET COUNT 37 K/uL (130-400); RED CELL DISTRIBUTION WIDTH CV 17.4 % (11.5-14.5); RED CELL DISTRIBUTION WIDTH SD 65.1 fL (36.4-46.3); WHITE BLOOD COUNT 2.11 K/uL (4.8-10.8)
[2017-06-04] MEDS: VANCOMYCIN INJ 1,250 MG in SODIUM CHLORIDE 0.9% 250ML 250 ML IV SCH (06:29)
[2017-06-04] MEDS: DEXAMETHASONE CONC SOLN 3.75 MG, NYSTATIN SUSP 30 ML, DiphenhydrAMINE HCL SYRUP 300 MG,... PO PRN ×10 (06:29→12:45)
[2017-06-04 06:59] LABS: CALCIUM 8.6 mg/dl (8.5-10.1); CREATININE 0.89 mg/dl (0.60-1.20); POTASSIUM 4.1 mmol/L (3.5-5.1)
[2017-06-04] MEDS: CALCIUM 600MG + VIT D 400 IU TAB PO SCH ×2 (08:22→20:56)
[2017-06-04] MEDS: BENZONATATE 100MG CAP PO PRN (08:23)
[2017-06-04] MEDS: ASPIRIN 81 MG ECTAB PO SCH (08:23)
--- NOTE | 2017-06-04 08:40 | Pharmacy Progress Note ---
Pharmacy Abx Dose Short Note Date of Service Jun 04, 2017. Assessment & Plan Assessment 72 year old female receiving vancomycin for treatment of enterococcal UTI Day # 5 of 10 of antimicrobial therapy. Plan Vancomycin * Trough level of 15.6 mcg/mL is therapeutic. * Continue dose of 1250 mg IV every 20 hours - pt not showing any signs of accumulation at this point. * Goal trough level for UTI: 15 mcg/mL * If pt remains admitted through the weekend - will order follow up trough 06/07. Pharmacy will continue to follow and will adjust dose/frequency as necessary. Thank you.
[2017-06-04] MEDS ORDERED: LEVOFLOXACIN 500 MG TAB PO SCH (11:00)
[2017-06-04] MEDS ORDERED: MAGNESIUM SULFATE 1GM / D5W 1 GM in PREMIXED IN D5W 100 ML IV ONE (12:00)
[2017-06-04] MEDS ORDERED: CEFEPIME CONSULT ACTIVE PRN (12:18)
--- NOTE | 2017-06-04 12:19 | Progress Note ---
Internal Med Progress Note Date of Service: Jun 04, 2017. Provider Documentation: SUBJECTIVE: Seen and examined at bedside States SOB is worse cough still persistent Denies chest pain, dizziness Family at bedside No other complaints OBJECTIVE: Vital Signs-as noted below Physical Exam: General Appearance:Obese, no apparent distress Head: normocephalic, Atraumatic Eyes: normal inspection, EOMI, PERRL Neck: supple, Trachea midline Respiratory/Chest: Decreased breath sounds, B/L wheezes Cardiovascular: S1, S2, No murmur Abdomen/GI:Soft, Non tender, Bowel sounds present Extremities/Musculoskelatal:normal inspection, Chronic B/L LE 2-3+ edema Neurologic/Psych:AAOX3, grossly no focal neurological deficits Skin: normal color, warm Lab data as noted below. ASSESSMENT & PLAN: Patient is a 72 yr female with PMH of metastatic lung Cancer on ongoing chemotherapy, COPD, Chronic oxygen dependency: 2.5 liters at bedtime, Crohn's disease, H/O DVT S/P IVC Filter, CKD, rheumatoid arthritis presents with SOB, cough, also was on Nitrofurantoin for recent UTI. Possible Pneumonia Acute on chronic COPD exacerbation Chronic Oxygen dependency H/O metastatic Lung cancer Continue IV solumedrol, Vancomycin, Nebs DC Vancomycin, Start on IV Cefepime Blood cultures: No growth to date get Sputum cultures Get CT for PE Consider Pulmonary consult if necessary Sepsis/UTI: Urine Culture: Enterococcus faecalis Was on Nitrofurantoin as outpatient Sensitive to Vancomycin Leukocytosis normalized Mild hematuria: Had Ureteral stent placement Monitor Hb Hypomagnesemia: replace and monitor Sinus Tachycardia: On BB, Will increase to 100mg daily monitor H/O metastatic lung cancer Last chemotherapy on 05/29/17 Follows with as outpatient Pancytopenia: Likely multifactorial from recent Chemotherapy, Anemia of chronic disease Monitor CBC Discussed with on 06/04/17 No plan for transfusion unless required H/O DVT: S/P IVC filter HTN: Labile continue metoprolol monitor H/O Crohn's disease: no acute symptoms DVT Px: Refused Lovenox SCDs given anemia, thrombocytopenia Code status FULL CODE Vital Signs: Date Time Temp Pulse Resp B/P (MAP) Pulse Ox O2 Delivery O2 Flow Rate FiO2 06/04/17 11:15 36.6 105 16 152/83 (106) 99 Nasal Cannula 2.0 06/04/17 11:00 Nasal Cannula 3.0 06/04/17 09:08 118 159/75 (103) 06/04/17 07:22 107 18 97 Nasal Cannula 2.5 06/04/17 05:30 121 176/94 (121) 06/04/17 04:17 36.7 114 22 173/82 (112) 96 Nasal Cannula 2.0 06/04/17 02:19 101 18 98 Nasal Cannula 2.5 06/04/17 00:05 36.9 107 20 152/88 (109) 96 Nasal Cannula 2.0 06/04/17 00:00 Nasal Cannula 2.5 06/03/17 19:53 105 18 97 Nasal Cannula 2.5 06/03/17 19:00 36.6 110 20 111/74 (86) 96 Nasal Cannula 2.5 06/03/17 16:25 36.7 125 18 135/84 (101) 99 Nasal Cannula 2.5 06/03/17 16:00 Nasal Cannula 2.5 06/03/17 14:47 119 18 100 Nasal Cannula 4.0 Lab Results: Results Past 24 Hours Test 06/04/17 05:43 Range/Units White Blood Count 2.11 4.8-10.8 K/uL Red Blood Count 2.75 4.2-5.4 M/uL Hemoglobin 8.9 12.0-16.0 g/dL Hematocrit 27.9 37-47 % Mean Corpuscular Volume 101.5 80-100 fL Mean Corpuscular Hemoglobin 32.4 25-34 pg Mean Corpuscular Hemoglobin Concent 31.9 32-36 g/dl Platelet Count 37 130-400 K/uL Mean Platelet Volume 9.8 7.4-10.4 fL RDW Standard Deviation 65.1 36.4-46.3 fL RDW Coefficient of Variation 17.4 11.5-14.5 % Neutrophils % (Manual) 91.3 % Lymphocytes % (Manual) 6.1 % Monocytes % (Manual) 2.6 % Neutrophils # (Manual) 1.93 1.4-6.5 K/uL Total Absolute Neutrophils 1.93 1.4-6.5 K/uL Lymphocytes # (Manual) 0.13 1.2-3.4 K/uL Total Absolute Lymphocytes 0.13 1.2-3.4 K/uL Monocytes # (Manual) 0.05 0.11-0.59 K/uL Toxic Granulation 1+ Toxic Vacuolation 1+ Dohle Bodies 2+ Red Blood Cell Morphology Unremarkable Sodium Level 135 136-145 mmol/L Potassium Level 4.1 3.5-5.1 mmol/L Chloride Level 101 98-107 mmol/L Carbon Dioxide Level 29 21-32 mmol/L Anion Gap 5.0 3-11 mmol/L Blood Urea Nitrogen 25 7-18 mg/dl Creatinine 0.89 0.60-1.20 mg/dl Est Creatinine Clear Calc Drug Dose 58.4 ml/min Estimated GFR () 74.0 Estimated GFR (Non- 63.8 BUN/Creatinine Ratio 28.4 10-20 Random Glucose 112 70-99 mg/dl Calcium Level 8.6 8.5-10.1 mg/dl Magnesium Level 1.7 1.8-2.4 mg/dl Vancomycin Level Trough 15.6 SEE COMMENT mcg/ml
[2017-06-04] MEDS: GUAIFENESIN SUGAR FREE 100 MG/5 ML UDC PO PRN ×2 (12:44→20:58)
[2017-06-04] MEDS ORDERED: CEFEPIME IV 2,000 MG in SYRINGE 7.5 ML IV SCH (13:00)
[2017-06-04] MEDS ORDERED: OPTIRAY 320 IV PRN (14:00)
--- NOTE | 2017-06-04 14:12 | DIAGNOSTIC IMAGING REPORT ---
CT ANGIOGRAM OF THE CHEST CLINICAL HISTORY: Dyspnea. Tachycardia. History of lung cancer. COMPARISON STUDY: Chest CT dated 09/02/2016. Chest radiographs dated 06/02/2017. PET/CT dated 04/15/2017. TECHNIQUE: Following the IV administration of 120 cc of Optiray 320, CT angiogram of the chest was performed from the upper abdomen to the thoracic inlet utilizing the pulmonary embolus protocol. Images are reviewed in the axial, sagittal, and coronal planes. 3-D MIPS images are created and assessed. IV contrast was administered without complication. A dose lowering technique was utilized adhering to the principles of ALARA. The examination is significantly degraded by motion artifact. CT DOSE: 441.40 mGycm FINDINGS: Thyroid: Imaged portions of the thyroid gland are normal in size and attenuation. Thoracic aorta: There is atherosclerotic calcification of the thoracic aorta, which is normal in caliber and demonstrates standard 3-vessel arch anatomy. No dissection is seen. Pulmonary vasculature: The main pulmonary arteries are dilated suggesting pulmonary hypertension. There are linear filling defects identified within the right middle and right lower lobe pulmonary arteries consistent with pulmonary emboli. These are located centrally within the vessels, and the right lower lobe emboli containing calcifications. This suggests chronicity. Evaluation of the segmental and subsegmental branches is significantly degraded by motion artifact. Heart: The heart is enlarged and without pericardial effusion. There are scattered coronary artery calcifications. Lungs and pleural spaces: Evaluation of lung parenchyma is significantly degraded by respiratory motion artifact. Mild emphysema is suggested. There is paramediastinal fibrosis identified in the right lung, likely related to radiation fibrosis. Airspace opacification in the right lower lobe is similar to 04/15/2017 and measures up to 4 cm. Patchy airspace opacities tree-in-bud nodularity are present throughout the right lung. The trachea and central airways are clear. Fibrotic change is also suggested in the paramediastinal left lung. Mediastinum: There is no mediastinal lymphadenopathy. Leann: Clear. Axillae: There is no axillary lymphadenopathy. Upper abdomen: The spleen is enlarged. Postoperative changes suggested involving the posterior right lobe of liver. Scattered hepatic cysts measure 2.7 cm. Additional subcentimeter hepatic hypodensities also likely represent cysts but are too small for definitive characterization. A hiatal hernia is identified. Skeletal structures: There is evidence of multifocal osteoblastic metastatic disease. These lesions are unchanged from the 11th 1517 PET examination are present lesions are seen in the bodies of T12 on image #39 and in the body of L1 on image #1. Lesions are also seen within the bilateral ribs, the right glenoid, the manubrium of the sternum, the left humeral head, and the inferior left scapula. Advanced arthritic change is seen in the shoulders. Degenerative change and hyperkyphosis is seen throughout the thoracic spine. IMPRESSION: 1. Motion compromised examination. 2. There are linear central filling defects identified in the right middle and right lower lobe pulmonary arteries, some of which contain calcifications. This is consistent with pulmonary embolus that is likely chronic. 3. Bilateral paramediastinal fibrosis, right greater than left is typical appearance for post radiation change. 4. A more focal 4 cm irregular opacity in the right lower lobe is similar in appearance to the 04/15/2017 PET examination. Differential considerations remain fibrosis, an infectious/inflammatory pneumonitis, or neoplasm. 5. Patchy airspace opacities with tree-in-bud nodularity are seen throughout the right lung. The appearance suggests an infectious/inflammatory pneumonitis. Clinical correlation will be required. Attention at follow-up is recommend. 6. 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 7. Splenomegaly. 8. Cardiomegaly and emphysema. 9. Additional findings as above. Electronically signed by: Gilbert Garg M.D. 06/04/2017 2:11 PM Dictated Date/Time: 06/04/2017 1:55 PM
[2017-06-04] MEDS: GABAPENTIN 800 MG TAB PO SCH (20:56)
[2017-06-04] MEDS: CEFEPIME IV 2,000 MG in SYRINGE 7.5 ML IV SCH (20:57)
[2017-06-05] VITALS (12 sets, daily range): BP systolic 137–178; BP diastolic 76–92; PULSE 88–106; TEMP 36.3–36.9; O2SAT 94–99; BMI 38.4
[2017-06-05] MEDS: VANCOMYCIN INJ 1,250 MG in SODIUM CHLORIDE 0.9% 250ML 250 ML IV SCH ×2 (01:49→22:19)
[2017-06-05] MEDS: LEVALBUTEROL 0.63MG/3 ML NEB INH SCH ×4 (02:17→18:18)
[2017-06-05] MEDS: METHYLPREDNISOLONE IV 40 MG in SYRINGE 0 ML IV SCH ×2 (04:11→16:46)
[2017-06-05 06:44] LABS: HEMATOCRIT 28.9 % (37-47); HEMOGLOBIN 9.5 g/dL (12.0-16.0); MEAN CELL VOLUME 101.4 fL (80-100); MEAN CORPUSCULAR HEMOGLOBIN 33.3 pg (25-34); MEAN CORPUSCULAR HGB CONC 32.9 g/dl (32-36); MEAN PLATELET VOLUME 10.6 fL (7.4-10.4); PLATELET COUNT 31 K/uL (130-400); RED CELL DISTRIBUTION WIDTH CV 17.1 % (11.5-14.5); RED CELL DISTRIBUTION WIDTH SD 63.5 fL (36.4-46.3); WHITE BLOOD COUNT 1.41 K/uL (4.8-10.8)
[2017-06-05 06:51] LABS: CALCIUM 8.9 mg/dl (8.5-10.1); CREATININE 1.01 mg/dl (0.60-1.20); POTASSIUM 4.1 mmol/L (3.5-5.1)
[2017-06-05] MEDS: GABAPENTIN 400 MG CAP PO SCH (08:23)
[2017-06-05] MEDS: CEFEPIME IV 2,000 MG in SYRINGE 7.5 ML IV SCH ×2 (08:23→20:44)
[2017-06-05] MEDS: CALCIUM 600MG + VIT D 400 IU TAB PO SCH ×2 (08:23→20:43)
[2017-06-05] MEDS: DEXAMETHASONE CONC SOLN 3.75 MG, NYSTATIN SUSP 30 ML, DiphenhydrAMINE HCL SYRUP 300 MG,... PO PRN ×5 (08:23)
[2017-06-05] MEDS: METOPROLOL SUCC 50MG EXT REL TAB PO SCH (08:24)
[2017-06-05] MEDS: GUAIFENESIN SUGAR FREE 100 MG/5 ML UDC PO PRN (08:24)
[2017-06-05] MEDS: ASPIRIN 81 MG ECTAB PO SCH (08:35)
--- NOTE | 2017-06-05 09:53 | Progress Note ---
Internal Med Progress Note Date of Service: Jun 05, 2017. Provider Documentation: SUBJECTIVE: Seen and examined at bedside Feels better compared to yesterday Less cough and SOB Mild hematuria, Hb stable. Will hold Aspirin for today Denies chest pain, dizziness Family at bedside No other complaints OBJECTIVE: Vital Signs-as noted below Physical Exam: General Appearance:Obese, no apparent distress Head: normocephalic, Atraumatic Eyes: normal inspection, EOMI, PERRL Neck: supple, Trachea midline Respiratory/Chest: Decreased breath sounds, B/L wheezes Cardiovascular: S1, S2, No murmur Abdomen/GI:Soft, Non tender, Bowel sounds present Extremities/Musculoskelatal:normal inspection, Chronic B/L LE 2-3+ edema Neurologic/Psych:AAOX3, grossly no focal neurological deficits Skin: normal color, warm Lab data as noted below. ASSESSMENT & PLAN: Patient is a 72 yr female with PMH of metastatic lung Cancer on ongoing chemotherapy, COPD, Chronic oxygen dependency: 2.5 liters at bedtime, Crohn's disease, H/O DVT S/P IVC Filter, CKD, rheumatoid arthritis presents with SOB, cough, also was on Nitrofurantoin for recent UTI. Pneumonia Acute on chronic COPD exacerbation Chronic Oxygen dependency H/O metastatic Lung cancer Continue IV solumedrol, Vancomycin, Cefepime Continue bronchodilators Blood cultures: No growth to date CT for PE: Suggestive of Chronic PE, Pneumonitis, other findings as below Discussed with Pulmonary on 06/04/17 Blood cultures: No growth to date Sepsis/UTI: Urine Culture: Enterococcus faecalis Was on Nitrofurantoin as outpatient Sensitive to Vancomycin Mild hematuria: Had Ureteral stent placement Hb stable, Hold Aspirin today Monitor Hb Hypomagnesemia: Resolved monitor Sinus Tachycardia: On BB, continue metoprolol 100mg daily (Increased from 50mg daily) monitor HTN: Labile Monitor Continue Metoprolol H/O metastatic lung cancer Last chemotherapy on 05/29/17 Follows with as outpatient Pancytopenia: Likely multifactorial from recent Chemotherapy, Anemia of chronic disease Monitor CBC Discussed with on 06/04/17. 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 Motion compromised examination. 2. There are linear central filling defects identified in the right middle and right lower lobe pulmonary arteries, some of which contain calcifications. This is consistent with pulmonary embolus that is likely chronic. 3. Bilateral paramediastinal fibrosis, right greater than left is typical appearance for post radiation change. 4. A more focal 4 cm irregular opacity in the right lower lobe is similar in appearance to the 04/15/2017 PET examination. Differential considerations remain fibrosis, an infectious/inflammatory pneumonitis, or neoplasm. 5. Patchy airspace opacities with tree-in-bud nodularity are seen throughout the right lung. The appearance suggests an infectious/inflammatory pneumonitis. Clinical correlation will be required. Attention at follow-up is recommend. 6. 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 7. Splenomegaly. 8. Cardiomegaly and emphysema. 9. Additional findings as above. Vital Signs: Date Time Temp Pulse Resp B/P (MAP) Pulse Ox O2 Delivery O2 Flow Rate FiO2 06/05/17 08:30 Nasal Cannula 3.0 06/05/17 07:17 36.5 101 18 178/92 (120) 97 Nasal Cannula 2.0 06/05/17 07:06 104 18 94 Nasal Cannula 2.0 06/05/17 04:03 36.3 98 20 153/83 (106) 96 Nasal Cannula 2.0 06/05/17 02:17 88 18 96 Nasal Cannula 2.5 06/05/17 00:47 36.4 95 20 161/92 (115) 99 Nasal Cannula 2.0 06/05/17 00:00 Nasal Cannula 2.5 06/04/17 20:27 88 18 98 Nasal Cannula 2.5 06/04/17 19:04 36.7 93 18 168/84 (112) 97 Nasal Cannula 2.0 06/04/17 17:11 Nasal Cannula 3.0 06/04/17 15:21 36.6 114 18 158/79 (105) 100 2.0 06/04/17 14:26 106 18 98 Nasal Cannula 2.5 06/04/17 11:15 36.6 105 16 152/83 (106) 99 Nasal Cannula 2.0 06/04/17 11:00 Nasal Cannula 3.0 Lab Results: Results Past 24 Hours Test 1/5/18 05:47 Range/Units White Blood Count 1.41 4.8-10.8 K/uL Red Blood Count 2.85 4.2-5.4 M/uL Hemoglobin 9.5 12.0-16.0 g/dL Hematocrit 28.9 37-47 % Mean Corpuscular Volume 101.4 80-100 fL Mean Corpuscular Hemoglobin 33.3 25-34 pg Mean Corpuscular Hemoglobin Concent 32.9 32-36 g/dl Platelet Count 31 130-400 K/uL Mean Platelet Volume 10.6 7.4-10.4 fL RDW Standard Deviation 63.5 36.4-46.3 fL RDW Coefficient of Variation 17.1 11.5-14.5 % Neutrophils % (Manual) 86.8 % Lymphocytes % (Manual) 8.8 % Monocytes % (Manual) 4.4 % Neutrophils # (Manual) 1.22 1.4-6.5 K/uL Total Absolute Neutrophils 1.22 1.4-6.5 K/uL Lymphocytes # (Manual) 0.12 1.2-3.4 K/uL Total Absolute Lymphocytes 0.12 1.2-3.4 K/uL Monocytes # (Manual) 0.06 0.11-0.59 K/uL Toxic Granulation 2+ Toxic Vacuolation 2+ Dohle Bodies 2+ Tear Drop Cells 1+ Sodium Level 139 136-145 mmol/L Potassium Level 4.1 3.5-5.1 mmol/L Chloride Level 103 98-107 mmol/L Carbon Dioxide Level 31 21-32 mmol/L Anion Gap 5.0 3-11 mmol/L Blood Urea Nitrogen 28 7-18 mg/dl Creatinine 1.01 0.60-1.20 mg/dl Est Creatinine Clear Calc Drug Dose 51.5 ml/min Estimated GFR () 63.5 Estimated GFR (Non- 54.8 BUN/Creatinine Ratio 27.4 10-20 Random Glucose 147 70-99 mg/dl Calcium Level 8.9 8.5-10.1 mg/dl Magnesium Level 1.8 1.8-2.4 mg/dl
[2017-06-05] MEDS: GABAPENTIN 800 MG TAB PO SCH (20:43)
[2017-06-06] VITALS (13 sets, daily range): BP systolic 134–173; BP diastolic 67–88; PULSE 46–105; TEMP 36.4–37; O2SAT 94–100; BMI 38.2
[2017-06-06] MEDS: ZOLPIDEM TARTRATE 5 MG TAB PO PRN ×2 (00:42→23:13)
[2017-06-06] MEDS: LEVALBUTEROL 0.63MG/3 ML NEB INH SCH ×3 (01:50→14:25)
[2017-06-06] MEDS: METHYLPREDNISOLONE IV 40 MG in SYRINGE 0 ML IV SCH ×2 (04:28→16:06)
[2017-06-06 07:20] LABS: CALCIUM 8.7 mg/dl (8.5-10.1); CREATININE 0.81 mg/dl (0.60-1.20); POTASSIUM 3.8 mmol/L (3.5-5.1)
[2017-06-06 07:21] LABS: HEMATOCRIT 24.2 % (37-47); HEMOGLOBIN 7.9 g/dL (12.0-16.0); MEAN CORPUSCULAR HEMOGLOBIN 32.6 pg (25-34); MEAN CORPUSCULAR HGB CONC 32.6 g/dl (32-36); PLATELET COUNT 21 K/uL (130-400); RED CELL DISTRIBUTION WIDTH CV 16.7 % (11.5-14.5); RED CELL DISTRIBUTION WIDTH SD 61.1 fL (36.4-46.3); WHITE BLOOD COUNT 0.88 K/uL (4.8-10.8)
[2017-06-06] MEDS: ASPIRIN 81 MG ECTAB PO SCH (09:07)
[2017-06-06] MEDS: METOPROLOL SUCC 50MG EXT REL TAB PO SCH (09:08)
[2017-06-06] MEDS: GABAPENTIN 400 MG CAP PO SCH (09:08)
[2017-06-06] MEDS: CALCIUM 600MG + VIT D 400 IU TAB PO SCH ×2 (09:08→19:47)
[2017-06-06] MEDS: CEFEPIME IV 2,000 MG in SYRINGE 7.5 ML IV SCH ×2 (09:08→20:47)
[2017-06-06] MEDS: DEXAMETHASONE CONC SOLN 3.75 MG, NYSTATIN SUSP 30 ML, DiphenhydrAMINE HCL SYRUP 300 MG,... PO PRN ×10 (09:09→16:29)
--- NOTE | 2017-06-06 15:38 | Progress Note ---
Internal Med Progress Note Date of Service: Jun 06, 2017. Provider Documentation: SUBJECTIVE: Seen and examined at bedside Reports having a loose BM today Doing well from respiratory standpoint Less cough and SOB Mild hematuria, Hb: 7.9 today Denies chest pain, dizziness Family at bedside No other complaints OBJECTIVE: Vital Signs-as noted below Physical Exam: General Appearance:Obese, no apparent distress Head: normocephalic, Atraumatic Eyes: normal inspection, EOMI, PERRL Neck: supple, Trachea midline Respiratory/Chest: Decreased breath sounds, B/L wheezes Cardiovascular: S1, S2, No murmur Abdomen/GI:Soft, Non tender, Bowel sounds present Extremities/Musculoskelatal:normal inspection, Chronic B/L LE 2-3+ edema Neurologic/Psych:AAOX3, grossly no focal neurological deficits Skin: normal color, warm Lab data as noted below. ASSESSMENT & PLAN: Patient is a 72 yr female with PMH of metastatic lung Cancer on ongoing chemotherapy, COPD, Chronic oxygen dependency: 2.5 liters at bedtime, Crohn's disease, H/O DVT S/P IVC Filter, CKD, rheumatoid arthritis presents with SOB, cough, also was on Nitrofurantoin for recent UTI. Pneumonia Acute on chronic COPD exacerbation Chronic Oxygen dependency H/O metastatic Lung cancer Continue IV solumedrol, Vancomycin, Cefepime Continue bronchodilators Will taper steroids in AM Blood cultures: No growth to date CT for PE: Suggestive of Chronic PE, Pneumonitis, other findings as below Discussed with Pulmonary on 06/04/17 Blood cultures: No growth to date Sepsis/UTI: Urine Culture: Enterococcus faecalis Was on Nitrofurantoin as outpatient Sensitive to Vancomycin Diarrhea: Check stool for C.diff Mild hematuria: Had Ureteral stent placement Hb stable, Hold Aspirin for now Monitor Hb:7.9 today Hypomagnesemia: Replace and monitor Sinus Tachycardia: On BB, continue metoprolol 100mg daily (Increased from 50mg daily) monitor HTN: Labile Monitor Continue Metoprolol H/O metastatic lung cancer Last chemotherapy on 05/29/17 Follows with as outpatient Pancytopenia: Likely multifactorial from recent Chemotherapy, Anemia of chronic disease Monitor CBC Discussed with on 06/04/17 and one 06/06/17. Will give 1 unit PRBC today Monitor daily CBC No plan for platelet transfusion for now unless than 20K/active bleeding H/O PE/DVT: S/P IVC filter No a candidate for shelter anticoagulation given severe thrombocytopenia H/O Crohn's disease: no acute symptoms DVT Px: Refused Lovenox at time of admission SCDs given anemia, thrombocytopenia Code status FULL CODE PROCEDURES: CTA: 1. Motion compromised examination. 2. There are linear central filling defects identified in the right middle and right lower lobe pulmonary arteries, some of which contain calcifications. This is consistent with pulmonary embolus that is likely chronic. 3. Bilateral paramediastinal fibrosis, right greater than left is typical appearance for post radiation change. 4. A more focal 4 cm irregular opacity in the right lower lobe is similar in appearance to the 04/15/2017 PET examination. Differential considerations remain fibrosis, an infectious/inflammatory pneumonitis, or neoplasm. 5. Patchy airspace opacities with tree-in-bud nodularity are seen throughout the right lung. The appearance suggests an infectious/inflammatory pneumonitis. Clinical correlation will be required. Attention at follow-up is recommend. 6. 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 7. Splenomegaly. 8. Cardiomegaly and emphysema. 9. Additional findings as above. Vital Signs: Date Time Temp Pulse Resp B/P (MAP) Pulse Ox O2 Delivery O2 Flow Rate FiO2 06/06/17 15:19 36.5 105 18 134/82 (99) 94 06/06/17 14:25 98 18 96 Nasal Cannula 2.0 06/06/17 11:33 36.6 87 20 137/67 (90) 95 2.0 06/06/17 10:55 Nasal Cannula 2.0 06/06/17 07:35 103 18 96 Nasal Cannula 2.0 06/06/17 07:32 36.5 93 20 167/88 (114) 97 Nasal Cannula 2.0 06/06/17 01:51 86 18 96 Nasal Cannula 2.0 06/06/17 00:00 Nasal Cannula 3.0 06/05/17 23:01 36.7 96 18 168/89 (115) 97 Nasal Cannula 2.0 06/05/17 20:00 Nasal Cannula 3.0 06/05/17 19:59 36.9 103 20 160/82 (108) 97 Nasal Cannula 2.0 06/05/17 18:34 Nasal Cannula 3.0 1/5/18 18:18 105 18 95 Nasal Cannula 2.0 Lab Results: Results Past 24 Hours Test 06/06/17 05:41 Range/Units White Blood Count 0.88 4.8-10.8 K/uL Red Blood Count 2.42 4.2-5.4 M/uL Hemoglobin 7.9 12.0-16.0 g/dL Hematocrit 24.2 37-47 % Mean Corpuscular Volume 100.0 80-100 fL Mean Corpuscular Hemoglobin 32.6 25-34 pg Mean Corpuscular Hemoglobin Concent 32.6 32-36 g/dl Platelet Count 21 130-400 K/uL RDW Standard Deviation 61.1 36.4-46.3 fL RDW Coefficient of Variation 16.7 11.5-14.5 % Neutrophils % (Manual) 57.8 % Lymphocytes % (Manual) 32.4 % Monocytes % (Manual) 8.9 % Eosinophils % (Manual) 0.9 % Neutrophils # (Manual) 0.51 1.4-6.5 K/uL Total Absolute Neutrophils 0.51 1.4-6.5 K/uL Lymphocytes # (Manual) 0.29 1.2-3.4 K/uL Total Absolute Lymphocytes 0.29 1.2-3.4 K/uL Monocytes # (Manual) 0.08 0.11-0.59 K/uL Eosinophils # (Manual) 0.01 0-0.5 K/uL Toxic Granulation 3+ Platelet Estimate SIGNIFIC DECREASED Sodium Level 139 136-145 mmol/L Potassium Level 3.8 3.5-5.1 mmol/L Chloride Level 102 98-107 mmol/L Carbon Dioxide Level 31 21-32 mmol/L Anion Gap 6.0 3-11 mmol/L Blood Urea Nitrogen 31 7-18 mg/dl Creatinine 0.81 0.60-1.20 mg/dl Est Creatinine Clear Calc Drug Dose 62.9 ml/min Estimated GFR () 82.9 Estimated GFR (Non- 71.5 BUN/Creatinine Ratio 38.7 10-20 Random Glucose 130 70-99 mg/dl Calcium Level 8.7 8.5-10.1 mg/dl Magnesium Level 1.6 1.8-2.4 mg/dl
[2017-06-06] MEDS: MAGNESIUM SULFATE 1GM / D5W 1 GM in PREMIXED IN D5W 100 ML IV SCH ×2 (16:25→17:30)
[2017-06-06] MEDS: LACTOBACILLUS ACIDOPHILUS (FLORANEX) TAB PO SCH (17:30)
[2017-06-06] MEDS: VANCOMYCIN INJ 1,250 MG in SODIUM CHLORIDE 0.9% 250ML 250 ML IV SCH (20:47)
[2017-06-06] MEDS: GABAPENTIN 800 MG TAB PO SCH (20:48)
[2017-06-07] VITALS (13 sets, daily range): BP systolic 140–173; BP diastolic 74–83; PULSE 50–102; TEMP 36.2–36.7; O2SAT 83–97; BMI 38.3
[2017-06-07] MEDS: LEVALBUTEROL 0.63MG/3 ML NEB INH SCH ×4 (01:53→19:30)
[2017-06-07 06:44] LABS: CALCIUM 8.6 mg/dl (8.5-10.1); CREATININE 0.91 mg/dl (0.60-1.20); POTASSIUM 3.6 mmol/L (3.5-5.1)
[2017-06-07 07:06] LABS: HEMATOCRIT 28.5 % (37-47); HEMOGLOBIN 9.6 g/dL (12.0-16.0); MEAN CELL VOLUME 97.9 fL (80-100); MEAN CORPUSCULAR HGB CONC 33.7 g/dl (32-36); NUCLEATED RED BLOOD CELL ABS 0.02 K/uL (0-0); PLATELET COUNT 29 K/uL (130-400); RED CELL DISTRIBUTION WIDTH CV 17.1 % (11.5-14.5); RED CELL DISTRIBUTION WIDTH SD 60.9 fL (36.4-46.3); WHITE BLOOD COUNT 2.18 K/uL (4.8-10.8)
[2017-06-07] MEDS: CALCIUM 600MG + VIT D 400 IU TAB PO SCH ×2 (08:14→21:23)
[2017-06-07] MEDS: LACTOBACILLUS ACIDOPHILUS (FLORANEX) TAB PO SCH ×3 (08:14→16:50)
[2017-06-07] MEDS: GABAPENTIN 400 MG CAP PO SCH (08:14)
[2017-06-07] MEDS: METOPROLOL SUCC 50MG EXT REL TAB PO SCH (08:15)
[2017-06-07] MEDS: METHYLPREDNISOLONE IV 40 MG in SYRINGE 0 ML IV SCH (08:15)
[2017-06-07] MEDS: DEXAMETHASONE CONC SOLN 3.75 MG, NYSTATIN SUSP 30 ML, DiphenhydrAMINE HCL SYRUP 300 MG,... PO PRN ×10 (08:21→21:24)
--- NOTE | 2017-06-07 09:13 | Progress Note ---
Internal Med Progress Note Date of Service: Jun 07, 2017. Provider Documentation: SUBJECTIVE: Seen and examined at bedside doing well today Diarrhea, hematuria resolved Less cough Denies chest pain, SOB, dizziness No other complaints Received 1 unit PRBC yesterday OBJECTIVE: Vital Signs-as noted below Physical Exam: General Appearance:Obese, no apparent distress Head: normocephalic, Atraumatic Eyes: normal inspection, EOMI, PERRL Neck: supple, Trachea midline Respiratory/Chest: Decreased breath sounds, B/L wheezes Cardiovascular: S1, S2, No murmur Abdomen/GI:Soft, Non tender, Bowel sounds present Extremities/Musculoskelatal:normal inspection, Chronic B/L LE 2-3+ edema Neurologic/Psych:AAOX3, grossly no focal neurological deficits Skin: normal color, warm Lab data as noted below. ASSESSMENT & PLAN: Patient is a 72 yr female with PMH of metastatic lung Cancer on ongoing chemotherapy, COPD, Chronic oxygen dependency: 2.5 liters at bedtime, Crohn's disease, H/O DVT S/P IVC Filter, CKD, rheumatoid arthritis presents with SOB, cough, also was on Nitrofurantoin for recent UTI. Pneumonia Acute on chronic COPD exacerbation Chronic Oxygen dependency H/O metastatic Lung cancer Continue IV solumedrol, Vancomycin, Cefepime Continue bronchodilators Plan to taper steroids to PO when able Blood cultures: No growth to date CT for PE: Suggestive of Chronic PE, Pneumonitis, other findings as below Discussed with Pulmonary on 06/04/17 Blood cultures: No growth to date Sepsis/UTI: Urine Culture: Enterococcus faecalis Was on Nitrofurantoin as outpatient Sensitive to Vancomycin Diarrhea: Check stool for C.diff if diarrhea recurs Mild hematuria: Resolved Had Ureteral stent placement S/P 1 unit PRBC Hold Aspirin for now Monitor Hb:9.6 today Hypomagnesemia: Replace and monitor Sinus Tachycardia: On BB, continue metoprolol 100mg daily (Increased from 50mg daily) monitor HTN: Labile Monitor Continue Metoprolol H/O metastatic lung cancer Last chemotherapy on 05/29/17 Follows with as outpatient Pancytopenia: Likely multifactorial from recent Chemotherapy, Anemia of chronic disease Monitor CBC Discussed with on 06/04/17 and one 06/06/17. S/P 1 unit PRBC on 06/06/17 Monitor daily CBC No plan for platelet transfusion for now unless than 20K/active bleeding White count, platelets improving Hb:9.6 today H/O PE/DVT: S/P IVC filter No a candidate for fdc anticoagulation given severe thrombocytopenia H/O Crohn's disease: no acute symptoms DVT Px: Refused Lovenox at time of admission SCDs given anemia, thrombocytopenia Code status FULL CODE PROCEDURES: CTA: 1. Motion compromised examination. 2. There are linear central filling defects identified in the right middle and right lower lobe pulmonary arteries, some of which contain calcifications. This is consistent with pulmonary embolus that is likely chronic. 3. Bilateral paramediastinal fibrosis, right greater than left is typical appearance for post radiation change. 4. A more focal 4 cm irregular opacity in the right lower lobe is similar in appearance to the 04/15/2017 PET examination. Differential considerations remain fibrosis, an infectious/inflammatory pneumonitis, or neoplasm. 5. Patchy airspace opacities with tree-in-bud nodularity are seen throughout the right lung. The appearance suggests an infectious/inflammatory pneumonitis. Clinical correlation will be required. Attention at follow-up is recommend. 6. 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 7. Splenomegaly. 8. Cardiomegaly and emphysema. 9. Additional findings as above. Vital Signs: Date Time Temp Pulse Resp B/P (MAP) Pulse Ox O2 Delivery O2 Flow Rate FiO2 06/07/17 08:30 36.2 89 20 148/82 (104) 96 Room Air 2.0 Nasal Cannula 06/07/17 07:38 87 18 95 Nasal Cannula 2.0 06/07/17 03:24 36.3 86 18 162/74 (103) 97 2.0 06/07/17 01:53 89 18 96 Nasal Cannula 2.0 06/07/17 00:00 96 Nasal Cannula 2.5 06/06/17 23:29 36.9 93 20 164/72 (102) 94 2.0 06/06/17 19:20 36.4 92 18 162/81 100 2.0 06/06/17 19:05 36.5 93 20 162/80 97 2.0 06/06/17 18:35 36.6 46 20 173/85 96 2.0 06/06/17 18:05 36.5 98 20 172/81 98 2.0 1/6/18 17:59 Nasal Cannula 3.0 06/06/17 17:50 36.7 98 18 157/83 94 2.0 06/06/17 17:33 37.0 105 18 158/84 06/06/17 15:19 36.5 105 18 134/82 (99) 94 06/06/17 14:25 98 18 96 Nasal Cannula 2.0 06/06/17 11:33 36.6 87 20 137/67 (90) 95 2.0 06/06/17 10:55 Nasal Cannula 2.0 Lab Results: Results Past 24 Hours Test 06/07/17 05:50 Range/Units White Blood Count 2.18 4.8-10.8 K/uL Red Blood Count 2.91 4.2-5.4 M/uL Hemoglobin 9.6 12.0-16.0 g/dL Hematocrit 28.5 37-47 % Mean Corpuscular Volume 97.9 80-100 fL Mean Corpuscular Hemoglobin 33.0 25-34 pg Mean Corpuscular Hemoglobin Concent 33.7 32-36 g/dl Platelet Count 29 130-400 K/uL RDW Standard Deviation 60.9 36.4-46.3 fL RDW Coefficient of Variation 17.1 11.5-14.5 % Nucleated RBC Absolute Count (auto) 0.02 0-0 K/uL Neutrophils % (Manual) 64.9 % Lymphocytes % (Manual) 23.4 % Monocytes % (Manual) 10.8 % Eosinophils % (Manual) 0.9 % Nucleated Red Blood Cells % 0.9 % Neutrophils # (Manual) 1.41 1.4-6.5 K/uL Total Absolute Neutrophils 1.41 1.4-6.5 K/uL Lymphocytes # (Manual) 0.51 1.2-3.4 K/uL Total Absolute Lymphocytes 0.51 1.2-3.4 K/uL Monocytes # (Manual) 0.24 0.11-0.59 K/uL Eosinophils # (Manual) 0.02 0-0.5 K/uL Toxic Granulation 3+ Dohle Bodies 3+ Platelet Estimate SIGNIFIC DECREASED Tear Drop Cells 1+ Sodium Level 139 136-145 mmol/L Potassium Level 3.6 3.5-5.1 mmol/L Chloride Level 102 98-107 mmol/L Carbon Dioxide Level 30 21-32 mmol/L Anion Gap 7.0 3-11 mmol/L Blood Urea Nitrogen 33 7-18 mg/dl Creatinine 0.91 0.60-1.20 mg/dl Est Creatinine Clear Calc Drug Dose 56.0 ml/min Estimated GFR () 72.0 Estimated GFR (Non- 62.2 BUN/Creatinine Ratio 36.6 10-20 Random Glucose 121 70-99 mg/dl Calcium Level 8.6 8.5-10.1 mg/dl Magnesium Level 1.7 1.8-2.4 mg/dl
[2017-06-07] MEDS ORDERED: MAGNESIUM SULFATE 1GM / D5W 1 GM in PREMIXED IN D5W 100 ML IV ONE (09:15)
[2017-06-07] MEDS: CEFEPIME IV 2,000 MG in SYRINGE 7.5 ML IV SCH ×2 (10:22→21:22)
[2017-06-07] MEDS ORDERED: VANCOMYCIN TROUGH SCH (13:30)
[2017-06-07] MEDS ORDERED: VANCOMYCIN TROUGH ONE (16:30)
[2017-06-07] MEDS: VANCOMYCIN INJ 1,250 MG in SODIUM CHLORIDE 0.9% 250ML 250 ML IV SCH (16:48)
--- NOTE | 2017-06-07 17:52 | Pharmacy Progress Note ---
Pharmacy Abx Dose Short Note Date of Service Jun 07, 2017. Assessment & Plan Assessment 72 year old female receiving IV Vancomycin for Pneumonia (with lung cancer) & UTI, sensitive to Vancomycin (BRITTANY = 2) Day # 810 of IV Vancomycin antimicrobial therapy. Pt also receiving IV Levaquin x 7 days and IV Cefepime for pneumonia. Plan Vancomycin * Trough level of 17 mcg/mL is therapeutic. * Continue dose of 1250 mg IV every 20 hours * Goal trough level for UTI and PNX : 15 to 20 mcg/mL * Day 8 of 10, no further levels need to be checked unless therapy duration is extended. Pharmacy will continue to follow and will adjust dose/frequency as necessary. Thank you.
[2017-06-07] MEDS: GABAPENTIN 800 MG TAB PO SCH (21:23)
[2017-06-07] MEDS: MAGNESIUM CHLORIDE 64MG DELAYED REL TAB PO SCH (21:23)
[2017-06-07] MEDS: ZOLPIDEM TARTRATE 5 MG TAB PO PRN (23:50)
[2017-06-08] VITALS (11 sets, daily range): BP systolic 124–158; BP diastolic 66–83; PULSE 78–98; TEMP 36.2–36.8; O2SAT 90–100; Ht 154.9 cm; Wt 91.0 kg
[2017-06-08] MEDS: LEVALBUTEROL 0.63MG/3 ML NEB INH SCH ×4 (01:47→19:23)
[2017-06-08 07:00] LABS: HEMATOCRIT 31.8 % (37-47); HEMOGLOBIN 10.6 g/dL (12.0-16.0); MEAN CELL VOLUME 99.7 fL (80-100); MEAN CORPUSCULAR HEMOGLOBIN 33.2 pg (25-34); MEAN CORPUSCULAR HGB CONC 33.3 g/dl (32-36); RED CELL DISTRIBUTION WIDTH CV 17.4 % (11.5-14.5); RED CELL DISTRIBUTION WIDTH SD 63.6 fL (36.4-46.3); WHITE BLOOD COUNT 5.24 K/uL (4.8-10.8)
[2017-06-08 07:13] LABS: CALCIUM 8.5 mg/dl (8.5-10.1); CREATININE 0.94 mg/dl (0.60-1.20); POTASSIUM 3.4 mmol/L (3.5-5.1)
[2017-06-08 07:33] LABS: PLATELET COUNT 24 K/uL (130-400)
[2017-06-08 07:34] LABS: NUCLEATED RED BLOOD CELL ABS 0.04 K/uL (0-0)
[2017-06-08] MEDS: GABAPENTIN 400 MG CAP PO SCH (08:14)
[2017-06-08] MEDS: METHYLPREDNISOLONE IV 40 MG in SYRINGE 0 ML IV SCH (08:14)
[2017-06-08] MEDS: CALCIUM 600MG + VIT D 400 IU TAB PO SCH ×2 (08:14→20:23)
[2017-06-08] MEDS: LACTOBACILLUS ACIDOPHILUS (FLORANEX) TAB PO SCH ×3 (08:15→17:25)
[2017-06-08] MEDS: METOPROLOL SUCC 50MG EXT REL TAB PO SCH (08:15)
[2017-06-08] MEDS: MAGNESIUM CHLORIDE 64MG DELAYED REL TAB PO SCH ×2 (08:15→20:24)
[2017-06-08] MEDS: CEFEPIME IV 2,000 MG in SYRINGE 7.5 ML IV SCH ×2 (08:15→20:30)
[2017-06-08] MEDS: DEXAMETHASONE CONC SOLN 3.75 MG, NYSTATIN SUSP 30 ML, DiphenhydrAMINE HCL SYRUP 300 MG,... PO PRN ×10 (08:16→15:16)
[2017-06-08] MEDS ORDERED: POTASSIUM CHLORIDE 10 MEQ TABCR PO ONE (09:30)
[2017-06-08] MEDS: ASPIRIN 81 MG ECTAB PO SCH (11:21)
[2017-06-08] MEDS: VANCOMYCIN INJ 1,250 MG in SODIUM CHLORIDE 0.9% 250ML 250 ML IV SCH (13:19)
--- NOTE | 2017-06-08 14:04 | Progress Note ---
Internal Med Progress Note Date of Service: Jun 08, 2017. Provider Documentation: SUBJECTIVE: Seen and examined at bedside Diarrhea, hematuria resolved cough, SOB much improved Denies chest pain, dizziness No other complaints OBJECTIVE: Vital Signs-as noted below Physical Exam: General Appearance:Obese, no apparent distress Head: normocephalic, Atraumatic Eyes: normal inspection, EOMI, PERRL Neck: supple, Trachea midline Respiratory/Chest: Decreased breath sounds, CTA Cardiovascular: S1, S2, No murmur Abdomen/GI:Soft, Non tender, Bowel sounds present Extremities/Musculoskelatal:normal inspection, Chronic B/L LE 2-3+ edema Neurologic/Psych:AAOX3, grossly no focal neurological deficits Skin: normal color, warm Lab data as noted below. ASSESSMENT & PLAN: Patient is a 72 yr female with PMH of metastatic lung Cancer on ongoing chemotherapy, COPD, Chronic oxygen dependency: 2.5 liters at bedtime, Crohn's disease, H/O DVT S/P IVC Filter, CKD, rheumatoid arthritis presents with SOB, cough, also was on Nitrofurantoin for recent UTI. Pneumonia Acute on chronic COPD exacerbation Chronic Oxygen dependency: 2.5 L at bedtime H/O metastatic Lung cancer Continue IV Vancomycin, Cefepime Taper IV Solu-medrol to PO prednisone Continue bronchodilators Blood cultures: No growth to date CT for PE: Suggestive of Chronic PE, Pneumonitis, other findings as below Discussed with Pulmonary on 06/04/17 Blood cultures: No growth to date 2 step: Needs 3L of oxygen with activity Sepsis/UTI: Urine Culture: Enterococcus faecalis Was on Nitrofurantoin as outpatient Sensitive to Vancomycin Diarrhea: Check stool for C.diff if diarrhea recurs Mild hematuria: Resolved Had Ureteral stent placement S/P 1 unit PRBC Resume Aspirin today Monitor Hb:10.6 today Hypomagnesemia: Replace and monitor Sinus Tachycardia: On BB, continue metoprolol 100mg daily (Increased from 50mg daily) monitor HTN: Labile Monitor Continue Metoprolol H/O metastatic lung cancer Last chemotherapy on 05/29/17 Follows with as outpatient Pancytopenia: Likely multifactorial from recent Chemotherapy, Anemia of chronic disease Monitor CBC Discussed with on 06/04/17 and one 06/06/17. S/P 1 unit PRBC on 06/06/17 Monitor daily CBC No plan for platelet transfusion for now unless than 20K/active bleeding White count, platelets improving Hb:10.6 today H/O PE/DVT: S/P IVC filter No a candidate for [employer] anticoagulation given severe thrombocytopenia H/O Crohn's disease: no acute symptoms DVT Px: Refused Lovenox at time of admission SCDs given anemia, thrombocytopenia Code status FULL CODE Disposition: Likely discharge home tomorrow if stable PROCEDURES: CTA: 1. Motion compromised examination. 2. There are linear central filling defects identified in the right middle and right lower lobe pulmonary arteries, some of which contain calcifications. This is consistent with pulmonary embolus that is likely chronic. 3. Bilateral paramediastinal fibrosis, right greater than left is typical appearance for post radiation change. 4. A more focal 4 cm irregular opacity in the right lower lobe is similar in appearance to the 04/15/2017 PET examination. Differential considerations remain fibrosis, an infectious/inflammatory pneumonitis, or neoplasm. 5. Patchy airspace opacities with tree-in-bud nodularity are seen throughout the right lung. The appearance suggests an infectious/inflammatory pneumonitis. Clinical correlation will be required. Attention at follow-up is recommend. 6. 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 7. Splenomegaly. 8. Cardiomegaly and emphysema. 9. Additional findings as above. Vital Signs: Date Time Temp Pulse Resp B/P (MAP) Pulse Ox O2 Delivery O2 Flow Rate FiO2 06/08/17 12:01 36.2 87 18 158/83 (108) 92 3.0 06/08/17 11:02 Nasal Cannula 3.0 06/08/17 07:36 36.4 87 18 124/66 (85) 95 Nasal Cannula 2.0 06/08/17 07:25 88 18 96 Nasal Cannula 2.0 06/08/17 04:09 36.3 82 20 146/79 (101) 91 Nasal Cannula 1.0 06/08/17 01:47 90 18 94 Nasal Cannula 2.0 06/08/17 00:00 96 Nasal Cannula 2.5 06/07/17 23:09 36.6 94 18 159/74 (102) 90 Nasal Cannula 1.0 06/07/17 19:58 36.4 98 20 173/83 (113) 92 Nasal Cannula 1.0 06/07/17 19:31 50 18 92 Nasal Cannula 2.0 06/07/17 16:36 Nasal Cannula 3.0 06/07/17 15:59 36.7 102 20 173/78 (109) 97 Nasal Cannula 2.0 Lab Results: Results Past 24 Hours Test 06/07/17 16:32 06/08/17 06:15 Range/Units Vancomycin Level Trough 17.0 SEE COMMENT mcg/ml White Blood Count 5.24 4.8-10.8 K/uL Red Blood Count 3.19 4.2-5.4 M/uL Hemoglobin 10.6 12.0-16.0 g/dL Hematocrit 31.8 37-47 % Mean Corpuscular Volume 99.7 80-100 fL Mean Corpuscular Hemoglobin 33.2 25-34 pg Mean Corpuscular Hemoglobin Concent 33.3 32-36 g/dl Platelet Count 24 130-400 K/uL RDW Standard Deviation 63.6 36.4-46.3 fL RDW Coefficient of Variation 17.4 11.5-14.5 % Nucleated RBC Absolute Count (auto) 0.04 0-0 K/uL Neutrophils % (Manual) 66.7 % Lymphocytes % (Manual) 19.3 % Monocytes % (Manual) 11.4 % Eosinophils % (Manual) 2.6 % Nucleated Red Blood Cells % 0.8 % Neutrophils # (Manual) 3.50 1.4-6.5 K/uL Total Absolute Neutrophils 3.50 1.4-6.5 K/uL Lymphocytes # (Manual) 1.01 1.2-3.4 K/uL Total Absolute Lymphocytes 1.01 1.2-3.4 K/uL Monocytes # (Manual) 0.60 0.11-0.59 K/uL Eosinophils # (Manual) 0.14 0-0.5 K/uL Toxic Granulation 3+ Dohle Bodies 2+ Platelet Estimate SIGNIFIC DECREASED Sodium Level 140 136-145 mmol/L Potassium Level 3.4 3.5-5.1 mmol/L Chloride Level 104 98-107 mmol/L Carbon Dioxide Level 31 21-32 mmol/L Anion Gap 5.0 3-11 mmol/L Blood Urea Nitrogen 30 7-18 mg/dl Creatinine 0.94 0.60-1.20 mg/dl Est Creatinine Clear Calc Drug Dose 54.0 ml/min Estimated GFR () 69.3 Estimated GFR (Non- 59.8 BUN/Creatinine Ratio 32.0 10-20 Random Glucose 73 70-99 mg/dl Calcium Level 8.5 8.5-10.1 mg/dl Magnesium Level 1.7 1.8-2.4 mg/dl
[2017-06-08] MEDS: GABAPENTIN 800 MG TAB PO SCH (20:24)
[2017-06-08] MEDS: ZOLPIDEM TARTRATE 5 MG TAB PO PRN (23:39)
[2017-06-09 03:20] VITALS: BP_SYST 121; BP_SYST 162; BP_DIAS 66; BP_DIAS 72; PULSE 82; TEMP 36.3; O2SAT 93
[2017-06-09 06:00] LABS: HEMATOCRIT 32.8 % (37-47); HEMOGLOBIN 10.9 g/dL (12.0-16.0); MEAN CELL VOLUME 100.3 fL (80-100); MEAN CORPUSCULAR HEMOGLOBIN 33.3 pg (25-34); MEAN CORPUSCULAR HGB CONC 33.2 g/dl (32-36); MEAN PLATELET VOLUME 11.6 fL (7.4-10.4); NUCLEATED RED BLOOD CELL ABS 0.04 K/uL (0-0); PLATELET COUNT 28 K/uL (130-400); RED CELL DISTRIBUTION WIDTH CV 16.9 % (11.5-14.5); RED CELL DISTRIBUTION WIDTH SD 62.1 fL (36.4-46.3); WHITE BLOOD COUNT 7.13 K/uL (4.8-10.8)
[2017-06-09 06:18] LABS: CALCIUM 8.5 mg/dl (8.5-10.1); CREATININE 0.88 mg/dl (0.60-1.20); POTASSIUM 3.7 mmol/L (3.5-5.1)
[2017-06-09 07:19] VITALS: BP 159/74; PULSE 69; TEMP 36.4; O2SAT 93
[2017-06-09 07:25] VITALS: PULSE 99; O2SAT 99
[2017-06-09] MEDS: LEVALBUTEROL 0.63MG/3 ML NEB INH SCH (07:25)
[2017-06-09] MEDS: CEFEPIME IV 2,000 MG in SYRINGE 7.5 ML IV SCH (08:19)
[2017-06-09] MEDS: VANCOMYCIN INJ 1,250 MG in SODIUM CHLORIDE 0.9% 250ML 250 ML IV SCH (08:19)
[2017-06-09] MEDS: LACTOBACILLUS ACIDOPHILUS (FLORANEX) TAB PO SCH ×2 (08:29→12:30)
[2017-06-09] MEDS: ASPIRIN 81 MG ECTAB PO SCH (08:29)
[2017-06-09] MEDS: METOPROLOL SUCC 50MG EXT REL TAB PO SCH (08:29)
[2017-06-09] MEDS: MAGNESIUM CHLORIDE 64MG DELAYED REL TAB PO SCH (08:30)
[2017-06-09] MEDS: CALCIUM 600MG + VIT D 400 IU TAB PO SCH (08:30)
[2017-06-09] MEDS: GABAPENTIN 400 MG CAP PO SCH (08:30)
--- NOTE | 2017-06-09 09:11 | Progress Note ---
Internal Med Progress Note Date of Service: Jun 09, 2017. Provider Documentation: SUBJECTIVE: Seen and examined at bedside Doing much better Minimal cough Diarrhea, hematuria resolved Denies chest pain, dizziness, SOB No other complaints OBJECTIVE: Vital Signs-as noted below Physical Exam: General Appearance:Obese, no apparent distress Head: normocephalic, Atraumatic Eyes: normal inspection, EOMI, PERRL Neck: supple, Trachea midline Respiratory/Chest: Decreased breath sounds, CTA Cardiovascular: S1, S2, No murmur Abdomen/GI:Soft, Non tender, Bowel sounds present Extremities/Musculoskelatal:normal inspection, Chronic B/L LE 2-3+ edema Neurologic/Psych:AAOX3, grossly no focal neurological deficits Skin: normal color, warm Lab data as noted below. ASSESSMENT & PLAN: Patient is a 72 yr female with PMH of metastatic lung Cancer on ongoing chemotherapy, COPD, Chronic oxygen dependency: 2.5 liters at bedtime, Crohn's disease, H/O DVT S/P IVC Filter, CKD, rheumatoid arthritis presents with SOB, cough, also was on Nitrofurantoin for recent UTI. Pneumonia Acute on chronic COPD exacerbation Chronic Oxygen dependency: 2.5 L at bedtime H/O metastatic Lung cancer Continue IV Vancomycin, Cefepime Taper IV Solu-medrol to PO prednisone Continue bronchodilators Blood cultures: No growth to date CT for PE: Suggestive of Chronic PE, Pneumonitis, other findings as below Discussed with Pulmonary on 06/04/17 Blood cultures: No growth to date 2 step: Needs 3L of oxygen with activity Sepsis/UTI: Urine Culture: Enterococcus faecalis Was on Nitrofurantoin as outpatient Sensitive to Vancomycin Diarrhea: Resolved Check stool for C.diff if diarrhea recurs Mild hematuria: Resolved Had Ureteral stent placement S/P 1 unit PRBC Monitor Hb:10.9 today Hb sable while on Aspirin Hypomagnesemia: Replace and monitor Sinus Tachycardia: On BB, continue metoprolol 100mg daily (Increased from 50mg daily) monitor HTN: Labile Monitor Continue Metoprolol H/O metastatic lung cancer Last chemotherapy on 05/29/17 Follows with as outpatient Pancytopenia: Likely multifactorial from recent Chemotherapy, Anemia of chronic disease Monitor CBC Discussed with on 06/04/17 and one 06/06/17. S/P 1 unit PRBC on 06/06/17 Monitor daily CBC No plan for platelet transfusion for now unless than 20K/active bleeding White count normalized Platelet count improving Hb:10.9 today H/O PE/DVT: S/P IVC filter No a candidate for [facility] anticoagulation given severe thrombocytopenia H/O Crohn's disease: no acute symptoms DVT Px: Refused Lovenox at time of admission SCDs given anemia, thrombocytopenia Code status FULL CODE Disposition: Plan to discharge home today Follow up with your PCP Dr.Manisha Sanabria on 06/16/17 at 11:00AM Follow up with your Oncologist Dr. Franc Sanabria on 06/24/17 a 10:15AM Complete the Prednisone course and Antibiotic course as prescribed Use oxygen 3 liters via Nasal cannula with activity Seek immediate medical attention if your symptoms reoccur or worsen PROCEDURES: CTA: 1. Motion compromised examination. 2. There are linear central filling defects identified in the right middle and right lower lobe pulmonary arteries, some of which contain calcifications. This is consistent with pulmonary embolus that is likely chronic. 3. Bilateral paramediastinal fibrosis, right greater than left is typical appearance for post radiation change. 4. A more focal 4 cm irregular opacity in the right lower lobe is similar in appearance to the 04/15/2017 PET examination. Differential considerations remain fibrosis, an infectious/inflammatory pneumonitis, or neoplasm. 5. Patchy airspace opacities with tree-in-bud nodularity are seen throughout the right lung. The appearance suggests an infectious/inflammatory pneumonitis. Clinical correlation will be required. Attention at follow-up is recommend. 6. 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 7. Splenomegaly. 8. Cardiomegaly and emphysema. 9. Additional findings as above. Vital Signs: Date Time Temp Pulse Resp B/P (MAP) Pulse Ox O2 Delivery O2 Flow Rate FiO2 06/09/17 07:25 99 18 99 Nasal Cannula 3.0 06/09/17 07:19 36.4 69 17 159/74 (102) 93 3.0 06/09/17 03:20 36.3 82 18 162/66 (98) 93 Humidified Oxygen 2.0 06/09/17 00:00 Nasal Cannula 3.0 06/08/17 23:00 36.4 98 16 154/72 (99) 97 Humidified Oxygen 2.0 06/08/17 19:35 36.7 95 20 146/79 (101) 100 Room Air 06/08/17 19:24 86 18 93 Nasal Cannula 3.0 06/08/17 16:47 Nasal Cannula 3.0 06/08/17 15:20 36.6 78 06/08/17 15:20 36.8 90 18 149/82 (104) 90 3.0 06/08/17 14:34 86 18 93 Nasal Cannula 3.0 06/08/17 12:01 36.2 87 18 158/83 (108) 92 3.0 06/08/17 11:02 Nasal Cannula 3.0 Lab Results: Results Past 24 Hours Test 06/09/17 05:26 Range/Units White Blood Count 7.13 4.8-10.8 K/uL Red Blood Count 3.27 4.2-5.4 M/uL Hemoglobin 10.9 12.0-16.0 g/dL Hematocrit 32.8 37-47 % Mean Corpuscular Volume 100.3 80-100 fL Mean Corpuscular Hemoglobin 33.3 25-34 pg Mean Corpuscular Hemoglobin Concent 33.2 32-36 g/dl Platelet Count 28 130-400 K/uL Mean Platelet Volume 11.6 7.4-10.4 fL RDW Standard Deviation 62.1 36.4-46.3 fL RDW Coefficient of Variation 16.9 11.5-14.5 % Nucleated RBC Absolute Count (auto) 0.04 0-0 K/uL Neutrophils % (Manual) 72.5 % Lymphocytes % (Manual) 14.2 % Monocytes % (Manual) 11.5 % Eosinophils % (Manual) 1.8 % Nucleated Red Blood Cells % 0.6 % Neutrophils # (Manual) 5.17 1.4-6.5 K/uL Total Absolute Neutrophils 5.17 1.4-6.5 K/uL Lymphocytes # (Manual) 1.01 1.2-3.4 K/uL Total Absolute Lymphocytes 1.01 1.2-3.4 K/uL Monocytes # (Manual) 0.82 0.11-0.59 K/uL Eosinophils # (Manual) 0.13 0-0.5 K/uL Toxic Granulation 1+ Dohle Bodies 2+ Tear Drop Cells 1+ Ovalocytes 1+ Sodium Level 141 136-145 mmol/L Potassium Level 3.7 3.5-5.1 mmol/L Chloride Level 103 98-107 mmol/L Carbon Dioxide Level 34 21-32 mmol/L Anion Gap 4.0 3-11 mmol/L Blood Urea Nitrogen 28 7-18 mg/dl Creatinine 0.88 0.60-1.20 mg/dl Est Creatinine Clear Calc Drug Dose 57.7 ml/min Estimated GFR () 75.0 Estimated GFR (Non- 64.7 BUN/Creatinine Ratio 31.6 10-20 Random Glucose 72 70-99 mg/dl Calcium Level 8.5 8.5-10.1 mg/dl Magnesium Level 1.6 1.8-2.4 mg/dl
[2017-06-09] MEDS ORDERED: LCTX PO (09:20)
[2017-06-09] MEDS ORDERED: IPRASOL4 NEB ×2 (09:20→10:17)
[2017-06-09] MEDS ORDERED: PRED10TA PO (09:20)
[2017-06-09] MEDS ORDERED: BENZ100C7 PO (09:20)
[2017-06-09] MEDS ORDERED: LVQ750 PO (09:20)
[2017-06-09] MEDS ORDERED: VNTHFA/IN INH (09:20)
[2017-06-09] MEDS ORDERED: SLWMEC PO (09:20)
--- NOTE | 2017-06-09 09:24 | Discharge Summary ---
Discharge Summary Date of Service Jun 09, 2017. Discharge Summary Admission Date: May 31, 2017 at 13:35 Discharge Date: Jun 09, 2017 Discharge Disposition: Home Principal Diagnosis: UTI, Pneumonia, COPD exacerbation Secondary Diagnoses/Problems: Lung Cancer Procedures: CT ABD: 1. Right ureteral stent in good position. 2. No evidence for hydronephrosis or obstructive change to the urinary tracts. 3. Nonobstructive bowel pattern. 4. Multiple hepatic hypodensities unchanged from the prior study. 5. Blastic metastatic disease to the osseous structures are stable. 6. Interval parenchymal infiltrative change with a distinctly nodular pattern right lung base. This may be inflammatory, neoplastic, or a combination of the 2 entities. The left base is clear. CTA: 1. Motion compromised examination. 2. There are linear central filling defects identified in the right middle and right lower lobe pulmonary arteries, some of which contain calcifications. This is consistent with pulmonary embolus that is likely chronic. 3. Bilateral paramediastinal fibrosis, right greater than left is typical appearance for post radiation change. 4. A more focal 4 cm irregular opacity in the right lower lobe is similar in appearance to the 04/15/2017 PET examination. Differential considerations remain fibrosis, an infectious/inflammatory pneumonitis, or neoplasm. 5. Patchy airspace opacities with tree-in-bud nodularity are seen throughout the right lung. The appearance suggests an infectious/inflammatory pneumonitis. Clinical correlation will be required. Attention at follow-up is recommend. 6. 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 7. Splenomegaly. 8. Cardiomegaly and emphysema. 9. Additional findings as above. Consultations: None Pending Studies/Follow-Up: Follow up with your PCP Dr.Manisha Sanabria on 06/16/17 at 11:00AM Follow up with your Oncologist Dr. Franc Sanabria on 06/24/17 a 10:15AM Follow up with your Plug Grower in 2 weeks Complete the Prednisone course and Antibiotic course as prescribed Use oxygen 3 liters via Nasal cannula with activity Seek immediate medical attention if your symptoms reoccur or worsen Prednisone course: Start taking prednisone 30mg daily for 3 days, then 20mg for 3 days, then 10mg for 3 days, then resume your home prednisone dose of 10mg every 48 hours Medication Reconciliation New Medications: Levofloxacin (Levofloxacin) 750 Mg Tab 750 MG PO DAILY for 2 Days, #2 TABS Prednisone Tab (Prednisone) 10 Mg Tab 10 MG PO UD for 9 Days, #18 TAB Start taking 30mg daily for 3 days, then 20mg daily for 3 days, then 10mg daily for 3 days Benzonatate (Benzonatate) 100 Mg Cap 100 MG PO TID PRN for Cough for 5 Days, #15 CAP Lactobacillus Acidophilus (Floranex) 1 Tab Tab 4 TAB PO TIDM for 5 Days, #15 TAB Magnesium Chloride (Slow-Mag Tab) 64 Mg Tabcr 64 MG PO BID for 7 Days, #14 EA Continued Medications: Albuterol Hfa (Ventolin Hfa) 200 Puffs/76910 Mcg Aers 2 PUFFS INH Q6H PRN for Shortness of Breath for 30 Days, #1 INHALER 1 Refill ( This prescription has been renewed) Aspirin (Aspirin Ec) 81 Mg Tab 81 MG PO DAILY Calcium Carbonate-Vitamin D (Calcium + D) 1 Tab Tab 1 TAB PO BID Gabapentin (Neurontin) 400 Mg Cap 800 MG PO HS, CAP Gabapentin (Neurontin) 400 Mg Cap 400 MG PO QAM, CAP Ipratropium-Albuterol (Duoneb) 3 Ml Nebu 1 TREATMENT NEB BID PRN for Shortness of Breath for 30 Days, #1 INHA 1 Refill ( This prescription has been renewed) Mesalamine (Asacol Hd) 800 Mg Tab 800 MG PO QAM Mesalamine (Asacol Hd) 800 Mg Tab 1600 MG PO HS Metoprolol Succinate (Toprol Xl) 50 Mg Tabcr 50 MG PO QAM, TAB Ondansetron Hcl (Zofran) 4 Mg Tab 4 MG PO Q8 PRN for Nausea, TAB Prednisone Tab (Prednisone) 10 Mg Tab 10 MG PO Q48H, TAB Prochlorperazine Maleate (Compazine) 10 Mg Tab 10 MG PO UD PRN for Nausea, TAB Tramadol (Ultram) 50 Mg Tab 50 MG PO BID PRN for Pain, TAB Discontinued Medications: Nitrofurantoin Macrocrystals (Macrodantin) 100 Mg Cap 100 MG PO BID Admission Information HPI (per Admitting provider): PRIMARY CARE PHYSICIAN: Dr. Suzanne Sanabria. CHIEF COMPLAINT: Shortness of breath with cough since Thursday with yellow phlegm. HISTORY OF PRESENT COMPLAINT: She is a 72-year-old female with significant past medical history of CA of the lung with metastasis, has been ongoing chemo, COPD, Crohn's disease, chronic kidney disease, rheumatoid arthritis and also other medical conditions as listed below, apparently has been complaining of more shortness of breath with cough and productive of yellow phlegm since Thursday. Apparently, she got chemo that was finished on Thursday, 3-day administration of medications and since Thursday, she has been having this complaint. She is generally weak and lethargic and this morning, her condition got worse and then she was brought into the Emergency Room. She was seen by her primary care physician on Thursday as well for UTI symptoms and she was diagnosed to have enterococci UTI and she was prescribed nitrofurantoin, which she has taken about 3 doses. She does not have any symptoms of UTI at this time, but we will have to treat that with vancomycin, I believe. No headache. No blurred vision. No numbness or tingling in the extremities. No weakness involving any side. No chest pain or palpitation. No abdominal pain or nausea. No vomiting and no problem with ambulation. Physical Exam (per Admitting): PHYSICAL EXAMINATION: GENERAL: On examination in the Emergency Room, she was still having some shortness of breath. VITAL SIGNS: Temperature 36.5, pulse was 125, blood pressure 134/77, and saturation 97% on room air. HEENT: Unremarkable. NECK: Supple. No JVD and no bruit. CHEST: Coarse crackles in the right base. Otherwise, decreased breath sounds. HEART: S1 and S2 regular. ABDOMEN: Soft, benign, and nontender. No organomegaly. Bowel sounds present. EXTREMITIES: Chronic edema bilaterally, nothing more than usual. MUSCULOSKELETAL SYSTEM: Did not show any acute arthritis involving any joint. CENTRAL NERVOUS SYSTEM: She was alert, awake, and oriented x3. No focal sensory and/or motor deficit appreciated. Hospital Course Patient is a 72 yr female with PMH of metastatic lung Cancer on ongoing chemotherapy, COPD, Chronic oxygen dependency: 2.5 liters at bedtime, Crohn's disease, H/O DVT S/P IVC Filter, CKD, rheumatoid arthritis presents with SOB, cough, also was on Nitrofurantoin for recent UTI. Pneumonia Acute on chronic COPD exacerbation Chronic Oxygen dependency: 2.5 L at bedtime H/O metastatic Lung cancer Continue IV Vancomycin, Cefepime Taper IV Solu-medrol to PO prednisone Continue bronchodilators Blood cultures: No growth to date CT for PE: Suggestive of Chronic PE, Pneumonitis, other findings as below Discussed with Pulmonary on 06/04/17 Blood cultures: No growth to date 2 step: Needs 3L of oxygen with activity Sepsis/UTI: Urine Culture: Enterococcus faecalis Was on Nitrofurantoin as outpatient Sensitive to Vancomycin Diarrhea: Resolved Check stool for C.diff if diarrhea recurs Mild hematuria: Resolved Had Ureteral stent placement S/P 1 unit PRBC Monitor Hb:10.9 today Hb sable while on Aspirin Hypomagnesemia: Replace and monitor Sinus Tachycardia: On BB, continue metoprolol 100mg daily (Increased from 50mg daily) monitor HTN: Labile Monitor Continue Metoprolol H/O metastatic lung cancer Last chemotherapy on 05/29/17 Follows with as outpatient Pancytopenia: Likely multifactorial from recent Chemotherapy, Anemia of chronic disease Monitor CBC Discussed with on 06/04/17 and one 06/06/17. S/P 1 unit PRBC on 06/06/17 Monitor daily CBC No plan for platelet transfusion for now unless than 20K/active bleeding White count normalized Platelet count improving Hb:10.9 today H/O PE/DVT: S/P IVC filter No a candidate for terminal system operator anticoagulation given severe thrombocytopenia H/O Crohn's disease: no acute symptoms DVT Px: Refused Lovenox at time of admission SCDs given anemia, thrombocytopenia Code status FULL CODE Disposition: Plan to discharge home today Follow up with your PCP Dr.Manisha Sanabria on 06/16/17 at 11:00AM Follow up with your Oncologist Dr. Franc Sanabria on 06/24/17 a 10:15AM Complete the Prednisone course and Antibiotic course as prescribed Use oxygen 3 liters via Nasal cannula with activity Seek immediate medical attention if your symptoms reoccur or worsen PROCEDURES: CTA: 1. Motion compromised examination. 2. There are linear central filling defects identified in the right middle and right lower lobe pulmonary arteries, some of which contain calcifications. This is consistent with pulmonary embolus that is likely chronic. 3. Bilateral paramediastinal fibrosis, right greater than left is typical appearance for post radiation change. 4. A more focal 4 cm irregular opacity in the right lower lobe is similar in appearance to the 04/15/2017 PET examination. Differential considerations remain fibrosis, an infectious/inflammatory pneumonitis, or neoplasm. 5. Patchy airspace opacities with tree-in-bud nodularity are seen throughout the right lung. The appearance suggests an infectious/inflammatory pneumonitis. Clinical correlation will be required. Attention at follow-up is recommend. 6. 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 7. Splenomegaly. 8. Cardiomegaly and emphysema. 9. Additional findings as above. Total time spent on discharge = 33 minutes This includes examination of the patient, discharge planning, medication reconciliation, and communication with other providers. Discharge Instructions Discharge Instructions Date of Service Jun 09, 2017. Admission Reason for Admission: Enterococcus Uti, Pneumonia, Metastatic Discharge Discharge Diagnosis / Problem: UTI, Pneumonia, COPD exacerbation Discharge Goals Goal(s): Decrease discomfort, Improve function Activity Recommendations Activity Limitations: resume your previous activity Exercise/Sports Limitations: as tolerated . Instructions / Follow-Up Instructions / Follow-Up Follow up with your PCP Dr.Manisha Sanabria on 06/16/17 at 11:00AM Follow up with your Oncologist Dr. Franc Sanabria on 06/24/17 a 10:15AM Follow up with your Plug Grower in 2 weeks Complete the Prednisone course and Antibiotic course as prescribed Use oxygen 3 liters via Nasal cannula with activity Seek immediate medical attention if your symptoms reoccur or worsen Prednisone course: Start taking prednisone 30mg daily for 3 days, then 20mg for 3 days, then 10mg for 3 days, then resume your home prednisone dose of 10mg every 48 hours Current Hospital Diet Patient's current hospital diet: Regular Diet Discharge Diet Recommended Diet: Regular Diet Pending Studies Studies pending at discharge: no Medical Emergencies . Who to Call and When: Medical Emergencies: If at any time you feel your situation is an emergency, please call 911 immediately. . Non-Emergent Contact Non-Emergency issues call your: Primary Care Provider, Oncologist Call Non-Emergent contact if: you have a fever, your pain is not controlled, your pain is worsening, your pain is unusual for you, your pain is concerning you, you have any medication questions Seek immediate medical attention if your symptoms reoccur or worsen . . "Provider Documentation" section prepared by Quang Thomas. . VTE Core Measure Inpt VTE Proph given/why not?: SCD's
[2017-06-09] MEDS: DEXAMETHASONE CONC SOLN 3.75 MG, NYSTATIN SUSP 30 ML, DiphenhydrAMINE HCL SYRUP 300 MG,... PO PRN ×5 (10:49)
[2017-06-09 11:11] VITALS: BP 159/74; PULSE 99; TEMP 36.4; O2SAT 99
== END 2017-06-09 13:09 | disposition home or self-care (01) | DRG 871 ==
LOC: EDBD 08:30 → C.EDA 08:30 → C.4E 13:35 → ENRESERV 13:47 → CANRESERV 13:47 → ENRESERV 13:51
PROVIDERS: ADMIT Internal Medicine; ATTEND Hospitalist
DX: A41.81 Sepsis due to Enterococcus (principal); J18.9 Pneumonia, unspecified organism; J44.1 Chronic obstructive pulmonary disease with (acute) exacerbation; N39.0 Urinary tract infection, site not specified; C34.90 Malignant neoplasm of unspecified part of unspecified bronchus or lung; C79.51 Secondary malignant neoplasm of bone; C78.7 Secondary malignant neoplasm of liver and intrahepatic bile duct; K50.90 Crohn's disease, unspecified, without complications; J44.0 Chronic obstructive pulmonary disease with (acute) lower respiratory infection; Z80.3 Family history of malignant neoplasm of breast; E83.42 Hypomagnesemia; R00.0 Tachycardia, unspecified; Z95.828 Presence of other vascular implants and grafts; M06.9 Rheumatoid arthritis, unspecified; Z79.52 Long term (current) use of systemic steroids; Z87.891 Personal history of nicotine dependence; B95.2 Enterococcus as the cause of diseases classified elsewhere; Z99.81 Dependence on supplemental oxygen

== ENCOUNTER 2017-07-21 11:35 | Emergency (ER) | payer OTHER ==
[~2017-07-21] VITALS: Ht 154.9 cm; Wt 92.0 kg
[~2017-07-21 11:35] MED LIST changes: +BENZ100C7 PO; -FLUT1INH7 INH; +GABA-1220 PO; -GABA1CAP5 PO; +LCTX PO; +LVQ750 PO; +MESA800T5 PO; +SLWMEC PO; -SULF-302 PO
[2017-07-21 11:37] VITALS: Ht 154.9 cm; Wt 92.0 kg
[2017-07-21] MEDS ORDERED: CEFTRIAXONE SOD INJ 1 GM ADDVIAL IV STA (12:24)
--- NOTE | 2017-07-21 12:54 | DIAGNOSTIC IMAGING REPORT ---
CHEST ONE VIEW PORTABLE CLINICAL HISTORY: Fever. Sepsis. Lung cancer. COMPARISON STUDY: Chest CT June 04, 2017. FINDINGS: A right subclavian [id number] remains in place. Right hemithorax volume loss is unchanged. Right perihilar and right apical opacities remain unchanged. Left upper lung opacity has slightly increased. There is no evidence for pulmonary edema. IMPRESSION: 1. No change in right perihilar and right apical irregular opacities since chest CT of June 04, 2017. 2. Interval increase in left upper lung opacity. While this could reflect summation artifact with skeletal structures, a small pneumonia could have this appearance. Electronically signed by: Thomas Polanco M.D. 07/21/2017 12:53 PM Dictated Date/Time: 07/21/2017 12:50 PM
[2017-07-21] MEDS ORDERED: LEVOFLOXACIN 250 MG TAB PO STA (13:02)
[2017-07-21 13:55] VITALS: TEMP 37.6
[2017-07-21 14:23] LABS: CALCIUM 8.7 mg/dl (8.5-10.1); CREATININE 1.26 mg/dl (0.60-1.20)
[2017-07-21] MEDS ORDERED: CIPR1TAB10 PO (14:46)
[2017-07-21] MEDS ORDERED: FLUT1INH INH (14:46)
[2017-07-21] MEDS ORDERED: LEVO-366 PO (16:07)
--- NOTE | 2017-07-21 16:08 | EMERGENCY ROOM VISIT NOTE ---
History Report prepared by Sammyibperri: Cordell Toscano Under the Supervision of: Dr. Yordy Clark D.O. First contact with patient: 12:16 Chief Complaint: URINARY SYMPTOMS Stated Complaint: UTI, CHILLS, FEVER Nursing Triage Summary: pt has been dx with uti last thursday and has been on abx, pt called pmd today bc she was concerned about getting sepsis again and they told her to come here to the eD History of Present Illness The patient is a 72 year old female who presents to the Emergency Room with complaints of intermittent generalized chills beginning two days ago. She also complains of cough, lower back pain, and urinary symptoms. The patient had a stent placed in her right ureter last week. She was diagnosed with a UTI last week as well and was started on Ciprofloxacin four days ago. She has a history of sepsis and is concerned she may have it again. The patient denies fevers, nausea, or vomiting. She notes that she saw her magnaflux operator last week and has been using nebulizers four times a day. Source of History: patient Onset: two days ago Position: other (generalized) Quality: other (chills) Timing: intermittent Associated Symptoms: + cough, + back pain (lower), + urinary symptoms, No fevers, No nausea, No vomiting Review of Systems See HPI for pertinent positives & negatives. A total of 10 systems reviewed and were otherwise negative. Past Medical & Surgical Medical Problems: (1) Anemia (2) Cancer associated pain (3) Carcinoma of lung (4) COPD (chronic obstructive pulmonary disease) (5) DVT (deep venous thrombosis) (6) Enterococcus UTI (7) Lung cancer (8) Metastatic lung cancer (metastasis from lung to other site) (9) Pneumonia (10) Positive blood culture (11) Presence of inferior vena cava filter (12) Retained ureteral stent (13) Vasovagal episode Family History Hypertension Social History Smoking Status: Former Smoker Alcohol Use: none Drug Use: none Marital Status: Housing Status: lives with significant other Occupation Status: retired Current/Historical Medications Scheduled Aspirin (Aspirin Ec), 81 MG PO DAILY Calcium Carbonate-Vitamin D (Calcium + D), 1 TAB PO BID Ciprofloxacin Hcl (Cipro), 500 MG PO BID Fluticasone Furoate-Vilanterol (Breo Ellipta), 1 PUFF INH DAILY Gabapentin (Neurontin), 800 MG PO HS Gabapentin (Neurontin), 400 MG PO QAM Levofloxacin (Levaquin), 500 MG PO DAILY Mesalamine (Asacol Hd), 800 MG PO QAM Metoprolol Succinate (Toprol Xl), 50 MG PO QAM Scheduled PRN Albuterol Hfa (Ventolin Hfa), 2 PUFFS INH Q6H PRN for Shortness of Breath Ipratropium-Albuterol (Duoneb), 1 TREATMENT NEB BID PRN for Shortness of Breath Ondansetron Hcl (Zofran), 4 MG PO Q8 PRN for Nausea Prochlorperazine Maleate (Compazine), 10 MG PO UD PRN for Nausea Tramadol (Ultram), 50 MG PO BID PRN for Pain Allergies Coded Allergies: Piperacillin (Verified Allergy, Severe, Throat swelling/tightness; hives, 07/21/17) Tazobactam (Verified Allergy, Severe, Throat swelling/tightness; hives, ) Physical Exam Vital Signs Date Time Temp Pulse Resp B/P (MAP) Pulse Ox O2 Delivery O2 Flow Rate FiO2 07/21/17 16:00 97 20 121/67 98 07/21/17 15:30 98 18 144/67 07/21/17 13:55 37.6 99 20 122/49 100 Nasal Cannula 3.0 07/21/17 13:03 102 16 115/71 96 Nasal Cannula 3.0 07/21/17 12:55 99 07/21/17 12:44 37.4 98 16 101/64 99 Room Air 3.0 07/21/17 11:37 37.0 108 20 114/61 99 Nasal Cannula 2.0 Physical Exam CONSTITUTIONAL/VITAL SIGNS: Reviewed / noted above. GENERAL: Non-toxic in appearance. INTEGUMENTARY: Warm, dry, and [place]. HEAD: Normocephalic. EYES: without scleral icterus or trauma. ENT/OROPHARYNX: clear and moist. LYMPHADENOPATHY/NECK: Is supple without lymphadenopathy or meningismus. RESPIRATORY: Lungs clear and equal. CARDIOVASCULAR: Regular rate and rhythm. GI/ABDOMEN: Soft and nontender. No organomegaly or pulsatile mass. No rebound or guarding. Normal bowel sounds. EXTREMITIES: Warm and well perfused. BACK: No CVA tenderness. NEUROLOGICAL: Intact without focal deficits. PSYCHIATRIC: normal affect. MUSCULOSKELETAL: Normally developed with good muscle tone. Medical Decision & Procedures ER Provider Diagnostic Interpretation: Radiology results as stated below per my review and radiologist interpretation: CHEST ONE VIEW PORTABLE FINDINGS: A right subclavian Eejrzl-h-Jmce remains in place. Right hemithorax volume loss is unchanged. Right perihilar and right apical opacities remain unchanged. Left upper lung opacity has slightly increased. There is no evidence for pulmonary edema. IMPRESSION: 1. No change in right perihilar and right apical irregular opacities since chest CT of June 04, 2017. 2. Interval increase in left upper lung opacity. While this could reflect summation artifact with skeletal structures, a small pneumonia could have this appearance. Electronically signed by: Thomas Polanco M.D. 07/21/2017 12:53 PM Laboratory Results 07/21/17 13:44 Test 07/21/17 13:00 07/21/17 13:44 07/21/17 14:28 Urine Color DK YELLOW Urine Appearance CLOUDY (CLEAR) Urine pH 6.5 (4.5-7.5) Urine Specific [place] 1.021 (1.000-1.030) Urine Protein 1+ (NEG) Urine Glucose (UA) NEG (NEG) Urine Ketones TRACE (NEG) Urine Occult Blood TRACE (NEG) Urine Nitrite NEG (NEG) Urine Bilirubin NEG (NEG) Urine Urobilinogen NEG (NEG) Urine Leukocyte Esterase MODERATE (NEG) Urine WBC (Auto) >30 /hpf (0-5) Urine RBC (Auto) 5-10 /hpf (0-4) Urine Hyaline Casts (Auto) 5-10 /lpf (0-5) Urine Epithelial Cells (Auto) >30 /lpf (0-5) Urine Bacteria (Auto) NEG (NEG) Urine Renal Epithelial Cells 5-10 /lpf (0-5) Urine Yeast (Auto) BUD W/ HYPHAE (NONE PRSENT) Anion Gap 7.0 mmol/L (3-11) Est Creatinine Clear Calc Drug Dose 40.5 ml/min Estimated GFR () 48.6 Estimated GFR (Non- 41.9 BUN/Creatinine Ratio 12.2 (10-20) Calcium Level 8.7 mg/dl (8.5-10.1) Laboratory results as stated above per my review. Medications Administered Medications (Trade) Dose Ordered Sig/Nany Route Start Time Stop Time Status Last Admin Dose Admin Ceftriaxone Sodium (Rocephin Inj) 1 gm NOW STAT IV 07/21/17 12:24 07/21/17 12:25 DC 07/21/17 13:56 1 GM Levofloxacin (Levaquin Tab) 500 mg NOW STAT PO 07/21/17 13:02 07/21/17 13:04 DC 07/21/17 13:56 500 MG ED Course 1220: Previous medical records were reviewed. The patient was evaluated in room C12B. A complete history and physical examination was performed. 1250: Urine culture from [facility] obtained. Culture reveals UTI resistant to Penicillin. 1224: Ordered Rocephin Inj 1 gm IV. 1302: Ordered Levaquin Tab 500 mg PO. 1608: On reevaluation, the patient is resting comfortably. I discussed the results and findings with the patient. She verbalized agreement of the treatment plan. The patient was discharged home. Medical Decision Differential diagnosis: Etiologies such as metabolic, infection, hypo/hyperglycemia, electrolyte abnormalities, cardiac sources, intracerebral event, toxicologic, neurologic, as well as others were entertained. This is a 72-year-old female who presents to the ED with a chief complaint of chills and back pain. The patient also reports a slight cough. The patient had her right ureteral stent change last Thursday. She has this changed every 3 months. On Thursday, she was started on Cipro for UTI. The patient denies any nausea vomiting. No fevers. She states that her new symptoms started on Thursday. We did obtain a urine culture from [facility] that revealed greater than 100,000 colonies of [place] species that is sensitive to Cipro, Rocephin, cefepime and Bactrim. The patient was started on the Cipro Thursday. Her exam was relatively unremarkable. She has no specific findings. A chest x-ray was concerning for a left upper lobe opacity that might be summation versus a small pneumonia. Urine was contaminated but there was no bacteria. The patient was given IV Rocephin here and switched to Levaquin p.o. She was given her first dose. She will be discharged on this. Medication Reconcilliation Current Medication List: was personally reviewed by me Blood Pressure Screening Patient's blood pressure: Normal blood pressure Blood pressure disposition: Did not require urgent referral Impression Primary Impression: Pneumonia Scribe Attestation The scribe's documentation has been prepared under my direction and personally reviewed by me in its entirety. I confirm that the note above accurately reflects all work, treatment, procedures, and medical decision making performed by me. Departure Information Dispostion Home / Self-Care Prescriptions Levofloxacin (Levaquin) 500 Mg Tab 500 MG PO DAILY for 7 Days, #7 TAB Prov: Yordy Clark D.O. 07/21/17 Referrals Suzanne Sanabria M.D. (PCP) Patient Instructions My [facility] Additional Instructions Levaquin as prescribed. Follow-up with your doctor for further care and evaluation in 1-2 days. Return to the emergency department for worsening or new symptoms or any concerns. You have been examined and treated today on an emergency basis only. This is not a substitute for, or an effort to provide, complete comprehensive medical care. It is impossible to recognize and treat all injuries or illnesses in a single emergency department visit. It is therefore important that you follow up closely with your doctor. Call as soon as possible for an appointment.
[2017-07-21 16:57] VITALS: BP 133/58; PULSE 78; O2SAT 96
[2017-07-21 18:05] LABS: HEMATOCRIT 28.8 % (37-47); HEMOGLOBIN 9.6 g/dL (12.0-16.0); MEAN CORPUSCULAR HGB CONC 33.3 g/dl (32-36); RED CELL DISTRIBUTION WIDTH CV 14.9 % (11.5-14.5); RED CELL DISTRIBUTION WIDTH SD 52.6 fL (36.4-46.3); WHITE BLOOD COUNT 2.73 K/uL (4.8-10.8)
[2017-07-21 18:22] LABS: BASO % 1.1 %; BASO ABS # 0.03 K/uL (0-0.2); EOS % 3.7 %; IG# 0.01 K/uL (0.00-0.02); LYMPH % 32.6 %; LYMPH ABS # 0.89 K/uL (1.2-3.4); MEAN PLATELET VOLUME 9.9 fL (7.4-10.4); MONO % 15.4 %; MONO ABS # 0.42 K/uL (0.11-0.59); NEUT % 46.8 %; NEUT ABS # 1.28 K/uL (1.4-6.5); PLATELET COUNT 94 K/uL (130-400)
== END 2017-07-21 16:58 | disposition home or self-care (01) ==
LOC: C.EDB 11:36 → C.EDC 16:58
DX: J18.9 Pneumonia, unspecified organism (principal); D64.9 Anemia, unspecified; C34.90 Malignant neoplasm of unspecified part of unspecified bronchus or lung; J44.9 Chronic obstructive pulmonary disease, unspecified; Z87.891 Personal history of nicotine dependence; Z79.82 Long term (current) use of aspirin; Z88.0 Allergy status to penicillin; Z88.8 Allergy status to other drugs, medicaments and biological substances

== ENCOUNTER → 2017-08-05 | Outpatient (CLI) | payer OTHER ==
[~2017-08-05] MED LIST changes: -BENZ100C7 PO; +CIPR1TAB10 PO; +FLUT1INH INH; -LCTX PO; -LVQ750 PO; -MESA800T5 PO; -PRED10TA PO; -SLWMEC PO
--- NOTE | 2017-08-05 14:30 | DIAGNOSTIC IMAGING REPORT ---
PET/CT SKULL-THIGH CLINICAL HISTORY: 72 years-old Female presenting with SMALL CELL LUNG CA, last chemotherapy May 2017 and last radiation July 2016. TECHNIQUE: PET/CT was performed from the base of the skull through the proximal thighs following the intravenous administration of 10.4 mCi of F18-FDG. Blood glucose level 134 mg/dL. The injection was performed at 12 1:00 PM and imaging began at 1:[address] was performed for attenuation correction purposes and anatomic localization. COMPARISON: PET/CT from 04/15/2017. CT DOSE (mGy.cm): The estimated cumulative dose is 969.17. FINDINGS: Head and neck: No FDG-avid mass in the visualized portion of the head or neck. No FDG avid or enlarged lymph nodes in the neck. Chest: Right subclavian Mediport terminates in the lower SVC. FDG avid pathologically enlarged lymph node immediately inferior to the right supraclavicular fossa along the far right lateral paratracheal region, measuring 12 mm in the short axis. Additional subcentimeter mildly FDG avid lymph node in the anterior mediastinum. Atherosclerosis of the aorta. Coronary artery and aortic valve calcification. Normal heart size. Interval development of a new small to moderate right pleural effusion. Suggestion of mildly FDG avid soft tissue nodularity overlying the right posterior 10th rib. Interval development of mildly FDG avid patchy groundglass and reticular opacities greatest in the left upper and lower lobes. Tree-in-bud nodularity also evident and more dependent portions of the left lower lobe. Bandlike reticular opacities in the right paramediastinal lung likely postradiation change. Focal FDG avid peripheral consolidation in the right lower lobe with overlying pleural thickening, new from prior. Abdomen and pelvis: Interval development of FDG avid large hepatic masses, one in the left hepatic lobe measuring over 4 cm and the largest in the right hepatic lobe measuring over 4 cm. Multiple additional hypodense photopenic lesions compatible with hepatic cysts. Overall nodular contour of the liver possibly due to underlying lesions. Infrarenal IVC filter in place. Right ureteral stent in place with a decompressed right renal collecting system. Chronic atrophy of the right kidney. Calcified photopenic hyperdense nodule in the pelvis, possibly old fat necrosis, unchanged. No FDG avid lymphadenopathy. No ascites. Atherosclerosis. Musculoskeletal: Interval development of FDG avid focal lesions in the T9 and potentially and L1. Multiple previously noted sclerotic photopenic lesions. FDG avidity and musculature likely due to muscle activation. IMPRESSION: 1. Follow-up PET/CT demonstrates interval development of FDG avid mediastinal lymphadenopathy, large hepatic metastatic lesions, and recurrent FDG avid osseous lesions. 2. Interval development of a small to moderate right pleural effusion. Suspected mildly FDG avid pleural nodularity, concerning for pleural metastases. 3. Patchy opacities throughout the left lung are most likely infectious or inflammatory. 4. Post radiation changes of the right lung. 5. Focal FDG avid peripheral consolidation in the right lower lobe is indeterminate but does raise concern for recurrent disease. Electronically signed by: Shravan Cervantes M.D. 08/05/2017 2:29 PM Dictated Date/Time: 08/05/2017 2:13 PM
== END | disposition home or self-care (01) ==
LOC: C.PET 11:10
PROVIDERS: ATTEND Physician Assistant
DX: C34.91 Malignant neoplasm of unspecified part of right bronchus or lung (principal); C78.7 Secondary malignant neoplasm of liver and intrahepatic bile duct; C79.51 Secondary malignant neoplasm of bone

== ENCOUNTER 2017-09-16 13:18 | Inpatient (IN) | payer OTHER ==
[~2017-09-16] VITALS: Ht 154.9 cm; Wt 92.7 kg
--- NOTE | 2017-09-16 13:53 | EMERGENCY ROOM VISIT NOTE ---
History First contact with patient: 13:35 Chief Complaint: DEHYDRATION Stated Complaint: CHEMO SIDE EFFECTS,DEHYDRATION Nursing Triage Summary: pt reports last dose of chemo last week reports NV since then. with abdominal pain History of Present Illness The patient is a 72 year old female who presents to the Emergency Room with complaints of diarrhea and weakness for approximately the last week. The patient has a history of liver and lung cancer. She underwent chemo last week. She typically gets very weak the week following her chemo. The diarrhea however is unusual. She denies any fever or chills. She does report nausea. No vomiting. She also reports urinary frequency. She denies any dysuria. She has a history of frequent UTIs. Review of Systems 10 system review performed and negative unless noted in HPI or below Past Medical/Surgical History Medical Problems: (1) Anemia (2) Cancer associated pain (3) COPD (chronic obstructive pulmonary disease) (4) Dehydration (5) DVT (deep venous thrombosis) (6) Enterococcus UTI (7) Lung cancer (8) Metastatic lung cancer (metastasis from lung to other site) (9) Pancytopenia (10) Pneumonia (11) Positive blood culture (12) Presence of inferior vena cava filter (13) Retained ureteral stent (14) Vasovagal episode Surgical Problems: (1) History of bronchoscopy (2) Post-operative state Family History Hypertension Social History Smoking Status: Former Smoker Alcohol Use: none Drug Use: none Marital Status: Housing Status: lives with significant other Occupation Status: retired Current/Historical Medications Scheduled Aspirin (Aspirin Ec), 81 MG PO DAILY Calcium Carbonate-Vitamin D (Calcium + D), 1 TAB PO BID Fluticasone Furoate-Vilanterol (Breo Ellipta), 1 PUFF INH DAILY Fluticasone Propionate (Nasal) (Flonase Allergy Relief), 2 SPRAYS MARCIAL DAILY Gabapentin (Neurontin), 800 MG PO HS Gabapentin (Neurontin), 400 MG PO QAM Home O2 Therapy (Oxygen), 3 LITERS NA PRN Metoprolol Succinate (Toprol Xl), 50 MG PO QAM Ondansetron Hcl (Zofran), 8 MG PO TID Sertraline Hcl (Zoloft), 25 MG PO DAILY Scheduled PRN Albuterol Hfa (Ventolin Hfa), 2 PUFFS INH Q6H PRN for Shortness of Breath Ipratropium-Albuterol (Duoneb), 1 TREATMENT NEB Q6 PRN for Shortness of Breath Prochlorperazine Maleate (Compazine), 10 MG PO Q6 PRN for Nausea Tramadol (Ultram), 50 MG PO Q8 PRN for Pain Physical Exam Vital Signs Date Time Temp Pulse Resp B/P (MAP) Pulse Ox O2 Delivery O2 Flow Rate FiO2 09/16/17 17:35 110 22 129/70 99 Nasal Cannula 2.0 09/16/17 17:02 102 09/16/17 15:06 112/34 09/16/17 14:48 101 16 100 09/16/17 14:18 105 16 100 09/16/17 13:48 110 20 98 09/16/17 13:47 110 09/16/17 13:31 36.9 114 20 92/58 99 Room Air Physical Exam VITALS: Vitals are noted on the nurse's note and reviewed by myself. Vital signs stable. GENERAL: 72-year-old female, mildly acutely and chronically ill in appearance. SKIN: The skin was without rashes, erythema, edema, or bruising. There is no tenting of the skin. HEAD: Normocephalic atraumatic. MOUTH: Mucous membranes dry. No exudate. NECK: Supple without nuchal rigidity. No lymphadenopathy. Cervical spine is nontender. No JVD. HEART: Regular rate and rhythm without murmurs gallops or rubs. LUNGS: Clear to auscultation bilaterally without wheezes, rales or rhonchi. No accessory muscle use. ABDOMEN: Positive bowel sounds x 4.Soft, diffuse tenderness to palpation without any focal tenderness or rebound. MUSCULOSKELETAL: +1 nonpitting edema in the lower extremities without any erythema, tenderness or warmth appreciated bilaterally. NEURO: Patient was alert and oriented to person place and time. Normal sensation to touch. No focal neurological deficits. Medical Decision & Procedures ER Provider Diagnostic Interpretation: CT abd/pelvis IMPRESSION: 1. Significant interval progression of disease with enlarging and new hepatic metastatic disease as well as new osseous metastatic lesions. No lymphadenopathy. 2. No acute intra-abdominal pathology. Specifically, no CT evidence of colitis. 3. Findings suggest a slowly enlarging right renal mass when comparing the current exam to CT from 12/25/2005. This is most concerning for renal cell carcinoma. 4. Right ureteral stent in place. No hydronephrosis. Reactive urothelial thickening. The report will be called/faxed according to standard departmental protocol. Electronically signed by: Shravan Cervantes M.D. 09/16/2017 4:35 PM Laboratory Results 09/16/17 14:07 Red Blood Count 2.50, Mean Corpuscular Volume 87.2, Mean Corpuscular Hemoglobin 29.6, Mean Corpuscular Hemoglobin Concent 33.9, Neutrophils (%) (Auto) 26.0, Lymphocytes (%) (Auto) 51.9, Monocytes (%) (Auto) 14.3, Eosinophils (%) (Auto) 0.0, Basophils (%) (Auto) 1.3, Neutrophils # (Auto) 0.20, Lymphocytes # (Auto) 0.40, Monocytes # (Auto) 0.11, Eosinophils # (Auto) 0.00, Basophils # (Auto) 0.01 09/16/17 14:07 Test 09/16/17 14:07 09/16/17 14:12 White Blood Count 0.77 K/uL (4.8-10.8) Red Blood Count 2.50 M/uL (4.2-5.4) Hemoglobin 7.4 g/dL (12.0-16.0) Hematocrit 21.8 % (37-47) Mean Corpuscular Volume 87.2 fL (80-100) Mean Corpuscular Hemoglobin 29.6 pg (25-34) Mean Corpuscular Hemoglobin Concent 33.9 g/dl (32-36) Platelet Count 20 K/uL (130-400) Neutrophils (%) (Auto) 26.0 % Lymphocytes (%) (Auto) 51.9 % Monocytes (%) (Auto) 14.3 % Eosinophils (%) (Auto) 0.0 % Basophils (%) (Auto) 1.3 % Neutrophils # (Auto) 0.20 K/uL (1.4-6.5) Lymphocytes # (Auto) 0.40 K/uL (1.2-3.4) Monocytes # (Auto) 0.11 K/uL (0.11-0.59) Eosinophils # (Auto) 0.00 K/uL (0-0.5) Basophils # (Auto) 0.01 K/uL (0-0.2) RDW Standard Deviation 55.8 fL (36.4-46.3) RDW Coefficient of Variation 17.5 % (11.5-14.5) Immature Granulocyte % (Auto) 6.5 % Immature Granulocyte # (Auto) 0.05 K/uL (0.00-0.02) Toxic Granulation 3+ Dohle Bodies 2+ Platelet Estimate SIGNIFIC DECREASED Giant Platelets 3+ Anion Gap 9.0 mmol/L (3-11) Estimated GFR () 48.6 Estimated GFR (Non- 41.9 BUN/Creatinine Ratio 13.7 (10-20) Lactic Acid Level 1.0 mmol/L (0.4-2.0) Calcium Level 7.8 mg/dl (8.5-10.1) Magnesium Level 1.6 mg/dl (1.8-2.4) Total Bilirubin 0.8 mg/dl (0.2-1) Aspartate Amino Transf (AST/SGOT) 12 U/L (15-37) Alanine Aminotransferase (ALT/SGPT) 14 U/L (12-78) Alkaline Phosphatase 70 U/L (45-117) Total Protein 5.9 gm/dl (6.4-8.2) Albumin 2.5 gm/dl (3.4-5.0) Globulin 3.4 gm/dl (2.5-4.0) Albumin/Globulin Ratio 0.7 (0.9-2) Lipase 103 U/L (73-393) Prothrombin Time 10.9 SECONDS (9.0-12.0) Prothromb Time International Ratio 1.0 (0.9-1.1) Date/Time Source Procedure Growth Status 09/16/17 15:45 Stool C.difficile Toxin B Gene (PCR) - Final No C. difficile toxin B gene detected Complete Medications Administered Medications (Trade) Dose Ordered Sig/Nany Route Start Time Stop Time Status Last Admin Dose Admin Sodium Chloride 1,000 ml @ 999 mls/hr Q1H1M ONCE IV 09/16/17 14:00 09/16/17 15:00 DC 09/16/17 14:08 999 MLS/HR Ondansetron HCl (Zofran Inj) 4 mg Q2H PRN IV 09/16/17 14:00 09/16/17 19:40 DC 09/16/17 14:08 4 MG ED Course Patient was seen and examined Vital signs including blood pressure were reviewed medications list was verified with patient Labs were obtained, and a saline lock was established The patient was hydrated with 1 L of normal saline. She was given Zofran 4 mg IV for nausea Upon reevaluation, the patient was resting comfortably. I discussed her workup with the patient and the patient's daughter. They voiced understanding, were comfortable being admitted to the hospital for further workup and treatment. The case was discussed with case management and subsequently the [facility] who kindly agreed to admit the patient Medical Decision Differential diagnosis: Adverse medication reaction, colitis, viral versus bacterial gastroenteritis, UTI, This patient is a 72-year-old female presents to the emergency department with weakness, dehydration and diarrhea after receiving chemotherapy last week. On exam, she was dehydrated. She had diffuse mild tenderness of the abdomen. Her workup reveals pancytopenia. CT did not have any acute findings. Unfortunately , the malignancy is spreading. Given the pancytopenia and persistent diarrhea, I do not feel comfortable discharging the patient home. I believe she likely needs to be admitted to the hospital for further workup and treatment. This chart was completed in part utilizing [employer] Speech Voice Recognition software. Attempts were made to minimize the grammatical errors, random word insertions, pronoun errors and incomplete sentences. Any formal questions or concerns about the content, text or information contained within the body of this dictation should be directly addressed to the provider for clarification. Medication Reconcilliation Current Medication List: was personally reviewed by me Blood Pressure Screening Patient's blood pressure: Low blood pressure Consults Consulting Physician: [facility] Impression Primary Impression: Dehydration Additional Impression: Pancytopenia Departure Information Prescriptions Ipratropium-Albuterol (DUONEB) 3 Ml Nebu 1 TREATMENT NEB Q6 Y for Shortness of Breath for 30 Days, #1 INHA 1 Refill Prov: Soledad Valero PA-C 09/16/17 Referrals Suzanne Sanabria M.D. (PCP) Patient Instructions My [facility] Problem Qualifiers
[2017-09-16] MEDS ORDERED: SODIUM CHLORIDE 0.9% 1000ML 1,000 ML IV ONE (14:00)
[2017-09-16] MEDS ORDERED: ONDANSETRON INJ 2 MG/ML 2 ML VIAL IV PRN ×2 (14:00→17:45)
[2017-09-16] MEDS ORDERED: OPTIRAY 320 IV PRN (14:15)
[2017-09-16 14:34] LABS: HEMATOCRIT 21.8 % (37-47); HEMOGLOBIN 7.4 g/dL (12.0-16.0); MEAN CELL VOLUME 87.2 fL (80-100); MEAN CORPUSCULAR HEMOGLOBIN 29.6 pg (25-34); MEAN CORPUSCULAR HGB CONC 33.9 g/dl (32-36); PLATELET COUNT 20 K/uL (130-400); RED CELL DISTRIBUTION WIDTH CV 17.5 % (11.5-14.5); RED CELL DISTRIBUTION WIDTH SD 55.8 fL (36.4-46.3); WHITE BLOOD COUNT 0.77 K/uL (4.8-10.8)
[2017-09-16 14:36] LABS: ALBUMIN 2.5 gm/dl (3.4-5.0); ALT/SGPT 14 U/L (12-78); AST/SGOT 12 U/L (15-37); BLOOD UREA NITROGEN 17 mg/dl (7-18); CALCIUM 7.8 mg/dl (8.5-10.1); CARBON DIOXIDE 23 mmol/L (21-32); CREATININE 1.26 mg/dl (0.60-1.20); GLUCOSE 123 mg/dl (70-99); LIPASE 103 U/L (73-393); POTASSIUM 3.5 mmol/L (3.5-5.1); SODIUM 135 mmol/L (136-145)
[2017-09-16 14:39] LABS: ALKALINE PHOSPHATASE 70 U/L (45-117); TOTAL PROTEIN 5.9 gm/dl (6.4-8.2)
[2017-09-16 14:50] LABS: BASO % 1.3 %; BASO ABS # 0.01 K/uL (0-0.2); IG# 0.05 K/uL (0.00-0.02); LYMPH % 51.9 %; MONO % 14.3 %; MONO ABS # 0.11 K/uL (0.11-0.59)
--- NOTE | 2017-09-16 16:37 | DIAGNOSTIC IMAGING REPORT ---
ABD/PELVIS IV CONTRAST ONLY CLINICAL HISTORY: 72 years-old Female presenting with diffuse abd pain diarrhea hx liver/lung CA on chemo. TECHNIQUE: Multidetector CT of the abdomen and pelvis was performed after the administration of intravenous contrast. IV contrast: 94 mL of Optiray 320. A dose lowering technique was used consistent with the principles of ALARA (as low as reasonably achievable). COMPARISON: 05/31/2017. CT DOSE (mGy.cm): The estimated cumulative dose is 810.63 mGycm. 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 Right ureteral stent in place. Architectural distortion of the right lung base. Lung bases: Architectural distortion of the right lung base with centrilobular groundglass nodularity decreased since the prior exam. Left lung base clear. Mitral annular calcification. Normal heart size. No pericardial or pleural effusion. Liver: Liver morphology altered secondary to the presence of multiple enlarging suspicious lesions. These are significantly increased in size since the prior exam. One index lesion in the left lobe now measures 4.4 cm in diameter, previously 1.7 cm (series 3 image 92). Another index lesion in the right hepatic lobe measures 4.6 cm (series 3 image 105), previously 2.6 cm. Several new lesions are also evident. Additional well-defined hypodense lesions consistent with stable hepatic cysts. Patent hepatic vasculature. Biliary: No intrahepatic or extrahepatic biliary ductal dilatation. Gallbladder contains gallstones. Pancreas: Normal. Spleen: The spleen is enlarged, increased since prior exam. Tiny hypodensity at the medial aspect of the spleen (series 3 image 99), indeterminate. Adrenal glands: Normal. Kidneys and ureters: Bilateral lobulations of the kidneys. Additionally, a poorly defined mass is evident in the right kidney, which has been slowly increasing in size since 2006. This is poorly delineated but measures approximate 4.7 cm. No hydronephrosis, although a right ureteral stent remains in place. Reactive urothelial thickening of the right ureter. Several small hypodensities in the kidneys likely cysts. A punctate nonobstructing calculus may be present at the lower pole of the left kidney (series 3 image 196). Focal cortical defect in the upper pole the left kidney could suggest reflux nephropathy. Left ureter normal. Bladder: Normal. Pelvic organs: Uterus surgically absent. No adnexal masses. Bowel: There is inferior herniation of mesorectal fat suggesting pelvic floor incompetence. Intramural fat deposition noted in the ascending colon, nonspecific and possibly indicating chronic inflammation or chronic steroid exposure. No bowel obstruction. Trace hiatal hernia suggested. Duodenal diverticulum. Peritoneal cavity: No free fluid or intraperitoneal gas. Lymph nodes: No enlarged lymph nodes in the abdomen or pelvis. Vasculature: An infrarenal IVC filter is in place. IVC is patent. Atherosclerosis of the normal caliber abdominal aorta. Abdominal wall: Fat-containing ventral hernia noted on the right lower quadrant. Musculoskeletal: Previously noted sclerotic lesions again evident. Newly lesions are also apparent (for example series 3 image 395 and image 346). Lesions have been marked on images. Postsurgical changes of posterior lumbar fusion of L3-L5 with laminectomy defects. IMPRESSION: 1. Significant interval progression of disease with enlarging and new hepatic metastatic disease as well as new osseous metastatic lesions. No lymphadenopathy. 2. No acute intra-abdominal pathology. Specifically, no CT evidence of colitis. 3. Findings suggest a slowly enlarging right renal mass when comparing the current exam to CT from 12/25/2005. This is most concerning for renal cell carcinoma. 4. Right ureteral stent in place. No hydronephrosis. Reactive urothelial thickening. The report will be called/faxed according to standard departmental protocol. Electronically signed by: Shravan Cervantes M.D. 09/16/2017 4:35 PM Dictated Date/Time: 09/16/2017 4:24 PM
--- NOTE | 2017-09-16 16:51 | EMERGENCY ROOM VISIT NOTE ---
ED Visit Note First contact with patient: 13:35 Patient was seen by our PA/CLOCK REPAIRER. I was involved in the patient's care and did evaluate the patient myself. I was involved in the care throughout the ER stay. The patient presents dehydrated. She is quite pancytopenic. She did just receive chemotherapy. I do think a hospital stay for further care is warranted. Patient is currently resting comfortably.
[2017-09-16] MEDS ORDERED: POLYETHYLENE (MIRALAX) 17 GM PACK PO PRN (17:45)
[2017-09-16] MEDS ORDERED: ACETAMINOPHEN 325 MG TAB PO PRN (17:45)
[2017-09-16] MEDS ORDERED: SERT1TAB72 PO (17:47)
[2017-09-16] MEDS ORDERED: IPRASOL4 NEB (17:47)
[2017-09-16] MEDS ORDERED: ONDA8TAB12 PO (17:47)
[2017-09-16] MEDS ORDERED: FLUT0.15 NAE (17:47)
[2017-09-16] MEDS ORDERED: OXGN (17:47)
[2017-09-16] MEDS ORDERED: METOPROLOL SUCC 50MG EXT REL TAB PO STA (17:54)
[2017-09-16] MEDS ORDERED: TRAMADOL HCL 50 MG TAB PO PRN (18:00)
[2017-09-16] MEDS ORDERED: IV FLUIDS COMPLETED PRN (18:00)
[2017-09-16] MEDS ORDERED: SODIUM CHLORIDE 0.9% 1000ML 1,000 ML IV SCH (18:00)
[2017-09-16 19:53] VITALS: BP 133/74; PULSE 111; TEMP 36.6; O2SAT 100; Ht 154.9 cm; Wt 92.7 kg
--- NOTE | 2017-09-16 19:54 | History and Physical ---
History & Physical Date & Time of Service: Sep 16, 2017 at 17:56 Chief Complaint: Chemo Side Effects,Dehydration Primary Care Physician: Suzanne Sanabria M.D. 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 History completing radiation 07/2016, chemo 08/2016-05/2017. Follows with Dr. Sanabria. Chemo (carboplatin and etoposide) was restarted on 08/10 secondary to disease progression. Patient last chemo on 09/09/17. Had Neulasta 09/10/17. Patient states last evening started with nausea and vomiting. Has vomited several episodes. Reports almost continuous diarrhea throughout the night. Last emesis this morning. Was able to eat piece of toast this morning and retained. Another loose BM while in ER. Denies hematemesis, hematochezia, melena. Some diffuse abdominal tenderness. Denies any ill contacts. Ports yesterday increased urination and does have history of recurrent UTIs in the past. Denies hematuria or dysuria. Denies any fevers or chills. Patient denies any increased shortness of breath or increased cough from her baseline. Denies increased lower extremity edema. Denies diaphoresis , BERRY, dizziness, syncope, vision changes, neck pain, CP, SOB, orthopnea, palpitations, amoxicillin, sore throat, choking, otalgia, rhinorrhea, paresthesias, weakness, extremity weakness, rashes. History of hospitalization 08/29/16-06/09/17 for pneumonia, UTI, COPD exacerbation. Did have episode of pancytopenia at that time and received 1 PRBC on 06/06/17. Past Medical/Surgical History Medical Problems: (1) Anemia Status: Chronic (2) Cancer associated pain Status: Chronic (3) COPD (chronic obstructive pulmonary disease) Status: Chronic (4) DVT (deep venous thrombosis) Status: Resolved (5) Enterococcus UTI Status: Resolved (6) Lung cancer Permanent Comment: Pneumonia July 2015 admission and diagnosis of a DVT CT of the chest revealed right lower lobe nodule, surveillance for 6 months Recheck evaluation showed enlargement of the nodule Status post EBUS and biopsies 05/16/2016 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, Limited Stage Chronic renal disease Nonsurgical and chemotherapy candidate Status post completion of definitive radiation therapy 08/04/2016 received 6600 cGy Admission for right abdominal pain 08/30/2016 Finding of bone and liver metastasis Painful areas of metastasis right iliac wing and right femur Status post completion of radiation therapy to the right pelvis and right femur 09/10/2016 received 2500 cGy to each area Status: Chronic (7) Metastatic lung cancer (metastasis from lung to other site) Status: Chronic (8) Pneumonia Status: Resolved (9) Positive blood culture Status: Resolved (10) 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 (11) Retained ureteral stent Status: Chronic (12) Vasovagal episode Status: Resolved Surgical Problems: (1) History of bronchoscopy Status: Resolved (2) Post-operative state Status: Resolved Family History Hypertension Social History Smoking Status: Former Smoker Smokeless Tobacco Use: No Alcohol Use: none Drug Use: none Marital Status: Occupational Status: retired Immunizations History of Influenza Vaccine: Yes History of Tetanus Vaccine?: Yes History of Pneumococcal: Yes History of Hepatitis B Vaccine: No Allergies Coded Allergies: Piperacillin (Verified Allergy, Severe, Throat swelling/tightness; hives, 09/16/17) Tazobactam (Verified Allergy, Severe, Throat swelling/tightness; hives, ) Home Medications Scheduled Aspirin (Aspirin Ec), 81 MG PO DAILY Calcium Carbonate-Vitamin D (Calcium + D), 1 TAB PO BID Fluticasone Furoate-Vilanterol (Breo Ellipta), 1 PUFF INH DAILY Fluticasone Propionate (Nasal) (Flonase Allergy Relief), 2 SPRAYS MARCIAL DAILY Gabapentin (Neurontin), 800 MG PO HS Gabapentin (Neurontin), 400 MG PO QAM Home O2 Therapy (Oxygen), 3 LITERS NA PRN Metoprolol Succinate (Toprol Xl), 50 MG PO QAM Ondansetron Hcl (Zofran), 8 MG PO TID Sertraline Hcl (Zoloft), 25 MG PO DAILY Scheduled PRN Albuterol Hfa (Ventolin Hfa), 2 PUFFS INH Q6H PRN for Shortness of Breath Ipratropium-Albuterol (Duoneb), 1 TREATMENT NEB Q6 PRN for Shortness of Breath Prochlorperazine Maleate (Compazine), 10 MG PO Q6 PRN for Nausea Tramadol (Ultram), 50 MG PO Q8 PRN for Pain Review of Systems See HPI for pertinent positives & negatives. All other systems reviewed and were otherwise negative Physical Exam Vital Signs Date Time Temp Pulse Resp B/P (MAP) Pulse Ox O2 Delivery O2 Flow Rate FiO2 09/16/17 17:35 110 22 129/70 99 Nasal Cannula 2.0 09/16/17 17:02 102 09/16/17 15:06 112/34 09/16/17 14:48 101 16 100 09/16/17 14:18 105 16 100 09/16/17 13:48 110 20 98 09/16/17 13:47 110 09/16/17 13:31 36.9 114 20 92/58 99 Room Air General Appearance: WD/WN, no apparent distress Head: normocephalic, atraumatic Eyes: normal inspection, PERRL, sclerae normal ENT: hearing grossly normal, pharynx normal, + pertinent finding (Mucous membranes dry) Neck: supple, no JVD, trachea midline Respiratory/Chest: no respiratory distress, no accessory muscle use, + decreased breath sounds, + rhonchi (Scattered), + pertinent finding (2 right upper chest) Cardiovascular: no murmur, + tachycardia (Rate 106) Abdomen/GI: normal bowel sounds, soft, + pertinent finding (Slight diffuse tenderness to palpation without rebound or guarding) Back: no CVA tenderness Extremities/Musculoskelatal: normal capillary refill, non-tender, + pedal edema (Slight bilateral) Neurologic/Psych: alert, normal mood/affect, oriented x 3 Skin: warm/dry Diagnostics Laboratory Results Results Past 24 Hours Test 09/16/17 14:07 09/16/17 17:52 Range/Units White Blood Count 0.77 4.8-10.8 K/uL Red Blood Count 2.50 4.2-5.4 M/uL Hemoglobin 7.4 12.0-16.0 g/dL Hematocrit 21.8 37-47 % Mean Corpuscular Volume 87.2 80-100 fL Mean Corpuscular Hemoglobin 29.6 25-34 pg Mean Corpuscular Hemoglobin Concent 33.9 32-36 g/dl Platelet Count 20 130-400 K/uL Neutrophils (%) (Auto) 26.0 % Lymphocytes (%) (Auto) 51.9 % Monocytes (%) (Auto) 14.3 % Eosinophils (%) (Auto) 0.0 % Basophils (%) (Auto) 1.3 % Neutrophils # (Auto) 0.20 1.4-6.5 K/uL Lymphocytes # (Auto) 0.40 1.2-3.4 K/uL Monocytes # (Auto) 0.11 0.11-0.59 K/uL Eosinophils # (Auto) 0.00 0-0.5 K/uL Basophils # (Auto) 0.01 0-0.2 K/uL RDW Standard Deviation 55.8 36.4-46.3 fL RDW Coefficient of Variation 17.5 11.5-14.5 % Immature Granulocyte % (Auto) 6.5 % Immature Granulocyte # (Auto) 0.05 0.00-0.02 K/uL Toxic Granulation 3+ Dohle Bodies 2+ Platelet Estimate SIGNIFIC DECREASED Giant Platelets 3+ Sodium Level 135 136-145 mmol/L Potassium Level 3.5 3.5-5.1 mmol/L Chloride Level 102 98-107 mmol/L Carbon Dioxide Level 23 21-32 mmol/L Anion Gap 9.0 3-11 mmol/L Blood Urea Nitrogen 17 7-18 mg/dl Creatinine 1.26 0.60-1.20 mg/dl Estimated GFR () 48.6 Estimated GFR (Non- 41.9 BUN/Creatinine Ratio 13.7 10-20 Random Glucose 123 70-99 mg/dl Lactic Acid Level 1.0 0.4-2.0 mmol/L Calcium Level 7.8 8.5-10.1 mg/dl Total Bilirubin 0.8 0.2-1 mg/dl Aspartate Amino Transf (AST/SGOT) 12 15-37 U/L Alanine Aminotransferase (ALT/SGPT) 14 12-78 U/L Alkaline Phosphatase 70 45-117 U/L Total Protein 5.9 6.4-8.2 gm/dl Albumin 2.5 3.4-5.0 gm/dl Globulin 3.4 2.5-4.0 gm/dl Albumin/Globulin Ratio 0.7 0.9-2 Lipase 103 73-393 U/L Microbiology Results 09/16/17 C.difficile Toxin B Gene (PCR) - Final, Complete No C. difficile toxin B gene detected 09/16/17 WBC Smear, Received Pending 09/16/17 Shiga Toxin Test, Received Pending 09/16/17 Stool Culture, Received Pending Diagnostic Radiology CT ABDOMEN PELVIS: IMPRESSION: 1. Significant interval progression of disease with enlarging and new hepatic metastatic disease as well as new osseous metastatic lesions. No lymphadenopathy. 2. No acute intra-abdominal pathology. Specifically, no CT evidence of colitis. 3. Findings suggest a slowly enlarging right renal mass when comparing the current exam to CT from 12/25/2005. This is most concerning for renal cell carcinoma. 4. Right ureteral stent in place. No hydronephrosis. Reactive urothelial thickening. Impression Assessment and Plan PANCYTOPENIA Probable secondary to chemo. Patient follows with Dr. Sanabria. last chemo , Neulasta on 09/10/17. In ER patient found to be dehydrated and pancytopenic. WBC: 0.77 (10 on 09/07/17) , Hgb: 7.4 (10 on 09/07/17), Plt: 20 (E1 93 on 09/07/17), Neut: 0.2. Lactic acid: 1. Patient afebrile, denies any recent fever or chills or increased cough or sputum production. -Neutropenic precaution -Watch for fevers -CBC in a.m. -Heme/oncology consult if no improvement DEHYDRATION SECONDARY TO NAUSEA/VOMITING/DIARRHEA Probable secondary to chemo. Onset of nausea and several episodes of vomiting and numerous episodes of diarrhea yesterday. No melena/hematochezia/hematemesis. Patient given 1 L NSS and 4 mg Zofran IV and since reports no further nausea and is feeling hungry and would like to eat. CT ABD/PELVIS: No acute intra-abdominal pathology. Specifically, no CT evidence of colitis. Significant interval progression of disease with enlarging and new hepatic metastatic disease as well as new osseous metastatic lesions. Findings suggest a slowly enlarging right renal mass when comparing the current exam to CT from 12/25/2005. This is most concerning for renal cell carcinoma. Right ureteral stent in place. No hydronephrosis. Reactive urothelial thickening. -UA pending -Pending C. difficile, stool cultures, WBC stool -IVF -Zofran as needed nausea -PRP in a.m. HYPOMAGNESIA Magnesium 1.6 -Replace and monitor RENAL MASS Patient with history of right ureteral stent, [facility] Dr Valdez. Last stent replaced 07/14/17. Has replaced every [address] Abd/pelvis: Findings suggest a slowly enlarging right renal mass when comparing the current exam to CT from 12/25/2005. This is most concerning for renal cell carcinoma. Right ureteral stent in place. No hydronephrosis. Reactive urothelial thickening. -urology consult UTI UA consistent with UTI. Urine culture pending. -cefepime pending culture results (pt has tolerated cefepime in past) COPD O2 DEPENDENT No increased shortness of breath or sputum production or fever -Continue supplemental oxygen -Continue inhaler and continue nebs as needed HISTORY CROHN'S No colitis noted on CT abdomen pelvis. No significant abdominal tenderness. -Pending stool studies HISTORY OF SINUS TACHYCARDIA/HTN Patient takes metoprolol. Did not take this morning. Pulse 100s. Patient is dehydrated -Continue metoprolol with holding parameters HISTORY OF PE/DVT S/P IVC filter, not on anticoagulation secondary to thrombocytopenia VIRI Does not use CPAP DVT Prophylaxis -SCDs Disposition admit medsur Full Code as per discussion with pt Follows with Dr Sanabria for routine care Pt was seen with Dr Cuevas. See addendum ADDENDUM: I have seen and examined the patient and agree with the assessment and plan as above. Pt has already received Neulasta on 09/10 (recent chemo 09/09) . She is neutropenic but without fever. Bacteriuria will be covered empirically with cefepime in setting of neutropenia and h/o recurrent MDR UTIs in the past. Contacted Dr. Sanabria (Hematology) who in her Oncologist who recommended one unit of blood (LR-irradiated blood had to be ordered overnight and was sent via customer operations intern). Platelet threshold for transfusion would be 10 or lower unless bleeding. Cont supportive care efforts and watch counts. Await urine culture. DO Mason Resuscitation Status Full code VTE Prophylaxis Will order VTE Prophylaxis: Yes Additional Copies To Suzanne Sanabria M.D.
[2017-09-16] MEDS ORDERED: MAGNESIUM SULFATE 1GM / D5W 100 ML IV ONE (20:00)
[2017-09-16] MEDS ORDERED: CONSULT PHARMACY PRN (20:14)
[2017-09-16] MEDS ORDERED: CEFEPIME IV 2,000 MG in SYRINGE 7.5 ML IV SCH (20:15)
[2017-09-16] MEDS: GABAPENTIN 800 MG TAB PO SCH (21:19)
[2017-09-16] MEDS: CALCIUM 600MG + VIT D 400 IU TAB PO SCH (21:20)
[2017-09-16] MEDS ORDERED: ACETAMINOPHEN 325 MG TAB PO SCH (21:30)
[2017-09-17] VITALS (16 sets, daily range): BP systolic 98–117; BP diastolic 58–74; PULSE 84–100; TEMP 36.3–38; O2SAT 90–100
[2017-09-17] MEDS ORDERED: NURSING DECISION MEDICATION ORDER SCH (06:15)
--- NOTE | 2017-09-17 06:54 | Clinical Documentation Query ---
ANGELA Rojas : CLINICAL DOCUMENTATION QUERY Patient is a 72 year old female admitted for N/V/D in the setting of small cell lung cancer with hepatic metastasis and antineoplastic induced pancytopenia. H&P notes a history of oxygen dependent COPD. As appropriate, consider continuous supplemental oxygen dependence a manifestation of chronic hypoxic respiratory failure as suggested below. Thank you. In your clinical opinion is this patient being managed for: (X ) Chronic respiratory failure with hypoxia ( ) Not Agree ( ) Other explanation of clinical findings (Please Explain) ( ) Unable to determine (Please Define) ( ) Need to Discuss The medical record reflects the following clinical findings, treatment, and risk factors. Clinical Indicators: As above Treatment: Ongoing provision of supplemental O2 Risk Factors: COPD Please clarify and document your clinical opinion in the progress notes and discharge summary. Terms such as "probable", "suspected", "likely", "questionable", "possible", or "still to be ruled out" are acceptable. IF IN AGREEMENT, YOU MUST DOCUMENT ABOVE DIAGNOSTIC STATEMENT IN DAILY PROGRESS NOTES AND DISCHARGE SUMMARY. This document is not part of the patient's record. Thank You, Harvey Pearl, RN [phone]
[2017-09-17] MEDS: CALCIUM 600MG + VIT D 400 IU TAB PO SCH ×2 (08:29→20:57)
[2017-09-17] MEDS: FLUTICASONE PROPIONATE NA SPR 16 GM BTL NAE SCH (08:29)
[2017-09-17] MEDS: GABAPENTIN 400 MG CAP PO SCH (08:29)
[2017-09-17] MEDS: SERTRALINE HCL 50 MG TAB PO SCH (08:30)
[2017-09-17 09:14] LABS: CALCIUM 7.6 mg/dl (8.5-10.1); CREATININE 1.19 mg/dl (0.60-1.20); POTASSIUM 3.2 mmol/L (3.5-5.1)
[2017-09-17 09:17] LABS: HEMATOCRIT 25.8 % (37-47); HEMOGLOBIN 8.7 g/dL (12.0-16.0); MEAN CORPUSCULAR HGB CONC 33.7 g/dl (32-36); PLATELET COUNT 19 K/uL (130-400); RED CELL DISTRIBUTION WIDTH CV 16.9 % (11.5-14.5); RED CELL DISTRIBUTION WIDTH SD 53.7 fL (36.4-46.3); WHITE BLOOD COUNT 1.02 K/uL (4.8-10.8)
[2017-09-17] MEDS ORDERED: POTASSIUM CHLORIDE 10 MEQ TABCR PO STA (10:34)
[2017-09-17] MEDS: METOPROLOL SUCC 50MG EXT REL TAB PO SCH (11:23)
[2017-09-17] MEDS ORDERED: VANCOMYCIN IV 1,000 MG in SODIUM CHLORIDE 0.9% 250ML 250 ML IV STA (11:27)
[2017-09-17] MEDS ORDERED: VANCOMYCIN CONSULT ACTIVE PRN ×2 (11:30)
[2017-09-17] MEDS: LOPERAMIDE HCL 2 MG CAP PO PRN ×3 (11:49→18:42)
[2017-09-17] MEDS ORDERED: VANCOMYCIN IV 2,000 MG in SODIUM CHLORIDE 0.9% 500ML 500 ML IV ONE (12:00)
[2017-09-17] MEDS: CEFEPIME IV 2,000 MG in SYRINGE 7.5 ML IV SCH (13:26)
[2017-09-17] MEDS: ALBUT/IPRATROP 3MG/0.5MG NEB 3 ML VIAL INH PRN ×2 (14:01→19:42)
--- NOTE | 2017-09-17 14:34 | Progress Note ---
Progress Note Date of Service Sep 17, 2017. Progress Note ID Consult Dictated #[id number] A/P: 1. GNR Sepsis - likely source 2. Neutropenic Fever -Continue abx, repeat blood cultures -ID service to follow, thank you
--- NOTE | 2017-09-17 15:25 | Pharmacy Progress Note ---
Pharmacy Antibiotic Consult Date of Service: Sep 17, 2017. Pharmacy Dosing Scope Pharmacy is consulted to initiate vancomycin IV dosing therapy, order appropriate labs and adjust drug dose/frequency. Subjective The patient is a 72 year old female admitted on Sep 16, 2017 at 17:39. Objective Height (Feet): 5 Height (Inches): 1.00 Weight (Kilograms): 91.100 Lab Results (24hrs): Test 09/16/17 17:45 09/17/17 08:33 Urine Color YELLOW Urine Appearance CLEAR (CLEAR) Urine pH 6.5 (4.5-7.5) Urine Specific [place] 1.028 (1.000-1.030) Urine Protein 1+ (NEG) Urine Glucose (UA) NEG (NEG) Urine Ketones NEG (NEG) Urine Occult Blood 2+ (NEG) Urine Nitrite NEG (NEG) Urine Bilirubin NEG (NEG) Urine Urobilinogen NEG (NEG) Urine Leukocyte Esterase MODERATE (NEG) Urine WBC (Auto) >30 /hpf (0-5) Urine RBC (Auto) 10-30 /hpf (0-4) Urine Hyaline Casts (Auto) 1-5 /lpf (0-5) Urine Epithelial Cells (Auto) 5-10 /lpf (0-5) Urine Bacteria (Auto) 4+ (NEG) White Blood Count 1.02 K/uL (4.8-10.8) Red Blood Count 3.00 M/uL (4.2-5.4) Hemoglobin 8.7 g/dL (12.0-16.0) Hematocrit 25.8 % (37-47) Mean Corpuscular Volume 86.0 fL (80-100) Mean Corpuscular Hemoglobin 29.0 pg (25-34) Mean Corpuscular Hemoglobin Concent 33.7 g/dl (32-36) Platelet Count 19 K/uL (130-400) RDW Standard Deviation 53.7 fL (36.4-46.3) RDW Coefficient of Variation 16.9 % (11.5-14.5) Neutrophils % (Manual) 38.3 % Lymphocytes % (Manual) 28.2 % Variant Lymphocytes % (manual) 18.1 % Monocytes % (Manual) 11.5 % Eosinophils % (Manual) 2.6 % Basophils % (Manual) 1.3 % Neutrophils # (Manual) 0.39 K/uL (1.4-6.5) Total Absolute Neutrophils 0.39 K/uL (1.4-6.5) Lymphocytes # (Manual) 0.29 K/uL (1.2-3.4) Absolute Variant Lymphocytes 0.18 K/uL Total Absolute Lymphocytes 0.47 K/uL (1.2-3.4) Monocytes # (Manual) 0.12 K/uL (0.11-0.59) Eosinophils # (Manual) 0.03 K/uL (0-0.5) Basophils # (Manual) 0.01 K/uL (0-0.2) Blood Smear Review Toxic Granulation 2+ Dohle Bodies 2+ Platelet Estimate SIGNIFIC DECREASED Sodium Level 137 mmol/L (136-145) Potassium Level 3.2 mmol/L (3.5-5.1) Chloride Level 106 mmol/L (98-107) Carbon Dioxide Level 24 mmol/L (21-32) Anion Gap 7.0 mmol/L (3-11) Blood Urea Nitrogen 12 mg/dl (7-18) Creatinine 1.19 mg/dl (0.60-1.20) Est Creatinine Clear Calc Drug Dose 42.6 ml/min Estimated GFR () 52.1 Estimated GFR (Non- 44.9 BUN/Creatinine Ratio 9.7 (10-20) Random Glucose 125 mg/dl (70-99) Calcium Level 7.6 mg/dl (8.5-10.1) Magnesium Level 1.8 mg/dl (1.8-2.4) Assessment & Plan Vancomycin and cefepime initiated. Gram negative bacilli growing in the urine and 2/2 blood cultures. Per ID, continue vancomycin at this time. Loading dose: 2000 mg IV X 1 dose (given 1330) then: 1000 mg IV every 24 hours starting 09/18 @ 1200 Goal trough level estimate: between 15 - 20 mcg/mL. Peak and trough or random level has been ordered for: will be ordered pending continuation Pharmacy will continue to follow and will adjust dose/frequency as necessary. Thank you
--- NOTE | 2017-09-17 15:30 | INFECT. DISEASE CONSULTATION ---
DATE OF CONSULTATION: 09/17/2017 INFECTIOUS DISEASE CONSULT ATTENDING PHYSICIAN: Otilia Shannon DO DATE OF ADMISSION: 09/16/2017. DATE OF CONSULTATION: 09/17/2017. HISTORY OF PRESENT ILLNESS: This is a 72-year-old female who was admitted to the hospital with worsening nausea, vomiting and diarrhea. She does have a history of metastatic small cell lung cancer with metastatic involvement of the liver and bones. She recently completed a course of chemotherapy on 09/10/2017. She does state that she does have GI issues after her course of chemotherapy and this seemed to be worse. She also had significant urinary frequency and urgency. She denies any dysuria or hematuria; however, she did have vomiting on the night prior to admission. She did not have any fevers at home, but overnight, she did have a T-max of 38 around midnight. She has otherwise been afebrile. She was placed on broad-spectrum antibiotics with vancomycin and cefepime and she is tolerating these well. She is found to be neutropenic, but her white blood cell count has increased to 1.0 today. Her urinalysis in the ER showed greater than 30 wbc's, moderate leukocyte esterase and 4+ bacteria. She still is having frequency, but states this is much improved. Her diarrhea is improving as well. She denies any abdominal pain. She has no nausea and vomiting. Currently, she is eating and drinking without difficulty. She denies any chest pain, cough or shortness of breath. Her remaining review of systems is unremarkable. PAST MEDICAL HISTORY: Significant for anemia, metastatic small cell lung cancer to the bone and liver, COPD, history of DVT, history of urinary tract infection. PAST SURGICAL HISTORY: Significant for a right chest wall port, inferior vena cava filter, right ureteral stent which is retained. FAMILY HISTORY: Noncontributory. ALLERGIES: INCLUDE ZOSYN. SOCIAL HISTORY: Significant for history of tobacco use. She denies any alcohol or drug use. MEDICATIONS: Vancomycin, cefepime, Flonase, Neurontin, Toprol-XL, Zoloft, subcutaneous heparin, Imodium, Neurontin, calcium, Ultram, DuoNeb, Tylenol, MiraLax and Zofran. PHYSICAL EXAMINATION: VITAL SIGNS: She is afebrile currently, T-max was 38 degrees at midnight, pulse 86, respiratory rate 18, blood pressure 115/67, oxygen saturation is 95-99% on 2 liters nasal cannula. GENERAL: She is awake, alert and oriented x3. She is in no acute distress. HEENT: Mucous membranes are moist. Extraocular muscles are intact. HEART: Regular. LUNGS: Clear. ABDOMEN: Soft and nondistended. There is minimal tenderness to deep palpation suprapubically. SKIN: No rash. No edema. Port is clean, dry and intact. LABORATORY DATA: CBC today: White blood cell count 1.0, hemoglobin 8.7, platelets 19. Chemistry panel: Sodium 137, potassium 3.2, chloride 106, bicarb 24, BUN 12, creatinine 1.1, glucose 125. LFTs are normal in the ER. Urinalysis is as above. Urine and blood cultures are growing gram-negative rods, which have not been identified. Stool culture is negative. C. diff is negative. CT of the abdomen and pelvis did show a right retained ureteral stent with a right kidney mass suspicious for renal cell carcinoma. There was also increased metastatic disease to the bone and liver noted. ASSESSMENT: 1. Gram-negative sepsis. 2. Neutropenic fever. She will be maintained on broad-spectrum antibiotics. Repeat blood cultures will be obtained today. 3. Final recommendations will be given based on the final micro data and clearance of blood cultures as she is anxious to be discharged to home as she states her granddaughter's first birthday green party is scheduled for Thursday. Thank you for this consultation.
--- NOTE | 2017-09-17 17:54 | Urology Consultation ---
History General Date of Service: Sep 17, 2017. Chief Complaint: bacteremia from urinary source Primary Care Physician: Suzanne Sanabria M.D. Pt seen a urologist before?: Yes If yes, why?: ureteral stricture History of Present Illness I am asked by Dr Ferrell to evaluate and treat patient for bacteremia from urine source. Patient has a right indwelling urinary ureteral stent for ureteral stricture . It is changed in the office with Dr Valdez at [facility]. Last changed in July and due to change early september 2017. She had very little warning with this illness. Her urine was a bit strong smelling and she had some increased urinary frequency. She was febrile at admission but did not have chills or feel flushed. She has a right renal mass which is being observed. Imaging Imaging: CT Laboratory Results Past 24 Hours Test 09/17/17 08:33 Range/Units White Blood Count 1.02 4.8-10.8 K/uL Red Blood Count 3.00 4.2-5.4 M/uL Hemoglobin 8.7 12.0-16.0 g/dL Hematocrit 25.8 37-47 % Mean Corpuscular Volume 86.0 80-100 fL Mean Corpuscular Hemoglobin 29.0 25-34 pg Mean Corpuscular Hemoglobin Concent 33.7 32-36 g/dl Platelet Count 19 130-400 K/uL RDW Standard Deviation 53.7 36.4-46.3 fL RDW Coefficient of Variation 16.9 11.5-14.5 % Neutrophils % (Manual) 38.3 % Lymphocytes % (Manual) 28.2 % Variant Lymphocytes % (manual) 18.1 % Monocytes % (Manual) 11.5 % Eosinophils % (Manual) 2.6 % Basophils % (Manual) 1.3 % Neutrophils # (Manual) 0.39 1.4-6.5 K/uL Total Absolute Neutrophils 0.39 1.4-6.5 K/uL Lymphocytes # (Manual) 0.29 1.2-3.4 K/uL Absolute Variant Lymphocytes 0.18 K/uL Total Absolute Lymphocytes 0.47 1.2-3.4 K/uL Monocytes # (Manual) 0.12 0.11-0.59 K/uL Eosinophils # (Manual) 0.03 0-0.5 K/uL Basophils # (Manual) 0.01 0-0.2 K/uL Blood Smear Review Toxic Granulation 2+ Dohle Bodies 2+ Platelet Estimate SIGNIFIC DECREASED Sodium Level 137 136-145 mmol/L Potassium Level 3.2 3.5-5.1 mmol/L Chloride Level 106 98-107 mmol/L Carbon Dioxide Level 24 21-32 mmol/L Anion Gap 7.0 3-11 mmol/L Blood Urea Nitrogen 12 7-18 mg/dl Creatinine 1.19 0.60-1.20 mg/dl Est Creatinine Clear Calc Drug Dose 42.6 ml/min Estimated GFR () 52.1 Estimated GFR (Non- 44.9 BUN/Creatinine Ratio 9.7 10-20 Random Glucose 125 70-99 mg/dl Calcium Level 7.6 8.5-10.1 mg/dl Magnesium Level 1.8 1.8-2.4 mg/dl Microbiology Results 09/17/17 Blood Culture, Received Pending 09/17/17 Blood Culture, Received Pending 09/16/17 Blood Culture - Preliminary, Resulted Gram Negative Bacilli 09/16/17 Blood Culture - Preliminary, Resulted Gram Negative Bacilli Labs were reviewed and are within normal limits unless listed below. Labs are available in the chart and at [facility] Problem List Medical Problems: (1) Elevated white blood cell count Status: Acute (2) Hepatic metastasis Status: Acute (3) Immunocompromised Status: Acute (4) PNA (pneumonia) Status: Acute (5) Pneumonia Status: Acute (6) Pyelonephritis Status: Acute (7) Right sided abdominal pain Status: Acute (8) Small cell lung cancer Status: Acute (9) SOB (shortness of breath) Status: Acute (10) Syncope Status: Acute (11) Weakness Status: Acute Past History cancer - lung (mets to liver and bone ), other (on chemo) Family History Hypertension Social History Hx Tobacco Use In Past Year?: No Smoking: non-smoker Alcohol: never Marital status: Housing status: lives with family Occupation status: retired Immunizations History of Influenza Vaccine: Yes History of Tetanus Vaccine?: Yes History of Pneumococcal: Yes History of Hepatitis B Vaccine: No History of MDRO Yes Type of MDRO: CRE Allergies Coded Allergies: Piperacillin (Verified Allergy, Severe, Throat swelling/tightness; hives, 09/16/17) Tazobactam (Verified Allergy, Severe, Throat swelling/tightness; hives, ) Medications Home Medications: Home Meds and Scripts Medications Dose Route/Sig Max Daily Dose Days Date Category Zoloft (Sertraline Hcl) 25 Mg Tab 25 Mg PO DAILY 09/16/17 Reported Oxygen Gas 3 Liters NA PRN 09/16/17 Reported Flonase Allergy Relief (Fluticasone Propionate (Nasal)) 50 Mcg/Act Spr 2 Sprays MARCIAL DAILY 09/16/17 Reported Zofran (Ondansetron Hcl) 8 Mg Tab 8 Mg PO TID 09/16/17 Reported Duoneb (Ipratropium-Albuterol) 3 Ml Nebu 1 Treatment NEB Q6 PRN 30 09/16/17 Rx Breo Ellipta (Fluticasone Furoate-Vilanterol) 1 Inh Inh 1 Puff INH DAILY 07/21/17 Reported Ventolin Hfa (Albuterol) 200 Puffs/20412 Mcg Aers 2 Puffs INH Q6H PRN 30 06/09/17 Rx Compazine (Prochlorperazine Maleate) 10 Mg Tab 10 Mg PO Q6 PRN 12/07/16 Reported Calcium + D (Calcium Carbonate-Vitamin D) 1 Tab Tab 1 Tab PO BID 10/08/16 Reported Aspirin Ec (Aspirin) 81 Mg Tab 81 Mg PO DAILY 05/29/16 Reported Ultram (Tramadol HCl) 50 Mg Tab 50 Mg PO Q8 PRN 02/12/16 Reported Neurontin (Gabapentin) 400 Mg Cap 400 Mg PO QAM 02/12/16 Reported Neurontin (Gabapentin) 400 Mg Cap 800 Mg PO HS 02/12/16 Reported Toprol Xl (Metoprolol Succinate) 50 Mg Tabcr 50 Mg PO QAM 02/12/16 Reported Inpatient Medications: Current Inpatient Medications Medications (Trade) Dose Ordered Sig/Nany Route Start Time Stop Time Status Last Admin Dose Admin Ioversol (Optiray 320) 125 ml UD PRN IV 09/16/17 14:15 09/20/17 14:14 Acetaminophen (Tylenol Tab) 650 mg Q4H PRN PO 09/16/17 17:45 10/16/17 17:44 Polyethylene (Miralax Powder Packet) 17 gm DAILY PRN PO 09/16/17 17:45 10/16/17 17:44 Ondansetron HCl (Zofran Inj) 4 mg Q6H PRN IV 09/16/17 17:45 10/16/17 17:44 Miscellaneous (Iv Fluids Completed) 1 ea PRN PRN N/A 09/16/17 18:00 09/16/18 17:59 Fluticasone Propionate (Flonase Nasal [place]) 2 sprays DAILY MARCIAL 09/17/17 08:00 10/17/17 08:59 09/17/17 08:29 2 SPRAYS Gabapentin (Neurontin Cap) 400 mg QAM PO 09/17/17 08:00 10/17/17 08:59 09/17/17 08:29 400 MG Gabapentin (Neurontin Tab) 800 mg HS PO 09/16/17 21:00 10/16/17 20:59 09/16/17 21:19 800 MG Metoprolol Succinate (Toprol Xl Tab) 50 mg QAM PO 09/17/17 08:00 10/17/17 08:59 09/17/17 11:23 50 MG Sertraline HCl (Zoloft Tab) 25 mg DAILY PO 09/17/17 08:00 10/17/17 08:59 09/17/17 08:30 25 MG Tramadol HCl (Ultram Tab) 50 mg Q8 PRN PO 09/16/17 18:00 10/16/17 17:59 Calcium/Vitamin D (Caltrate Plus Tab) 1 tab BID PO 09/16/17 20:00 10/16/17 20:59 09/17/17 08:29 1 TAB Miscellaneous Information (Order Awaiting Action) 1 ea QS N/A 09/17/17 00:00 10/17/17 00:00 Albuterol/ Ipratropium (Duoneb) 3 ml Q4R PRN INH 09/16/17 18:00 10/16/17 17:59 09/17/17 14:01 3 ML Miscellaneous Information (Pharmacy Consult) 1 ea UD PRN N/A 09/16/17 20:14 10/16/17 20:13 Loperamide HCl (Imodium Cap) 2 mg UD PRN PO 09/16/17 21:45 10/16/17 21:44 09/17/17 13:26 2 MG Heparin Sodium (Porcine) (Heparin 100 Unit/ml 5ml Flush) 5 ml PRN PRN IV 09/17/17 06:15 10/17/17 06:14 Vancomycin HCl 1000 mg/Sodium Chloride 270 ml @ 125 mls/hr Q24H IV 09/18/17 12:00 10/02/17 11:59 Miscellaneous Information (Consult) 1 ea UD PRN N/A 09/17/17 11:30 10/17/17 11:29 Cefepime HCl 2000 mg/Syringe 20 ml @ 5 mls/min Q12H IV 09/17/17 12:30 10/01/17 12:29 09/17/17 13:26 5 MLS/MIN Review of Systems Review of Systems Constitutional: + fever, No chills, No frequent headaches Neurological: + dizzy, No seizures Endocrine: + tired/sluggish Gastrointestinal: No abdominal pain, No nausea, No vomiting, No constipation Cardiovascular: No chest pain, No palpitations Respiratory: No shortness of breath Musculoskeletal: + neck pain Ears / Nose / Throat: No sore throat Female : + frequent urination, + infections, No painful urination, No kidney stones Physical Exam Vital Signs: Vital Signs Past 12 Hours Date Time Temp Pulse Resp B/P (MAP) Pulse Ox O2 Delivery O2 Flow Rate FiO2 09/17/17 15:34 37.0 100 20 117/70 (86) 91 Nasal Cannula 2.5 09/17/17 14:02 86 18 95 Nasal Cannula 2.0 09/17/17 11:17 36.6 90 18 115/67 (83) 99 Nasal Cannula 2.0 09/17/17 11:15 Nasal Cannula 2.0 09/17/17 07:13 36.9 87 20 109/74 (86) 100 Nasal Cannula 2.0 09/17/17 05:59 36.6 85 20 111/67 99 2.0 Physical Exam: General Appearance: WD/WN, no apparent distress, + obese Eyes: bilateral eyes normal inspection ENT: hearing grossly normal Neck: no JVD, trachea midline Respiratory/Chest: no accessory muscle use, + pertinent finding (port on right chest) Cardiovascular: no edema Extremities: non-tender, normal inspection, no pedal edema, no calf tenderness Neurologic/Psychiatric: alert, normal mood/affect, oriented x 3 Skin: normal color, warm/dry, no rash Assessment & Plan Assessment & Plan Imaging: CT bacteremia from urinary source ideall to change her stent next week about half way through her antibiotic course. her preference to to have this done at [facility] in the clinic. I will speak with Dr Valdez about his office availability next week our fallback option is to do the stent change int he OR here or [facility] no anesthesia needed
--- NOTE | 2017-09-17 18:05 | Progress Note ---
Internal Med Progress Note Date of Service: Sep 17, 2017. Provider Documentation: SUBJECTIVE: Patient denies of any discomfort No complaint of shortness of breath No nausea vomiting OBJECTIVE: Vital Signs-as noted below Exam: General-chronically ill-appearing Eyes-nonicteric, pupils reactive to light ENT-moist oral mucosa Neck-neck supple no carotid bruit Lungs-clear to auscultate no wheeze or rales Heart-regular S1 is Abdomen-soft nontender Extremities-no lower extremity edema no calf tenderness Neuro-no focal neurological deficit, alert awake oriented 3 Lab data as noted below. ASSESSMENT & PLAN: PANCYTOPENIA Probable secondary to chemo. metastatic small cell lung cancer with metastatic involvement of the liver and bones. Patient follows with Hematology /Oncology Dr. Franc Sanabria. last chemo 09/09/17 , Neulasta on 09/10/17. In ER patient found to be dehydrated and pancytopenic. WBC: 0.77 (10 on 09/07/17) , Hgb: 7.4 (10 on 09/07/17), Plt: 20 (E1 93 on 09/07/17), Neut: 0.2. Lactic acid: 1. Patient afebrile, denies any recent fever or chills or increased cough or sputum production. -Neutropenic precaution -Plan of care discussed with hematology oncology Dr. Sanabria -Patient is transfused 1 unit of irradiated RBC Hemoglobin improved 7.4 -8.4 monitor CBC Platelet count 19 K today No evidence of bleeding Indication of platelet transfusion: <10 K/evidence of active bleeding GRAM-NEGATIVE BACTEREMIA: Possible urinary source On cefepime (allergy to Zosyn) Appreciate input from ID Repeat blood cultures ordered UTI WITH GRAM-NEGATIVE BACILLI IN CULTURE -Continue with broad-spectrum antibiotic with IV cefepime -Awaiting for results of isolation and sensitivity of gram-negative bacilli DEHYDRATION SECONDARY TO NAUSEA/VOMITING/DIARRHEA Probable secondary to chemo. Symptom has improved Regarding diet Stool C. difficile negative CT ABD/PELVIS: No acute intra-abdominal pathology. Specifically, no CT evidence of colitis. Significant interval progression of disease with enlarging and new hepatic metastatic disease as well as new osseous metastatic lesions. Findings suggest a slowly enlarging right renal mass when comparing the current exam to CT from 12/25/2005. This is most concerning for renal cell carcinoma. Right ureteral stent in place. No hydronephrosis. Reactive urothelial thickening. HYPOMAGNESIA -Replaced and monitor HYPOKALEMIA Possible secondary to GI loss Replaced RENAL MASS Patient with history of right ureteral stent, follows with urology [place] - Dr Valdez. Last stent replaced 07/14/17. Has replaced every [address] Abd/pelvis: Findings suggest a slowly enlarging right renal mass when comparing the current exam to CT from 12/25/2005. This is most concerning for renal cell carcinoma. Right ureteral stent in place. No hydronephrosis. Reactive urothelial thickening. -urology consulted -Appreciate input -Follows with urology in [place] -Given active infection with gram-negative bacteremia/exchange of the stent/ biopsy of mass is contraindicated Patient will continue with broad-spectrum IV antibiotics as per Dr. Shannon infectious disease -We will need to follow-up with Dr. Valdez urology in [place] CHRONIC HYPOXEMIC RESPIRATORY FAILURE /HX OF COPD HOME O2 DEPENDENT Respiratory status stable -Continue supplemental oxygen -Continue inhaler and continue nebs as needed HISTORY CROHN'S No colitis noted on CT abdomen pelvis. No significant abdominal tenderness. -Pending stool studies HISTORY OF SINUS TACHYCARDIA/HTN On metoprolol HISTORY OF PE/DVT S/P IVC filter, not on anticoagulation secondary to thrombocytopenia DVT Prophylaxis -SCDs Pharmacological anticoagulation avoided secondary to marked thrombocytopenia CODE STATUS: Full code Disposition Expected to be discharged home when medically PT OT evaluation requested prior to Social service consulted for discharge Vital Signs: Date Time Temp Pulse Resp B/P (MAP) Pulse Ox O2 Delivery O2 Flow Rate FiO2 09/18/17 07:19 36.9 100 18 109/67 (81) 95 Nasal Cannula 2.5 09/18/17 04:00 36.9 99 20 129/80 (96) 99 2.0 09/18/17 00:30 37.2 101 20 134/76 (95) 95 09/18/17 00:00 Nasal Cannula 2.5 09/17/17 20:00 Nasal Cannula 2.5 09/17/17 19:42 88 18 95 Nasal Cannula 2.0 09/17/17 19:42 37.1 99 20 116/71 (86) 92 Room Air 09/17/17 16:30 91 Nasal Cannula 2.5 09/17/17 15:34 37.0 100 20 117/70 (86) 91 Nasal Cannula 2.5 09/17/17 14:02 86 18 95 Nasal Cannula 2.0 09/17/17 11:17 36.6 90 18 115/67 (83) 99 Nasal Cannula 2.0 09/17/17 11:15 Nasal Cannula 2.0 Lab Results: Results Past 24 Hours Test 09/17/17 08:33 09/18/17 07:19 09/18/17 07:42 Range/Units White Blood Count 1.02 4.8-10.8 K/uL Red Blood Count 3.00 4.2-5.4 M/uL Hemoglobin 8.7 12.0-16.0 g/dL Hematocrit 25.8 37-47 % Mean Corpuscular Volume 86.0 80-100 fL Mean Corpuscular Hemoglobin 29.0 25-34 pg Mean Corpuscular Hemoglobin Concent 33.7 32-36 g/dl Platelet Count 19 130-400 K/uL RDW Standard Deviation 53.7 36.4-46.3 fL RDW Coefficient of Variation 16.9 11.5-14.5 % Neutrophils % (Manual) 38.3 % Lymphocytes % (Manual) 28.2 % Variant Lymphocytes % (manual) 18.1 % Monocytes % (Manual) 11.5 % Eosinophils % (Manual) 2.6 % Basophils % (Manual) 1.3 % Neutrophils # (Manual) 0.39 1.4-6.5 K/uL Total Absolute Neutrophils 0.39 1.4-6.5 K/uL Lymphocytes # (Manual) 0.29 1.2-3.4 K/uL Absolute Variant Lymphocytes 0.18 K/uL Total Absolute Lymphocytes 0.47 1.2-3.4 K/uL Monocytes # (Manual) 0.12 0.11-0.59 K/uL Eosinophils # (Manual) 0.03 0-0.5 K/uL Basophils # (Manual) 0.01 0-0.2 K/uL Blood Smear Review Toxic Granulation 2+ Dohle Bodies 2+ Platelet Estimate SIGNIFIC DECREASED Sodium Level 137 136-145 mmol/L Potassium Level 3.2 3.5-5.1 mmol/L Chloride Level 106 98-107 mmol/L Carbon Dioxide Level 24 21-32 mmol/L Anion Gap 7.0 3-11 mmol/L Blood Urea Nitrogen 12 7-18 mg/dl Creatinine 1.19 0.60-1.20 mg/dl Est Creatinine Clear Calc Drug Dose 42.6 ml/min Estimated GFR () 52.1 Estimated GFR (Non- 44.9 BUN/Creatinine Ratio 9.7 10-20 Random Glucose 125 70-99 mg/dl Calcium Level 7.6 8.5-10.1 mg/dl Magnesium Level 1.8 1.8-2.4 mg/dl Microbiology Results 09/17/17 Blood Culture, Received Pending 09/17/17 Blood Culture, Received Pending
[2017-09-17] MEDS: GABAPENTIN 800 MG TAB PO SCH (20:57)
[2017-09-18 00:30] VITALS: BP 134/76; PULSE 101; TEMP 37.2; O2SAT 95
[2017-09-18] MEDS: CEFEPIME IV 2,000 MG in SYRINGE 7.5 ML IV SCH (01:51)
[2017-09-18 04:00] VITALS: BP 129/80; PULSE 99; TEMP 36.9; O2SAT 99
[2017-09-18 07:19] VITALS: BP 109/67; PULSE 100; TEMP 36.9; O2SAT 95
--- NOTE | 2017-09-18 07:48 | Progress Note ---
Progress Note Date of Service Sep 18, 2017. Progress Note Urine culture: 09/16/17 E. coli: Sensitive to cefepime/Rocephin/Cipro Resistant to Bactrim/ampicillin Will discontinue IV vancomycin Patient is currently on IV cefepime 2 g every 12 hours BRITTANY for cefepime<=4 BRITTANY for Rocephin<=1 BRITTANY Invanz <=1 BRITTANY Ciprofloxacin <=1 Infectious disease following Will defer to ID to transition to appropriate IV antibiotics Given the gram-negative bacteremia patient will need long-term IV antibiotic therapy has A -port for Chemo tx given bacteremia -Chemo needs to be on hold till , infection is cleared updated Heme Onc Dr Franc Sanabria-pt will not be scheduled for any further chemo
[2017-09-18 08:02] LABS: CREATININE 1.19 mg/dl (0.60-1.20)
[2017-09-18] MEDS: FLUTICASONE PROPIONATE NA SPR 16 GM BTL NAE SCH (08:14)
[2017-09-18] MEDS: METOPROLOL SUCC 50MG EXT REL TAB PO SCH (08:14)
[2017-09-18] MEDS: CALCIUM 600MG + VIT D 400 IU TAB PO SCH (08:14)
[2017-09-18] MEDS: GABAPENTIN 400 MG CAP PO SCH (08:14)
[2017-09-18] MEDS: SERTRALINE HCL 50 MG TAB PO SCH (08:15)
[2017-09-18 08:24] LABS: CREATININE 1.21 mg/dl (0.60-1.20); POTASSIUM 3.1 mmol/L (3.5-5.1); TOTAL PROTEIN 5.5 gm/dl (6.4-8.2)
[2017-09-18 08:36] LABS: HEMATOCRIT 22.1 % (37-47); HEMOGLOBIN 7.7 g/dL (12.0-16.0); MEAN CORPUSCULAR HEMOGLOBIN 30.3 pg (25-34); MEAN CORPUSCULAR HGB CONC 34.8 g/dl (32-36); PLATELET COUNT 18 K/uL (130-400); RED CELL DISTRIBUTION WIDTH CV 17.3 % (11.5-14.5); RED CELL DISTRIBUTION WIDTH SD 55.1 fL (36.4-46.3); WHITE BLOOD COUNT 1.85 K/uL (4.8-10.8)
[2017-09-18] MEDS ORDERED: CEFT1INJ57 IV ×2 (10:17→10:43)
--- NOTE | 2017-09-18 10:41 | Discharge Instructions ---
Discharge Instructions Date of Service Sep 18, 2017. Admission Reason for Admission: Dehydration, Pancytopenia Discharge Discharge Diagnosis / Problem: GRAM NEGATIVE BACTEREMIA /PANCYTOPENIA -DUE TO CHEMO/UTI Discharge Goals Goal(s): Increase independence, Improve disease control, Diagnostic testing, Therapeutic intervention Activity Recommendations Activity Limitations: resume your previous activity . Instructions / Follow-Up Instructions / Follow-Up HOSPITAL FOLLOW UP : 09/23/2017 10:00 AM Jacqueline Mednia MD General Internal Medicine [facility] LAB WORK : complete blood count /comprehensive metabolic panel on 09/23/17 BLOOD CULTURE X2 BOTH AEROBIC/AND ANAEROBIC ON 09/23/17 ( DX : GRAM NEGATIVE BACILLI BACTEREMIA ) COMPLETE IV ANTIBIOTIC ROCEPHIN 2 GM DAILY FOR TOTAL 14 DAYS PLEASE FOLLOW UP UROLOGY DR POP AT [facility] IN [place] , FOR URETERAL STENT EXCHANGE YOU NEED TO HAVE AT LEAST 7-10 DAYS OF IV ANTIBIOTIC THERAPY /NEGATIVE BLOOD CULTURES -PRIOR TO UROLOGIC PROCEDURE DO NOT TAKE ASPIRIN -LOW PLATELET COUNT AVOID ADVIL, MOTRIN , IBUPROFEN, NAPROXEN PLEASE NOTIFY YOUR FAMILY PHYSICIAN OR COME TO ER - FOR ANY EPISODE OF FEVER , NOSE BLEED, BLOOD IN STOOL OR DARK STOOL /BLOOD IN URINE -THESE ARE SIGNS OF SERIOUS BLEEDING CAN OCCUR FOR LOW PLATELET COUNT Current Hospital Diet Patient's current hospital diet: Regular Diet Discharge Diet Recommended Diet: Regular Diet Pending Studies Studies pending at discharge: no Medical Emergencies . Who to Call and When: Medical Emergencies: If at any time you feel your situation is an emergency, please call 911 immediately. . Non-Emergent Contact Non-Emergency issues call your: Primary Care Provider . . "Provider Documentation" section prepared by Loan Ferrell. .
[2017-09-18] MEDS ORDERED: POTASSIUM CHLORIDE 10 MEQ TABCR PO STA (11:10)
[2017-09-18] MEDS ORDERED: MGNO400 PO (11:15)
[2017-09-18] MEDS ORDERED: MCRK20 PO (11:16)
--- NOTE | 2017-09-18 11:23 | Discharge Summary ---
Discharge Summary Date of Service Sep 18, 2017. Discharge Summary Admission Date: Sep 16, 2017 at 17:39 Discharge Date: Sep 18, 2017 Discharge Disposition: Home with services Principal Diagnosis: GRAM NEGATIVE BACTEREMIA /PANCYTOPENIA -DUE TO CHEMO/UTI Consultations: [facility] DR CORNELL LINDSEY INFECTIOUS DISEASE : DR NIELSON Medication Reconciliation New Medications: Ceftriaxone Sod (Rocephin) 1 Gm Inj 2 GM IV DAILY for 14 Days, #28 VIAL GRAM NEGATIVE BACTEREMIA - E COLI COMPLICATED UTI -BILATERAL HYDROURETERONEPHROIS /URETERAL STENTS Magnesium Oxide (Magnesium-Oxide) 400 Mg Tab 400 MG PO BID for 30 Days, #60 TABS Potassium Chloride (Klor-Con M20) 20 Meq Tabcr 1 TAB PO DAILY for 30 Days, #60 TAB Continued Medications: Albuterol Hfa (Ventolin Hfa) 200 Puffs/37712 Mcg Aers 2 PUFFS INH Q6H PRN for Shortness of Breath for 30 Days, #1 INHALER 1 Refill Calcium Carbonate-Vitamin D (Calcium + D) 1 Tab Tab 1 TAB PO BID Fluticasone Furoate-Vilanterol (Breo Ellipta) 1 Inh Inh 1 PUFF INH DAILY Fluticasone Propionate (Nasal) (Flonase Allergy Relief) 50 Mcg/Act Spr 2 SPRAYS MARCIAL DAILY Gabapentin (Neurontin) 400 Mg Cap 800 MG PO HS, CAP Gabapentin (Neurontin) 400 Mg Cap 400 MG PO QAM, CAP Home O2 Therapy (Oxygen) Gas 3 LITERS NA PRN Ipratropium-Albuterol (Duoneb) 3 Ml Nebu 1 TREATMENT NEB Q6 PRN for Shortness of Breath for 30 Days, #1 INHA 1 Refill Metoprolol Succinate (Toprol Xl) 50 Mg Tabcr 50 MG PO QAM, TAB Ondansetron Hcl (Zofran) 8 Mg Tab 8 MG PO TID for Nausea or Vomiting, TAB Prochlorperazine Maleate (Compazine) 10 Mg Tab 10 MG PO Q6 PRN for Nausea, TAB Sertraline Hcl (Zoloft) 25 Mg Tab 25 MG PO DAILY, TAB Tramadol (Ultram) 50 Mg Tab 50 MG PO Q8 PRN for Pain, TAB Discontinued Medications: Aspirin (Aspirin Ec) 81 Mg Tab 81 MG PO DAILY Admission Information HPI (per Admitting provider): Pt is 72 y/o F with PMH HTN, VIRI, CKD 3, COPD, 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 History completing radiation 07/2016, chemo 08/2016-05/2017. Follows with Dr. Sanabria. Chemo (carboplatin and etoposide) was restarted on 08/10 secondary to disease progression. Patient last chemo on 09/09/17. Had Neulasta 09/10/17. Patient states last evening started with nausea and vomiting. Has vomited several episodes. Reports almost continuous diarrhea throughout the night. Last emesis this morning. Was able to eat piece of toast this morning and retained. Another loose BM while in ER. Denies hematemesis, hematochezia, melena. Some diffuse abdominal tenderness. Denies any ill contacts. Ports yesterday increased urination and does have history of recurrent UTIs in the past. Denies hematuria or dysuria. Denies any fevers or chills. Patient denies any increased shortness of breath or increased cough from her baseline. Denies increased lower extremity edema. Denies diaphoresis , BERRY, dizziness, syncope, vision changes, neck pain, CP, SOB, orthopnea, palpitations, amoxicillin, sore throat, choking, otalgia, rhinorrhea, paresthesias, weakness, extremity weakness, rashes. History of hospitalization 08/29/16-06/09/17 for pneumonia, UTI, COPD exacerbation. Did have episode of pancytopenia at that time and received 1 PRBC on 06/06/17. Physical Exam (per Admitting): General Appearance: WD/WN, no apparent distress Head: normocephalic, atraumatic Eyes: normal inspection, PERRL, sclerae normal ENT: hearing grossly normal, pharynx normal, + pertinent finding (Mucous membranes dry) Neck: supple, no JVD, trachea midline Respiratory/Chest: no respiratory distress, no accessory muscle use, + decreased breath sounds, + rhonchi (Scattered), + pertinent finding (2 right upper chest) Cardiovascular: no murmur, + tachycardia (Rate 106) Abdomen/GI: normal bowel sounds, soft, + pertinent finding (Slight diffuse tenderness to palpation without rebound or guarding) Back: no CVA tenderness Extremities/Musculoskelatal: normal capillary refill, non-tender, + pedal edema (Slight bilateral) Neurologic/Psych: alert, normal mood/affect, oriented x 3 Skin: warm/dry Hospital Course PANCYTOPENIA Probable secondary to chemo. metastatic small cell lung cancer with metastatic involvement of the liver and bones. Patient follows with Hematology /Oncology Dr. Franc Sanabria. last chemo 09/09/17 , Neulasta on 09/10/17. In ER patient found to be dehydrated and pancytopenic. WBC: 0.77 (10 on 09/07/17) , Hgb: 7.4 (10 on 09/07/17), Plt: 20 (E1 93 on 09/07/17), Neut: 0.2. Lactic acid: 1. Patient afebrile, denies any recent fever or chills or increased cough or sputum production. -Neutropenic precaution -Plan of care discussed with hematology oncology Dr. Sanabria -Patient is transfused 1 unit of irradiated RBC Hemoglobin improved 7.4 -8.4 monitor CBC Platelet count 19 K today No evidence of bleeding Indication of platelet transfusion: <10 K/evidence of active bleeding GRAM-NEGATIVE BACTEREMIA: Possible urinary source On cefepime (allergy to Zosyn) Appreciate input from ID Repeat blood cultures ordered UTI WITH GRAM-NEGATIVE BACILLI IN CULTURE -Continue with broad-spectrum antibiotic with IV cefepime -Awaiting for results of isolation and sensitivity of gram-negative bacilli DEHYDRATION SECONDARY TO NAUSEA/VOMITING/DIARRHEA Probable secondary to chemo. Symptom has improved Regarding diet Stool C. difficile negative CT ABD/PELVIS: No acute intra-abdominal pathology. Specifically, no CT evidence of colitis. Significant interval progression of disease with enlarging and new hepatic metastatic disease as well as new osseous metastatic lesions. Findings suggest a slowly enlarging right renal mass when comparing the current exam to CT from 12/25/2005. This is most concerning for renal cell carcinoma. Right ureteral stent in place. No hydronephrosis. Reactive urothelial thickening. HYPOMAGNESIA -Replaced and monitor HYPOKALEMIA Possible secondary to GI loss Replaced RENAL MASS Patient with history of right ureteral stent, follows with urology tg - Dr Pop. Last stent replaced 07/14/17. Has replaced every [address] Abd/pelvis: Findings suggest a slowly enlarging right renal mass when comparing the current exam to CT from 12/25/2005. This is most concerning for renal cell carcinoma. Right ureteral stent in place. No hydronephrosis. Reactive urothelial thickening. -urology consulted -Appreciate input -Follows with urology in [place] Patient has a right indwelling urinary ureteral stent for ureteral stricture . It is changed in [place] [facility] [place] Last changed in July and due to change early september 2017. -Given active infection with gram-negative bacteremia/exchange of the stent/ biopsy of mass is contraindicated Patient will continue with broad-spectrum IV antibiotics as per Dr. Nielson infectious disease -We will need to follow-up with Dr. Pop urology in [place] CHRONIC HYPOXEMIC RESPIRATORY FAILURE /HX OF COPD HOME O2 DEPENDENT Respiratory status stable -Continue supplemental oxygen -Continue inhaler and continue nebs as needed HISTORY CROHN'S No colitis noted on CT abdomen pelvis. No significant abdominal tenderness. -Pending stool studies HISTORY OF SINUS TACHYCARDIA/HTN On metoprolol HISTORY OF PE/DVT S/P IVC filter, not on anticoagulation secondary to thrombocytopenia DVT Prophylaxis -SCDs Pharmacological anticoagulation avoided secondary to marked thrombocytopenia CODE STATUS: Full code Disposition Expected to be discharged home when medically PT OT evaluation requested prior to Social service consulted for discharge Total time spent on discharge = 40 MINS This includes examination of the patient, discharge planning, medication reconciliation, and communication with other providers. Discharge Instructions Discharge Instructions Date of Service Sep 18, 2017. Admission Reason for Admission: Dehydration, Pancytopenia Discharge Discharge Diagnosis / Problem: GRAM NEGATIVE BACTEREMIA /PANCYTOPENIA -DUE TO CHEMO/UTI Discharge Goals Goal(s): Increase independence, Improve disease control, Diagnostic testing, Therapeutic intervention Activity Recommendations Activity Limitations: resume your previous activity . Instructions / Follow-Up Instructions / Follow-Up HOSPITAL FOLLOW UP : 09/23/2017 10:00 AM Jacqueline Medina MD General Internal Medicine [facility] LAB WORK : complete blood count /comprehensive metabolic panel on 09/23/17 BLOOD CULTURE X2 BOTH AEROBIC/AND ANAEROBIC ON 09/23/17 ( DX : GRAM NEGATIVE BACILLI BACTEREMIA ) COMPLETE IV ANTIBIOTIC ROCEPHIN 2 GM DAILY FOR TOTAL 14 DAYS PLEASE FOLLOW UP UROLOGY DR POP AT [facility] IN [place] , FOR URETERAL STENT EXCHANGE YOU NEED TO HAVE AT LEAST 7-10 DAYS OF IV ANTIBIOTIC THERAPY /NEGATIVE BLOOD CULTURES -PRIOR TO UROLOGIC PROCEDURE DO NOT TAKE ASPIRIN -LOW PLATELET COUNT AVOID ADVIL, MOTRIN , IBUPROFEN, NAPROXEN PLEASE NOTIFY YOUR FAMILY PHYSICIAN OR COME TO ER - FOR ANY EPISODE OF FEVER , NOSE BLEED, BLOOD IN STOOL OR DARK STOOL /BLOOD IN URINE -THESE ARE SIGNS OF SERIOUS BLEEDING CAN OCCUR FOR LOW PLATELET COUNT Current Hospital Diet Patient's current hospital diet: Regular Diet Discharge Diet Recommended Diet: Regular Diet Pending Studies Studies pending at discharge: no Medical Emergencies . Who to Call and When: Medical Emergencies: If at any time you feel your situation is an emergency, please call 911 immediately. . Non-Emergent Contact Non-Emergency issues call your: Primary Care Provider . . "Provider Documentation" section prepared by Loan Ferrell. . Additional Copies To Jacqueline Medina M.D.
[2017-09-18 11:49] VITALS: BP 109/67; PULSE 100; TEMP 36.9; O2SAT 95
[2017-09-18 11:54] VITALS: BP 113/74; PULSE 90; TEMP 36.6; O2SAT 98
[2017-09-18] MEDS ORDERED: CEFTRIAXONE SOD INJ 2,000 MG in DEXTROSE 5% 50ML 50 ML IV SCH (12:00)
[2017-09-18] MEDS ORDERED: VANCOMYCIN IV 1,000 MG in SODIUM CHLORIDE 0.9% 250ML 250 ML IV SCH (12:00)
[2017-09-18 14:55] VITALS: BP 123/73; PULSE 92; TEMP 36.6; O2SAT 100
== END 2017-09-18 16:00 | disposition home health service (06) | DRG 809 ==
LOC: C.EDB 13:19 → C.4E 17:39 → ENRESERV 17:44
PROVIDERS: ADMIT Hospitalist; ATTEND Hospitalist
DX: D61.810 Antineoplastic chemotherapy induced pancytopenia (principal); C22.9 Malignant neoplasm of liver, not specified as primary or secondary; C34.92 Malignant neoplasm of unspecified part of left bronchus or lung; N39.0 Urinary tract infection, site not specified; R78.81 Bacteremia; J96.11 Chronic respiratory failure with hypoxia; C64.1 Malignant neoplasm of right kidney, except renal pelvis; T45.1X5A Adverse effect of antineoplastic and immunosuppressive drugs, initial encounter; Z82.49 Family history of ischemic heart disease and other diseases of the circulatory system; Z87.891 Personal history of nicotine dependence; E86.0 Dehydration; R11.2 Nausea with vomiting, unspecified; A49.9 Bacterial infection, unspecified; E83.42 Hypomagnesemia; E87.6 Hypokalemia; J44.9 Chronic obstructive pulmonary disease, unspecified; Z99.81 Dependence on supplemental oxygen; Z86.711 Personal history of pulmonary embolism; Z86.718 Personal history of other venous thrombosis and embolism

== ENCOUNTER 2017-10-10 22:15 | Inpatient (IN) | payer OTHER ==
[~2017-10-10] VITALS: Ht 154.9 cm; Wt 94.9 kg
[~2017-10-10 22:15] MED LIST changes: -ASPI81TA28 PO; -CIPR1TAB10 PO; +FLUT0.15 NAE; +MCRK20 PO; -MESA1TAB4 PO; +MGNO400 PO; -ONDA4TAB46 PO; +ONDA8TAB12 PO; +OXGN; +PROC10TA PO; -PROC1TAB5 PO; +SERT1TAB72 PO
--- NOTE | 2017-10-10 22:35 | EMERGENCY ROOM VISIT NOTE ---
History Report prepared by Roel: Loida Covington Under the Supervision of: Dr. Onur Reza M.D. First contact with patient: 22:23 Chief Complaint: ABDOMINAL PAIN Stated Complaint: ETREME PAIN, HAS INTERNAL CANCER History of Present Illness The patient is a 72 year old white female with a past medical history of liver cancer, lung cancer, bone cancer, and a stent who presents to the ED with a cc of extreme and intermittent abdominal pain beginning yesterday. Positive intermittent nausea. Negative fevers, chills, cough, vomiting, urinary symptoms , or recent falls. Her last bowel movement was yesterday. The patient reports she took 2 Tramadol 50 mg each before coming to the ED. Source of History: patient Onset: yesterday Position: abdomen Symptom Intensity: extreme Timing: intermittent Associated Symptoms: + nausea (intermittent), No fevers, No chills, No cough , No vomiting, No urinary symptoms Note: Negative recent falls. Review of Systems See HPI for pertinent positives and negatives. A total of ten systems were reviewed and were otherwise negative. Past Medical & Surgical Medical Problems: (1) Anemia (2) Cancer associated pain (3) COPD (chronic obstructive pulmonary disease) (4) Dehydration (5) DVT (deep venous thrombosis) (6) Enterococcus UTI (7) Lung cancer (8) Metastatic lung cancer (metastasis from lung to other site) (9) Pancytopenia (10) Pneumonia (11) Positive blood culture (12) Presence of inferior vena cava filter (13) Retained ureteral stent (14) Vasovagal episode Surgical Problems: (1) History of bronchoscopy (2) Post-operative state Family History Hypertension Social History Smoking Status: Former Smoker Alcohol Use: none Drug Use: none Marital Status: Housing Status: lives with significant other Occupation Status: retired Current/Historical Medications Scheduled Ceftriaxone Sod (Rocephin), 1 GM IV DAILY Fluticasone Propionate (Nasal) (Flonase Allergy Relief), 2 SPRAYS MARCIAL DAILY Gabapentin (Neurontin), 800 MG PO HS Gabapentin (Neurontin), 400 MG PO QAM Home O2 Therapy (Oxygen), 3 LITERS NA PRN Ondansetron Hcl (Zofran), 8 MG PO TID Potassium Chloride (Klor-Con M20), 20 MEQ PO DAILY Sertraline Hcl (Zoloft), 25 MG PO DAILY Scheduled PRN Albuterol Sulfate (Proventil Hfa), 2 PUFFS INH Q6H PRN for SOB/Wheezing Ipratropium-Albuterol (Duoneb), 3 ML INH Q4H PRN for SOB/COUGH Lorazepam (Ativan), 0.5 MG SL TID PRN for Anxiety Metoprolol Succinate (Toprol Xl), 50 MG PO QAM PRN for FOR HYPERTENSION Prochlorperazine Maleate (Compazine), 10 MG PO Q6 PRN for Nausea Tramadol (Ultram), 50 MG PO Q8 PRN for Pain Allergies Coded Allergies: Piperacillin (Verified Allergy, Severe, Throat swelling/tightness; hives, 09/16/17) Tazobactam (Verified Allergy, Severe, Throat swelling/tightness; hives, ) Physical Exam Vital Signs Date Time Temp Pulse Resp B/P (MAP) Pulse Ox O2 Delivery O2 Flow Rate FiO2 10/10/17 23:59 103 20 125/75 100 Nasal Cannula 3.0 10/10/17 23:35 103 10/10/17 22:17 36.4 113 22 135/68 100 Nasal Cannula 3.0 Physical Exam GENERAL: Awake, alert, well-appearing. Mildly uncomfortable, in pain. Thinning hair. HENT: Normocephalic, atraumatic. EYES: Normal conjunctiva. Sclera non-icteric. PERRL. No anisocoria. NECK: Supple. No nuchal rigidity. FROM. RESPIRATORY: CTAB, no rhonchi, wheezing, crackles CARDIAC: RRR, no MRG. Port in right chest. ABDOMEN: Soft, NTND, BS+. Right sided lower rib and abdominal pain not peritonitis. MSK: No chest wall TTP, no pitting edema BLE NEURO: GCS 15, CN 2-12 intact, moves all 4s on command SKIN: No rash or jaundice noted. Medical Decision & Procedures ER Provider Diagnostic Interpretation: Radiology results as stated below per my review and radiologist interpretation: CHEST ONE VIEW PORTABLE HISTORY: 72 years-old Female ABDOMINAL PAIN/GI acute generalized abdominal pain with acute atypical chest pain COMPARISON: Chest radiograph 07/21/2017, PET CT 08/05/2017 TECHNIQUE: Portable AP view of the chest FINDINGS: Patient is rotated to the right. Right internal jugular Hshqgm-i-Gfmv catheter is unchanged. There is improved aeration of the left lung from comparison which appears clear. No pneumothorax. No large pleural effusion. Mild right hemidiaphragmatic elevation with persistent mixed interstitial and alveolar opacities throughout the right lung. Degenerative changes of the shoulders and spine. Bony metastatic lesions are better seen on comparison PET CT. Ill-defined sclerotic lesion of the proximal left humerus. IMPRESSION: 1. Mildly limited study secondary to patient rotation. 2. Chronic changes about the right lung with volume loss, right hemidiaphragm elevation and mixed interstitial and alveolar opacities. 3. Left lung is clear. The above report was generated using voice recognition software. It may contain grammatical, syntax or spelling errors. Electronically signed by: Andrea Umanzor M.D. 10/10/2017 10:49 PM Dictated Date/Time: 10/10/2017 10:[address] ABDOMEN & PELVIS Without Contrast Small to moderate right pleural effusion. Multiple right basilar pleural-based nodules. Small epicardial lymph node. The heart is not enlarged. The liver is full of mass. Cholelithiasis is present. A duodenal diverticulum is noted. The spleen, pancreas, and adrenals are unremarkable. Right uretal stent is in place. No hydronephrosis or nephrolithiasis. No bowel obstruction or wall thickening. No evidence for acute appendicitis. No ascites or free air. Multiple osseous metastases. Radiologist: Levar Pruitt MD Study ready 23:31 and initial results transmitted at 23:47 Laboratory Results 10/10/17 22:58 Red Blood Count 3.02, Mean Corpuscular Volume 94.7, Mean Corpuscular Hemoglobin 30.1, Mean Corpuscular Hemoglobin Concent 31.8, Mean Platelet Volume 9.5, Neutrophils (%) (Auto) 71.6, Lymphocytes (%) (Auto) 13.9, Monocytes (%) (Auto) 11.9, Eosinophils (%) (Auto) 1.7, Basophils (%) (Auto) 0.7, Neutrophils # (Auto ) 4.17, Lymphocytes # (Auto) 0.81, Monocytes # (Auto) 0.69, Eosinophils # (Auto ) 0.10, Basophils # (Auto) 0.04 10/10/17 22:58 Test 10/10/17 22:58 White Blood Count 5.82 K/uL (4.8-10.8) Red Blood Count 3.02 M/uL (4.2-5.4) Hemoglobin 9.1 g/dL (12.0-16.0) Hematocrit 28.6 % (37-47) Mean Corpuscular Volume 94.7 fL (80-100) Mean Corpuscular Hemoglobin 30.1 pg (25-34) Mean Corpuscular Hemoglobin Concent 31.8 g/dl (32-36) Platelet Count 135 K/uL (130-400) Mean Platelet Volume 9.5 fL (7.4-10.4) Neutrophils (%) (Auto) 71.6 % Lymphocytes (%) (Auto) 13.9 % Monocytes (%) (Auto) 11.9 % Eosinophils (%) (Auto) 1.7 % Basophils (%) (Auto) 0.7 % Neutrophils # (Auto) 4.17 K/uL (1.4-6.5) Lymphocytes # (Auto) 0.81 K/uL (1.2-3.4) Monocytes # (Auto) 0.69 K/uL (0.11-0.59) Eosinophils # (Auto) 0.10 K/uL (0-0.5) Basophils # (Auto) 0.04 K/uL (0-0.2) RDW Standard Deviation 66.0 fL (36.4-46.3) RDW Coefficient of Variation 19.0 % (11.5-14.5) Immature Granulocyte % (Auto) 0.2 % Immature Granulocyte # (Auto) 0.01 K/uL (0.00-0.02) Tear Drop Cells 1+ Anion Gap 6.0 mmol/L (3-11) Estimated GFR () 48.6 Estimated GFR (Non- 41.9 BUN/Creatinine Ratio 17.0 (10-20) Calcium Level 8.8 mg/dl (8.5-10.1) Total Bilirubin 0.2 mg/dl (0.2-1) Direct Bilirubin 0.1 mg/dl (0-0.2) Aspartate Amino Transf (AST/SGOT) 51 U/L (15-37) Alanine Aminotransferase (ALT/SGPT) 13 U/L (12-78) Alkaline Phosphatase 42 U/L (45-117) Troponin I < 0.015 ng/ml (0-0.045) Total Protein 7.1 gm/dl (6.4-8.2) Albumin 3.2 gm/dl (3.4-5.0) Lipase 199 U/L (73-393) Laboratory results reviewed by me Medications Administered Medications (Trade) Dose Ordered Sig/Nany Route Start Time Stop Time Status Last Admin Dose Admin Ondansetron HCl (Zofran Inj) 4 mg NOW STAT IV 10/10/17 22:36 10/10/17 22:37 DC 10/10/17 23:06 4 MG Morphine Sulfate (MoRPHine SULFATE INJ) 4 mg NOW STAT IV 10/10/17 22:36 10/10/17 22:37 DC 10/10/17 23:05 4 MG Hydromorphone HCl (Dilaudid Inj) 0.5 mg NOW STAT IV 10/10/17 23:42 10/10/17 23:43 DC 10/10/17 23:52 0.5 MG Sodium Chloride 1,000 ml @ 999 mls/hr Q1H1M STAT IV 10/10/17 23:42 10/11/17 00:42 DC 10/10/17 23:51 999 MLS/HR Fentanyl Citrate (Fentanyl Inj) 100 mcg NOW ONCE IV 10/11/17 00:30 10/11/17 00:31 DC 10/11/17 00:50 100 MCG ECG Per My Interpretation Indication: abdominal pain Rate (beats per minute): 101 Rhythm: sinus tachycardia Findings: Q waves (Anterior), other (normal intervals, normal axis) Comparison ECG Date: 05/31/17 Change: Rate is improved, but otherwise fairly unchanged ED Course 2227: The patient was evaluated in room B11. A complete history and physical exam was performed. 2236: Ordered Morphine Sulfate 4 mg IV, Zofran Inj 4 mg IV 2342: Ordered Sodium Chloride 1000 ml @ 999 mls/hr IV, Dilaudid Inj 0.5 mg IV 0001: I checked on the patient at this time. She is feeling better. 0030: Ordered Fentanyl Inj 100 mcg IV Discussed the patient's case with Dr. Lopez, [facility] Hospitalist. The patient will be evaluated for further treatment and disposition. Medical Decision The patient is a 72 year old white female with a past medical history of liver cancer, lung cancer, bone cancer, and a stent who presents to the ED with a cc of extreme abdominal pain beginning yesterday. Positive intermittent nausea. Negative fevers, chills, cough, vomiting, urinary symptoms, or recent falls. Prior records/ancillary studies reviewed. Triage Nursing notes reviewed. The patient's history was concerning for abdominal pain. Differential diagnosis: Etiologies such as appendicitis, diverticulitis, PUD, biliary pathology, UTI, pancreatitis, obstruction, mesenteric ischemia, aortic pathology, infections, inflammatory bowel disease, renal colic, as well as others were entertained. Patient was seen and evaluated the bedside. Patient reports that he does have a history of stage IV lung CA with metastases to the liver and bone. Patient also does have prior history of a right-sided renal mass status post ureteral stent. Patient did have a recent admission for gram-negative bacteremia the patient has been receiving at home Rocephin injections daily. The patient does present with right-sided flank and right-sided abdominal discomfort. This is at the site of some of her tumor burden. Patient has been receiving home health care but is pending hospice next week. Patient is only on gabapentin for pain medication at home. Patient does not have any other pain meds. Patient did have blood work completed, troponin, chest x-ray, CT of the abdomen pelvis and urinalysis. The patient's blood work showed that her pancytopenia had improved. The patient's white blood cell count is normal. Patient does have anemia which is chronic in nature. Platelet count is normal. The patient does have some baseline CKD which is fairly unchanged from prior. The patient' s creatinine today is 1.2. Patient's LFTs and lipase are fairly unremarkable. The patient CT the abdomen pelvis does show that she does have fair amount of tumor burden within the liver. The patient does have a trace pleural effusion in the right chest. This is not noted on chest x-ray. Her chest x-ray does shows her chronic lung CA. Patient's urinalysis is pending with the patient is already being treated with Rocephin for her history of gram-negative bacteremia. The patient had received multiple rounds of pain medications after being reassessed multiple times. The patient still did not feel improved after 3 rounds of IV pain medications. Given this and her unfortunate stage IV lung CA with metastases I did discuss with the patient and family requested further pain control. I did discuss the case with the on-call hospitalist who agreed to further evaluate and treat the patient. Patient was having some wheezing and the patient was ordered a DuoNeb. Medication Reconcilliation Current Medication List: was personally reviewed by me Blood Pressure Screening Patient's blood pressure: Normal blood pressure Blood pressure disposition: Did not require urgent referral Consults Time Called: 011 Consulting Physician: [facility] Hospitalist Returned Call: [phone] Discussed the patient's case with [facility]. The patient will be evaluated for further treatment and disposition. Impression Primary Impression: Cancer associated pain Additional Impressions: Lung cancer COPD (chronic obstructive pulmonary disease) Anemia Scribe Attestation The scribe's documentation has been prepared under my direction and personally reviewed by me in its entirety. I confirm that the note above accurately reflects all work, treatment, procedures, and medical decision making performed by me. Departure Information Dispostion Being Evaluated By Hospitalist ([facility] Hospitalist ) Referrals Suzanne Sanabria M.D. (PCP) Patient Instructions My [facility] Problem Qualifiers Additional Impressions: Lung cancer Laterality: right Lung location: lower lobe of lung Qualified Codes: C34.31 - Malignant neoplasm of lower lobe, right bronchus or lung COPD (chronic obstructive pulmonary disease) COPD type: unspecified COPD Qualified Codes: J44.9 - Chronic obstructive pulmonary disease, unspecified Anemia Anemia type: unspecified type Qualified Codes: D64.9 - Anemia, unspecified
[2017-10-10] MEDS ORDERED: MoRPHine SULFATE 4 MG/ML 1 ML CARP\\VIAL IV STA (22:36)
[2017-10-10] MEDS ORDERED: ONDANSETRON INJ 2 MG/ML 2 ML VIAL IV STA (22:36)
--- NOTE | 2017-10-10 22:50 | DIAGNOSTIC IMAGING REPORT ---
CHEST ONE VIEW PORTABLE HISTORY: 72 years-old Female ABDOMINAL PAIN/GI acute generalized abdominal pain with acute atypical chest pain COMPARISON: Chest radiograph 07/21/2017, PET CT 08/05/2017 TECHNIQUE: Portable AP view of the chest FINDINGS: Patient is rotated to the right. Right internal jugular Eftzpw-c-Wqla catheter is unchanged. There is improved aeration of the left lung from comparison which appears clear. No pneumothorax. No large pleural effusion. Mild right hemidiaphragmatic elevation with persistent mixed interstitial and alveolar opacities throughout the right lung. Degenerative changes of the shoulders and spine. Bony metastatic lesions are better seen on comparison PET CT. Ill-defined sclerotic lesion of the proximal left humerus. IMPRESSION: 1. Mildly limited study secondary to patient rotation. 2. Chronic changes about the right lung with volume loss, right hemidiaphragm elevation and mixed interstitial and alveolar opacities. 3. Left lung is clear. The above report was generated using voice recognition software. It may contain grammatical, syntax or spelling errors. Electronically signed by: Andrea Umanzor M.D. 10/10/2017 10:49 PM Dictated Date/Time: 10/10/2017 10:46 PM
[2017-10-10 23:10] LABS: HEMATOCRIT 28.6 % (37-47); HEMOGLOBIN 9.1 g/dL (12.0-16.0); MEAN CELL VOLUME 94.7 fL (80-100); MEAN CORPUSCULAR HEMOGLOBIN 30.1 pg (25-34); MEAN CORPUSCULAR HGB CONC 31.8 g/dl (32-36); MEAN PLATELET VOLUME 9.5 fL (7.4-10.4); PLATELET COUNT 135 K/uL (130-400); WHITE BLOOD COUNT 5.82 K/uL (4.8-10.8)
[2017-10-10 23:29] LABS: ALBUMIN 3.2 gm/dl (3.4-5.0); ALT/SGPT 13 U/L (12-78); AST/SGOT 51 U/L (15-37); BLOOD UREA NITROGEN 21 mg/dl (7-18); CALCIUM 8.8 mg/dl (8.5-10.1); CARBON DIOXIDE 30 mmol/L (21-32); CREATININE 1.26 mg/dl (0.60-1.20); GLUCOSE 119 mg/dl (70-99); LIPASE 199 U/L (73-393); POTASSIUM 4.6 mmol/L (3.5-5.1); SODIUM 140 mmol/L (136-145)
[2017-10-10 23:34] LABS: ALKALINE PHOSPHATASE 42 U/L (45-117); TOTAL PROTEIN 7.1 gm/dl (6.4-8.2)
[2017-10-10 23:35] LABS: BASO % 0.7 %; BASO ABS # 0.04 K/uL (0-0.2); EOS % 1.7 %; IG# 0.01 K/uL (0.00-0.02); LYMPH % 13.9 %; LYMPH ABS # 0.81 K/uL (1.2-3.4); MONO % 11.9 %; MONO ABS # 0.69 K/uL (0.11-0.59); NEUT % 71.6 %; NEUT ABS # 4.17 K/uL (1.4-6.5)
[2017-10-10] MEDS ORDERED: HYDROmorphone INJ 0.5 MG/0.5 ML SYR IV STA (23:42)
[2017-10-10] MEDS ORDERED: SODIUM CHLORIDE 0.9% 1000ML 1,000 ML IV STA (23:42)
[2017-10-11] MEDS ORDERED: ALBUAER INH (00:22)
[2017-10-11] MEDS ORDERED: IPRASOL4 INH (00:24)
[2017-10-11] MEDS ORDERED: LORA-741 SL (00:27)
[2017-10-11] MEDS ORDERED: FENTANYL CITRATE INJ 50 MCG/1 ML 2 ML VIAL IV ONE (00:30)
[2017-10-11] MEDS ORDERED: MCRK20 PO (00:33)
[2017-10-11] MEDS ORDERED: CEFT1INJ57 IV (00:36)
[2017-10-11] MEDS ORDERED: ALBUT/IPRATROP 3MG/0.5MG NEB 3 ML VIAL INH STA (01:14)
[2017-10-11 02:45] VITALS: BP 121/82; PULSE 113; TEMP 36.8; O2SAT 97; BMI 39.0
--- NOTE | 2017-10-11 05:02 | History and Physical ---
History & Physical Date & Time of Service: October 11, 2017 at 04:35 Chief Complaint: Abdominal Pain, Cancer Associated Pain Primary Care Physician: Suzanne Sanabria M.D. History of Present Illness Source: patient, clinic records, hospital records 72 years old female with past medical history of COPD, CKD stage III, chronic obstructive pyelonephritis, small cell lung cancer metastases to leave for an bone history of PE and DVT present to the ER after developed right side abdominal pain. Patient said pain started last night while She was at school play. Pain located in the right side of the abdomen, comes and goes, 8 out of 10 IN SEVERITY, nonradiating associated with nausea and dry heave. Patient said she took 2 tabs of tramadol with no relief. Last bowel movement was yesterday that was normal. Patient said that she is no longer doing chemo. She has an appointment on Thursday with palliative care for hospice. Denies any fever, palpitation, dizziness, chills, vomiting, dysuria, chest pain, and shortness of breath. Past Medical/Surgical History Medical Problems: (1) Abdominal pain (2) Dehydration (3) DVT (deep venous thrombosis) (4) Elevated white blood cell count (5) Enterococcus UTI (6) Hepatic metastasis (7) Immunocompromised (8) Metastatic lung cancer (metastasis from lung to other site) (9) Pancytopenia (10) PNA (pneumonia) (11) Pneumonia (12) Pneumonia (13) Positive blood culture (14) Presence of inferior vena cava filter (15) Pyelonephritis (16) Retained ureteral stent (17) Right sided abdominal pain (18) Small cell lung cancer (19) SOB (shortness of breath) (20) Syncope (21) Vasovagal episode (22) Weakness Surgical Problems: (1) History of bronchoscopy (2) Post-operative state Family History Hypertension Social History Smoking Status: Former Smoker Drug Use: none Marital Status: Housing status: lives with family Occupational Status: retired Immunizations History of Influenza Vaccine: Yes History of Tetanus Vaccine?: Yes History of Pneumococcal: Yes History of Hepatitis B Vaccine: No Allergies Coded Allergies: Piperacillin (Verified Allergy, Severe, Throat swelling/tightness; hives, 09/16/17) Tazobactam (Verified Allergy, Severe, Throat swelling/tightness; hives, ) Home Medications Scheduled Ceftriaxone Sod (Rocephin), 1 GM IV DAILY Fluticasone Propionate (Nasal) (Flonase Allergy Relief), 2 SPRAYS MARCIAL DAILY Gabapentin (Neurontin), 800 MG PO HS Gabapentin (Neurontin), 400 MG PO QAM Home O2 Therapy (Oxygen), 3 LITERS NA PRN Ondansetron Hcl (Zofran), 8 MG PO TID Sertraline Hcl (Zoloft), 50 MG PO DAILY Scheduled PRN Albuterol Sulfate (Proventil Hfa), 2 PUFFS INH Q6H PRN for SOB/Wheezing Ipratropium-Albuterol (Duoneb), 3 ML INH Q4H PRN for SOB/COUGH Lorazepam (Ativan), 0.5 MG SL TID PRN for Anxiety Prochlorperazine Maleate (Compazine), 10 MG PO Q6 PRN for Nausea Tramadol (Ultram), 50 MG PO Q8 PRN for Pain Review of Systems Constitutional: No fever, No chills Eyes: No eye pain, No diplopia ENT: No nasal symptoms, No sore throat Respiratory: + dyspnea on exertion, No cough, No sputum Cardiovascular: No chest pain, No claudication, No palpitations Abdomen: + pain, + nausea Musculoskeletal: No calf pain Genitourinary - Female: No dysuria Neurologic: No vertigo Psychiatric: No substance abuse Endocrine: No excessive thirst Hematologic / Lymphatic: No night sweats Integumentary: No rash, No itch Physical Exam Vital Signs Date Time Temp Pulse Resp B/P (MAP) Pulse Ox O2 Delivery O2 Flow Rate FiO2 10/11/17 02:45 36.8 113 20 121/82 97 Nasal Cannula 3.0 10/11/17 01:32 110 20 112/76 100 Nasal Cannula 3.0 10/10/17 23:59 103 20 125/75 100 Nasal Cannula 3.0 10/10/17 23:35 103 10/10/17 22:17 36.4 113 22 135/68 100 Nasal Cannula 3.0 General Appearance: WD/WN, + obese Head: normocephalic, atraumatic Eyes: PERRL, EOMI ENT: hearing grossly normal Neck: no JVD, trachea midline Respiratory/Chest: chest non-tender, no respiratory distress, no accessory muscle use Cardiovascular: no JVD, + tachycardia Abdomen/GI: normal bowel sounds, + tenderness Back: no CVA tenderness Extremities/Musculoskelatal: no calf tenderness, + swelling Neurologic/Psych: alert, normal mood/affect, oriented x 3 Skin: warm/dry, no rash Diagnostics Laboratory Results Results Past 24 Hours Test 10/10/17 22:58 Range/Units White Blood Count 5.82 4.8-10.8 K/uL Red Blood Count 3.02 4.2-5.4 M/uL Hemoglobin 9.1 12.0-16.0 g/dL Hematocrit 28.6 37-47 % Mean Corpuscular Volume 94.7 80-100 fL Mean Corpuscular Hemoglobin 30.1 25-34 pg Mean Corpuscular Hemoglobin Concent 31.8 32-36 g/dl Platelet Count 135 130-400 K/uL Mean Platelet Volume 9.5 7.4-10.4 fL Neutrophils (%) (Auto) 71.6 % Lymphocytes (%) (Auto) 13.9 % Monocytes (%) (Auto) 11.9 % Eosinophils (%) (Auto) 1.7 % Basophils (%) (Auto) 0.7 % Neutrophils # (Auto) 4.17 1.4-6.5 K/uL Lymphocytes # (Auto) 0.81 1.2-3.4 K/uL Monocytes # (Auto) 0.69 0.11-0.59 K/uL Eosinophils # (Auto) 0.10 0-0.5 K/uL Basophils # (Auto) 0.04 0-0.2 K/uL RDW Standard Deviation 66.0 36.4-46.3 fL RDW Coefficient of Variation 19.0 11.5-14.5 % Immature Granulocyte % (Auto) 0.2 % Immature Granulocyte # (Auto) 0.01 0.00-0.02 K/uL Tear Drop Cells 1+ Sodium Level 140 136-145 mmol/L Potassium Level 4.6 3.5-5.1 mmol/L Chloride Level 103 98-107 mmol/L Carbon Dioxide Level 30 21-32 mmol/L Anion Gap 6.0 3-11 mmol/L Blood Urea Nitrogen 21 7-18 mg/dl Creatinine 1.26 0.60-1.20 mg/dl Estimated GFR () 48.6 Estimated GFR (Non- 41.9 BUN/Creatinine Ratio 17.0 10-20 Random Glucose 119 70-99 mg/dl Calcium Level 8.8 8.5-10.1 mg/dl Total Bilirubin 0.2 0.2-1 mg/dl Direct Bilirubin 0.1 0-0.2 mg/dl Aspartate Amino Transf (AST/SGOT) 51 15-37 U/L Alanine Aminotransferase (ALT/SGPT) 13 12-78 U/L Alkaline Phosphatase 42 45-117 U/L Troponin I < 0.015 0-0.045 ng/ml Total Protein 7.1 6.4-8.2 gm/dl Albumin 3.2 3.4-5.0 gm/dl Lipase 199 73-393 U/L Diagnostic Radiology CHEST ONE VIEW PORTABLE HISTORY: 72 years-old Female ABDOMINAL PAIN/GI acute generalized abdominal pain with acute atypical chest pain COMPARISON: Chest radiograph 07/21/2017, PET CT 08/05/2017 TECHNIQUE: Portable AP view of the chest FINDINGS: Patient is rotated to the right. Right internal jugular Yulqti-[id number]-[id number] catheter is unchanged. There is improved aeration of the left lung from comparison which appears clear. No pneumothorax. No large pleural effusion. Mild right hemidiaphragmatic elevation with persistent mixed interstitial and alveolar opacities throughout the right lung. Degenerative changes of the shoulders and spine. Bony metastatic lesions are better seen on comparison PET CT. Ill-defined sclerotic lesion of the proximal left humerus. IMPRESSION: 1. Mildly limited study secondary to patient rotation. 2. Chronic changes about the right lung with volume loss, right hemidiaphragm elevation and mixed interstitial and alveolar opacities. 3. Left lung is clear. The above report was generated using voice recognition software. It may contain grammatical, syntax or spelling errors. Electronically signed by: Andrea Umanzor M.D. 10/10/2017 10:49 PM Dictated Date/Time: 10/10/2017 10:[address] ABDOMEN & PELVIS Without Contrast Small to moderate right pleural effusion. Multiple right basilar pleural-based nodules. Small epicardial lymph node. The heart is not enlarged. The liver is full of mass. Cholelithiasis is present. A duodenal diverticulum is noted. The spleen, pancreas, and adrenals are unremarkable. Right uretal stent is in place. No hydronephrosis or nephrolithiasis. No bowel obstruction or wall thickening. No evidence for acute appendicitis. No ascites or free air. Multiple osseous metastases. Radiologist: Levar Pruitt MD Study ready 23:31 and initial results transmitted at 23:47 Impression Assessment and Plan Right-sided abdominal pain associated with Nausea HISTORY CROHN'S CT abdomen showed no bowel obstruction or wall thickening. No evidence for acute appendicitis. No ascites or free air. Multiple osseous metastases. Pain control Zofran as needed SMALL CELL LUNG CANCER Liver metastases Bone metastases No more chemo treatment as per patient As an appointment with hospice team on Thursday Palliative care consult Complicated UTI On Rocephin IV, will complete abx course on 10/15 Denies any urinary symptoms CKD stage III Creatinine baseline between 1.1-1.2 Creatinine on admission 1.2 Stable COPD O2 DEPENDENT Continue supplemental oxygen Continue neb treatment HISTORY OF SINUS TACHYCARDIA HTN Metoprolol has been discontinued due to low BP HISTORY OF PE/DVT S/P IVC filter, not on anticoagulation secondary to thrombocytopenia VIRI Does not use CPAP DVT Prophylaxis on SCDs (due to history of thrombocytopenia) CODE STATUS full no mechanical ventilation Advanced Directives Existing Living Will: Yes Existing Power of Admin Asst: Yes Resuscitation Status VTE Prophylaxis Will order VTE Prophylaxis: Yes
[2017-10-11] MEDS ORDERED: SERT1TAB71 PO (05:06)
[2017-10-11] MEDS ORDERED: OXYCODONE HCL IR 5 MG TAB (IMMEDIATE RELEASE) PO PRN (05:15)
[2017-10-11] MEDS ORDERED: ALBUT/IPRATROP 3MG/0.5MG NEB 3 ML VIAL INH PRN (05:15)
[2017-10-11] MEDS ORDERED: TRAMADOL HCL 50 MG TAB PO PRN (05:15)
[2017-10-11] MEDS ORDERED: PROCHLORPERAZINE MALEATE 10 MG TAB PO PRN (05:15)
[2017-10-11] MEDS ORDERED: LORAZEPAM 0.5 MG TAB SL PRN (05:15)
[2017-10-11 07:21] VITALS: BP 113/68; PULSE 114; TEMP 36.5; O2SAT 99
[2017-10-11] MEDS ORDERED: ENOXAPARIN 40 MG/0.4 ML SYR SQ SCH (08:00)
[2017-10-11] MEDS: ONDANSETRON 8 MG TAB PO SCH ×3 (08:22→21:11)
[2017-10-11] MEDS: FLUTICASONE PROPIONATE NA SPR 16 GM BTL NAE SCH (08:23)
[2017-10-11] MEDS: GABAPENTIN 400 MG CAP PO SCH (08:23)
[2017-10-11] MEDS: SERTRALINE HCL 50 MG TAB PO SCH (08:24)
--- NOTE | 2017-10-11 08:36 | DIAGNOSTIC IMAGING REPORT ---
ABDOMEN AND PELVIS CT WITHOUT CONTRAST CT DOSE: 694.01 mGy.cm HISTORY: Acute generalized abdominal pain. Nausea. TECHNIQUE: Multiaxial CT images of the abdomen and pelvis were performed without contrast. A dose lowering technique was utilized adhering to the principles of ALARA. COMPARISON STUDY: Abdomen and pelvis CT 09/16/2017. FINDINGS: There is a new small right pleural effusion. Increase in size in the pleural-based metastases on the right. The largest soft tissue nodule anteriorly measures 11 mm. No pneumoperitoneum. No pneumatosis. Posterior fusion seen within the lower lumbar spine. No significant change in the scattered osteoblastic metastatic disease within the visualized osseous structures. Fat-containing right inguinal hernia, unchanged. Hysterectomy. Pelvic floor collapse is again noted. A right ureteral stent remains in good position. Mild right urothelial thickening, unchanged. There is an IVC filter noted. Interval increase in size in the hepatic metastatic disease. Dominant lesion the right hepatic lobe measures 6.9 cm, previously measuring 5.4 cm. The unenhanced spleen and adrenal glands are unremarkable. Normal pancreas. No retroperitoneal lymphadenopathy. Abnormal lobular appearance of the right kidney, unchanged. This includes the 4.7 cm lobular lesion within the lower pole. This is unchanged in size. No hydronephrosis. Colonic diverticulosis. Suboptimal evaluation for bowel pathology due to the lack of intravenous and oral contrast. However, there is no definite bowel wall thickening or obstruction. Cholelithiasis. IMPRESSION: 1. Progressive right pleural and hepatic metastatic disease as described above. Osteoblastic metastatic disease remains unchanged 2. Interval development of a small right pleural effusion. 3. No bowel wall thickening or obstruction. 4. Redemonstration of the lobular 4.7 cm mass within the right kidney. This is consistent with a renal cell carcinoma until proven otherwise. 5. Right ureteral stent remains in place with associated reactive urothelial thickening. No hydronephrosis. Electronically signed by: Armando Rawls M.D. 10/11/2017 8:34 AM Dictated Date/Time: 10/11/2017 8:27 AM
[2017-10-11 11:43] VITALS: BMI 39.0
[2017-10-11 11:50] VITALS: BP 108/61; PULSE 110; TEMP 36.6; O2SAT 97
[2017-10-11 15:48] VITALS: BP 120/75; PULSE 107; TEMP 36.6; O2SAT 100
[2017-10-11] MEDS ORDERED: CEFTRIAXONE SOD INJ 1 GM in DEXTROSE 5% ADD-VANTAGE 50ML 50 ML IV SCH (17:00)
[2017-10-11] MEDS ORDERED: NURSING DECISION MEDICATION ORDER SCH (17:45)
[2017-10-11 19:50] VITALS: BP 115/71; PULSE 110; TEMP 37.1; O2SAT 97
[2017-10-11] MEDS ORDERED: GABAPENTIN 400 MG CAP PO SCH (21:00)
[2017-10-11 23:47] VITALS: BP 122/70; PULSE 106; TEMP 37.1; O2SAT 98
[2017-10-12 04:05] VITALS: BP 130/77; PULSE 106; TEMP 37; O2SAT 96
[2017-10-12 05:59] LABS: HEMOGLOBIN 7.7 g/dL (12.0-16.0); MEAN CELL VOLUME 93.8 fL (80-100); MEAN CORPUSCULAR HEMOGLOBIN 30.1 pg (25-34); MEAN CORPUSCULAR HGB CONC 32.1 g/dl (32-36); PLATELET COUNT 105 K/uL (130-400); RED CELL DISTRIBUTION WIDTH CV 18.5 % (11.5-14.5); RED CELL DISTRIBUTION WIDTH SD 63.8 fL (36.4-46.3); WHITE BLOOD COUNT 4.46 K/uL (4.8-10.8)
[2017-10-12 06:16] VITALS: Ht 154.9 cm; Wt 94.9 kg
[2017-10-12 06:21] LABS: CREATININE 1.12 mg/dl (0.60-1.20); POTASSIUM 4.2 mmol/L (3.5-5.1)
[2017-10-12 07:11] VITALS: BP 136/75; PULSE 106; TEMP 36.6; O2SAT 96
[2017-10-12 07:13] VITALS: BP 117/65; PULSE 85; TEMP 37; O2SAT 90
[2017-10-12] MEDS: GABAPENTIN 400 MG CAP PO SCH (08:04)
[2017-10-12] MEDS: ONDANSETRON 8 MG TAB PO SCH (08:04)
[2017-10-12] MEDS: SERTRALINE HCL 50 MG TAB PO SCH (08:05)
[2017-10-12] MEDS: FLUTICASONE PROPIONATE NA SPR 16 GM BTL NAE SCH (08:05)
--- NOTE | 2017-10-12 09:22 | Palliative Care Consultation ---
Consultation Date of Consultation: October 12, 2017. Requesting Physician: Dr. Lopez Attending Physician: Dr. Stringer Reason for Consultation: Goals of Care History of Present Illness This is a kulwant 72 [id number] who presented to the hospital on 10/11 with 8 /10 right abdominal pain. She has a PMH that includes lung ca with bone and liver mets for whom she is followed by Dr. Sanabria. She met with Dr. Sanabria last week and in the patients words "was not showing improvement, so chemotherapy was stopped". Additional PMH includes COPD, CKD III, obstructive pyelonephritis , PE, Crohn's disease, and a DVT. Currently, her abdominal pain is being managed with Tramadol and she states that it is much better than what is was yesterday. We discussed GOALS OF CARE extensively and she said that she likes to "plan parties and be with her family ". She has expressed that she is at a state of acceptance of her poor prognosis and would like to focus on improving her quality of life. She has a strong goal of traveling to [place] to visit her sister and brother. I discussed the process with Vandana, strongly encouraging business class and obtaining a JOSELIN form to ensure a seamless experience at the airport. We discussed her need for a portable O2 concentrator and to anticipate she may need more O2 as increased needs arise at increased altitudes. I suggested she contact [employer] to discuss the process and assist with facilitating. We discussed CODE STATUS more in depth and will change her to a DNR/DNI. Her daughters Flaquita and Vandana were in the room for this conversation and support her with her wishes. The plan is to return home with Hospice care and case management is involved with assisting with the transition. All questions were answered to both patient and family. Thank you kindly for allowing us to participate in this kulwant patients transition into Hospice care. Past Medical/Surgical History Medical History: COPD CKD III Obstructive pyelonephritis lung Ca with mets to bone/liver PE DVT crohns disease Social History Smoking Status: Former Smoker History of Alcohol Use: No Drug Use: none Marital Status: Housing Status: lives with family Occupation Status: retired Review of Systems General: Pt denies acute pain HEENT: Pt denies BERRY, dizziness, visual changes CV: Pt denies CP, palpitations, edema Resp: Pt denies SOB, is on 2LNC GI: Pt denies abdominal pain, N/V/D : pt denies dysuria - but states she has had UTIs in the past Skin: No new skin rashes Allergies Coded Allergies: Piperacillin (Verified Allergy, Severe, Throat swelling/tightness; hives, 09/16/17) Tazobactam (Verified Allergy, Severe, Throat swelling/tightness; hives, ) Medications Current Inpatient Medications Medications (Trade) Dose Ordered Sig/Nany Route Start Time Stop Time Status Last Admin Dose Admin Fluticasone Propionate (Flonase Nasal [place]) 2 sprays DAILY MARCIAL 10/11/17 08:00 11/10/17 07:59 10/12/17 08:05 2 SPRAYS Gabapentin (Neurontin Cap) 400 mg QAM PO 10/11/17 08:00 11/10/17 07:59 10/12/17 08:04 400 MG Gabapentin (Neurontin Cap) 800 mg HS PO 10/11/17 21:00 11/10/17 20:59 10/11/17 21:11 800 MG Albuterol/ Ipratropium (Duoneb) 3 ml Q4H PRN INH 10/11/17 05:15 11/10/17 05:14 Lorazepam (Ativan Tab) 0.5 mg TID PRN SL 10/11/17 05:15 11/10/17 05:14 Ondansetron HCl (Zofran Tab) 8 mg TID PO 10/11/17 08:00 11/10/17 07:59 10/12/17 08:04 8 MG Prochlorperazine Maleate (Compazine Tab) 10 mg Q6H PRN PO 10/11/17 05:15 11/10/17 05:14 Sertraline HCl (Zoloft Tab) 50 mg DAILY PO 10/11/17 08:00 11/10/17 07:59 10/12/17 08:05 50 MG Tramadol HCl (Ultram Tab) 50 mg Q8 PRN PO 10/11/17 05:15 11/10/17 05:14 Oxycodone HCl (Roxicodone Immediate Rel Tab) 5 mg Q8 PRN PO 10/11/17 05:15 10/25/17 05:14 Ceftriaxone Sodium 1 gm/ Dextrose 50 ml @ 100 mls/hr Q24H IV 10/11/17 17:00 10/15/17 16:59 10/11/17 17:12 100 MLS/HR Heparin Sodium (Porcine) (Heparin 100 Unit/ml 5ml Flush) 5 ml PRN PRN IV 10/11/17 18:30 11/10/17 18:29 10/12/17 08:27 5 ML Physical Exam Date Time Temp Pulse Resp B/P (MAP) Pulse Ox O2 Delivery O2 Flow Rate FiO2 10/12/17 07:13 37.0 85 18 117/65 (82) 90 Room Air 10/12/17 07:11 36.6 106 20 136/75 (95) 96 Nasal Cannula 2.5 10/12/17 04:05 37.0 106 20 130/77 (94) 96 Nasal Cannula 2.0 10/12/17 00:00 Nasal Cannula 3.0 10/11/17 23:47 37.1 106 20 122/70 (87) 98 Nasal Cannula 2.0 10/11/17 20:00 Nasal Cannula 3.0 10/11/17 19:50 37.1 110 20 115/71 (86) 97 Nasal Cannula 2.0 10/11/17 16:00 Nasal Cannula 3.0 10/11/17 15:48 36.6 107 20 120/75 (90) 100 Nasal Cannula 2.5 10/11/17 11:50 36.6 110 18 108/61 (77) 97 Nasal Cannula 2.0 General Appearance: no apparent distress Respiratory: chest non-tender, lungs clear, no respiratory distress, no accessory muscle use, + decreased breath sounds, + pertinent finding (on 2LNC) Cardiovascular: regular rate, rhythm, no edema, no gallop, no JVD, no murmur Abdomen: normal bowel sounds, non tender, soft Neurologic/Psychiatric: oriented x 3 Skin: warm/dry Laboratory Results Last 24 Hours Test 10/11/17 12:00 10/12/17 05:47 Urine Color DK YELLOW Urine Appearance TURBID Urine pH 5.0 Urine Specific [place] 1.024 Urine Protein 2+ Urine Glucose (UA) NEG Urine Ketones TRACE Urine Occult Blood 2+ Urine Nitrite NEG Urine Bilirubin NEG Urine Urobilinogen NEG Urine Leukocyte Esterase LARGE Urine RBC (Auto) /hpf Urine Hyaline Casts (Auto) /lpf Urine RBC 10-30 /hpf Urine WBC >30 /hpf Urine Epithelial Cells 20-30 /lpf Urine Bacteria 1+ Urine Pathogenic Casts /lpf Urine Yeast PRESENT Urine Yeast (Auto) White Blood Count 4.46 K/uL Red Blood Count 2.56 M/uL Hemoglobin 7.7 g/dL Hematocrit 24.0 % Mean Corpuscular Volume 93.8 fL Mean Corpuscular Hemoglobin 30.1 pg Mean Corpuscular Hemoglobin Concent 32.1 g/dl RDW Standard Deviation 63.8 fL RDW Coefficient of Variation 18.5 % Platelet Count 105 K/uL Mean Platelet Volume 9.0 fL Sodium Level 136 mmol/L Potassium Level 4.2 mmol/L Chloride Level 102 mmol/L Carbon Dioxide Level 30 mmol/L Anion Gap 4.0 mmol/L Blood Urea Nitrogen 19 mg/dl Creatinine 1.12 mg/dl Est Creatinine Clear Calc Drug Dose 46.3 ml/min Estimated GFR () 56.0 Estimated GFR (Non- 48.4 BUN/Creatinine Ratio 16.6 Random Glucose 97 mg/dl Calcium Level 8.0 mg/dl Assessment & Plan Palliative Performance Scale: 50 % Palliative Care Encounter Goals of Care COPD CKD III Obstructive pyelonephritis Lung Ca with mets to bone/liver Palliative Care Recommendations: -Continue with supportive treatment with transition to Home with Hospice support -Recommended patient family look into [employer] to assist with logistics regarding goal of a trip to [place] (i.e. O2 needs, nurse escort, etc) -GOALS of CARE discussed at the bedside with the patient and family - POLST form completed and placed on the chart Counseling and Coordination Total time spent 70 minutes with > 50% of that time spent reviewing the chart, assessing the patient, discussing GOALS OF CARE and completing a POLST form with the patient at the bedside.
--- NOTE | 2017-10-12 11:41 | Progress Note ---
Subjective Date of Service: October 12, 2017. Subjective Pt evaluation today including: conversation w/ patient, conversation w/ family , physical exam, lab review, review of studies, review of inpatient medication list Saw/examined the patient in room 415 She's doing well, pain controlled States she has oxygen at home; uses about 2-3L when needed No other problems at this time Problem List Medical Problems: (1) Anemia Status: Chronic (2) Cancer associated pain Status: Chronic (3) COPD (chronic obstructive pulmonary disease) Status: Chronic (4) Elevated white blood cell count Status: Acute (5) Hepatic metastasis Status: Acute (6) Immunocompromised Status: Acute (7) Lung cancer Permanent Comment: Pneumonia July 2015 admission and diagnosis of a DVT CT of the chest revealed right lower lobe nodule, surveillance for 6 months Recheck evaluation showed enlargement of the nodule Status post EBUS and biopsies 05/16/2016 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, Limited Stage Chronic renal disease Nonsurgical and chemotherapy candidate Status post completion of definitive radiation therapy 08/04/2016 received 6600 cGy Admission for right abdominal pain 08/30/2016 Finding of bone and liver metastasis Painful areas of metastasis right iliac wing and right femur Status post completion of radiation therapy to the right pelvis and right femur 09/10/2016 received 2500 cGy to each area Status: Chronic (8) PNA (pneumonia) Status: Acute (9) Pneumonia Status: Acute (10) Pyelonephritis Status: Acute (11) Right sided abdominal pain Status: Acute (12) Small cell lung cancer Status: Acute (13) SOB (shortness of breath) Status: Acute (14) Syncope Status: Acute (15) Weakness Status: Acute Review of Systems Constitutional: No fever, No chills, No weakness Respiratory: No shortness of breath Cardiac: No chest pain Abdomen: No pain (improved), No nausea, No vomiting, No diarrhea Musculoskeletal: No joint pain Medications Current Inpatient Medications Medications (Trade) Dose Ordered Sig/Nany Route Start Time Stop Time Status Last Admin Dose Admin Fluticasone Propionate (Flonase Nasal [place]) 2 sprays DAILY MARCIAL 10/11/17 08:00 11/10/17 07:59 10/12/17 08:05 2 SPRAYS Gabapentin (Neurontin Cap) 400 mg QAM PO 10/11/17 08:00 11/10/17 07:59 10/12/17 08:04 400 MG Gabapentin (Neurontin Cap) 800 mg HS PO 10/11/17 21:00 11/10/17 20:59 10/11/17 21:11 800 MG Albuterol/ Ipratropium (Duoneb) 3 ml Q4H PRN INH 10/11/17 05:15 11/10/17 05:14 Lorazepam (Ativan Tab) 0.5 mg TID PRN SL 10/11/17 05:15 11/10/17 05:14 Ondansetron HCl (Zofran Tab) 8 mg TID PO 10/11/17 08:00 11/10/17 07:59 10/12/17 08:04 8 MG Prochlorperazine Maleate (Compazine Tab) 10 mg Q6H PRN PO 10/11/17 05:15 11/10/17 05:14 Sertraline HCl (Zoloft Tab) 50 mg DAILY PO 10/11/17 08:00 11/10/17 07:59 10/12/17 08:05 50 MG Tramadol HCl (Ultram Tab) 50 mg Q8 PRN PO 10/11/17 05:15 11/10/17 05:14 Oxycodone HCl (Roxicodone Immediate Rel Tab) 5 mg Q8 PRN PO 10/11/17 05:15 10/25/17 05:14 Ceftriaxone Sodium 1 gm/ Dextrose 50 ml @ 100 mls/hr Q24H IV 10/11/17 17:00 10/15/17 16:59 10/11/17 17:12 100 MLS/HR Heparin Sodium (Porcine) (Heparin 100 Unit/ml 5ml Flush) 5 ml PRN PRN IV 10/11/17 18:30 11/10/17 18:29 10/12/17 08:27 5 ML Objective Vital Signs Date Time Temp Pulse Resp B/P (MAP) Pulse Ox O2 Delivery O2 Flow Rate FiO2 10/12/17 08:15 Nasal Cannula 3.0 10/12/17 07:13 37.0 85 18 117/65 (82) 90 Room Air 10/12/17 07:11 36.6 106 20 136/75 (95) 96 Nasal Cannula 2.5 10/12/17 04:05 37.0 106 20 130/77 (94) 96 Nasal Cannula 2.0 10/12/17 00:00 Nasal Cannula 3.0 10/11/17 23:47 37.1 106 20 122/70 (87) 98 Nasal Cannula 2.0 10/11/17 20:00 Nasal Cannula 3.0 10/11/17 19:50 37.1 110 20 115/71 (86) 97 Nasal Cannula 2.0 10/11/17 16:00 Nasal Cannula 3.0 10/11/17 15:48 36.6 107 20 120/75 (90) 100 Nasal Cannula 2.5 10/11/17 11:50 36.6 110 18 108/61 (77) 97 Nasal Cannula 2.0 Physical Exam General Appearance: no apparent distress Respiratory/Chest: lungs clear, normal breath sounds, no respiratory distress, no accessory muscle use Cardiovascular: regular rate, rhythm, no edema, no murmur Laboratory Results Last 24 Hours Test 10/11/17 12:00 10/12/17 05:47 Urine Color DK YELLOW Urine Appearance TURBID Urine pH 5.0 Urine Specific [place] 1.024 Urine Protein 2+ Urine Glucose (UA) NEG Urine Ketones TRACE Urine Occult Blood 2+ Urine Nitrite NEG Urine Bilirubin NEG Urine Urobilinogen NEG Urine Leukocyte Esterase LARGE Urine RBC (Auto) /hpf Urine Hyaline Casts (Auto) /lpf Urine RBC 10-30 /hpf Urine WBC >30 /hpf Urine Epithelial Cells 20-30 /lpf Urine Bacteria 1+ Urine Pathogenic Casts /lpf Urine Yeast PRESENT Urine Yeast (Auto) White Blood Count 4.46 K/uL Red Blood Count 2.56 M/uL Hemoglobin 7.7 g/dL Hematocrit 24.0 % Mean Corpuscular Volume 93.8 fL Mean Corpuscular Hemoglobin 30.1 pg Mean Corpuscular Hemoglobin Concent 32.1 g/dl RDW Standard Deviation 63.8 fL RDW Coefficient of Variation 18.5 % Platelet Count 105 K/uL Mean Platelet Volume 9.0 fL Sodium Level 136 mmol/L Potassium Level 4.2 mmol/L Chloride Level 102 mmol/L Carbon Dioxide Level 30 mmol/L Anion Gap 4.0 mmol/L Blood Urea Nitrogen 19 mg/dl Creatinine 1.12 mg/dl Est Creatinine Clear Calc Drug Dose 46.3 ml/min Estimated GFR () 56.0 Estimated GFR (Non- 48.4 BUN/Creatinine Ratio 16.6 Random Glucose 97 mg/dl Calcium Level 8.0 mg/dl Assessment and Plan 10/12 This is a 72 year old female with metastatic small cell lung cancer She has a complicated UTI, she will be on abx. until the She is to see hospice agency at home - they will have a meeting today (10/12) She has oxygen at home, she can continue to use this Will prescribe Percocet PRN for pain Right-sided abdominal pain associated with Nausea HISTORY CROHN'S CT abdomen showed no bowel obstruction or wall thickening. No evidence for acute appendicitis. No ascites or free air. Multiple osseous metastases. Pain control Zofran as needed SMALL CELL LUNG CANCER Liver metastases Bone metastases No more chemo treatment as per patient As an appointment with hospice team on Thursday Palliative care consult Complicated UTI On Rocephin IV, will complete abx course on 10/15 Denies any urinary symptoms CKD stage III Creatinine baseline between 1.1-1.2 Creatinine on admission 1.2 Stable COPD O2 DEPENDENT Continue supplemental oxygen Continue neb treatment HISTORY OF SINUS TACHYCARDIA HTN Metoprolol has been discontinued due to low BP HISTORY OF PE/DVT S/P IVC filter, not on anticoagulation secondary to thrombocytopenia VIRI Does not use CPAP DVT Prophylaxis on SCDs (due to history of thrombocytopenia) CODE STATUS full no mechanical ventilation
[2017-10-12] MEDS ORDERED: RXC5 PO (11:45)
--- NOTE | 2017-10-12 11:47 | Discharge Instructions ---
Discharge Instructions Date of Service October 12, 2017. Admission Reason for Admission: Abdominal Pain, Cancer Associated Pain Discharge Discharge Diagnosis / Problem: Cancer Pain, Metastatic Small Cell Lung Cancer Discharge Goals Goal(s): Decrease discomfort, Improve function, Diagnostic testing, Therapeutic intervention Activity Recommendations Activity Limitations: resume your previous activity . Instructions / Follow-Up Instructions / Follow-Up You will be prescribed Oxycodone for pain, use this as needed, try to alternate with Tramadol, but don't take them at the same time. Continue Rocephin through the port. Meet with hospice and discuss home hospice. Continue to use oxygen as needed. Enjoy [place]! Current Hospital Diet Patient's current hospital diet: Low Sodium Diet (2gm Na) Discharge Diet Recommended Diet: Low Sodium Diet (2gm Na) Pending Studies Studies pending at discharge: no Medical Emergencies . Who to Call and When: Medical Emergencies: If at any time you feel your situation is an emergency, please call 911 immediately. . Non-Emergent Contact Non-Emergency issues call your: Primary Care Provider . . "Provider Documentation" section prepared by Jess Stringer. .
--- NOTE | 2017-10-12 11:49 | Discharge Summary ---
Discharge Summary Date of Service October 12, 2017. Discharge Summary Admission Date: October 11, 2017 at 02:04 Discharge Date: October 12, 2017 Discharge Disposition: Home (home hospice) Principal Diagnosis: You will be prescribed Oxycodone for pain, use this as needed, try to alternate with Tramadol, but don't take them at the same time. Continue Rocephin through the port. Meet with hospice and discuss home hospice. Continue to use oxygen as needed. Enjoy [place]! Medication Reconciliation New Medications: Oxycodone HCl (Oxycodone HCl) 5 Mg Tab 5 MG PO Q8 PRN for severe Pain for 5 Days, #15 TAB Continued Medications: Albuterol Sulfate (Proventil Hfa) 108 Mcg/Act Aer 2 PUFFS INH Q6H PRN for SOB/Wheezing Ceftriaxone Sod (Rocephin) 1 Gm Inj 1 GM IV DAILY for 28 Days, VIAL BEGIN 09/18/17 X 28 DAYS. LAST DOSE 10/15/17. ADMINISTERED DAILY @ 1700 BY FAMILY VIA PORT. Fluticasone Propionate (Nasal) (Flonase Allergy Relief) 50 Mcg/Act Spr 2 SPRAYS MARCIAL DAILY Gabapentin (Neurontin) 400 Mg Cap 800 MG PO HS, CAP Gabapentin (Neurontin) 400 Mg Cap 400 MG PO QAM, CAP Home O2 Therapy (Oxygen) Gas 3 LITERS NA PRN Ipratropium-Albuterol (Duoneb) 3 Ml Nebu 3 ML INH Q4H PRN for SOB/COUGH, INHA Lorazepam (Ativan) 0.5 Mg Tab 0.5 MG SL TID PRN for Anxiety, TAB Ondansetron Hcl (Zofran) 8 Mg Tab 8 MG PO TID for Nausea or Vomiting, TAB Prochlorperazine Maleate (Compazine) 10 Mg Tab 10 MG PO Q6 PRN for Nausea, TAB Sertraline Hcl (Zoloft) 50 Mg Tab 50 MG PO DAILY, TAB Tramadol (Ultram) 50 Mg Tab 50 MG PO Q8 PRN for Pain, TAB Admission Information HPI (per Admitting provider): 72 years old female with past medical history of COPD, CKD stage III, chronic obstructive pyelonephritis, small cell lung cancer metastases to leave for an bone history of PE and DVT present to the ER after developed right side abdominal pain. Patient said pain started last night while She was at school play. Pain located in the right side of the abdomen, comes and goes, 8 out of 10 IN SEVERITY, nonradiating associated with nausea and dry heave. Patient said she took 2 tabs of tramadol with no relief. Last bowel movement was yesterday that was normal. Patient said that she is no longer doing chemo. She has an appointment on Thursday with palliative care for hospice. Denies any fever, palpitation, dizziness, chills, vomiting, dysuria, chest pain, and shortness of breath. Physical Exam (per Admitting): General Appearance: WD/WN, + obese Head: normocephalic, atraumatic Eyes: PERRL, EOMI ENT: hearing grossly normal Neck: no JVD, trachea midline Respiratory/Chest: chest non-tender, no respiratory distress, no accessory muscle use Cardiovascular: no JVD, + tachycardia Abdomen/GI: normal bowel sounds, + tenderness Back: no CVA tenderness Extremities/Musculoskelatal: no calf tenderness, + swelling Neurologic/Psych: alert, normal mood/affect, oriented x 3 Skin: warm/dry, no rash Hospital Course 10/12 This is a 72 year old female with metastatic small cell lung cancer She has a complicated UTI, she will be on abx. until the She is to see hospice agency at home - they will have a meeting today (10/12) She has oxygen at home, she can continue to use this Will prescribe Percocet PRN for pain Right-sided abdominal pain associated with Nausea HISTORY CROHN'S CT abdomen showed no bowel obstruction or wall thickening. No evidence for acute appendicitis. No ascites or free air. Multiple osseous metastases. Pain control Zofran as needed SMALL CELL LUNG CANCER Liver metastases Bone metastases No more chemo treatment as per patient As an appointment with hospice team on Thursday Palliative care consult Complicated UTI On Rocephin IV, will complete abx course on 10/15 Denies any urinary symptoms CKD stage III Creatinine baseline between 1.1-1.2 Creatinine on admission 1.2 Stable COPD O2 DEPENDENT Continue supplemental oxygen Continue neb treatment HISTORY OF SINUS TACHYCARDIA HTN Metoprolol has been discontinued due to low BP HISTORY OF PE/DVT S/P IVC filter, not on anticoagulation secondary to thrombocytopenia VIRI Does not use CPAP DVT Prophylaxis on SCDs (due to history of thrombocytopenia) CODE STATUS full no mechanical ventilation Total time spent on discharge = 35 minutes This includes examination of the patient, discharge planning, medication reconciliation, and communication with other providers. Discharge Instructions You will be prescribed Oxycodone for pain, use this as needed, try to alternate with Tramadol, but don't take them at the same time. Continue Rocephin through the port. Meet with hospice and discuss home hospice. Continue to use oxygen as needed. Enjoy [place]!
[2017-10-12 12:05] VITALS: BP 117/65; PULSE 85; TEMP 37; O2SAT 90
[2017-10-12 12:07] VITALS: BP 137/80; PULSE 104; TEMP 36.8; O2SAT 98
== END 2017-10-12 13:20 | disposition hospice, home (50) | DRG 948 ==
LOC: C.EDB 22:19 → C.4E 10-11 02:04 → EDBEDREQ 10-11 02:10 → ENRESERV 10-11 02:16
PROVIDERS: ADMIT Internal Medicine; ATTEND Family Medicine
DX: G89.3 Neoplasm related pain (acute) (chronic) (principal); C78.7 Secondary malignant neoplasm of liver and intrahepatic bile duct; C34.31 Malignant neoplasm of lower lobe, right bronchus or lung; Z51.5 Encounter for palliative care; C79.51 Secondary malignant neoplasm of bone; K50.90 Crohn's disease, unspecified, without complications; N39.0 Urinary tract infection, site not specified; I12.9 Hypertensive chronic kidney disease with stage 1 through stage 4 chronic kidney disease, or unspecified chronic kidney disease; J44.9 Chronic obstructive pulmonary disease, unspecified; Z86.718 Personal history of other venous thrombosis and embolism; Z87.891 Personal history of nicotine dependence; Z88.1 Allergy status to other antibiotic agents; D64.9 Anemia, unspecified; N18.3 Chronic kidney disease, stage 3 (moderate); Z99.81 Dependence on supplemental oxygen; G47.33 Obstructive sleep apnea (adult) (pediatric)